=== PATIENT | female | born 1955 | race Caucasian/White ===

== ENCOUNTER → 2017-09-11 | Outpatient (CLI) | payer MEDICARE ==
--- NOTE | 2017-09-11 10:19 | CT ---
EXAMINATION TYPE: CT abdomen pelvis w con DATE OF EXAM: 09/11/2017 COMPARISON: 11/23/2012 HISTORY: rectal bleeding and diarrhea CT DLP: 1971.4 mGycm CONTRAST: CT scan of the abdomen and pelvis is performed with Oral Contrast and with IV Contrast, patient injec indio with 100 mL of Omnipaque 300. FINDINGS: LUNG BASES-: No visible nodule. No infiltrate. LIVER/GB: Hepatic steatosis. Cholecystectomy changes. Hepatic cyst left hepatic lobe lateral segment measuring 2.2 cm. No space occupying hepatic lesion. Biliary tree is of normal caliber. PANCREAS: No inflammation. No distinct mass. SPLEEN: No splenic enlargement. No lesion seen. ADRENALS: No nodule. No thickening. KIDNEYS/BLADDER: No hydronephrosis. 2 nonobstructing calculi left kidney. No distinct renal mass. U rinary bladder grossly unremarkable. BOWEL: Normal appendix. Normal bowel caliber. No inflammation. GENITAL ORGANS: No gross abnormality. LYMPH NODES: No greater than 1cm abdominal or pelvic lymph nodes are appreciated. AORTA: No significant abnormality. OSSEOUS STRUCTURES: No significant abnormality is seen. OTHER: No significant additional abnormality is seen. IMPRESSION: 1. Hepatic steatosis. 2. Nonobstructing calculi left kidney. 3. Hepatic cyst.
--- NOTE | 2017-09-11 11:11 | USB ---
Reason for exam: clinical finding. History: Family history of breast cancer in mother at age 58. Lumpectomy of the right breast, 1997. Chemotherapy, 1997. Radiation therapy, 1998. Excisional biopsy of the left breast. 2 excisional biopsies of the right breast. US Breast RT Right breast ultrasound includes all four quadrants, the retroareolar region and axilla. Finding demonstrates a 3.9 x 4.0 x 2.2cm irregular, solid, hypoechoic lesion at infraclavicular position, abnormal lymph node. These results were verbally communicated with the patient and result sheet given to the patient on 09/11/17. ASSESSMENT: Suspicious, BI-RAD 4 RECOMMENDATION: Ultrasound core biopsy of the right breast. Called with mammographic findings and has scheduled an appointment for the patient for 09/11/17 at 1:30 with EM Mena. PRELIMINARY REPORT CALLED AND FAXED TO EM MENA ON 09/11/17.
== END | disposition home or self-care (01) ==
LOC: RADUSMAIN 08:54
PROVIDERS: ATTEND Physician Assistant
DX: N20.0 Calculus of kidney (principal); K76.0 Fatty (change of) liver, not elsewhere classified; K76.89 Other specified diseases of liver; R22.2 Localized swelling, mass and lump, trunk; Z88.1 Allergy status to other antibiotic agents; Z88.2 Allergy status to sulfonamides
CPT/HCPCS: 76641; 74177; Q9967

== ENCOUNTER 2017-09-23 07:39 | Day surgery (SDC) | payer MEDICARE ==
[2017-09-23 09:31] VITALS: RESP 16; TEMP 97.6
[2017-09-23] MEDS ORDERED: ALPRAZolam 0.5 MG TAB PO STA (09:37)
--- NOTE | 2017-09-23 12:54 | US ---
ULTRASOUND GUIDED CORE BIOPSY CHEST WALL MASS: CLINICAL HISTORY: Right chest wall mass FINDINGS: The procedure was explained to the patient. The risks, complications, benefits and alternatives were discussed and any questions were answered. Informed consent was obtained. Patient was placed supin e on the ultrasound table and prepped and draped in the usual sterile fashion. Utilizing a 18-gauge core biopsy needle to passes were made into the questioned mass. Patient was stable throughout the procedure. Pathology is pending. All elements of maximal barrier technique were utilized. IMPRESSION: 1. Successful ultrasound guided core biopsy of a right chest wall mass.
[2017-09-23 14:41] VITALS: BP 128/83; PULSE 75
--- NOTE | 2017-09-25 09:55 | MM ---
Reason for exam: additional evaluation requested from prior study. Last mammogram was performed 1 year ago. History: Patient has history of breast cancer at age 43. Family history of breast cancer in mother at age 58. Lumpectomy of the right breast, 1997. Chemotherapy, 1997. Radiation therapy, 1997. Excisional biopsy of the left breast. 2 excisional biopsies of the right breast. 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 MG 3D Diag Mammo W/Cad SCOTTY Bilateral CC and MLO view(s) were taken. XCCL view(s) were taken of the left breast. Prior study comparison: September 11, 2017, right breast US breast RT. September 24, 2016, mammogram. There are scattered fibroglandular densities. Post surgical and post therapy change right breast. Asymmetric density at the lumpectomy site maybe new from 2017. Spot views recommended. ASSESSMENT: Incomplete: need additional imaging evaluation, BI-RAD 0 RECOMMENDATION: Special view mammogram of the right breast. (spot MLO, XCCL, try at lateral) If lesion persists on supplemental views, image directed ultrasound is recommended. [facility] will attempt to contact patient to return for supplemental views and ultrasound if indicated.
== END 2017-09-23 11:10 | disposition home or self-care (01) ==
LOC: RADPROMAIN 07:39 → WWCWWP 11:10
PROVIDERS: ATTEND Surgery
DX: C77.1 Secondary and unspecified malignant neoplasm of intrathoracic lymph nodes (principal); Z85.3 Personal history of malignant neoplasm of breast
CPT/HCPCS: 88305; 88342; 88341; 77066; 76942; 38505; G0279

== ENCOUNTER → 2017-10-04 | Outpatient (CLI) | payer MEDICARE ==
--- NOTE | 2017-10-06 15:19 | PE ---
Nuclear medicine PET/CT HISTORY: Breast carcinoma, subsequent Patient received 13.8 mCi F-18 FDG intravenously in delayed scanning was performed from the skull bas e to the mid thighs. Localization and attenuation correction CT scan was performed. Correlation to prior CT abdomen pelvis 09/11/2017 FINDINGS: Neck and chest: There is adenopathy present in the subpectoral region, supraclavicular location on th e right with associated hypermetabolic uptake 5-8. SUV is 11-17 in subpectoral region. Right axillary region also shows a focal area of uptake, SUV is 4.6. No evident lung mass. No mediastinal adenopath y. Postop changes are noted to the right chest. Abdomen pelvis: No evident liver mass are retroperitoneal adenopathy. Patient is post cholecystectomy . No suspicious hypermetabolic uptake. Osseous structures: No evident mass. Facet arthropathy noted at the lower lumbar spine, there are deg enerative disc changes. No suspicious hypermetabolic uptake. IMPRESSION: Extensive adenopathy over the right chest, supraclavicular region, and axilla as describe dStephy
== END | disposition home or self-care (01) ==
LOC: RADPETMAIN 09:55
PROVIDERS: ATTEND Internal Medicine Hematology & Oncology
DX: C50.919 Malignant neoplasm of unspecified site of unspecified female breast (principal); R59.0 Localized enlarged lymph nodes
CPT/HCPCS: 78815; A9552

== ENCOUNTER → 2017-12-18 | Outpatient (CLI) | payer MEDICARE ==
--- NOTE | 2017-12-18 15:52 | CT ---
EXAMINATION TYPE: CT chest w con DATE OF EXAM: 12/18/2017 COMPARISON: March 02, 1714 HISTORY: Follow up breast cancer CT DLP: 775.1 mGycm Automated exposure control for dose reduction was used. CONTRAST: CT scan of the chest is performed with IV Contrast, patient injected with 100 mL of Isovue 300. FINDINGS: LUNGS: The lungs are grossly clear, there is no concerning parenchymal mass or nodule identified. T here is no pleural effusion or pneumothorax seen. The tracheobronchial tree is patent. MEDIASTINUM: There are no greater than 1 cm hilar or mediastinal lymph nodes. No pericardial effusi on is seen. Thoracic aorta is of normal caliber. The heart is not enlarged. UPPER ABDOMEN: Cholecystectomy clips. Nonobstructing left renal calculus. OTHER: There is lobulated the retropectoral mass on the right measuring 3.1 x 3.2 cm as well as musa tional mass anterior chest wall involving the pectoralis major and minor musculature measuring 2.1 cm there is associated muscular edema. No additional soft tissue masses are identified within the field -of-view at this time. Right-sided lumpectomy changes evident. Right axillary clips noted. No evidenc e for axillary adenopathy. IMPRESSION: 1. Right-sided chest wall masses noted to involve the right-sided pectoralis musculature as noted. M etastatic disease or recurrent disease is not excluded.
== END | disposition home or self-care (01) ==
LOC: RADCTMAIN 14:09
PROVIDERS: ATTEND Internal Medicine Hematology & Oncology
DX: C50.111 Malignant neoplasm of central portion of right female breast (principal); R59.0 Localized enlarged lymph nodes; Z91.013 Allergy to seafood
CPT/HCPCS: 82565; 84520; 71260; 36415; Q9967

== ENCOUNTER → 2018-02-07 | Outpatient (CLI) | payer MEDICARE ==
--- NOTE | 2018-02-09 08:56 | PE ---
EXAMINATION TYPE: PET CT fusion skull to thigh DATE OF EXAM: 02/07/2018 COMPARISON: PET/CT dated 10/04/2017 HISTORY: Breast cancer. Follow-up exam. Surveillance. Subsequent treatment strategy/treatment monitor ing. Right breast cancer treated with radiation therapy in 2018. Patient describes last chemotherapy session in 1977. TECHNIQUE: Following the intravenous administration of 12.24 mCi of F-18 FDG, whole body images are performed from the skull base to the midthigh. Images are reviewed on the computer in the coronal, a xial, and sagittal planes. Reconstructed rotating images are created on independent workstation and reviewed on the computer. A localization and attenuation correction CT is performed in conjunction with the PET scan. SCAN: Second, subsequent treatment strategy FINDINGS: Mediastinal background: 2.88 Abdominal background: 4.23. SKULL BASE/NECK/CHEST WALL: There is redemonstration of right supraclavicular adenopathy with a maxi mum SUV of 2.49, hypermetabolic as compared to mediastinal background. The largest lymph node is seen in series 2 image 64 measuring 8 mm in short axis. However there is decrease in avidity with the kristen or hypermetabolic uptake ranging from 5-8 on the exam of 12/02/2017. Subpectoral upper metabolic uptake on the prior exam ranged from 11 through 17 and involvement of the chest wall now ranges from 3.6-4.66, also markedly decreased. There is asymmetric enlargement of the right chest wall musculature with more oval subpectoral mass, possibly adenopathy measuring approxim ately 1.9 cm in short axis on series 2 image 76. Metabolic uptake is seen medial to the right humerus with a maximum SUV of 4.43, possibly an addition al site of intramuscular involvement or more likely muscular usage during the examination. Additional ly there is focal uptake near the infraspinatus and posterior right lateral chest wall with a maximum SUV of 3.5 without discrete lesion. Within the resection site from the prior right breast cancer along the chest wall there is a maximum SUV of 2.34, below mediastinal background. New uptake is seen within the left supraspinatus and infraspinatus measuring up to 4.35. This could b e related to muscular strain/sprain or tear. No corresponding CT lesion is seen. Additionally bilater al pelvic muscular uptake measuring up to 4.76 likely relates to muscular usage during the examinatio n or strain rather than metastasis. LUNGS, MEDIASTINUM, AND HILAR REGION: There is a focal consolidation within the right upper lobe that has a maximum SUV of 2.63, similar to mediastinal background. This is new from the prior exam and ma y represent focal inflammatory or infectious etiology. Delayed radiation response is considered also possible. ABDOMEN AND PELVIS: No suspicious metabolic uptake OSSEOUS STRUCTURES: There is focal radiotracer uptake with a maximum SUV of 3.5 to at the superior en dplate of the T10 vertebral body without corresponding CT lesion and degenerative changes at this lev el. This could be degenerative in nature. This is below abdominal background. OTHER CT: Paranasal sinuses and mastoid air cells are well aerated. No new suspicious osseous lesion is seen. Multilevel moderate degenerative changes of the spine and mild degenerative changes of the s acroiliac joints and femoral acetabular joints are noted. As described above there is a focal consoli dation involving the right apex and upper lobe that elongates with air bronchograms extending towards the pleural surface and hilum. This could be infectious/inflammatory or due to postradiation change with neoplasm considered less likely. Other words there is multifocal subsegmental atelectasis within the lungs. No cardiac enlargement, pericardial effusion, or pleural effusion. The unenhanced intra-a bdominal organs are grossly unremarkable. Gallbladder is absent and there is a few nonobstructing lef t renal calculi measuring up to 6 mm. No dilated large or small bowel. No adenopathy within the abdom en or pelvis. There is ectasia of the left external iliac vein. This does not appear to be contiguous with a lymph node and has no hypermetabolic activity with a maximum SUV of 1.14. IMPRESSION: 1. Response to treatment. Although there is hypermetabolic activity that is redemonstrated multifocal ly within the right chest wall there is marked decrease in hypermetabolic activity of each site in co mparison to the prior 10/04/2017. There is also decrease in avidity of the right supraclavicular adeno montse. 2. New focal consolidation within the right upper lobe that may represent inflammatory/infectious monalisa ology or post radiation change with similar FDG avidity to mediastinal background. Short-term follow- up CT thorax is recommended in 3 months to ensure no interval growth. 3. New uptake within the left supraspinatus and infraspinatus likely relating to muscular injury rath er than contralateral intramuscular metastasis. 4. No infradiaphragmatic suspicious hypermetabolic activity to suggest metastatic disease.
== END | disposition home or self-care (01) ==
LOC: RADPETMAIN 08:25
PROVIDERS: ATTEND Internal Medicine Hematology & Oncology
DX: C50.911 Malignant neoplasm of unspecified site of right female breast (principal); R59.0 Localized enlarged lymph nodes; R94.8 Abnormal results of function studies of other organs and systems
CPT/HCPCS: 78815; A9552

== ENCOUNTER → 2018-03-02 | Outpatient (CLI) | payer MEDICARE ==
--- NOTE | 2018-03-02 16:02 | XR ---
EXAMINATION TYPE: XR chest 2V DATE OF EXAM: 03/02/2018 COMPARISON: CT chest December 18, 2017. PET CT February 07, 2018. HISTORY: COPD and breast cancer. TECHNIQUE: Frontal and lateral views of the chest are obtained. FINDINGS: There is persistent spiculated opacity right upper lung consistent with atelectasis and/or infiltrate when correlating with recent PET/CT. Left lung is clear. The cardiac silhouette size is s table and upper limits of normal. The osseous structures are intact. Surgical changes from lumpecto my right breast are identified extending into axilla. IMPRESSION: Persistent right upper lobe infiltrate and/or atelectasis.
== END | disposition home or self-care (01) ==
LOC: RADXRMAIN 15:32
PROVIDERS: ATTEND Nurse Practitioner Adult Health
DX: C50.111 Malignant neoplasm of central portion of right female breast (principal); I10 Essential (primary) hypertension; J44.9 Chronic obstructive pulmonary disease, unspecified
CPT/HCPCS: 71046

== ENCOUNTER 2018-03-03 15:06 | Inpatient (IN) | payer MEDICARE ==
[2018-03-03] MEDS ORDERED: DEXAMETHASONE SOD PHOSPHATE 10 MG/ML 1 ML VIAL IV STA (15:21)
[2018-03-03] MEDS ORDERED: ALBUTEROL NEBULIZED 2.5 MG/3 ML INHALATION STA (15:21)
[2018-03-03] MEDS ORDERED: IPRATROPIUM 0.5 MG/2.5 ML NEBU INHALATION STA (15:21)
--- NOTE | 2018-03-03 15:25 | ED ---
General Adult HPI - General Chief complaint: Shortness of Breath Stated complaint: SOB Time Seen by Provider: 03/03/18 15:13 Source: patient, RN notes reviewed, old records reviewed Mode of arrival: wheelchair Limitations: no limitations - History of Present Illness Initial comments: 63-year-old female presenting for cough and dyspnea. Patient has had worsening cough and difficulty breathing over the past 4 days. She was seen by her oncologist and prescribed steroids and Levaquin. She had a right upper lobe pneumonia on x-ray which she received as an outpatient. Symptoms have failed to improve despite prednisone and Levaquin. She denies fever but states she has had some chills. Cough is productive of a small amount of white sputum. She also has some chest pain associated with her cough. No central radiating chest pain. No abdominal pain. No nausea or vomiting. Patient has history of breast cancer currently on oral treatment. She does follow with pulmonology for asthma and COPD. She has remote history of tobacco use. - Related Data Home Medications Medication Instructions Recorded Confirmed Albuterol Sulfate [Ventolin HFA] 2 puff INHALATION RT-Q4H PRN 11/23/13 03/03/18 Aspirin 81 mg PO DAILY 11/23/13 03/03/18 Cetirizine HCl [Zyrtec] 10 mg PO DAILY 11/23/13 03/03/18 Budesonide-Formot 160-4.5 Mcg 2 puff INHALATION RT-BID 09/15/14 03/03/18 [Symbicort 160-4.5 Mcg Inhaler] Omeprazole [PriLOSEC] 20 mg PO AC-BRKFST 01/20/15 03/03/18 Triamterene-Hctz 37.5-25Mg 1 tab PO DAILY 01/20/15 03/03/18 [Dyazide 37.5-25 Capsule] Losartan Potassium 50 mg PO DAILY 01/22/15 03/03/18 Albuterol Nebulized [Ventolin 2.5 mg INHALATION RT-Q6H 05/16/16 03/03/18 Nebulized] Calcium Carbonate/Vitamin D3 1 tab PO DAILY 03/03/18 03/03/18 [Calcium 500-Vit D3 200 Tablet] Letrozole [Femara] 2.5 mg PO DAILY 03/03/18 03/03/18 Palbociclib [Ibrance] 125 mg PO DIRECTED 03/03/18 03/03/18 predniSONE 10 mg PO DAILY PRN 03/03/18 03/03/18 Allergies Allergy/AdvReac Type Severity Reaction Status Date / Time shellfish derived [Shrimp] Allergy Mild Unknown Verified 03/03/18 15:44 Sulfa (Sulfonamide Allergy Rash/Hives Verified 03/03/18 15:44 Antibiotics) clarithromycin [From Biaxin] AdvReac Unknown Verified 03/03/18 15:44 Review of Systems ROS Statement: Those systems with pertinent positive or pertinent negative responses have been documented in the HPI. ROS Other: All systems not noted in ROS Statement are negative. Past Medical History Past Medical History: Asthma, Cancer, COPD, Deep Vein Thrombosis (DVT), GERD/ Reflux, Hypertension, Myocardial Infarction ([place]) Additional Past Medical History / Comment(s): BREAST CANCER, PALPITAIONS, KIDNEY STONES, MIGRANES, SHINGLES 2O YEARS AGO, PVD, Last Myocardial Infarction Date:: 2008 History of Any Multi-Drug Resistant Organisms: None Reported Past Surgical History: Appendectomy, Section, Cholecystectomy, Hysterectomy Additional Past Surgical History / Comment(s): Laparoscopy, Lumpectomy with lymph node resection in 1997 ON RIGHT BREAST DID RADIATION AND CHEMO, STILL HAS METAL CLIPS IN SCOTTY BREASTS FROM WHEN THEY DID MAMORGAMS AND BIOPSIES. Past Anesthesia/Blood Transfusion Reactions: No Reported Reaction Additional Past Anesthesia/Blood Transfusion Reaction / Comment(s): CLAUSTRAPHOBIA Past Psychological History: No Psychological Hx Reported Smoking Status: Former smoker Past Alcohol Use History: Occasional Past Drug Use History: None Reported - Past Family History Father Family Medical History: Hypertension Additional Family Medical History / Comment(s): DIVERTICULITIS, IN HIS SLEEP AT AGE 81 Mother Family Medical History: Cancer, Hypertension Additional Family Medical History / Comment(s): BREAST CANCER General Exam Limitations: no limitations General appearance: alert, in no apparent distress Head exam: Present: atraumatic, normocephalic Eye exam: Present: normal appearance, PERRL, EOMI ENT exam: Present: normal exam Neck exam: Present: normal inspection. Absent: tenderness, meningismus Respiratory exam: Present: respiratory distress, wheezes, decreased breath sounds Cardiovascular Exam: Present: normal rhythm, tachycardia GI/Abdominal exam: Present: soft. Absent: distended, tenderness Extremities exam: Present: pedal edema (B/L) Back exam: Present: normal inspection Neurological exam: Present: alert, oriented X3, CN II-XII intact. Absent: motor sensory deficit Psychiatric exam: Present: normal affect, normal mood Skin exam: Present: warm, dry, intact. Absent: cyanosis, diaphoretic Course Vital Signs 03/03/18 03/03/18 03/03/18 15:09 15:34 15:35 Temperature 98.2 F Pulse Rate 106 H 86 Respiratory 24 24 18 Rate Blood Pressure 139/56 O2 Sat by Pulse 98 Oximetry 03/03/18 03/03/18 15:57 16:10 Temperature Pulse Rate 88 100 Respiratory 18 22 Rate Blood Pressure 111/58 O2 Sat by Pulse 96 Oximetry EKG Findings - EKG Comments: EKG Findings:: EKG: Normal sinus rhythm, rate of 93, MI interval 152, QRS duration 86, QTC 447, no ST segment elevation or depression. Medical Decision Making - Medical Decision Making 63-year-old female presenting with worsening cough and dyspnea. Patient has been on antibiotics as an outpatient. She's been on steroids with no improvement. Symptoms have been worsening. Repeat chest x-rays obtained, this does show a right upper lobe pneumonia and possible basilar pneumonia on the left. Patient is started on IV antibiotics and will be admitted for treatment of both COPD and pneumonia. Laboratory studies reveal normal white blood cell count, stable hemoglobin, lactic acid is mildly elevated at 2.4 which is treated with IV hydration. Troponin and BNP are negative. Case discussed with Dr. Youngblood who will accept admission. - Lab Data Result diagrams: 03/03/18 15:25 03/03/18 15:25 Lab Results 03/03/18 03/03/18 03/03/18 Range/Units 15:25 15:25 15:25 WBC 4.2 (3.8-10.6) k/uL RBC 3.97 (3.80-5.40) m/uL Hgb 13.1 (11.4-16.0) gm/dL Hct 38.4 (34.0-46.0) % MCV 96.8 (80.0-100.0) fL MCH 32.9 (25.0-35.0) pg MCHC 34.0 (31.0-37.0) g/dL RDW 16.7 H (11.5-15.5) % Plt Count 220 (150-450) k/uL Neutrophils % 77 % Lymphocytes % 16 % Monocytes % 5 % Eosinophils % 1 % Basophils % 0 % Neutrophils # 3.2 (1.3-7.7) k/uL Lymphocytes # 0.7 L (1.0-4.8) k/uL Monocytes # 0.2 (0-1.0) k/uL Eosinophils # 0.0 (0-0.7) k/uL Basophils # 0.0 (0-0.2) k/uL Anisocytosis Slight Macrocytosis Slight PT (9.0-12.0) sec INR (<1.2) APTT (22.0-30.0) sec Sodium 140 (137-145) mmol/L Potassium 4.2 (3.5-5.1) mmol/L Chloride 106 (98-107) mmol/L Carbon Dioxide 21 L (22-30) mmol/L Anion Gap 13 mmol/L BUN 23 H (7-17) mg/dL Creatinine 0.80 (0.52-1.04) mg/dL Est GFR (CKD-EPI)AfAm >90 (>60 ml/min/1.73 sqM) Est GFR (CKD-EPI)NonAf 80 (>60 ml/min/1.73 sqM) Glucose 76 (74-99) mg/dL Plasma Lactic Acid Brayan (0.7-2.0) mmol/L Calcium 9.7 (8.4-10.2) mg/dL Magnesium 1.9 (1.6-2.3) mg/dL Total Bilirubin 1.0 (0.2-1.3) mg/dL AST 22 (14-36) U/L ALT 25 (9-52) U/L Alkaline Phosphatase 73 (38-126) U/L Total Creatine Kinase 55 (30-135) U/L CK-MB (CK-2) 0.6 (0.0-2.4) ng/mL CK-MB (CK-2) Rel Index 1.1 Troponin I <0.012 (0.000-0.034) ng/mL NT-Pro-B Natriuret Pep pg/mL Total Protein 7.6 (6.3-8.2) g/dL Albumin 4.7 (3.5-5.0) g/dL 03/03/18 03/03/18 03/03/18 Range/Units 15:25 15:25 15:25 WBC (3.8-10.6) k/uL RBC (3.80-5.40) m/uL Hgb (11.4-16.0) gm/dL Hct (34.0-46.0) % MCV (80.0-100.0) fL MCH (25.0-35.0) pg MCHC (31.0-37.0) g/dL RDW (11.5-15.5) % Plt Count (150-450) k/uL Neutrophils % % Lymphocytes % % Monocytes % % Eosinophils % % Basophils % % Neutrophils # (1.3-7.7) k/uL Lymphocytes # (1.0-4.8) k/uL Monocytes # (0-1.0) k/uL Eosinophils # (0-0.7) k/uL Basophils # (0-0.2) k/uL Anisocytosis Macrocytosis PT 10.1 (9.0-12.0) sec INR 1.0 (<1.2) APTT 22.5 (22.0-30.0) sec Sodium (137-145) mmol/L Potassium (3.5-5.1) mmol/L Chloride (98-107) mmol/L Carbon Dioxide (22-30) mmol/L Anion Gap mmol/L BUN (7-17) mg/dL Creatinine (0.52-1.04) mg/dL Est GFR (CKD-EPI)AfAm (>60 ml/min/1.73 sqM) Est GFR (CKD-EPI)NonAf (>60 ml/min/1.73 sqM) Glucose (74-99) mg/dL Plasma Lactic Acid Brayan 2.4 H* (0.7-2.0) mmol/L Calcium (8.4-10.2) mg/dL Magnesium (1.6-2.3) mg/dL Total Bilirubin (0.2-1.3) mg/dL AST (14-36) U/L ALT (9-52) U/L Alkaline Phosphatase (38-126) U/L Total Creatine Kinase (30-135) U/L CK-MB (CK-2) (0.0-2.4) ng/mL CK-MB (CK-2) Rel Index Troponin I (0.000-0.034) ng/mL NT-Pro-B Natriuret Pep 212 pg/mL Total Protein (6.3-8.2) g/dL Albumin (3.5-5.0) g/dL Disposition Clinical Impression: Acute exacerbation of chronic obstructive airways disease, Community acquired pneumonia Disposition: ADMITTED IP TO THIS [facility] Condition: Stable Is patient prescribed a controlled substance at d/c from ED?: No Referrals: None,Stated [REFERRING] - 1-2 days Decision to Admit Reason: Admit from EC Decision Date: 03/03/18 Decision Time: 16:54
[2018-03-03 15:50] LABS: Partial Thromboplastin Time 22.5 sec (22.0-30.0); Prothrombin Time 10.1 sec (9.0-12.0)
[2018-03-03 15:53] LABS: Anisocytosis Slight; Basophils % (A) 0 %; Eosinophils % (A) 1 %; HCT 38.4 % (34.0-46.0); HGB 13.1 gm/dL (11.4-16.0); Lymphocytes # (A) 0.7 k/uL (1.0-4.8); Lymphocytes % (A) 16 %; MCH 32.9 pg (25.0-35.0); MCV 96.8 fL (80.0-100.0); Macrocytosis Slight; Mean Platelet Volume 7.1; Monocytes # (A) 0.2 k/uL (0-1.0); Monocytes % (A) 5 %; Neutrophils # (A) 3.2 k/uL (1.3-7.7); Neutrophils % (A) 77 %; Platelet Count 220 k/uL (150-450); RBC 3.97 m/uL (3.80-5.40); RDW 16.7 % (11.5-15.5); WBC 4.2 k/uL (3.8-10.6)
[2018-03-03 15:56] LABS: ALT 25 U/L (9-52); AST 22 U/L (14-36); Albumin 4.7 g/dL (3.5-5.0); Alkaline Phosphatase 73 U/L (38-126); Anion Gap 13 mmol/L; Blood Urea Nitrogen 23 mg/dL (7-17); Calcium 9.7 mg/dL (8.4-10.2); Carbon Dioxide 21 mmol/L (22-30); Chloride 106 mmol/L (98-107); Glucose 76 mg/dL (74-99); Magnesium 1.9 mg/dL (1.6-2.3); Potassium 4.2 mmol/L (3.5-5.1); Sodium 140 mmol/L (137-145); Total Protein 7.6 g/dL (6.3-8.2)
[2018-03-03 16:16] LABS: Creatine Kinase 55 U/L (30-135)
[2018-03-03] MEDS ORDERED: SODIUM CHLORIDE 0.9% 500 ML IV ONE (16:18)
[2018-03-03] MEDS ORDERED: LEVOFLOXACIN 500MG-D5W PMX 500 MG in DEXTROSE/WATER 1 100ML.BAG IVPB STA (16:19)
[2018-03-03] MEDS ORDERED: VANCOMYCIN IV PER PHARMACY 1 EACH MISC MISCELLANE PRN (16:19)
--- NOTE | 2018-03-03 16:24 | XR ---
EXAMINATION TYPE: XR chest 2V DATE OF EXAM: 03/03/2018 COMPARISON: Chest CT 08/20/2017. PET CT February 07, 2018. Two-view chest x-ray from yesterday. HISTORY: Recent diagnosis of pneumonia with shortness of breath for 4 days. TECHNIQUE: Frontal and lateral views of the chest are obtained. FINDINGS: There is persistent patchy right upper lobe opacity. There is developing left basilar opac ity. No pleural effusion or pneumothorax is seen bilaterally. The cardiac silhouette size is stable a nd within normal limits. Surgical clips right axillary region are seen. Cholecystectomy clips are no indio. The osseous structures are intact. IMPRESSION: Persistent suspicious right upper lobe infiltrate and/or atelectasis with developing patc hy left basilar atelectasis and/or infiltrate noted.
[2018-03-03 16:29] LABS: Creatine Kinase MB 0.6 ng/mL (0.0-2.4); Troponin I <0.012 ng/mL (0.000-0.034)
[2018-03-03] MEDS: SODIUM CHLORIDE 0.9% 1,000 ML IV SCH (16:31)
[2018-03-03] MEDS ORDERED: VANCOMYCIN 2,500 MG in SODIUM CHLORIDE 0.9% 500 ML IVPB ONE (16:45)
[2018-03-03] MEDS ORDERED: IPRATROPIUM-ALBUTEROL 3 ML NEB INHALATION PRN (16:54)
[2018-03-03] MEDS: IPRATROPIUM-ALBUTEROL 3 ML NEB INHALATION SCH (19:22)
[2018-03-03] MEDS: SYMBICORT 160-4.5 MCG INHALER INHALATION SCH (19:32)
[2018-03-03] MEDS: LETROZOLE 2.5 MG TAB PO SCH (19:39)
[2018-03-03] MEDS: methylPREDNISolone SOD SUCCI 125 MG/2 ML VIAL IV SCH (19:40)
[2018-03-03 21:43] LABS: Glucose,Whole Blood 163 mg/dL (75-99)
[2018-03-03] MEDS: INSULIN ASPART 100 UNIT/ML 1 ML 10 ML VIAL SQ SCH (22:38)
[2018-03-04] MEDS: methylPREDNISolone SOD SUCCI 125 MG/2 ML VIAL IV SCH ×5 (01:21→23:09)
[2018-03-04] MEDS: SODIUM CHLORIDE 0.9% 1,000 ML IV SCH ×2 (06:23→17:18)
[2018-03-04] MEDS: VANCOMYCIN 2,000 MG in SODIUM CHLORIDE 0.9% 500 ML IVPB SCH ×2 (06:26→17:15)
[2018-03-04 06:43] LABS: Glucose,Whole Blood 162 mg/dL (75-99)
[2018-03-04] MEDS: SYMBICORT 160-4.5 MCG INHALER INHALATION SCH ×2 (07:38→20:42)
[2018-03-04] MEDS: IPRATROPIUM-ALBUTEROL 3 ML NEB INHALATION SCH ×4 (07:38→20:42)
[2018-03-04] MEDS: CALCIUM CARB-VIT D 500MG-200UN 1 EACH TAB PO SCH (07:39)
[2018-03-04] MEDS: PANTOPRAZOLE 40 MG TABLET PO SCH (07:39)
[2018-03-04] MEDS: LOSARTAN 50 MG TAB PO SCH (07:40)
[2018-03-04] MEDS: LORATADINE 10 MG TAB PO SCH (07:40)
[2018-03-04] MEDS: ASPIRIN 81 MG PO SCH (07:40)
[2018-03-04] MEDS: TRIAMTERENE-HCTZ 37.5-25MG 1 EACH CAP PO SCH (07:40)
[2018-03-04] MEDS: LETROZOLE 2.5 MG TAB PO SCH (07:40)
[2018-03-04] MEDS: INSULIN ASPART 100 UNIT/ML 1 ML 10 ML VIAL SQ SCH ×4 (07:43→21:23)
--- NOTE | 2018-03-04 11:44 | P.HPIM ---
History of Present Illness 63-year-old female is being treated for breast cancer with metastatic cancer on chemotherapy. Patient developed community acquired pneumonia. Has history of COPD and asthma. Patient is failed outpatient treatment Review of Systems Constitutional: Reports fever Respiratory: Reports cough, Reports cough with sputum Past Medical History Past Medical History: Asthma, Cancer, COPD, Deep Vein Thrombosis (DVT), GERD/ Reflux, Hypertension, Myocardial Infarction (VT) Additional Past Medical History / Comment(s): RT BREAST CANCER 1997 HAD SX/CHEMO /RADIATION AND IN SEPTEMBER 2017 REOCCURANCE RT BREAST CANCER HAD 10 RADIATION TXS AND IS ON ORAL CHEMO(IBRANCE AND FEMARA), PALPITAIONS, KIDNEY STONES,UTI-ECOLI , MIGRANES, SHINGLES 2O YEARS AGO, PVD, Last Myocardial Infarction Date:: 2008 History of Any Multi-Drug Resistant Organisms: None Reported Past Surgical History: Appendectomy, Section, Cholecystectomy, Hysterectomy Additional Past Surgical History / Comment(s): Laparoscopy, 1997RT BREAST BX/ Lumpectomy with lymph node resection in 1997 ON RIGHT BREAST DID RADIATION AND CHEMO, STILL HAS METAL CLIPS IN SCOTTY BREASTS FROM WHEN THEY DID MAMORGAMS AND BIOPSIES. 09/2017 HAD "REOCCURANCE OF RT BREAST CANCER THEY REMOVED THE REMAINING LYMPH NODES RT AXILLA/ / NECK AND IS ON ORL CHEMO" . PT STATED "HAD PARTIAL HYSTERECTOMY STILL HAD 1 OVARY BUT THE CHEMO TX DESTROYED IT" Past Anesthesia/Blood Transfusion Reactions: No Reported Reaction Additional Past Anesthesia/Blood Transfusion Reaction / Comment(s): CLAUSTRAPHOBIA Smoking Status: Former smoker - Past Family History Father Family Medical History: Hypertension Additional Family Medical History / Comment(s): DIVERTICULITIS, IN HIS SLEEP AT AGE 81 Mother Family Medical History: Cancer, Hypertension Additional Family Medical History / Comment(s): BREAST CANCER Medications and Allergies Home Medications Medication Instructions Recorded Confirmed Type Albuterol Sulfate [Ventolin HFA] 2 puff INHALATION RT-Q4H PRN 11/23/13 03/03/18 History Aspirin 81 mg PO DAILY 11/23/13 03/03/18 History Cetirizine HCl [Zyrtec] 10 mg PO DAILY 11/23/13 03/03/18 History Budesonide-Formot 160-4.5 Mcg 2 puff INHALATION RT-BID 09/15/14 03/03/18 History [Symbicort 160-4.5 Mcg Inhaler] Omeprazole [PriLOSEC] 20 mg PO AC-BRKFST 01/20/15 03/03/18 History Triamterene-Hctz 37.5-25Mg 1 tab PO DAILY 01/20/15 03/03/18 History [Dyazide 37.5-25 Capsule] Losartan Potassium 50 mg PO DAILY 01/22/15 03/03/18 History Albuterol Nebulized [Ventolin 2.5 mg INHALATION RT-Q6H 05/16/16 03/03/18 History Nebulized] Calcium Carbonate/Vitamin D3 1 tab PO DAILY 03/03/18 03/03/18 History [Calcium 500-Vit D3 200 Tablet] Letrozole [Femara] 2.5 mg PO DAILY 03/03/18 03/03/18 History Palbociclib [Ibrance] 125 mg PO DIRECTED 03/03/18 03/03/18 History predniSONE 10 mg PO DAILY PRN 03/03/18 03/03/18 History Allergies Allergy/AdvReac Type Severity Reaction Status Date / Time shellfish derived [Shrimp] Allergy Mild Unknown Verified 03/03/18 15:44 Sulfa (Sulfonamide Allergy Rash/Hives Verified 03/03/18 15:44 Antibiotics) clarithromycin [From Biaxin] AdvReac Unknown Verified 03/03/18 15:44 Physical Exam Vitals: Vital Signs Temp Pulse Pulse Resp BP BP Pulse Ox 03/04/18 07:58 92 03/04/18 07:39 88 03/04/18 06:16 97.7 F 79 18 130/64 95 03/04/18 01:42 88 03/04/18 01:35 88 03/03/18 23:37 20 03/03/18 21:30 97.4 F L 86 18 121/65 99 03/03/18 19:40 20 03/03/18 19:35 90 03/03/18 19:23 86 18 03/03/18 17:56 99 F 91 20 144/87 98 03/03/18 17:43 96 28 H 144/87 98 03/03/18 16:10 100 22 111/58 96 03/03/18 15:57 88 18 03/03/18 15:35 86 18 03/03/18 15:34 24 03/03/18 15:09 98.2 F 106 H 24 139/56 98 Intake and Output 03/03/18 03/04/18 03/04/18 22:59 06:59 14:59 Intake Total 1100 600 Balance 1100 600 Intake: Intake, IV Titration 1100 600 Amount Sodium Chloride 0.9% 1, 600 600 000 ml @ 75 mls/hr IV . [id number] [facility] Rx#:[id number] Vancomycin 2,000 mg In 500 Sodium Chloride 0.9% 500 ml @ 167 mls/hr IVPB Q12H [facility] Rx#:[id number] Other: Voiding Method Toilet # Voids 2 2 Weight 114.305 kg - Constitutional General appearance: mild distress - EENT Eyes: PERRLA Ears: bilateral: normal - Neck Neck: normal ROM - Respiratory Respiratory: right: diminished, left: CTA - Cardiovascular Rhythm: regular - Gastrointestinal General gastrointestinal: soft - Integumentary Integumentary: flushed - Neurologic Neurologic: CNII-XII intact - Musculoskeletal Musculoskeletal: generalized weakness - Psychiatric Psychiatric: A&O x's 3, appropriate affect, intact judgment & insight Results CBC & Chem 7: 03/03/18 15:25 03/03/18 15:25 Labs: Abnormal Lab Results - Last 24 Hours (Table) 03/03/18 03/03/18 03/03/18 Range/Units 15:25 15:25 15:25 RDW 16.7 H (11.5-15.5) % Lymphocytes # 0.7 L (1.0-4.8) k/uL Carbon Dioxide 21 L (22-30) mmol/L BUN 23 H (7-17) mg/dL POC Glucose (mg/dL) (75-99) mg/dL Plasma Lactic Acid Brayan 2.4 H* (0.7-2.0) mmol/L 03/03/18 03/03/18 03/04/18 Range/Units 19:58 21:42 06:40 RDW (11.5-15.5) % Lymphocytes # (1.0-4.8) k/uL Carbon Dioxide (22-30) mmol/L BUN (7-17) mg/dL POC Glucose (mg/dL) 163 H 162 H (75-99) mg/dL Plasma Lactic Acid Brayan 2.9 H* (0.7-2.0) mmol/L Chest x-ray: report reviewed Thrombosis Risk Factor Assmnt - Choose All That Apply Any of the Below Risk Factors Present?: Yes Each Factor Represents 1 point: Abnormal pulmonary function (COPD), Obesity ( BMI >25) Other Risk Factors: Yes Each Risk Factor Represents 2 Points: Age 61-74 years Thrombosis Risk Factor Assessment Total Risk Factor Score: 4 Thrombosis Risk Factor Assessment Level: Moderate Risk Assessment and Plan Plan: Assessment 3 acquired pneumonia Breast cancer with metastatic disease on chemotherapy Exacerbation of COPD history of asthma History of DVT History of GERD History of hypertension Coronary disease with VT Plan Consultation with Dr. Suzie doherty and Dr. Woo Patient on Vanco Levaquin bronchodilators and steroids
--- NOTE | 2018-03-04 16:23 | P.CNPUL ---
History of Present Illness Consult date: 03/04/18 Reason for consult: dyspnea, pneumonia History of present illness: 61-year-old female patient was hospitalized for increased shortness of breath. We were involved in the case as the patient has history of chronic bronchial asthma and she has a new patch in the right upper lobe which is suggestive an underlying pneumonia. The patient was Hospital as for a diagnosis of a right upper lobe pneumonia and she was started on vancomycin and she was placed also on DuoNeb neb treatments around the clock and IV Solu Medrol and the pulmonary consultation was requested. This patient follows up in our office for mild intermittent bronchial asthma. She also has various other medical problems including metastatic breast cancer, obstructive sleep apnea, previous history of DVT, coronary artery disease, and hypertension. In terms of her breast cancer history, the patient was diagnosed having breast cancer back in 1997 and she underwent lumpectomy followed by lymph node dissection and radiation therapy. She did extremely well and she was in remission for almost 19 years. Her disease recurred recently as the patient was found to have a chest wall mass and further investigation shoulder recurrent breast cancer which is established metastatic at this stage. The patient was found to have an axillary lymph node and the right chest wall mass that was successfully biopsied by a core needle biopsy intervention radiology and the diagnosis was established to be an estrogen receptor positive and progesterone receptor negative breast adenocarcinoma. Based on all this, the patient followed up with oncology and she was started on some Femara and Ibrance and furthermore she was seen by radiation oncology and she was seen by Dr. Bruce Cat and the patient received localized radiation therapy to her chest wall for palliative reasons as a chest wall mass was causing pain and arm mobility difficulties. The radiation was completed in early December 2017. A subsequent CAT scan of the chest was done on 12/18/2017 showed no evidence of any pneumonias or pulmonary lesions. There was a lobulated lesion in the lateral pectoral muscle and this mass was measuring 3.1 x 3.2 cm in size in addition to a mass anterior chest wall measuring 2.1 cm in size as it with some muscular edema. There was signs of right lumpectomy from previous surgery. Right axillary clips are also noted. No evidence of any axillary lymphadenopathy. Subsequently him a the patient had a PET scan that was done on 02/08/2018 that showed response to treatment. The patient showed hypermetabolic activity within the right chest area that was markedly decreased in comparison to the previous PET scan that was done on 10/04/2017. There was a new focal consolidation within the right upper lobe with similar FDG activity to the mediastinal background. This was considered to be a pneumonia Specially the patient. No treatment was offered. Approximately 2 days ago the patient was getting more short of breath. No significant sputum production. No fever or chills. No pleurisy or hemoptysis. She was started on Levaquin outpatient basis by her physicians, however she end up in the hospital for the same problem of increased shortness of breath and she was given diagnosis of pneumonia. Her last antibiotic course was in December 2017 where the patient was given Levaquin and prednisone burst taper during a brief hospitalization at [facility]. Noted the patient currently has no fever. No leukocytosis. He did demonstrate a mild lactic acidosis with a lactic acid level of 2.4 and subsequent level was at 2.9. Review of Systems Constitutional: Denies weight loss, denies fatigue, no night sweats, no fever, no chills. Cardiovascular: Denies palpitations, denied chest pain or chest pressure, denies any edema. Pulmonary: Occasional cough and some increased wheezing and shortness of breath , no fever no chills no hemoptysis and no chest pain. GI: Denies nausea vomiting abdominal pain diarrhea or constipation. Genitourinary: Denies dysuria, frequency, or urgency. Neurologic: Denies weakness, confusion, dizziness, or numbness. Musculoskeletal: Denies weakness arthralgia or myalgia Skin: Denies any skin lesions or rashes. Endocrine: No polydipsia, no polyuria, no heat or cold sensitivity. Hematologic: Patient is following up with the oncologist regarding recurrent breast cancer, was initially diagnosed and treated over 20 years ago. Psychiatric: No symptoms of active depression. Past Medical History Past Medical History: Asthma, Cancer, COPD, Deep Vein Thrombosis (DVT), GERD/ Reflux, Hypertension, Myocardial Infarction ([place]) Additional Past Medical History / Comment(s): Metastatic breast cancer, details discussed above. Urgent diagnosis was 1997 treated by lumpectomy radiation therapy and chemotherapy and subsequent recurrence in September 2017 and the patient developed chest wall recurrence, supraclavicular lymph node involvement and axillary lymph node involvement. The patient is currently on Femara and Ibrance, bronchial asthma, obstructive sleep apnea, chronic ALLERGIC rhinitis, hypertension, coronary artery disease, acid reflux, previous history of DVT, history of nephrolithiasis, previous history of E. coli in January 2018, migraines , shingles more than 20 years ago, PVD Last Myocardial Infarction Date:: 2008 History of Any Multi-Drug Resistant Organisms: None Reported Past Surgical History: Appendectomy, Section, Cholecystectomy, Hysterectomy Additional Past Surgical History / Comment(s): Laparoscopy, 1997RT BREAST BX/ Lumpectomy with lymph node resection in 1997 ON RIGHT BREAST DID RADIATION AND CHEMO, STILL HAS METAL CLIPS IN SCOTTY BREASTS FROM WHEN THEY DID MAMORGAMS AND BIOPSIES. 09/2017 HAD "REOCCURANCE OF RT BREAST CANCER THEY REMOVED THE REMAINING LYMPH NODES RT AXILLA/ / NECK AND IS ON ORL CHEMO" . PT STATED "HAD PARTIAL HYSTERECTOMY STILL HAD 1 OVARY BUT THE CHEMO TX DESTROYED IT" Past Anesthesia/Blood Transfusion Reactions: No Reported Reaction Additional Past Anesthesia/Blood Transfusion Reaction / Comment(s): CLAUSTRAPHOBIA Smoking Status: Former smoker - Past Family History Father Family Medical History: Hypertension Additional Family Medical History / Comment(s): DIVERTICULITIS, IN HIS SLEEP AT AGE 81 Mother Family Medical History: Cancer, Hypertension Additional Family Medical History / Comment(s): BREAST CANCER Medications and Allergies Home Medications Medication Instructions Recorded Confirmed Type Albuterol Sulfate [Ventolin HFA] 2 puff INHALATION RT-Q4H PRN 11/23/13 03/03/18 History Aspirin 81 mg PO DAILY 11/23/13 03/03/18 History Cetirizine HCl [Zyrtec] 10 mg PO DAILY 11/23/13 03/03/18 History Budesonide-Formot 160-4.5 Mcg 2 puff INHALATION RT-BID 09/15/14 03/03/18 History [Symbicort 160-4.5 Mcg Inhaler] Omeprazole [PriLOSEC] 20 mg PO AC-BRKFST 01/20/15 03/03/18 History Triamterene-Hctz 37.5-25Mg 1 tab PO DAILY 01/20/15 03/03/18 History [Dyazide 37.5-25 Capsule] Losartan Potassium 50 mg PO DAILY 01/22/15 03/03/18 History Albuterol Nebulized [Ventolin 2.5 mg INHALATION RT-Q6H 05/16/16 03/03/18 History Nebulized] Calcium Carbonate/Vitamin D3 1 tab PO DAILY 03/03/18 03/03/18 History [Calcium 500-Vit D3 200 Tablet] Letrozole [Femara] 2.5 mg PO DAILY 03/03/18 03/03/18 History Palbociclib [Ibrance] 125 mg PO DIRECTED 03/03/18 03/03/18 History predniSONE 10 mg PO DAILY PRN 03/03/18 03/03/18 History Allergies Allergy/AdvReac Type Severity Reaction Status Date / Time shellfish derived [Shrimp] Allergy Mild Unknown Verified 03/03/18 15:44 Sulfa (Sulfonamide Allergy Rash/Hives Verified 03/03/18 15:44 Antibiotics) clarithromycin [From Biaxin] AdvReac Unknown Verified 03/03/18 15:44 Physical Exam Vitals: Vital Signs Temp Pulse Pulse Resp BP BP Pulse Ox 03/04/18 13:06 98 F 94 20 169/94 96 03/04/18 12:00 92 03/04/18 11:42 92 03/04/18 07:58 92 03/04/18 07:39 88 03/04/18 06:16 97.7 F 79 18 130/64 95 03/04/18 01:42 88 03/04/18 01:35 88 03/03/18 23:37 20 03/03/18 21:30 97.4 F L 86 18 121/65 99 03/03/18 19:40 20 03/03/18 19:35 90 03/03/18 19:23 86 18 03/03/18 17:56 99 F 91 20 144/87 98 03/03/18 17:43 96 28 H 144/87 98 Intake and Output 03/04/18 03/04/18 03/04/18 06:59 14:59 22:59 Intake Total 600 Balance 600 Intake: Intake, IV Titration 600 Amount Sodium Chloride 0.9% 1, 600 000 ml @ 75 mls/hr IV . [id number] [facility] Rx#:[id number] Other: # Voids 2 3 Physical exam revealed a 62-year-old female, very pleasant, in no distress. HEENT: Anicteric sclerae, pink and moist conjunctivae. Extraocular movements intact, pupils are reactive to light they are round and equal. External inspection of ears and nose showed normal mucosa. Oral mucosa, soft and hard palate tongue and posterior pharynx are intact. Neck: Supple no neck masses, no JVD, no thyroid enlargement, no adenopathy. Lungs: Symmetrical expansion, clear breath sounds bilaterally, no rhonchi and no wheezes. CVS: Regular rate and rhythm, normal S1 and S2, no gallops, no murmur, no rubs. Abdomen: Soft, nontender, no megaly, no rebound, no guarding, positive bowel sounds. Extremities: No clubbing, no edema, no cyanosis, 2+ pulses in upper and lower extremities. Musculoskeletal: Muscle strength and tone normal. Neurologic: Alert and oriented 3, normal affect, no focal neurologic deficits. Results - Laboratory Findings CBC and BMP: 03/03/18 15:25 03/03/18 15:25 PT/INR, D-dimer PT 10.1 sec (9.0-12.0) 03/03/18 15:25 INR 1.0 (<1.2) 03/03/18 15:25 Abnormal lab findings: Abnormal Labs 03/03/18 03/03/18 03/03/18 15:25 15:25 15:25 RDW 16.7 H Lymphocytes # 0.7 L Carbon Dioxide 21 L BUN 23 H POC Glucose (mg/dL) Plasma Lactic Acid Brayan 2.4 H* 03/03/18 03/03/18 03/04/18 19:58 21:42 06:40 RDW Lymphocytes # Carbon Dioxide BUN POC Glucose (mg/dL) 163 H 162 H Plasma Lactic Acid Brayan 2.9 H* - Diagnostic Findings Chest x-ray: image reviewed Assessment and Plan Plan: Assessment 1 right upper lobe infiltrate/consolidation. This abnormality was absent in December 2017 (a son a CAT scan of the chest) and subsequently it showed up on a PET scan that was obtained on 02/08/2018 and remains essentially unchanged and persistent on a subsequent follow-up chest x-ray from 03/02/2018 at 03/03/2018. This is most likely an area of radiation injury/pneumonia rather than infectious pneumonia. The area where the infiltrate is response to the radiation field that was given to radiate the anterior chest wall mass. Based on this, I was considered to be an acute radiation injury/subacute radiation injury rather than an acute infectious pneumonia. Malignancy is felt to be less likely due to the rapid evolution of this abnormality 2 shortness of breath and can't to above 3 chronic bronchial asthma 4 metastatic breast cancer currently on a combination of Femara and Ibrance. The patient has responded based on the most recent PET scan results 5 obesity 6 hypertension 7 obstructive sleep apnea 8 coronary artery disease 9 remote history of DVT 10 acid reflux 12 nephrolithiasis 13 migraines 14 remote history of shingles Plan We'll cover the patient with a combination of Levaquin and vancomycin. We'll check sputum Gram stain and culture. We'll check blood cultures. My primary suspicion is the radiation pneumonia and for that reason the patient will placed on IV Solu-Medrol. She will need a slow prednisone taper to be done outpatient basis once the patient's pulmonary status is more stable. Continue bronchodilators. Monitor chest x-ray findings. No need for bronchoscopy at this point. The findings were explained to the patient length. We'll continue to follow.
[2018-03-04 16:38] LABS: Glucose,Whole Blood 135 mg/dL (75-99)
[2018-03-04 16:39] LABS: Glucose,Whole Blood 170 mg/dL (75-99)
[2018-03-04] MEDS: ACETAMINOPHEN TAB 500 MG TAB PO PRN ×2 (17:26→22:30)
[2018-03-04] MEDS: LEVOFLOXACIN 750 MG TAB PO SCH (18:01)
[2018-03-04 20:17] LABS: Glucose,Whole Blood 125 mg/dL (75-99)
--- NOTE | 2018-03-04 22:41 | P.CONS ---
History of Present Illness - Reason for Consult Consult date: 03/04/18 treatment for breast cancer Requesting physician: Natan Crowe - Chief Complaint cough, CASANDRA - History of Present Illness Mrs. Zafar is a very pleasant female pt of Dr. Woo. Initial diagnosis was in 1997, treated with lumpectomy, lymph node dissection and radiation. Pt did well until November 2017. She whad progressive RUE pain and swelling with decreased ROM, work up was found to have recurrent breast cancer in the right axilla and chest wall, she received palliative radiation and is currently on treatment with Ibrance and femara-I believe cycle 2, she is on her week off of Ibrance. She was seen in the office earlier this week due to c/o progressive cough and SOB, she had a CXR that showed RUL infiltrate, she wanted to try outpatient treatment but, symptoms did not improve so she is admitted for RUL pneumonia/COPD exacerbation. Pt denied fever, chills, nausea, vomiting , hemoptysis, her cough was mostly non-productive, since admit she has been expectorating thick sputum, denies chest pain, palpitations, abd pain, appetite is good, no indigestion, heartburn, dysuria, hematuria, diarrhea or constipation , does have decreased ROS in the RUE from malignancy, it is sore in the axilla area as well. No swelling bleeding or other pain to report. Review of Systems 14 point ROS as stated in HPI Past Medical History Past Medical History: Asthma, Cancer, COPD, Deep Vein Thrombosis (DVT), GERD/ Reflux, Hypertension, Myocardial Infarction (PA) Additional Past Medical History / Comment(s): Metastatic breast cancer, details discussed above. Urgent diagnosis was 1997 treated by lumpectomy radiation therapy and chemotherapy and subsequent recurrence in September 2017 and the patient developed chest wall recurrence, supraclavicular lymph node involvement and axillary lymph node involvement. The patient is currently on Femara and Ibrance, bronchial asthma, obstructive sleep apnea, chronic ALLERGIC rhinitis, hypertension, coronary artery disease, acid reflux, previous history of DVT, history of nephrolithiasis, previous history of E. coli in January 2018, migraines , shingles more than 20 years ago, PVD Last Myocardial Infarction Date:: 2008 History of Any Multi-Drug Resistant Organisms: None Reported Past Surgical History: Appendectomy, Section, Cholecystectomy, Hysterectomy Additional Past Surgical History / Comment(s): Laparoscopy, 1997RT BREAST BX/ Lumpectomy with lymph node resection in 1997 ON RIGHT BREAST DID RADIATION AND CHEMO, STILL HAS METAL CLIPS IN SCOTTY BREASTS FROM WHEN THEY DID MAMORGAMS AND BIOPSIES. 09/2017 HAD "REOCCURANCE OF RT BREAST CANCER THEY REMOVED THE REMAINING LYMPH NODES RT AXILLA/ / NECK AND IS ON ORL CHEMO" . PT STATED "HAD PARTIAL HYSTERECTOMY STILL HAD 1 OVARY BUT THE CHEMO TX DESTROYED IT" Past Anesthesia/Blood Transfusion Reactions: No Reported Reaction Additional Past Anesthesia/Blood Transfusion Reaction / Comm: CLAUSTRAPHOBIA Smoking Status: Former smoker - Past Family History Father Family Medical History: Hypertension Additional Family Medical History / Comment(s): DIVERTICULITIS, IN HIS SLEEP AT AGE 81 Mother Family Medical History: Cancer, Hypertension Additional Family Medical History / Comment(s): BREAST CANCER Medications and Allergies Home Medications Medication Instructions Recorded Confirmed Type Albuterol Sulfate [Ventolin HFA] 2 puff INHALATION RT-Q4H PRN 11/23/13 03/03/18 History Aspirin 81 mg PO DAILY 11/23/13 03/03/18 History Cetirizine HCl [Zyrtec] 10 mg PO DAILY 11/23/13 03/03/18 History Budesonide-Formot 160-4.5 Mcg 2 puff INHALATION RT-BID 09/15/14 03/03/18 History [Symbicort 160-4.5 Mcg Inhaler] Omeprazole [PriLOSEC] 20 mg PO AC-BRKFST 01/20/15 03/03/18 History Triamterene-Hctz 37.5-25Mg 1 tab PO DAILY 01/20/15 03/03/18 History [Dyazide 37.5-25 Capsule] Losartan Potassium 50 mg PO DAILY 01/22/15 03/03/18 History Albuterol Nebulized [Ventolin 2.5 mg INHALATION RT-Q6H 05/16/16 03/03/18 History Nebulized] Calcium Carbonate/Vitamin D3 1 tab PO DAILY 03/03/18 03/03/18 History [Calcium 500-Vit D3 200 Tablet] Letrozole [Femara] 2.5 mg PO DAILY 03/03/18 03/03/18 History Palbociclib [Ibrance] 125 mg PO DIRECTED 03/03/18 03/03/18 History predniSONE 10 mg PO DAILY PRN 03/03/18 03/03/18 History Allergies Allergy/AdvReac Type Severity Reaction Status Date / Time shellfish derived [Shrimp] Allergy Mild Unknown Verified 03/03/18 15:44 Sulfa (Sulfonamide Allergy Rash/Hives Verified 03/03/18 15:44 Antibiotics) clarithromycin [From Biaxin] AdvReac Unknown Verified 03/03/18 15:44 Physical Exam Vitals: Vital Signs Temp Pulse Pulse Resp BP Pulse Ox 03/04/18 20:43 98 03/04/18 17:13 100 03/04/18 16:58 100 03/04/18 13:06 98 F 94 20 169/94 96 03/04/18 12:00 92 03/04/18 11:42 92 03/04/18 07:58 92 03/04/18 07:39 88 03/04/18 06:16 97.7 F 79 18 130/64 95 03/04/18 01:42 88 03/04/18 01:35 88 03/03/18 23:37 20 03/03/18 21:30 97.4 F L 86 18 121/65 99 Intake and Output 03/04/18 03/04/18 03/04/18 06:59 14:59 22:59 Intake Total 600 Balance 600 Intake: Intake, IV Titration 600 Amount Sodium Chloride 0.9% 1, 600 000 ml @ 75 mls/hr IV . [id number] [facility] Rx#:[id number] Other: # Voids 2 3 - Constitutional General appearance: cooperative, no acute distress, obese - EENT Eyes: anicteric sclerae ENT: normal oropharynx - Neck Neck: no lymphadenopathy - Respiratory Respiratory: bilateral: diminished, rales - Cardiovascular Rhythm: regular Heart sounds: normal: S1, S2 leg Peripheral Edema: bilateral: Trace - Gastrointestinal General gastrointestinal: no absent bowel sounds, no decreased bowel sounds, no distended, no hepatomegaly, no hyperactive bowel sounds, normal bowel sounds, no organomegaly, no rigid, no scaphoid, soft, no splenomegaly, no tenderness, no umbilical hernia, no ventral hernia - Integumentary Integumentary: flushed - Neurologic Neurologic: CNII-XII intact - Musculoskeletal Musculoskeletal: strength equal bilaterally - Psychiatric Psychiatric: A&O x's 3, appropriate affect, intact judgment & insight right axillary area is tender to touch, firmness palpated, in area of known malignancy Results CBC & Chem 7: 03/03/18 15:25 03/03/18 15:25 Labs: Abnormal Lab Results - Last 24 Hours (Table) 03/03/18 03/04/18 03/04/18 Range/Units 21:42 06:40 11:13 POC Glucose (mg/dL) 163 H 162 H 135 H (75-99) mg/dL 03/04/18 03/04/18 Range/Units 16:20 20:16 POC Glucose (mg/dL) 170 H 125 H (75-99) mg/dL Microbiology - Last 24 Hours (Table) 03/03/18 15:25 Blood Culture - Preliminary Blood No Growth after 24 hours Chest x-ray: report reviewed Assessment and Plan (1) Community acquired pneumonia Narrative/Plan: Pulmonary managing, pt is on abx and steroids with improvement in her presenting symptoms. Current Visit: Yes Status: Acute Priority: High Code(s): J18.9 - PNEUMONIA , UNSPECIFIED ORGANISM SNOMED Code(s): 219499624 (2) Metastatic breast cancer Narrative/Plan: Pt is on her week off of Ibrance, continue daily femara. She does not have any significant hematologic toxicities from treatment. She will continue treatment as scheduled as long as her pneumonia is cleared. Current Visit: Yes Status: Acute Priority: High Code(s): C50.919 - MALIGNANT NEOPLASM OF UNSP SITE OF UNSPECIFIED FEMALE BREAST SNOMED Code(s): 142442310
[2018-03-05] MEDS ORDERED: VANCOMYCIN TROUGH DUE 1 EACH MISC MISCELLANE ONE (05:00)
[2018-03-05] MEDS: ACETAMINOPHEN TAB 500 MG TAB PO PRN ×2 (05:17→22:37)
[2018-03-05] MEDS: methylPREDNISolone SOD SUCCI 125 MG/2 ML VIAL IV SCH ×4 (05:18→23:07)
[2018-03-05] MEDS: VANCOMYCIN 2,000 MG in SODIUM CHLORIDE 0.9% 500 ML IVPB SCH (06:01)
[2018-03-05 06:22] LABS: Anion Gap 9 mmol/L; Blood Urea Nitrogen 25 mg/dL (7-17); Calcium 8.8 mg/dL (8.4-10.2); Carbon Dioxide 21 mmol/L (22-30); Chloride 110 mmol/L (98-107); Glucose 118 mg/dL (74-99); Potassium 3.7 mmol/L (3.5-5.1); Sodium 140 mmol/L (137-145)
[2018-03-05 07:21] LABS: Glucose,Whole Blood 130 mg/dL (75-99)
[2018-03-05] MEDS: SYMBICORT 160-4.5 MCG INHALER INHALATION SCH ×2 (07:42→20:37)
[2018-03-05] MEDS: IPRATROPIUM-ALBUTEROL 3 ML NEB INHALATION SCH ×4 (07:42→20:36)
[2018-03-05] MEDS: INSULIN ASPART 100 UNIT/ML 1 ML 10 ML VIAL SQ SCH ×4 (07:51→22:36)
[2018-03-05] MEDS: LOSARTAN 50 MG TAB PO SCH (07:56)
[2018-03-05] MEDS: LORATADINE 10 MG TAB PO SCH (07:56)
[2018-03-05] MEDS: CALCIUM CARB-VIT D 500MG-200UN 1 EACH TAB PO SCH (07:56)
[2018-03-05] MEDS: ASPIRIN 81 MG PO SCH (07:56)
[2018-03-05] MEDS: PANTOPRAZOLE 40 MG TABLET PO SCH (07:56)
[2018-03-05] MEDS: TRIAMTERENE-HCTZ 37.5-25MG 1 EACH CAP PO SCH (09:57)
[2018-03-05] MEDS ORDERED: BENZOCAINE/MENTHOL LOZENG 1 EACH LOZENGE MUCOUS MEM PRN (10:52)
[2018-03-05 11:29] LABS: Glucose,Whole Blood 137 mg/dL (75-99)
--- NOTE | 2018-03-05 11:56 | P.PN ---
Subjective Patient resting in bed no swollen improvement and rest her status. Had consultation with pulmonology and oncology regarding a pneumonitis Objective - Vital Signs Vital signs: Vital Signs Temp 97.3 F L 03/05/18 05:00 Pulse 94 03/05/18 11:37 Resp 20 03/05/18 05:00 BP 183/97 03/05/18 05:00 Pulse Ox 96 03/05/18 05:00 Intake & Output 03/04/18 03/05/18 03/05/18 18:59 06:59 18:59 Intake Total 1590 480 Balance 1590 480 Intake: Intake, IV Titration 600 Amount Sodium Chloride 0.9% 1, 600 000 ml @ 75 mls/hr IV . [id number] [facility] Rx#:[id number] Oral 990 480 Other: Voiding Method Toilet # Voids 3 2 - Constitutional General appearance: Present: obese - EENT Eyes: Present: PERRLA Ears: bilateral: normal - Neck Neck: Present: normal ROM - Respiratory Respiratory: right: diminished - Cardiovascular Rhythm: regular - Gastrointestinal General gastrointestinal: Present: soft - Integumentary Integumentary: Present: normal - Neurologic Neurologic: Present: CNII-XII intact - Musculoskeletal Musculoskeletal: Present: generalized weakness - Psychiatric Psychiatric: Present: A&O x's 3, appropriate affect, intact judgment & insight - Labs CBC & Chem 7: 03/03/18 15:25 03/05/18 05:55 Labs: Abnormal Lab Results - Last 24 Hours (Table) 03/04/18 03/04/18 03/04/18 Range/Units 11:13 16:20 20:16 Chloride (98-107) mmol/L Carbon Dioxide (22-30) mmol/L BUN (7-17) mg/dL Glucose (74-99) mg/dL POC Glucose (mg/dL) 135 H 170 H 125 H (75-99) mg/dL 03/05/18 03/05/18 03/05/18 Range/Units 05:55 07:20 11:22 Chloride 110 H (98-107) mmol/L Carbon Dioxide 21 L (22-30) mmol/L BUN 25 H (7-17) mg/dL Glucose 118 H (74-99) mg/dL POC Glucose (mg/dL) 130 H 137 H (75-99) mg/dL Microbiology - Last 24 Hours (Table) 03/03/18 15:25 Blood Culture - Preliminary Blood No Growth after 24 hours - Imaging and Cardiology Chest x-ray: report reviewed Assessment and Plan Plan: Assessment Community-acquired pneumonia recent radiation therapy possible pneumonitis Acute exacerbation of COPD/asthma Breast cancer with metastatic disease on chemo History of DVT History of GERD History hypertension Coronary artery disease with DE Plan Continue consultation with pulmonology and oncology Continues on vancomycin and Levaquin bronchodilators and steroids
--- NOTE | 2018-03-05 14:28 | P.PN ---
Subjective Progress Note Date: 03/05/18 Principal diagnosis: CAP, on treatment for breast cancer Pt seen in f/u, she is feeling much better today, breathing is less labored, cough is persistent but not progressive, no hemoptysis, chest pains, fever, nausea or changes in bowel or bladder, she is ambulatory Objective - Vital Signs Vital signs: Vital Signs Temp 97.3 F L 03/05/18 05:00 Pulse 94 03/05/18 11:37 Resp 20 03/05/18 05:00 BP 183/97 03/05/18 05:00 Pulse Ox 96 03/05/18 05:00 Intake & Output 03/04/18 03/05/18 03/05/18 18:59 06:59 18:59 Intake Total 1590 480 Balance 1590 480 Intake: Intake, IV Titration 600 Amount Sodium Chloride 0.9% 1, 600 000 ml @ 75 mls/hr IV . [id number] [facility] Rx#:[id number] Oral 990 480 Other: Voiding Method Toilet # Voids 3 2 - Constitutional General appearance: Present: cooperative, no acute distress, obese - Respiratory Respiratory: bilateral: diminished, wheezing (LLL) - Cardiovascular Rhythm: regular Heart sounds: normal: S1, S2 - Gastrointestinal General gastrointestinal: Present: normal bowel sounds, soft - Integumentary Integumentary: Present: normal - Neurologic Neurologic: Present: CNII-XII intact - Musculoskeletal Musculoskeletal: Present: strength equal bilaterally - Psychiatric Psychiatric: Present: A&O x's 3, appropriate affect, intact judgment & insight - Labs CBC & Chem 7: 03/03/18 15:25 03/05/18 05:55 Labs: Abnormal Lab Results - Last 24 Hours (Table) 03/04/18 03/04/18 03/04/18 Range/Units 11:13 16:20 20:16 Chloride (98-107) mmol/L Carbon Dioxide (22-30) mmol/L BUN (7-17) mg/dL Glucose (74-99) mg/dL POC Glucose (mg/dL) 135 H 170 H 125 H (75-99) mg/dL 03/05/18 03/05/18 03/05/18 Range/Units 05:55 07:20 11:22 Chloride 110 H (98-107) mmol/L Carbon Dioxide 21 L (22-30) mmol/L BUN 25 H (7-17) mg/dL Glucose 118 H (74-99) mg/dL POC Glucose (mg/dL) 130 H 137 H (75-99) mg/dL Microbiology - Last 24 Hours (Table) 03/03/18 15:25 Blood Culture - Preliminary Blood No Growth after 24 hours Assessment and Plan (1) Community acquired pneumonia Narrative/Plan: Pulmonary managing, continued improvement in her presenting symptoms. Current Visit: Yes Status: Acute Priority: High Code(s): J18.9 - PNEUMONIA , UNSPECIFIED ORGANISM SNOMED Code(s): 808113428 (2) Metastatic breast cancer Narrative/Plan: Pt is on her week off of Ibrance, continue daily femara. She does not have any significant hematologic toxicities from treatment. She will continue treatment as scheduled next week as long as her pneumonia is cleared. F/U appt is in chart Current Visit: Yes Status: Acute Priority: High Code(s): C50.919 - MALIGNANT NEOPLASM OF UNSP SITE OF UNSPECIFIED FEMALE BREAST SNOMED Code(s): 144199760
[2018-03-05] MEDS: SODIUM CHLORIDE 0.9% 1,000 ML IV SCH (15:09)
--- NOTE | 2018-03-05 15:49 | P.PN ---
Subjective Progress Note Date: 03/05/18 Principal diagnosis: Acute hypoxic respiratory failure secondary to right upper lobe pneumonia. 61-year-old female patient was hospitalized for increased shortness of breath. We were involved in the case as the patient has history of chronic bronchial asthma and she has a new patch in the right upper lobe which is suggestive an underlying pneumonia. The patient was Hospital as for a diagnosis of a right upper lobe pneumonia and she was started on vancomycin and she was placed also on DuoNeb neb treatments around the clock and IV Solu Medrol and the pulmonary consultation was requested. This patient follows up in our office for mild intermittent bronchial asthma. She also has various other medical problems including metastatic breast cancer, obstructive sleep apnea, previous history of DVT, coronary artery disease, and hypertension. In terms of her breast cancer history, the patient was diagnosed having breast cancer back in 1997 and she underwent lumpectomy followed by lymph node dissection and radiation therapy. She did extremely well and she was in remission for almost 19 years. Her disease recurred recently as the patient was found to have a chest wall mass and further investigation shoulder recurrent breast cancer which is established metastatic at this stage. The patient was found to have an axillary lymph node and the right chest wall mass that was successfully biopsied by a core needle biopsy intervention radiology and the diagnosis was established to be an estrogen receptor positive and progesterone receptor negative breast adenocarcinoma. Based on all this, the patient followed up with oncology and she was started on some Femara and Ibrance and furthermore she was seen by radiation oncology and she was seen by Dr. Bruce Cat and the patient received localized radiation therapy to her chest wall for palliative reasons as a chest wall mass was causing pain and arm mobility difficulties. The radiation was completed in early December 2017. A subsequent CAT scan of the chest was done on 12/18/2017 showed no evidence of any pneumonias or pulmonary lesions. There was a lobulated lesion in the lateral pectoral muscle and this mass was measuring 3.1 x 3.2 cm in size in addition to a mass anterior chest wall measuring 2.1 cm in size as it with some muscular edema. There was signs of right lumpectomy from previous surgery. Right axillary clips are also noted. No evidence of any axillary lymphadenopathy. Subsequently him a the patient had a PET scan that was done on 02/08/2018 that showed response to treatment. The patient showed hypermetabolic activity within the right chest area that was markedly decreased in comparison to the previous PET scan that was done on 10/04/2017. There was a new focal consolidation within the right upper lobe with similar FDG activity to the mediastinal background. This was considered to be a pneumonia Specially the patient. No treatment was offered. Approximately 2 days ago the patient was getting more short of breath. No significant sputum production. No fever or chills. No pleurisy or hemoptysis. She was started on Levaquin outpatient basis by her physicians, however she end up in the hospital for the same problem of increased shortness of breath and she was given diagnosis of pneumonia. Her last antibiotic course was in December 2017 where the patient was given Levaquin and prednisone burst taper during a brief hospitalization at [facility]. Noted the patient currently has no fever. No leukocytosis. He did demonstrate a mild lactic acidosis with a lactic acid level of 2.4 and subsequent level was at 2.9. Patient is seen again today in 03/05/2018 in follow-up on the regular medical floor. She is currently awake and alert in no acute distress. She is breathing easier today as compared to yesterday. Still not quite back to her baseline. He is currently afebrile. Maintaining good O2 saturations in the mid 90s on room air. She's been hemodynamically stable. Blood cultures reveal no growth to date. She is continued on DuoNeb inhalations, Symbicort, IV Solu- Medrol, antibiotics in the form of vancomycin and Levaquin. Objective - Vital Signs Vital signs: Vital Signs Temp 97.7 F 03/05/18 14:41 Pulse 89 03/05/18 14:41 Resp 18 03/05/18 14:41 BP 170/84 03/05/18 14:41 Pulse Ox 96 03/05/18 14:41 Intake & Output 03/04/18 03/05/18 03/05/18 18:59 06:59 18:59 Intake Total 1590 480 Balance 1590 480 Intake: Intake, IV Titration 600 Amount Sodium Chloride 0.9% 1, 600 000 ml @ 75 mls/hr IV . [id number] [facility] Rx#:[id number] Oral 990 480 Other: Voiding Method Toilet # Voids 3 2 - Exam Physical exam revealed a 62-year-old female, very pleasant, in no distress. HEENT: Anicteric sclerae, pink and moist conjunctivae. Extraocular movements intact, pupils are reactive to light they are round and equal. External inspection of ears and nose showed normal mucosa. Oral mucosa, soft and hard palate tongue and posterior pharynx are intact. Neck: Supple no neck masses, no JVD, no thyroid enlargement, no adenopathy. Lungs: Symmetrical expansion, clear breath sounds bilaterally, no rhonchi and no wheezes. CVS: Regular rate and rhythm, normal S1 and S2, no gallops, no murmur, no rubs. Abdomen: Soft, nontender, no megaly, no rebound, no guarding, positive bowel sounds. Extremities: No clubbing, no edema, no cyanosis, 2+ pulses in upper and lower extremities. Musculoskeletal: Muscle strength and tone normal. Neurologic: Alert and oriented 3, normal affect, no focal neurologic deficits. - Labs CBC & Chem 7: 03/03/18 15:25 03/05/18 05:55 Labs: Abnormal Lab Results - Last 24 Hours (Table) 03/04/18 03/04/18 03/04/18 Range/Units 11:13 16:20 20:16 Chloride (98-107) mmol/L Carbon Dioxide (22-30) mmol/L BUN (7-17) mg/dL Glucose (74-99) mg/dL POC Glucose (mg/dL) 135 H 170 H 125 H (75-99) mg/dL 03/05/18 03/05/18 03/05/18 Range/Units 05:55 07:20 11:22 Chloride 110 H (98-107) mmol/L Carbon Dioxide 21 L (22-30) mmol/L BUN 25 H (7-17) mg/dL Glucose 118 H (74-99) mg/dL POC Glucose (mg/dL) 130 H 137 H (75-99) mg/dL Microbiology - Last 24 Hours (Table) 03/03/18 15:25 Blood Culture - Preliminary Blood No Growth after 24 hours Assessment and Plan Assessment: Assessment 1 right upper lobe infiltrate/consolidation. This abnormality was absent in December 2017 (a son a CAT scan of the chest) and subsequently it showed up on a PET scan that was obtained on 02/08/2018 and remains essentially unchanged and persistent on a subsequent follow-up chest x-ray from 03/02/2018 at 03/03/2018. This is most likely an area of radiation injury/pneumonia rather than infectious pneumonia. The area where the infiltrate is response to the radiation field that was given to radiate the anterior chest wall mass. Based on this, I was considered to be an acute radiation injury/subacute radiation injury rather than an acute infectious pneumonia. Malignancy is felt to be less likely due to the rapid evolution of this abnormality 2 shortness of breath and can't to above 3 chronic bronchial asthma 4 metastatic breast cancer currently on a combination of Femara and Ibrance. The patient has responded based on the most recent PET scan results 5 obesity 6 hypertension 7 obstructive sleep apnea 8 coronary artery disease 9 remote history of DVT 10 acid reflux 12 nephrolithiasis 13 migraines 14 remote history of shingles Plan The patient was seen and evaluated by Dr. Das. She is improved today as compared to yesterday. We'll continue with the current treatment plan. We will increase her activity as tolerated. Repeat a chest x-ray in the a.m. We' ll continue to follow. I, the cosigning physician, performed a history & physical examination of the patient. Lungs sounds with few scattered rhonchi, end expiratory wheeze Maintaining good O2 saturations in the 90s on room air. I discussed the assessment and plan of care with my nurse practitioner, Milly Norris. I attest to the above note as dictated by her.
[2018-03-05 17:28] LABS: Glucose,Whole Blood 133 mg/dL (75-99)
[2018-03-05] MEDS: LEVOFLOXACIN 750 MG TAB PO SCH (17:49)
[2018-03-05] MEDS: VANCOMYCIN 1,750 MG in SODIUM CHLORIDE 0.9% 500 ML IVPB SCH (17:52)
[2018-03-05] MEDS ORDERED: LETROZOLE 2.5 MG TAB PO SCH (18:00)
[2018-03-05 20:13] LABS: Glucose,Whole Blood 144 mg/dL (75-99)
[2018-03-05 22:17] VITALS: RESP 16
[2018-03-06] MEDS: VANCOMYCIN 1,750 MG in SODIUM CHLORIDE 0.9% 500 ML IVPB SCH (05:39)
[2018-03-06] MEDS: SODIUM CHLORIDE 0.9% 1,000 ML IV SCH ×2 (05:40→10:42)
[2018-03-06] MEDS: methylPREDNISolone SOD SUCCI 125 MG/2 ML VIAL IV SCH ×2 (05:40→12:43)
[2018-03-06 05:55] VITALS: BP 159/90; TEMP 98.2
[2018-03-06] MEDS: ACETAMINOPHEN TAB 500 MG TAB PO PRN (06:06)
[2018-03-06 07:02] LABS: Glucose,Whole Blood 143 mg/dL (75-99)
[2018-03-06] MEDS: TRIAMTERENE-HCTZ 37.5-25MG 1 EACH CAP PO SCH (08:02)
[2018-03-06] MEDS: LORATADINE 10 MG TAB PO SCH (08:02)
[2018-03-06] MEDS: LOSARTAN 50 MG TAB PO SCH (08:02)
[2018-03-06] MEDS: INSULIN ASPART 100 UNIT/ML 1 ML 10 ML VIAL SQ SCH ×2 (08:03→12:42)
[2018-03-06] MEDS: PANTOPRAZOLE 40 MG TABLET PO SCH (08:03)
[2018-03-06] MEDS: CALCIUM CARB-VIT D 500MG-200UN 1 EACH TAB PO SCH (08:03)
[2018-03-06] MEDS: ASPIRIN 81 MG PO SCH (08:03)
--- NOTE | 2018-03-06 08:16 | XR ---
EXAMINATION TYPE: XR chest 1V portable DATE OF EXAM: 03/06/2018 HISTORY: Shortness of breath. COMPARISON: March 03, 2018 TECHNIQUE: Single view of the chest is submitted. FINDINGS: Demonstrated are scattered senescent parenchymal change. Stable right upper lobe infiltrate. The heart is stable. Hilar and mediastinal structures are within normal limits. Degenerative changes are seen of the dorsal spine. IMPRESSION: 1. Stable right upper lobe infiltrate.
[2018-03-06] MEDS: IPRATROPIUM-ALBUTEROL 3 ML NEB INHALATION SCH ×3 (08:41→15:54)
[2018-03-06] MEDS: SYMBICORT 160-4.5 MCG INHALER INHALATION SCH (08:41)
[2018-03-06 08:55] LABS: Anion Gap 6 mmol/L; Blood Urea Nitrogen 21 mg/dL (7-17); Calcium 8.9 mg/dL (8.4-10.2); Carbon Dioxide 23 mmol/L (22-30); Chloride 110 mmol/L (98-107); Glucose 134 mg/dL (74-99); Potassium 3.6 mmol/L (3.5-5.1); Sodium 139 mmol/L (137-145)
[2018-03-06 11:35] LABS: Glucose,Whole Blood 130 mg/dL (75-99)
[2018-03-06 14:56] VITALS: PULSE 96
--- NOTE | 2018-03-06 14:59 | P.PN ---
Subjective Progress Note Date: 03/06/18 Principal diagnosis: Acute hypoxic respiratory failure secondary to right upper lobe pneumonia. 61-year-old female patient was hospitalized for increased shortness of breath. We were involved in the case as the patient has history of chronic bronchial asthma and she has a new patch in the right upper lobe which is suggestive an underlying pneumonia. The patient was Hospital as for a diagnosis of a right upper lobe pneumonia and she was started on vancomycin and she was placed also on DuoNeb neb treatments around the clock and IV Solu Medrol and the pulmonary consultation was requested. This patient follows up in our office for mild intermittent bronchial asthma. She also has various other medical problems including metastatic breast cancer, obstructive sleep apnea, previous history of DVT, coronary artery disease, and hypertension. In terms of her breast cancer history, the patient was diagnosed having breast cancer back in 1997 and she underwent lumpectomy followed by lymph node dissection and radiation therapy. She did extremely well and she was in remission for almost 19 years. Her disease recurred recently as the patient was found to have a chest wall mass and further investigation shoulder recurrent breast cancer which is established metastatic at this stage. The patient was found to have an axillary lymph node and the right chest wall mass that was successfully biopsied by a core needle biopsy intervention radiology and the diagnosis was established to be an estrogen receptor positive and progesterone receptor negative breast adenocarcinoma. Based on all this, the patient followed up with oncology and she was started on some Femara and Ibrance and furthermore she was seen by radiation oncology and she was seen by Dr. Bruce Cat and the patient received localized radiation therapy to her chest wall for palliative reasons as a chest wall mass was causing pain and arm mobility difficulties. The radiation was completed in early December 2017. A subsequent CAT scan of the chest was done on 12/18/2017 showed no evidence of any pneumonias or pulmonary lesions. There was a lobulated lesion in the lateral pectoral muscle and this mass was measuring 3.1 x 3.2 cm in size in addition to a mass anterior chest wall measuring 2.1 cm in size as it with some muscular edema. There was signs of right lumpectomy from previous surgery. Right axillary clips are also noted. No evidence of any axillary lymphadenopathy. Subsequently him a the patient had a PET scan that was done on 02/08/2018 that showed response to treatment. The patient showed hypermetabolic activity within the right chest area that was markedly decreased in comparison to the previous PET scan that was done on 10/04/2017. There was a new focal consolidation within the right upper lobe with similar FDG activity to the mediastinal background. This was considered to be a pneumonia Specially the patient. No treatment was offered. Approximately 2 days ago the patient was getting more short of breath. No significant sputum production. No fever or chills. No pleurisy or hemoptysis. She was started on Levaquin outpatient basis by her physicians, however she end up in the hospital for the same problem of increased shortness of breath and she was given diagnosis of pneumonia. Her last antibiotic course was in December 2017 where the patient was given Levaquin and prednisone burst taper during a brief hospitalization at [facility]. Noted the patient currently has no fever. No leukocytosis. He did demonstrate a mild lactic acidosis with a lactic acid level of 2.4 and subsequent level was at 2.9. Patient is seen again today in 03/05/2018 in follow-up on the regular medical floor. She is currently awake and alert in no acute distress. She is breathing easier today as compared to yesterday. Still not quite back to her baseline. He is currently afebrile. Maintaining good O2 saturations in the mid 90s on room air. She's been hemodynamically stable. Blood cultures reveal no growth to date. She is continued on DuoNeb inhalations, Symbicort, IV Solu- Medrol, antibiotics in the form of vancomycin and Levaquin. Patient is seen again today 03/06/2018 in follow-up on the regular medical floor. She is doing quite a bit better today as compared to yesterday. Nearly back to her baseline. No worsening shortness of breath, cough or congestion. Today's chest x-ray shows a stable right upper lobe infiltrate/scar. Objective - Vital Signs Vital signs: Vital Signs Temp 98.2 F 03/06/18 05:00 Pulse 92 03/06/18 11:58 Resp 16 03/06/18 05:00 BP 159/90 03/06/18 05:00 Pulse Ox 95 03/06/18 05:00 Intake & Output 03/05/18 03/06/18 03/06/18 18:59 06:59 18:59 Intake Total 1080 1590 Balance 1080 1590 Intake: Intake, IV Titration 600 600 Amount Sodium Chloride 0.9% 1, 600 600 000 ml @ 75 mls/hr IV . [id number] [facility] Rx#:[id number] Oral 480 990 Other: Voiding Method Toilet Toilet # Voids 3 1 - Exam Physical exam revealed a 62-year-old female, very pleasant, in no distress. HEENT: Anicteric sclerae, pink and moist conjunctivae. Extraocular movements intact, pupils are reactive to light they are round and equal. External inspection of ears and nose showed normal mucosa. Oral mucosa, soft and hard palate tongue and posterior pharynx are intact. Neck: Supple no neck masses, no JVD, no thyroid enlargement, no adenopathy. Lungs: Symmetrical expansion, clear breath sounds bilaterally, no rhonchi and no wheezes. CVS: Regular rate and rhythm, normal S1 and S2, no gallops, no murmur, no rubs. Abdomen: Soft, nontender, no megaly, no rebound, no guarding, positive bowel sounds. Extremities: No clubbing, no edema, no cyanosis, 2+ pulses in upper and lower extremities. Musculoskeletal: Muscle strength and tone normal. Neurologic: Alert and oriented 3, normal affect, no focal neurologic deficits. - Labs CBC & Chem 7: 03/03/18 15:25 03/06/18 07:41 Labs: Abnormal Lab Results - Last 24 Hours (Table) 03/05/18 03/05/18 03/06/18 Range/Units 17:27 20:12 07:00 Chloride (98-107) mmol/L BUN (7-17) mg/dL Glucose (74-99) mg/dL POC Glucose (mg/dL) 133 H 144 H 143 H (75-99) mg/dL 03/06/18 03/06/18 Range/Units 07:41 11:34 Chloride 110 H (98-107) mmol/L BUN 21 H (7-17) mg/dL Glucose 134 H (74-99) mg/dL POC Glucose (mg/dL) 130 H (75-99) mg/dL Microbiology - Last 24 Hours (Table) 03/03/18 15:25 Blood Culture - Preliminary Blood No Growth after 48 hours Assessment and Plan Assessment: Assessment 1 right upper lobe infiltrate/consolidation. This abnormality was absent in December 2017 (a son a CAT scan of the chest) and subsequently it showed up on a PET scan that was obtained on 02/08/2018 and remains essentially unchanged and persistent on a subsequent follow-up chest x-ray from 03/02/2018 at 03/03/2018. This is most likely an area of radiation injury/pneumonia rather than infectious pneumonia. The area where the infiltrate is response to the radiation field that was given to radiate the anterior chest wall mass. Based on this, I was considered to be an acute radiation injury/subacute radiation injury rather than an acute infectious pneumonia. Malignancy is felt to be less likely due to the rapid evolution of this abnormality 2 shortness of breath and can't to above 3 chronic bronchial asthma 4 metastatic breast cancer currently on a combination of Femara and Ibrance. The patient has responded based on the most recent PET scan results 5 obesity 6 hypertension 7 obstructive sleep apnea 8 coronary artery disease 9 remote history of DVT 10 acid reflux 12 nephrolithiasis 13 migraines 14 remote history of shingles Plan The patient was seen and evaluated by Dr. Das. She is cleared for discharge from the pulmonary standpoint. She should complete a course of Levaquin for 7 days. Complete a prednisone burst and taper starting at 40 mg daily for 4 days. Follow-up in our office in 1-2 weeks' time. She is however encouraged to call sooner with any recurrence of symptoms or other questions or concerns. I, the cosigning physician, performed a history & physical examination of the patient. Lungs sounds with few end expiratory wheeze Maintaining good O2 saturations in the 90s on room air. I discussed the assessment and plan of care with my nurse practitioner, Milly Norris. I attest to the above note as dictated by her.
--- NOTE | 2018-03-06 15:04 | P.PN ---
Subjective Progress Note Date: 03/06/18 Principal diagnosis: Acute on Chronic Respiratory Failure - Pneumonitis and COPD exacerbation Patient seen and examined in follow-up. She is overall feeling better, breathing better Objective - Vital Signs Vital signs: Vital Signs Temp 98.2 F 03/06/18 05:00 Pulse 96 03/06/18 14:55 Resp 16 03/06/18 05:00 BP 159/90 03/06/18 05:00 Pulse Ox 97 03/06/18 14:55 Intake & Output 03/05/18 03/06/18 03/06/18 18:59 06:59 18:59 Intake Total 1080 1590 Balance 1080 1590 Intake: Intake, IV Titration 600 600 Amount Sodium Chloride 0.9% 1, 600 600 000 ml @ 75 mls/hr IV . [id number] [facility] Rx#:[id number] Oral 480 990 Other: Voiding Method Toilet Toilet # Voids 3 1 - Constitutional General appearance: Present: cooperative, no acute distress - EENT Eyes: Present: EOMI, PERRLA, dentition normal ENT: Present: NA/AT, normal oropharynx - Neck Details: trachea midline, neck supple Neck: Present: normal ROM - Respiratory Respiratory: bilateral: diminished, wheezing (Expiratory) - Cardiovascular Rhythm: regular Heart sounds: normal: S1, S2 - Gastrointestinal General gastrointestinal: Present: normal bowel sounds, soft - Integumentary Integumentary: Present: normal - Neurologic Neurologic: Present: CNII-XII intact - Musculoskeletal Musculoskeletal: Present: gait normal, generalized weakness, strength equal bilaterally - Psychiatric Psychiatric: Present: A&O x's 3, appropriate affect, intact judgment & insight - Labs CBC & Chem 7: 03/03/18 15:25 03/06/18 07:41 Labs: Abnormal Lab Results - Last 24 Hours (Table) 03/05/18 03/05/18 03/06/18 Range/Units 17:27 20:12 07:00 Chloride (98-107) mmol/L BUN (7-17) mg/dL Glucose (74-99) mg/dL POC Glucose (mg/dL) 133 H 144 H 143 H (75-99) mg/dL 03/06/18 03/06/18 Range/Units 07:41 11:34 Chloride 110 H (98-107) mmol/L BUN 21 H (7-17) mg/dL Glucose 134 H (74-99) mg/dL POC Glucose (mg/dL) 130 H (75-99) mg/dL Microbiology - Last 24 Hours (Table) 03/03/18 15:25 Blood Culture - Preliminary Blood No Growth after 48 hours Assessment and Plan Plan: Assessment and Recs: 1. Breast Cancer - - Continue on Arimidex and Obrance as scheduled after discharge 2. Acute on Chronic Respiratory Failure - Radiation Pneumonitis - COmponent Pneumonia - COPD Exacerbation - Patient states understanding of compliance and importance of seeking medical attentipon with symptoms of respiratory difficulty, re-educated and re- inforced.
--- NOTE | 2018-03-06 18:38 | DS ---
DISCHARGE SUMMARY FINAL DIAGNOSES: 1. Community-acquired pneumonia with recent radiation therapy, possibly pneumonitis. 2. Chronic obstructive pulmonary disease, acute exacerbation, asthma exacerbation. 3. Breast cancer with metastatic lesion, on chemo. 4. History of deep venous thrombosis. 5. History of gastroesophageal reflux disease. 6. Hypertension. 7. History of coronary artery disease with history of myocardial infarction. DISCHARGE DISPOSITION: The patient will be discharged in stable condition with guarded prognosis. HISTORY OF PRESENT ILLNESS: This 63-year-old woman with a past medical history of multiple medical problems was admitted with history of pneumonia, treated with antibiotics and Dr. Das saw the patient. Patient improved significantly. Hematology/Oncology also saw the patient. The patient is being discharged in stable condition with guarded prognosis. On exam, vital signs are stable. CARDIOVASCULAR SYSTEM: S1, S2 muffled. RESPIRATORY: A few scattered rhonchi. ABDOMEN: Soft. NERVOUS SYSTEM: No focal deficit. DISCHARGE ADVICE AND MEDICATIONS: 1. Diet is cardiac. 2. Activity limited until followup. 3. Follow up with Dr. Hipolito Youngblood in 2-3 days. 4. Follow up with Dr. Larsen and Dr. Woo as recommended. 5. Ventolin 2.5 q.i.d. and p.r.n. 6. Aspirin 81 mg p.o. daily. 7. Symbicort 160/4.5 two puffs b.i.d. 8. Calcium carbonate 1 p.o. daily. 9. Zyrtec 10 mg p.o. daily. 10.Femara 2.5 mg p.o. daily. 11.Losartan 50 mg daily. 12.Prilosec 20 mg daily. 13.Ibrance 125 mg as before. 14.Dyazide 1 tablet p.o. daily. 15.Levaquin 750 p.o. daily for 5 days. 16.Prednisone taper: 40 mg daily for 3 days, 30 mg daily for 3 days, 20 mg daily for 3 days, 10 mg daily for 3 days, then discontinue. Once again, the patient will be discharged in stable condition with guarded prognosis. MMODL / IJN: [id number] /
== END 2018-03-06 16:30 | disposition home or self-care (01) | DRG 205 ==
LOC: EC 15:06 → 5MS5E 16:54
PROVIDERS: ADMIT Family Medicine; ATTEND Family Medicine
DX: J70.0 Acute pulmonary manifestations due to radiation (principal); J96.21 Acute and chronic respiratory failure with hypoxia; E87.2 Acidosis; J44.0 Chronic obstructive pulmonary disease with (acute) lower respiratory infection; J44.1 Chronic obstructive pulmonary disease with (acute) exacerbation; J45.901 Unspecified asthma with (acute) exacerbation; C79.9 Secondary malignant neoplasm of unspecified site; Y84.2 Radiological procedure and radiotherapy as the cause of abnormal reaction of the patient, or of later complication, without mention of misadventure at the time of the procedure; C50.919 Malignant neoplasm of unspecified site of unspecified female breast; E66.9 Obesity, unspecified; G43.909 Migraine, unspecified, not intractable, without status migrainosus; G47.33 Obstructive sleep apnea (adult) (pediatric); I10 Essential (primary) hypertension; I25.10 Atherosclerotic heart disease of native coronary artery without angina pectoris; I25.2 Old myocardial infarction; I73.9 Peripheral vascular disease, unspecified; K21.9 Gastro-esophageal reflux disease without esophagitis; N20.0 Calculus of kidney; Z79.51 Long term (current) use of inhaled steroids; Z79.82 Long term (current) use of aspirin; Z79.899 Other long term (current) drug therapy; Z80.3 Family history of malignant neoplasm of breast; Z82.49 Family history of ischemic heart disease and other diseases of the circulatory system; Z86.19 Personal history of other infectious and parasitic diseases; Z86.718 Personal history of other venous thrombosis and embolism; Z87.01 Personal history of pneumonia (recurrent); Z87.442 Personal history of urinary calculi; Z87.891 Personal history of nicotine dependence; Z90.710 Acquired absence of both cervix and uterus; Z90.49 Acquired absence of other specified parts of digestive tract; Z88.2 Allergy status to sulfonamides; Z88.1 Allergy status to other antibiotic agents; Z91.013 Allergy to seafood
CPT/HCPCS: 36415; 71045; 71046; 80048; 80053; 80202; 82550; 82553; 83036; 83605; 83735; 83880; 84484; 85025; 85610; 85730; 87040; 93005; 94640; 96365; 96367; 96375; 99285

== ENCOUNTER → 2018-03-20 | Outpatient (CLI) | payer MEDICARE ==
--- NOTE | 2018-03-20 11:26 | XR ---
EXAMINATION TYPE: XR chest 2V DATE OF EXAM: 03/20/2018 COMPARISON: Chest x-ray from March 06, [address] chest December 18, 2017. PET CT January HISTORY: Acute pulmonary manifestations due to radiation. TECHNIQUE: Frontal and lateral views of the chest are obtained. FINDINGS: There is persistent scarlike opacity right upper lung. Overlying surgical clips from right -sided breast surgery are redemonstrated. Left lung remains clear. The cardiac silhouette size remain s within normal limits. The osseous structures are intact. IMPRESSION: Stable right upper lung scarlike opacity with overlying surgical changes right breast.
== END | disposition home or self-care (01) ==
LOC: RADXRMAIN 10:20
PROVIDERS: ATTEND Internal Medicine
DX: R91.8 Other nonspecific abnormal finding of lung field (principal)
CPT/HCPCS: 71046

== ENCOUNTER → 2018-05-16 | Outpatient (CLI) | payer MEDICARE ==
--- NOTE | 2018-05-18 15:10 | PE ---
Nuclear medicine PET/CT HISTORY: Breast carcinoma, subsequent Patient received 12.1 mCi F-18 FDG intravenously in delayed scanning was performed from the skull bas e to the mid thighs. Localization and attenuation correction CT scan was performed. Correlation to prior nuclear medicine PET/CT 02/07/2018 Neck and chest: There is no evident adenopathy. No pleural or pericardial effusion. No evident lung mass. There is patchy density present in the right upper lobe, strand-like parenchymal bands are note d, findings less confluent than on prior. Supraclavicular nodes are not enlarged. Mild right-sided ch est wall uptake. Uptake present at the level of the infraspinatus muscle on the left. Uptake along th e right tongue may be due to pooling of saliva, correlate with direct visualization. Mild uptake note d over the anterior chest wall with and the musculature, SUV 3.9 may be due to posttreatment change. There is a similar focus seen on axial image 86 which is somewhat masslike in the subpectoral region on the right, SUV 3.7 which is decreased compared to prior when it measured SUV 4.7. Abdomen pelvis: No evident liver mass. Patient is post cholecystectomy. There is no retroperitoneal a denopathy or ascites. No suspicious hypermetabolic uptake. Some nonobstructive small calculi suspecte d within the left kidney. Osseous structures are unremarkable. Some nonspecific muscular uptake noted within the pelvis likely clinical significance. IMPRESSION: Chest wall uptake is described, decreased radio pharmaceutical uptake noted at the level of focal lesion as described on the right. Additional findings above.
== END ==
LOC: RADPETMAIN 08:38
PROVIDERS: ATTEND Internal Medicine Hematology & Oncology
DX: C50.111 Malignant neoplasm of central portion of right female breast (principal)
CPT/HCPCS: 78815; A9552

== ENCOUNTER → 2018-09-19 | Outpatient (CLI) | payer MEDICARE ==
--- NOTE | 2018-09-21 16:10 | PE ---
EXAMINATION TYPE: PET CT fusion skull to thigh DATE OF EXAM: 09/19/2018 COMPARISON: PET/CT dated 05/16/2018, 10/04/2017 and 02/07/2018 HISTORY: Breast cancer. Subsequent treatment strategy. Patient has been treated with radiation thera py last completed on 11/10/2017, chemotherapy, and lumpectomy. TECHNIQUE: Following the intravenous administration of 12.126 mCi of F-18 FDG, whole body images are performed from the skull base to the midthigh. Images are reviewed on the computer in the coronal, axial, and sagittal planes. Reconstructed rotating images are created on independent workstation and reviewed on the computer. A localization and attenuation correction CT is performed in conjunction with the PET scan. SCAN: Subsequent treatment strategy FINDINGS: Thoracic background: 2.16 Abdominal background: 3.14 SKULL BASE AND NECK: There is uptake along the right longus coli musculature (maximum SUV of 3.69) t hat may relate to muscular usage on the examination or myositis as this is an uncommon location for m etastasis. CHEST, MEDIASTINUM, AND HILAR REGION: Within the right pectoralis musculature on along the chest wall there is redemonstration of hypermetabolic uptake although markedly decreased from the prior. Curren t maximum SUV of 2.63. There is persistent hypermetabolic uptake within the left infraspinatus muscle which should be correlated with MRI as myositis is most common although given the persistent diffuse uptake metastasis is a less likely but possible consideration. This has a maximum SUV of 4.2. Right basilar pulmonary nodule measuring 1.6 cm demonstrates a maximum SUV of 2.17. Bandlike density along the right anterior lung apex is likely scarring related to radiation and has a maximum SUV of 1 .66. ABDOMEN AND PELVIS: No suspicious hypermetabolic uptake. OSSEOUS STRUCTURES: No suspicious hypermetabolic uptake. OTHER CT: There is a right basilar pulmonary nodule and 1.6 cm. Bandlike area of scarring likely rela [place] to post radiation fibrosis within the right upper lung is associated with volume loss. Scattered areas of atelectasis or subsegmental. No adenopathy is seen along the right longus coli musculature t hat demonstrates hypermetabolic uptake. Small hiatal hernia is present. The patient's arms partially obscure the upper abdomen. Cholecystectomy clips are noted. Nonobstructing 6 and 3 mm left renal calc arron are noted additionally. Small fat filled umbilical hernia is present. Urinary bladder is incomple tely distended resulting in urinary bladder wall thickening. Right axillary surgical clips are seen f rom prior lymph node dissection. Surgical clips are seen along the right from prior lumpectomy. Mild degenerative changes of the upper spine and moderate degenerative changes of the sacral spine are not ed. IMPRESSION: 1. Decreasing uptake within the right chest wall previously with a maximum SUV of 3.9 and currently w ith a maximum SUV of 2.6. 2. Hypometabolic 1.6 cm right basilar pulmonary nodule not seen on the exam of 02/07/18. Despite hypom etabolic nature close surveillance is recommended as this is new. 3. Again MRI left shoulder is recommended to evaluate for the persistent uptake within the infraspina tus muscle and may relate to muscular tear.
== END | disposition home or self-care (01) ==
LOC: RADPETMAIN 10:09
PROVIDERS: ATTEND Internal Medicine Hematology & Oncology
DX: C50.111 Malignant neoplasm of central portion of right female breast (principal); R91.1 Solitary pulmonary nodule; Z92.21 Personal history of antineoplastic chemotherapy; Z92.3 Personal history of irradiation
CPT/HCPCS: 78815; A9552

== ENCOUNTER 2018-11-12 15:13 | Inpatient (IN) | payer MEDICARE ==
[2018-11-12] MEDS ORDERED: MAGNESIUM SULFATE-D5W PMX 1 GM in DEXTROSE/WATER 1 100ML.BAG IVPB STA (15:31)
[2018-11-12] MEDS ORDERED: methylPREDNISolone SOD SUCCI 125 MG/2 ML VIAL IV STA (15:31)
[2018-11-12] MEDS ORDERED: ALBUTEROL NEBULIZED 2.5 MG/3 ML INHALATION STA (15:31)
[2018-11-12] MEDS ORDERED: SODIUM CHLORIDE 0.9% 500 ML 500 ML IV STA (15:31)
[2018-11-12] MEDS ORDERED: IPRATROPIUM 0.5 MG/2.5 ML NEBU INHALATION STA (15:31)
[2018-11-12 15:59] LABS: Anisocytosis Slight; Basophils % (A) 0 %; Eosinophils # (A) 0.1 k/uL (0-0.7); Eosinophils % (A) 2 %; HCT 38.7 % (34.0-46.0); Lymphocytes # (A) 0.9 k/uL (1.0-4.8); Lymphocytes % (A) 17 %; MCH 34.5 pg (25.0-35.0); MCHC 33.6 g/dL (31.0-37.0); MCV 102.6 fL (80.0-100.0); Macrocytosis Slight; Mean Platelet Volume 7.5; Monocytes # (A) 0.2 k/uL (0-1.0); Monocytes % (A) 4 %; Neutrophils # (A) 4.2 k/uL (1.3-7.7); Neutrophils % (A) 76 %; Platelet Count 266 k/uL (150-450); RBC 3.77 m/uL (3.80-5.40); RDW 16.3 % (11.5-15.5); WBC 5.6 k/uL (3.8-10.6)
[2018-11-12 16:09] LABS: Albumin 4.4 g/dL (3.5-5.0); Calcium 9.6 mg/dL (8.4-10.2); Potassium 5.2 mmol/L (3.5-5.1); Total Bilirubin 1.2 mg/dL (0.2-1.3); Total Protein 7.1 g/dL (6.3-8.2)
[2018-11-12 16:12] LABS: Partial Thromboplastin Time 22.6 sec (22.0-30.0); Prothrombin Time 10.6 sec (9.0-12.0)
--- NOTE | 2018-11-12 16:29 | XR ---
EXAMINATION TYPE: XR chest 1V portable DATE OF EXAM: 11/12/2018 COMPARISON: 03/20/2018 INDICATION: Difficulty breathing TECHNIQUE: Single frontal view of the chest is obtained. FINDINGS: The heart size is normal. The pulmonary vasculature is normal. There is an infiltrate in the right upper lobe. Correlate for pneumonia. This may be superimposed on prior scarring. Other etiologies including neoplasm are not excluded. This should be followed to [facility]. Consider atypical forms of pneumonia as well. IMPRESSION: 1. Irregular increased density within the right upper lobe. Differential could include pneumonia whic h would include atypical forms of pneumonia. Underlying mass is not excluded. This should be followed to baseline.
--- NOTE | 2018-11-12 16:37 | ED ---
General Adult HPI - General Chief complaint: Shortness of Breath Stated complaint: SOB Time Seen by Provider: 11/12/18 15:15 Source: patient, RN notes reviewed Mode of arrival: ambulatory Limitations: no limitations - History of Present Illness Initial comments: This is a 63-year-old female with past medical history significant for metastatic breast cancer which is now on the right upper chest wall. Patient states that she also has COPD. Patient states her difficulty breathing is increased over the last few days. Patient states she was at her primary medical care doctor's office and they sent her into the emergency department to be evaluated. Patient states she has been coughing but not coughing up any colored sputum. Patient denies any chest pain or palpitations. Patient denies any nausea vomiting diarrhea. Patient denies any abdominal pain. Patient denies any lightheadedness or dizziness. - Related Data Home Medications Medication Instructions Recorded Confirmed Albuterol Sulfate [Ventolin HFA] 2 puff INHALATION RT-Q4H PRN 11/23/13 11/12/18 Aspirin 81 mg PO DAILY 11/23/13 11/12/18 Budesonide-Formot 160-4.5 Mcg 2 puff INHALATION RT-BID 09/15/14 11/12/18 [Symbicort 160-4.5 Mcg Inhaler] Omeprazole [PriLOSEC] 20 mg PO AC-BRKFST 01/20/15 11/12/18 Triamterene-Hctz 37.5-25Mg 1 tab PO DAILY 01/20/15 11/12/18 [Dyazide 37.5-25 Capsule] Losartan Potassium 50 mg PO DAILY 01/22/15 11/12/18 Albuterol Nebulized [Ventolin 2.5 mg INHALATION RT-Q6H 05/16/16 11/12/18 Nebulized] Letrozole [Femara] 2.5 mg PO DAILY 03/03/18 11/12/18 Palbociclib [Ibrance] 125 mg PO DIRECTED 03/03/18 11/12/18 Levofloxacin [Levaquin] 500 mg PO DAILY 11/12/18 11/12/18 predniSONE See Taper PO DIRECTED 11/12/18 11/12/18 Allergies Allergy/AdvReac Type Severity Reaction Status Date / Time shellfish derived [Shrimp] Allergy Mild Unknown Verified 11/12/18 16:13 Sulfa (Sulfonamide Allergy Rash/Hives Verified 11/12/18 16:13 Antibiotics) clarithromycin [From Biaxin] AdvReac Unknown Verified 11/12/18 16:13 Review of Systems ROS Statement: Those systems with pertinent positive or pertinent negative responses have been documented in the HPI. ROS Other: All systems not noted in ROS Statement are negative. Past Medical History Past Medical History: Asthma, Cancer, COPD, Deep Vein Thrombosis (DVT), GERD/Reflux, Hypertension, Myocardial Infarction (AL) Additional Past Medical History / Comment(s): Metastatic breast cancer, details discussed above. Urgent diagnosis was 1997 treated by lumpectomy radiation therapy and chemotherapy and subsequent recurrence in September 2017 and the patient developed chest wall recurrence, supraclavicular lymph node involvement and axillary lymph node involvement. The patient is currently on Femara and Ibrance, bronchial asthma, obstructive sleep apnea, chronic ALLERGIC rhinitis, hypertension, coronary artery disease, acid reflux, previous history of DVT, history of nephrolithiasis, previous history of E. coli in January 2018, migraines, shingles more than 20 years ago, PVD Last Myocardial Infarction Date:: 2008 History of Any Multi-Drug Resistant Organisms: None Reported Past Surgical History: Appendectomy, Section, Cholecystectomy, Hysterectomy Additional Past Surgical History / Comment(s): Laparoscopy, 1997RT BREAST BX/ Lumpectomy with lymph node resection in 1997 ON RIGHT BREAST DID RADIATION AND CHEMO, STILL HAS METAL CLIPS IN SCOTTY BREASTS FROM WHEN THEY DID MAMORGAMS AND BIOPSIES. 09/2017 HAD "REOCCURANCE OF RT BREAST CANCER THEY REMOVED THE REMAINING LYMPH NODES RT AXILLA/ / NECK AND IS ON ORL CHEMO" . PT STATED "HAD PARTIAL HYSTERECTOMY STILL HAD 1 OVARY BUT THE CHEMO TX DESTROYED IT" Past Anesthesia/Blood Transfusion Reactions: No Reported Reaction Additional Past Anesthesia/Blood Transfusion Reaction / Comment(s): CLAUSTRAPHOBIA Past Psychological History: No Psychological Hx Reported Smoking Status: Former smoker Past Alcohol Use History: None Reported Past Drug Use History: None Reported - Past Family History Father Family Medical History: Hypertension Additional Family Medical History / Comment(s): DIVERTICULITIS, IN HIS SLEEP AT AGE 81 Mother Family Medical History: Cancer, Hypertension Additional Family Medical History / Comment(s): BREAST CANCER General Exam - General Exam Comments Initial Comments: GENERAL: Patient is well-developed and well-nourished. Patient is nontoxic and well- hydrated and is in moderate distress. ENT: Neck is soft and supple. No significant lymphadenopathy is noted. Oropharynx is clear. Moist mucous membranes. Neck has full range of motion without eliciting any pain. EYES: The sclera were anicteric and conjunctiva were pink and moist. Extraocular movements were intact and pupils were equal round and reactive to light. Eyelids were unremarkable. PULMONARY: Patient is wheezing diffusely and has poor air movement. CARDIOVASCULAR: There is a regular rate and rhythm without any murmurs gallops or rubs. ABDOMEN: Soft and nontender with normal bowel sounds. No palpable organomegaly was noted. There is no palpable pulsatile mass. SKIN: Skin is clear with no lesions or rashes and otherwise unremarkable. NEUROLOGIC: Patient is alert and oriented x3. Cranial nerves II through XII are grossly intact. Motor and sensory are also intact. Normal speech, volume and content. Symmetrical smile. MUSCULOSKELETAL: Normal extremities with adequate strength and full range of motion. No lower extremity swelling or edema. No calf tenderness. LYMPHATICS: No significant lymphadenopathy is noted PSYCHIATRIC: Normal psychiatric evaluation. Limitations: no limitations Course Vital Signs 11/12/18 11/12/18 11/12/18 15:16 15:59 16:31 Temperature 98.2 F Pulse Rate 99 97 92 Respiratory 24 Rate Blood Pressure 141/73 O2 Sat by Pulse 97 Oximetry Medical Decision Making - Medical Decision Making Chest x-ray shows right upper lobe mass which is consistent with previous x-ray. Patient received 3 breathing treatment emergency department and some IV steroids. I went back and reevaluated the patient and her breath sounds were improved and she was feeling somewhat better but she still was wheezing bilaterally. I spoke with Dr. Pires agreed to admit the patient admitted the patient for COPD exacerbation and continued breathing treatments and steroids on the floor. I consulted pulmonary. EKG shows a normal sinus rhythm at 92 bpm OH interval is on a 42 QRS is 80 QT interval 394 QTC is 487. Patient's EKG shows no ST segment elevation or depression - Lab Data Result diagrams: 11/12/18 15:45 11/12/18 15:45 Lab Results 11/12/18 11/12/18 11/12/18 Range/Units 15:45 15:45 15:45 WBC 5.6 (3.8-10.6) k/uL RBC 3.77 L (3.80-5.40) m/uL Hgb 13.0 (11.4-16.0) gm/dL Hct 38.7 (34.0-46.0) % MCV 102.6 H (80.0-100.0) fL MCH 34.5 (25.0-35.0) pg MCHC 33.6 (31.0-37.0) g/dL RDW 16.3 H (11.5-15.5) % Plt Count 266 (150-450) k/uL Neutrophils % 76 % Lymphocytes % 17 % Monocytes % 4 % Eosinophils % 2 % Basophils % 0 % Neutrophils # 4.2 (1.3-7.7) k/uL Lymphocytes # 0.9 L (1.0-4.8) k/uL Monocytes # 0.2 (0-1.0) k/uL Eosinophils # 0.1 (0-0.7) k/uL Basophils # 0.0 (0-0.2) k/uL Anisocytosis Slight Macrocytosis Slight PT (9.0-12.0) sec INR (<1.2) APTT (22.0-30.0) sec Sodium 140 (137-145) mmol/L Potassium 5.2 H (3.5-5.1) mmol/L Chloride 105 (98-107) mmol/L Carbon Dioxide 25 (22-30) mmol/L Anion Gap 10 mmol/L BUN 30 H (7-17) mg/dL Creatinine 0.99 (0.52-1.04) mg/dL Est GFR (CKD-EPI)AfAm 71 (>60 ml/min/1.73 sqM) Est GFR (CKD-EPI)NonAf 61 (>60 ml/min/1.73 sqM) Glucose 88 (74-99) mg/dL Plasma Lactic Acid Brayan 3.7 H* (0.7-2.0) mmol/L Calcium 9.6 (8.4-10.2) mg/dL Magnesium 2.0 (1.6-2.3) mg/dL Total Bilirubin 1.2 (0.2-1.3) mg/dL AST 29 (14-36) U/L ALT 28 (9-52) U/L Alkaline Phosphatase 64 (38-126) U/L Troponin I (0.000-0.034) ng/mL Total Protein 7.1 (6.3-8.2) g/dL Albumin 4.4 (3.5-5.0) g/dL 11/12/18 11/12/18 Range/Units 15:45 15:45 WBC (3.8-10.6) k/uL RBC (3.80-5.40) m/uL Hgb (11.4-16.0) gm/dL Hct (34.0-46.0) % MCV (80.0-100.0) fL MCH (25.0-35.0) pg MCHC (31.0-37.0) g/dL RDW (11.5-15.5) % Plt Count (150-450) k/uL Neutrophils % % Lymphocytes % % Monocytes % % Eosinophils % % Basophils % % Neutrophils # (1.3-7.7) k/uL Lymphocytes # (1.0-4.8) k/uL Monocytes # (0-1.0) k/uL Eosinophils # (0-0.7) k/uL Basophils # (0-0.2) k/uL Anisocytosis Macrocytosis PT 10.6 (9.0-12.0) sec INR 1.0 (<1.2) APTT 22.6 (22.0-30.0) sec Sodium (137-145) mmol/L Potassium (3.5-5.1) mmol/L Chloride (98-107) mmol/L Carbon Dioxide (22-30) mmol/L Anion Gap mmol/L BUN (7-17) mg/dL Creatinine (0.52-1.04) mg/dL Est GFR (CKD-EPI)AfAm (>60 ml/min/1.73 sqM) Est GFR (CKD-EPI)NonAf (>60 ml/min/1.73 sqM) Glucose (74-99) mg/dL Plasma Lactic Acid Brayan (0.7-2.0) mmol/L Calcium (8.4-10.2) mg/dL Magnesium (1.6-2.3) mg/dL Total Bilirubin (0.2-1.3) mg/dL AST (14-36) U/L ALT (9-52) U/L Alkaline Phosphatase (38-126) U/L Troponin I <0.012 (0.000-0.034) ng/mL Total Protein (6.3-8.2) g/dL Albumin (3.5-5.0) g/dL Critical Care Time Critical Care Time: Yes Total Critical Care Time: 35 Disposition Clinical Impression: Acute exacerbation of chronic obstructive airways disease Disposition: ADMITTED IP TO THIS HOSP Referrals: Hipolito Youngblood MD [Primary Care Provider] - 1-2 days Time of Disposition: 16:37
[2018-11-12] MEDS ORDERED: IPRATROPIUM-ALBUTEROL 3 ML NEB INHALATION PRN (16:38)
[2018-11-12] MEDS ORDERED: TEMAZEPAM 15 MG CAP PO PRN (17:58)
[2018-11-12] MEDS ORDERED: ALPRAZolam 0.25 MG TAB PO PRN (17:58)
[2018-11-12] MEDS ORDERED: HYDROcodone/APAP 5-325MG 1 EACH TAB PO PRN (17:58)
[2018-11-12] MEDS ORDERED: LEVOFLOXACIN 500MG-D5W PMX 500 MG in DEXTROSE/WATER 1 100ML.BAG IVPB SCH (18:00)
[2018-11-12] MEDS: methylPREDNISolone SOD SUCCI 125 MG/2 ML VIAL IV SCH (18:51)
[2018-11-12] MEDS: PIPERACILLIN-TAZOBACTAM 3.375 GM in SODIUM CHLORIDE 0.9% 100 ML IVPB SCH (18:52)
[2018-11-12 20:02] LABS: Glucose,Whole Blood 176 mg/dL (75-99)
[2018-11-12] MEDS: IPRATROPIUM-ALBUTEROL 3 ML NEB INHALATION SCH (20:31)
[2018-11-12] MEDS: FORMOTEROL FUMARATE 20 MCG/2 ML NEBU INHALATION SCH (20:32)
[2018-11-12] MEDS: BUDESONIDE 1 MG/2 ML NEBU INHALATION SCH (20:32)
[2018-11-12] MEDS ORDERED: LETROZOLE 2.5 MG TAB PO STA (21:07)
[2018-11-12] MEDS: HEPARIN SODIUM,PORCINE 5,000 UNIT/ML 1 ML VIAL SQ SCH (21:32)
--- NOTE | 2018-11-12 23:12 | HP ---
HISTORY AND PHYSICAL CHIEF COMPLAINT: Shortness of breath. I am covering for Dr. Youngblood. HISTORY OF PRESENT ILLNESS: This 63-year-old woman with past medical history of asthma, COPD, history of DVT, GERD, hypertension, history of myocardial infarction, history of metastatic breast cancer, being followed by Dr. Youngblood and Dr. Woo in the outpatient setting was previously admitted last year with history of pneumonia and COPD acute exacerbation. Currently the patient complained of shortness of breath and cough and sputum and the patient came to [facility] and was admitted for further evaluation and treatment. Right upper lobe pneumonia suspected. There is no history of fever, rigors or chills. No history of headache, loss of consciousness, seizures. PAST MEDICAL HISTORY: History of asthma, COPD, history of DVT, GERD, hypertension, history of myocardial infarction, history of breast cancer on chemo. MEDICATIONS: Home medications prior to admission are: 1. Prednisone taper. 2. Triamterene hydrochlorothiazide 1 tablet p.o. daily. 3. Ibrance 120 mg as before. 4. Prilosec 20 mg with breakfast. 5. Losartan 50 mg p.o. daily. 6. Levaquin 500 mg daily. 7. Femara 2.5 mg daily. 8. Symbicort 2 puffs b.i.d. 9. Aspirin 81 mg. 10.Ventolin HFA 2 puffs q.4 p.r.n. ALLERGIES: SHELLFISH, SULFA, FAMILY HISTORY: History of hypertension, diverticulosis. SOCIAL HISTORY: Previous history of smoking. No history of alcohol intake. REVIEW OF SYSTEMS: ENT: No diminished vision. No diminished hearing. CARDIOVASCULAR: As mentioned earlier. RESPIRATORY: As mentioned earlier. GI no nausea or vomiting. no hematuria. CENTRAL NERVOUS SYSTEM: No numbness or weakness. ALLERGY/IMMUNOLOGY: As mentioned earlier. HEMATOLOGY/ONCOLOGY: As mentioned earlier. ENDOCRINE: No history of diabetes or hypothyroidism. CONSTITUTIONAL: As mentioned earlier. Rheumatoid negative. Dermatology: Negative. Psychiatric: As mentioned earlier. PHYSICAL EXAM: GENERAL: Patient is alert, oriented x3. VITAL SIGNS: The pulse is 90, blood pressure 120/82, respiration 20; temp is normal. Pulse ox 100 percent on 2 L. HEENT is conjunctivae normal. Oral mucosa moist. NECK: No jugular venous distention. No carotid bruit. No lymph node enlargement. CARDIOVASCULAR: S1, S2 muffled. No murmur. No thrills. RESPIRATIONS: Breath sounds diminished in the bases. Bilateral scattered rhonchi and wheezing. chi and crackles. Expiratory wheezing also present. Breathing efforts are markedly increased. Minimal local swelling and tenderness in the right upper chest present. ABDOMEN: Soft, nontender. No mass palpable. LEGS: No edema. No swelling. NERVOUS SYSTEM: Higher functions as mentioned earlier. Moves all 4 limbs. No focal motor or sensory deficits. LYMPHATICS: No lymph nodes palpable in the neck, axillae or groin. SKIN: No ulcer, rash or bleeding. JOINTS: No active deforming arthropathy. LABS: WBC 5.2, hemoglobin 13, sodium 140, potassium 5.2, lactic acid 3.7. ASSESSMENT: 1. Chronic obstructive pulmonary disease, asthma acute exacerbation with acute right upper lobe pneumonia possibly community acquired with possible sepsis. 2. Elevated lactic acid 3.7. 3. History of breast cancer with metastases. 4. History of asthma/ chronic obstructive pulmonary disease. 5. History of deep vein thrombosis. 6. Gastroesophageal reflux disease. 7. Hypertension. 8. History of myocardial infarction. 9. History of chest wall recurrence. 10.History of deep vein thrombosis. 11.History of appendectomy. 12.History of section. 13.History of cholecystectomy. 14.History of claustrophobia. RECOMMENDATIONS AND DISCUSSION: This 63-year-old woman who presented with multiple complex medical issues, will monitor the patient closely, continue the current management and will optimize the bronchodilator treatment. Broad-spectrum IV antibiotics. IV steroids. Will obtain pulmonary and as well as Hematology/Oncology evaluation. Resume the home medications. Prognosis guarded because of multiple complex medical issues. MMODL / IJN: [id number] / [facility] HOSPITALLuanne
[2018-11-13] MEDS: methylPREDNISolone SOD SUCCI 125 MG/2 ML VIAL IV SCH ×5 (01:03→23:16)
[2018-11-13] MEDS: PIPERACILLIN-TAZOBACTAM 3.375 GM in SODIUM CHLORIDE 0.9% 100 ML IVPB SCH ×4 (01:04→23:18)
[2018-11-13] MEDS: ONDANSETRON 4 MG/2 ML VIAL IVP PRN ×2 (01:37→13:12)
[2018-11-13 07:03] LABS: Glucose,Whole Blood 150 mg/dL (75-99)
[2018-11-13 08:19] LABS: Basophils % (A) 0 %; Eosinophils % (A) 0 %; HCT 37.6 % (34.0-46.0); Lymphocytes # (A) 0.7 k/uL (1.0-4.8); Lymphocytes % (A) 16 %; MCH 34.1 pg (25.0-35.0); MCV 106.6 fL (80.0-100.0); Macrocytosis Moderate; Mean Platelet Volume 7.2; Monocytes # (A) 0.2 k/uL (0-1.0); Monocytes % (A) 4 %; Neutrophils # (A) 3.8 k/uL (1.3-7.7); Neutrophils % (A) 79 %; Platelet Count 284 k/uL (150-450); RBC 3.53 m/uL (3.80-5.40); RDW 15.4 % (11.5-15.5); WBC 4.8 k/uL (3.8-10.6)
[2018-11-13] MEDS: LOSARTAN 50 MG TAB PO SCH (08:23)
[2018-11-13] MEDS: HEPARIN SODIUM,PORCINE 5,000 UNIT/ML 1 ML VIAL SQ SCH ×3 (08:23→23:14)
[2018-11-13] MEDS: ASPIRIN 81 MG PO SCH (08:23)
[2018-11-13] MEDS: PANTOPRAZOLE 40 MG TABLET PO SCH (08:23)
[2018-11-13] MEDS: INSULIN ASPART (NovoLOG) 100 UNIT/ML VIAL SQ SCH ×4 (08:25→23:14)
[2018-11-13 08:32] LABS: Calcium 9.6 mg/dL (8.4-10.2); Potassium 4.9 mmol/L (3.5-5.1)
[2018-11-13] MEDS: ACETAMINOPHEN TAB 325 MG TAB PO PRN ×4 (08:33→23:15)
[2018-11-13] MEDS: TRIAMTERENE-HCTZ 37.5-25MG 1 EACH CAP PO SCH (08:33)
[2018-11-13] MEDS: BUDESONIDE 1 MG/2 ML NEBU INHALATION SCH ×2 (08:46→19:47)
[2018-11-13] MEDS: IPRATROPIUM-ALBUTEROL 3 ML NEB INHALATION SCH ×4 (08:46→19:47)
[2018-11-13] MEDS: FORMOTEROL FUMARATE 20 MCG/2 ML NEBU INHALATION SCH ×2 (08:46→19:47)
[2018-11-13 11:09] LABS: Glucose,Whole Blood 119 mg/dL (75-99)
[2018-11-13] MEDS: DOXYCYCLINE 100 MG CAP PO SCH ×2 (13:10→23:16)
--- NOTE | 2018-11-13 14:57 | CONS ---
CONSULTATION DATE OF SERVICE: 11/13/2018 REASON FOR CONSULTATION: Sepsis and antibiotic recommendation. HISTORY OF PRESENT ILLNESS: The patient is a 63-year-old female with past medical history significant for metastatic breast cancer for which the patient did have radiation treatment. Also have underlying asthma, COPD. The patient started having a problem with increasing shortness of breath, wheezing, though initially started with a URI symptoms, for which the patient was evaluated in outpatient setting by her primary care physician. The patient started on steroid pack, subsequently evaluated and did not have any improvement. Hence, Levaquin was added. However, the patient did have increasing shortness of breath. She did have a dry hacking cough, not bringing up any sputum. Denies having any nausea, no vomiting, no choking on food. No abdominal pain. No diarrhea. Denies any high-grade fever or chills. With these symptoms, the patient presented to the [facility] ER. The patient was evaluated by the ER physician. On arrival to the ER, the patient did not have any fever. Her white count was normal, lactic acid mild at 2.2. The patient did have a chest x-ray obtained which did show irregular increased density within the right upper lobe, the pressure could include pneumonia, which would include apical problems of pneumonia, underlying mass not excluded. The patient has been started on Zosyn and admitted to the hospital. Infectious Disease was consulted for further recommendation regarding antibiotic therapy. REVIEW OF SYSTEMS: Positive points have been mentioned in HPI. Rest of the systems are negative. PAST MEDICAL HISTORY: Significant for asthma/COPD, she did have history of DVT, cancer, reflux disease, hypertension, OH, metastatic breast cancer. PAST SURGICAL HISTORY: Appendectomy, , cholecystectomy, hysterectomy, right breast did have radiation and chemo. SOCIAL HISTORY: Remote history of smoking, no drinking or any drug use. FAMILY HISTORY: Father history of hypertension and diverticulitis. Mother history of breast cancer and hypertension. ALLERGIES: SULFA and CLARITHROMYCIN. MEDICATIONS: The patient is currently on Tylenol, [place], DuoNeb, Xanax, aspirin, Pulmicort, heparin, NovoLog, Femara, Cozaar, Solu-Medrol, Zofran, Protonix, Zosyn, Restoril, Dyazide. PHYSICAL EXAMINATION: Blood pressure is 130/64 with a pulse of 99, temperature 98, she is 94% on room air. General description is a middle-aged female, up in the bed in no distress. No tachypnea or accessory muscle for respiration use. HEENT: Examination shows no pallor or scleral icterus. Oral mucosa is dry. No pharyngeal erythema. NECK: Trachea central, no thyromegaly. LUNGS: Unlabored breathing with bilateral expiratory wheeze. HEART: S1, S2. Regular rate and rhythm. ABDOMEN: Soft, no tenderness. EXTREMITIES: No edema of the feet. SKIN: Examination with no rash or mass palpable. NEUROLOGICAL: Patient is awake, alert, oriented, mood and affect normal. LABS: Hemoglobin is 12, white count 4.8. BUN of 27, creatinine 1.0. Chest x-ray report as mentioned above. DIAGNOSTIC IMPRESSION AND PLAN: Patient admitted to the hospital with difficulty in breathing and wheezing. She did have a dry cough, more likely in her chronic obstructive pulmonary disease/asthma exacerbation and possible tracheobronchitis. Clinically doubt underlying pneumonia. This patient is currently not running any fever or did have elevated white count. PLAN: 1. Will try to obtain a sputum for Gram stain culture and treat. 2. Will add doxycycline 100 mg p.o. twice a day and Zosyn can be safely discontinued. 3. Will follow up on clinical condition and culture to further adjust medication if needed. Thank you for this consultation. Will follow this patient along with you. MMODL / IJN: [id number] /
--- NOTE | 2018-11-13 16:03 | P.CNPUL ---
History of Present Illness Consult date: 11/13/18 Requesting physician: Thai Colunga Reason for consult: dyspnea Chief complaint: Shortness of breath, cough, phlegm production History of present illness: This is 63-year-old white female patient with past medical history of COPD, hypertension, previous episode of myocardial infarction, metastatic breast cancer, with history of lumpectomy, chemo and radiation therapy, with the recent recurrence of breast cancer in September 2017, with recurrence in the chest wall, supraclavicular lymph node involvement and axillary lymph node involvement. She is on a combination of Femara and Ibrance. Other medical history includes chronic bronchial asthma, obstructive sleep apnea, chronic ALLERGIC rhinitis, coronary artery disease, GERD/reflux, previous history of DVT, history of nephrolithiasis, migraines, history of nicotine dependence,currently in remission. Patient came into the hospital on 11/12/2018 for evaluation of worsening shortness of breath, with a history of difficulty in breathing over the last few days. Patient states she's been coughing but not coughing up any phlegm. She denied any chest pain denies any nausea, vomiting or diarrhea, denies any abdominal pain no lightheadedness or dizziness. No palpitations. Chest x-ray was completed and showed irregular increased density within the right upper lobe, note that the patient had the changes in the right upper lobe present back in January 2018 was thought to be related to changes related to radiation treatment. Most recent PET scan from 09/19/2018 showed decreasing uptake within the right chest wall with SUV down to 2.6 from previous of 3.9. Showed hypermetabolic 1.6 cm right basilar pulmonary nodule that was new since 0 01/30/2018, and there was a persistent uptake within the infraspinatus muscle possibly related to muscular tear. Lab work was reviewed, and showed no evidence of leukocytosis, white blood cell count was 5.6, hemoglobin of 13, sodium of 140, potassium is 5.2, CO2 is 25, BUN of 30 creatinine 0.9, plasma lactic acid was 3.7, improved down to 2.2 with IV fluids, LFTs were within normal range, troponins were negative. Patient was afebrile. She was significantly wheezy and had poor air movement, she was started on empiric antibiotics, nebulized bronchodilators, breathing treatments and IV steroids and we're consulted for COPD exacerbation, with purulent tracheobronchitis, and the possibility of an upper lobe pneumonia Review of Systems All systems: negative Constitutional: Denies chills, Denies fever Eyes: denies blurred vision, denies pain Ears, nose, mouth and throat: Denies headache, Denies sore throat Cardiovascular: Denies chest pain, Denies shortness of breath Respiratory: Reports congestion, Reports dyspnea, Reports wheezing, Denies cough Gastrointestinal: Denies abdominal pain, Denies diarrhea, Denies nausea, Denies vomiting Genitourinary: Denies dysuria, Denies hematuria Musculoskeletal: Denies myalgias Integumentary: Denies pruritus, Denies rash Neurological: Denies numbness, Denies weakness Psychiatric: Denies anxiety, Denies depression Endocrine: Denies fatigue, Denies weight change Past Medical History Past Medical History: Asthma, Cancer, COPD, Deep Vein Thrombosis (DVT), GERD/Reflux, Hypertension, Myocardial Infarction ([place]) Additional Past Medical History / Comment(s): Metastatic breast cancer, diagnosis was 1997 treated by lumpectomy radiation therapy and chemotherapy and subsequent recurrence in September 2017 and the patient developed chest wall recurrence, supraclavicular lymph node involvement and axillary lymph node involvement. The patient is currently on Femara and Ibrance, bronchial asthma, obstructive sleep apnea, chronic ALLERGIC rhinitis, hypertension, coronary artery disease, acid reflux, previous history of DVT, history of nephrolithiasi s, previous history of E. coli in January 2018, migraines, shingles more than 20 years ago, PVD Last Myocardial Infarction Date:: 2008 History of Any Multi-Drug Resistant Organisms: None Reported Past Surgical History: Appendectomy, Section, Cholecystectomy, Hysterectomy Additional Past Surgical History / Comment(s): Laparoscopy, 1997RT BREAST BX/ Lumpectomy with lymph node resection in 1997 ON RIGHT BREAST DID RADIATION AND CHEMO, STILL HAS METAL CLIPS IN SCOTTY BREASTS FROM WHEN THEY DID MAMORGAMS AND BIOPSIES. 09/2017 HAD "REOCCURANCE OF RT BREAST CANCER THEY REMOVED THE REMAINING LYMPH NODES RT AXILLA/ / NECK AND IS ON ORL CHEMO" . PT STATED "HAD PARTIAL HYSTERECTOMY STILL HAD 1 OVARY BUT THE CHEMO TX DESTROYED IT" Past Anesthesia/Blood Transfusion Reactions: No Reported Reaction Additional Past Anesthesia/Blood Transfusion Reaction / Comment(s): CLAUSTERPHOBIA Past Psychological History: No Psychological Hx Reported Additional Psychological History / Comment(s): PT IS ON DISABILITY, LIVES WITH HER SPOUSE. NO HOME CARE SERVICES, NO MEDCIAL EQUIPMENT Smoking Status: Former smoker Past Alcohol Use History: None Reported Additional Past Alcohol Use History / Comment(s): STARTED SMOKNG AT AGE 18 QUIT AT AGE 23, SMOKED 1/2 PPD Past Drug Use History: None Reported - Past Family History Father Family Medical History: Hypertension Additional Family Medical History / Comment(s): DIVERTICULITIS, IN HIS SLEEP AT AGE 81 Mother Family Medical History: Cancer, Hypertension Additional Family Medical History / Comment(s): BREAST CANCER Medications and Allergies Home Medications Medication Instructions Recorded Confirmed Type Albuterol Sulfate [Ventolin HFA] 2 puff INHALATION RT-Q4H PRN 11/23/13 11/12/18 History Aspirin 81 mg PO DAILY 11/23/13 11/12/18 History Budesonide-Formot 160-4.5 Mcg 2 puff INHALATION RT-BID 09/15/14 11/12/18 History [Symbicort 160-4.5 Mcg Inhaler] Omeprazole [PriLOSEC] 20 mg PO AC-BRKFST 01/20/15 11/12/18 History Triamterene-Hctz 37.5-25Mg 1 tab PO DAILY 01/20/15 11/12/18 History [Dyazide 37.5-25 Capsule] Losartan Potassium 50 mg PO DAILY 01/22/15 11/12/18 History Albuterol Nebulized [Ventolin 2.5 mg INHALATION RT-Q6H 05/16/16 11/12/18 History Nebulized] Letrozole [Femara] 2.5 mg PO DAILY 03/03/18 11/12/18 History Palbociclib [Ibrance] 125 mg PO DIRECTED 03/03/18 11/12/18 History Levofloxacin [Levaquin] 500 mg PO DAILY 11/12/18 11/12/18 History predniSONE See Taper PO DIRECTED 11/12/18 11/12/18 History Allergies Allergy/AdvReac Type Severity Reaction Status Date / Time shellfish derived [Shrimp] Allergy Mild Unknown Verified 11/12/18 16:13 Sulfa (Sulfonamide Allergy Rash/Hives Verified 11/12/18 16:13 Antibiotics) clarithromycin [From Biaxin] AdvReac Unknown Verified 11/12/18 16:13 Physical Exam Vitals: Vital Signs Temp Pulse Pulse Resp BP BP Pulse Ox 11/13/18 12:10 91 11/13/18 11:53 89 11/13/18 11:24 98 F 99 22 130/64 94 L 11/13/18 09:13 92 11/13/18 09:04 90 11/13/18 09:03 90 11/13/18 08:46 89 98 11/13/18 08:00 20 11/13/18 04:56 97.8 F 82 20 146/82 95 11/13/18 00:00 20 11/12/18 23:54 99 11/12/18 23:41 92 11/12/18 20:47 88 11/12/18 20:00 98 F 98 20 138/83 97 11/12/18 18:30 81 131/82 98 11/12/18 18:00 86 127/65 97 11/12/18 17:00 140/65 11/12/18 16:31 92 11/12/18 16:30 90 20 122/80 100 11/12/18 16:00 81 22 126/81 100 11/12/18 15:59 97 11/12/18 15:30 96 24 139/80 99 Intake and Output 11/13/18 11/13/18 11/13/18 06:59 14:59 22:59 Intake Total 320 Output Total 5 Balance 315 Intake: Intake, IV Titration 200 Amount Levofloxacin 500Mg-D5w 100 Pmx 500 mg In Dextrose/ Water 1 100ml.bag @ 100 mls/hr IVPB Q24H [facility] Rx#: [id number] Piperacillin-Tazobactam 3 100 .375 gm In Sodium Chloride 0.9% 100 ml @ 25 mls/hr IVPB Q8HR [facility] Rx# :[id number] Oral 120 Output: Emesis 5 Other: Voiding Method Toilet Toilet # Voids 2 2 GENERAL EXAM: Alert, pleasant, 63-year-old white female, on room air, with a pulse ox of 94%, comfortable in no apparent distress. HEAD: Normocephalic/atraumatic. EYES: Normal reaction of pupils, equal size. Conjunctiva pink, sclera white. NOSE: Clear with pink turbinates. THROAT: No erythema or exudates. NECK: No masses, no JVD, no thyroid enlargement, no adenopathy. CHEST: No chest wall deformity. Symmetrical expansion. LUNGS: Equal air entry with diffuse wheezing CVS: Regular rate and rhythm, normal S1 and S2, no gallops, no murmurs, no rubs ABDOMEN: Soft, nontender. No hepatosplenomegaly, normal bowel sounds, no guarding or rigidity. EXTREMITIES: No clubbing, no edema, no cyanosis, 2+ pulses and upper and lower extremities. MUSCULOSKELETAL: Muscle strength and tone normal. SPINE: No scoliosis or deformity SKIN: No rashes CENTRAL NERVOUS SYSTEM: Alert and oriented -3. No focal deficits, tone is normal in all 4 extremities. PSYCHIATRIC: Alert and oriented -3. Appropriate affect. Intact judgment and insight. Results - Laboratory Findings CBC and BMP: 11/13/18 07:35 11/13/18 07:35 PT/INR, D-dimer PT 10.6 sec (9.0-12.0) 11/12/18 15:45 INR 1.0 (<1.2) 11/12/18 15:45 Abnormal lab findings: Abnormal Labs 11/12/18 11/12/18 11/12/18 15:45 15:45 15:45 RBC 3.77 L MCV 102.6 H RDW 16.3 H Lymphocytes # 0.9 L Potassium 5.2 H BUN 30 H Glucose POC Glucose (mg/dL) Plasma Lactic Acid Brayan 3.7 H* 11/12/18 11/12/18 11/13/18 19:25 20:01 07:01 RBC MCV RDW Lymphocytes # Potassium BUN Glucose POC Glucose (mg/dL) 176 H 150 H Plasma Lactic Acid Brayan 2.2 H* 11/13/18 11/13/18 11/13/18 07:35 07:35 11:08 RBC 3.53 L MCV 106.6 H RDW Lymphocytes # 0.7 L Potassium BUN 27 H Glucose 155 H POC Glucose (mg/dL) 119 H Plasma Lactic Acid Brayan - Diagnostic Findings Chest x-ray: report reviewed, image reviewed Assessment and Plan Plan: Assessment: #1. Acute exacerbation of chronic obstructive pulmonary disease and tracheobronchitis, chest x-ray shows chronic changes in the right upper lobe related to previous radiation for breast cancer. There was some increased density noted compared to previous chest x-ray, possibly related to pneumonia, although doubt pneumonia #2. Lactic acidemia improved with IV hydration, #3. History of breast cancer with lumpectomy and lymph node dissection, treated with chemo and radiation, currently on a combination of Femara and Ibrance. Patient had a recurrence of breast cancer in September 2017 with metastasis to the chest wall, supraclavicular lymph nodes and axillary lymph node involvement #4. History of COPD with previous history of smoking #5. 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 Chronic bronchial asthma #7. GERD/reflux #8. CAD, history of myocardial infarction #9. Obesity #10. Obstructive sleep apnea #11. DVT #12. Nephrolithiasis #13. Migraine Headaches Plan: Chest x-ray has been reviewed by Dr. Das, patient has chronic changes in the right upper lobe postradiation, there has been on some increased density in the appearance of the right upper lobe, however clinically patient is afebrile, cannot entirely rule out underlying pneumonia, although doubt the possibility of it. We'll continue with antibiotics per ID service recommendation, no fever or chills, says sputum for culture. Will treat the patient's COPD and tracheobronchitis, continue with IV steroids, nebulized bronchodilators. I performed a history & physical examination of the patient and discussed their management with my nurse practitioner, Lois Calixto. I reviewed the nurse practitioner's note and agree with the documented findings and plan of care. Lung sounds are positive for diffuse wheezes throughout the lung matthew. The findings and the impression was discussed with the patient. I attest to the documentation by the nurse practitioner. Time with Patient: Greater than 30
[2018-11-13] MEDS: LETROZOLE 2.5 MG TAB PO SCH (16:45)
--- NOTE | 2018-11-13 16:47 | P.CONS ---
History of Present Illness - Reason for Consult Consult date: 11/13/18 Metastatic breast cancer, on oral treatment Requesting physician: Thai Colunga - Chief Complaint Difficulty in breathing - History of Present Illness Mrs. Zafar is a very pleasant 63-year-old female patient of Dr. Woo who is currently admitted with severe COPD exacerbation. Patient states her symptoms started last , she initiated her standing prednisone prescription, her symptoms did not improve so she requested Levaquin, symptoms continued to progressively worsen, she was seen by PCP and sent directly to the hospital for evaluation. Chest x-ray showing a questionable right upper lobe pneumonia. When seen patient has a hoarse voice, she feels feverish but no documented fever, very congested sounding cough, thick sputum expectorated in sm all amounts, no hemoptysis, chest pain, palpitations, nausea, vomiting, abdominal pain, diarrhea, constipation, swelling in the legs, patient does have mild activity intolerance, she is short of breath with minimal activity. Malignancy history: Patient was diagnosed with right-sided breast cancer [facility] in 1997, treated with a right partial mastectomy, 8 cycles of CMF adjuvant chemotherapy, radiation to the right breast and AI attempted, but not tolerated. Patient did well until 2018. She developed right chest wall pain associated with a "lump", ultrasound of the chest wall showed a mass, ultrasound-guided biopsy showed a metastatic adenocarcinoma consistent with a breast primary. 09/2017 she had a staging PET scan showing disease in the right chest wall, right supraclavicular area, right axillary lymph nodes, no distant metastasis. She was started on oral Ibrance and Femara. She did have some palliative radiation to the right chest wall. She continues on Ibrance and Femara, PET scan in February 2018 showed improvement in all areas of disease. As noted to have some mild radiation pneumonitis in the right. Continues on treatment. She is currently on her week off of Ibrance Review of Systems 14 point review of systems is negative except as stated in HPI Past Medical History Past Medical History: Asthma, Cancer, COPD, Deep Vein Thrombosis (DVT), GERD/Reflux, Hypertension, Myocardial Infarction ([place]) Additional Past Medical History / Comment(s): Metastatic breast cancer, diagnosis was 1997 treated by lumpectomy radiation therapy and chemotherapy and subsequent recurrence in September 2017 and the patient developed chest wall recurrence, supraclavicular lymph node involvement and axillary lymph node involvement. The patient is currently on Femara and Ibrance, bronchial asthma, obstructive sleep apnea, chronic ALLERGIC rhinitis, hypertension, coronary artery disease, acid reflux, previous history of DVT, history of nephrolithiasis, previous history of E. coli in January 2018, migraines, shingles more than 20 years ago, PVD Last Myocardial Infarction Date:: 2008 History of Any Multi-Drug Resistant Organisms: None Reported Past Surgical History: Appendectomy, Section, Cholecystectomy, Hysterectomy Additional Past Surgical History / Comment(s): Laparoscopy, 1997RT BREAST BX/ Lumpectomy with lymph node resection in 1997 ON RIGHT BREAST DID RADIATION AND CHEMO, STILL HAS METAL CLIPS IN SCOTTY BREASTS FROM WHEN THEY DID MAMORGAMS AND BIOPSIES. 09/2017 HAD "REOCCURANCE OF RT BREAST CANCER THEY REMOVED THE REMAINING LYMPH NODES RT AXILLA/ / NECK AND IS ON ORL CHEMO" . PT STATED "HAD PARTIAL HYSTERECTOMY STILL HAD 1 OVARY BUT THE CHEMO TX DESTROYED IT" Past Anesthesia/Blood Transfusion Reactions: No Reported Reaction Additional Past Anesthesia/Blood Transfusion Reaction / Comm: CLAUSTERPHOBIA Past Psychological History: No Psychological Hx Reported Additional Psychological History / Comment(s): PT IS ON DISABILITY, LIVES WITH HER SPOUSE. NO HOME CARE SERVICES, NO MEDCIAL EQUIPMENT Smoking Status: Former smoker Past Alcohol Use History: None Reported Additional Past Alcohol Use History / Comment(s): STARTED SMOKNG AT AGE 18 QUIT AT AGE 23, SMOKED 1/2 PPD Past Drug Use History: None Reported - Past Family History Father Family Medical History: Hypertension Additional Family Medical History / Comment(s): DIVERTICULITIS, IN HIS SLEEP AT AGE 81 Mother Family Medical History: Cancer, Hypertension Additional Family Medical History / Comment(s): BREAST CANCER Medications and Allergies Home Medications Medication Instructions Recorded Confirmed Type Albuterol Sulfate [Ventolin HFA] 2 puff INHALATION RT-Q4H PRN 11/23/13 11/12/18 History Aspirin 81 mg PO DAILY 11/23/13 11/12/18 History Budesonide-Formot 160-4.5 Mcg 2 puff INHALATION RT-BID 09/15/14 11/12/18 History [Symbicort 160-4.5 Mcg Inhaler] Omeprazole [PriLOSEC] 20 mg PO AC-BRKFST 01/20/15 11/12/18 History Triamterene-Hctz 37.5-25Mg 1 tab PO DAILY 01/20/15 11/12/18 History [Dyazide 37.5-25 Capsule] Losartan Potassium 50 mg PO DAILY 01/22/15 11/12/18 History Albuterol Nebulized [Ventolin 2.5 mg INHALATION RT-Q6H 05/16/16 11/12/18 History Nebulized] Letrozole [Femara] 2.5 mg PO DAILY 03/03/18 11/12/18 History Palbociclib [Ibrance] 125 mg PO DIRECTED 03/03/18 11/12/18 History Levofloxacin [Levaquin] 500 mg PO DAILY 11/12/18 11/12/18 History predniSONE See Taper PO DIRECTED 11/12/18 11/12/18 History Allergies Allergy/AdvReac Type Severity Reaction Status Date / Time shellfish derived [Shrimp] Allergy Mild Unknown Verified 11/12/18 16:13 Sulfa (Sulfonamide Allergy Rash/Hives Verified 11/12/18 16:13 Antibiotics) clarithromycin [From Biaxin] AdvReac Unknown Verified 11/12/18 16:13 Physical Exam Vitals: Vital Signs Temp Pulse Pulse Resp BP BP Pulse Ox 11/13/18 16:27 88 11/13/18 16:17 86 11/13/18 12:10 91 11/13/18 11:53 89 11/13/18 11:24 98 F 99 22 130/64 94 L 11/13/18 09:13 92 11/13/18 09:04 90 11/13/18 09:03 90 11/13/18 08:46 89 98 11/13/18 08:00 20 11/13/18 04:56 97.8 F 82 20 146/82 95 11/13/18 00:00 20 11/12/18 23:54 99 11/12/18 23:41 92 11/12/18 20:47 88 11/12/18 20:00 98 F 98 20 138/83 97 11/12/18 18:30 81 131/82 98 11/12/18 18:00 86 127/65 97 11/12/18 17:00 140/65 Intake and Output 11/13/18 11/13/18 11/13/18 06:59 14:59 22:59 Intake Total 320 Output Total 5 Balance 315 Intake: Intake, IV Titration 200 Amount Levofloxacin 500Mg-D5w 100 Pmx 500 mg In Dextrose/ Water 1 100ml.bag @ 100 mls/hr IVPB Q24H [facility] Rx#: [id number] Piperacillin-Tazobactam 3 100 .375 gm In Sodium Chloride 0.9% 100 ml @ 25 mls/hr IVPB Q8HR [facility] Rx# :[id number] Oral 120 Output: Emesis 5 Other: Voiding Method Toilet Toilet # Voids 2 2 - Constitutional General appearance: cooperative, mild distress, morbidly obese - EENT Eyes: anicteric sclerae, EOMI ENT: hearing grossly normal, normal oropharynx - Neck Neck: no lymphadenopathy - Respiratory Respiratory: bilateral: dullness, rhonchi - Cardiovascular Rhythm: regular Heart sounds: normal: S1, S2 leg Peripheral Edema: bilateral: None - Gastrointestinal General gastrointestinal: no absent bowel sounds, no decreased bowel sounds, no distended, no hepatomegaly, no hyperactive bowel sounds, normal bowel sounds, no organomegaly, no rigid, no scaphoid, soft, no splenomegaly, no tenderness, no umbilical hernia, no ventral hernia - Integumentary Integumentary: normal - Neurologic Neurologic: CNII-XII intact - Musculoskeletal Musculoskeletal: strength equal bilaterally - Psychiatric Psychiatric: A&O x's 3, appropriate affect, intact judgment & insight Results CBC & Chem 7: 11/13/18 07:35 11/13/18 07:35 Labs: Abnormal Lab Results - Last 24 Hours (Table) 11/12/18 11/12/18 11/13/18 Range/Units 19:25 20:01 07:01 RBC (3.80-5.40) m/uL MCV (80.0-100.0) fL Lymphocytes # (1.0-4.8) k/uL BUN (7-17) mg/dL Glucose (74-99) mg/dL POC Glucose (mg/dL) 176 H 150 H (75-99) mg/dL Plasma Lactic Acid Brayan 2.2 H* (0.7-2.0) mmol/L 11/13/18 11/13/18 11/13/18 Range/Units 07:35 07:35 11:08 RBC 3.53 L (3.80-5.40) m/uL MCV 106.6 H (80.0-100.0) fL Lymphocytes # 0.7 L (1.0-4.8) k/uL BUN 27 H (7-17) mg/dL Glucose 155 H (74-99) mg/dL POC Glucose (mg/dL) 119 H (75-99) mg/dL Plasma Lactic Acid Brayan (0.7-2.0) mmol/L Microbiology - Last 24 Hours (Table) 11/13/18 00:26 Urine Culture - Preliminary Urine,Voided Chest x-ray: report reviewed Assessment and Plan (1) Metastatic breast cancer Narrative/Plan: Patient is on oral therapy, she has been since early 2018, good response and tolerance. Pt is on her week off of Ibrance, she will continue daily oral Femara. She will continue to hold off her next cycle of Ibrance until she has completed antibiotic therapy for her current COPD exacerbation. This was discussed with the patient. Current Visit: No Status: Chronic Priority: Medium Code(s): C50.919 - MALIGNANT NEOPLASM OF UNSP SITE OF UNSPECIFIED FEMALE BREAST SNOMED Code(s): 768809191 Plan: COPD exacerbation care directed by Pulmonary and Medical management Internal Medicine
[2018-11-13 16:48] LABS: Glucose,Whole Blood 130 mg/dL (75-99)
--- NOTE | 2018-11-13 17:20 | P.PN ---
Subjective Progress Note Date: 11/13/18 63-year-old white female patient with past medical history of COPD, hypertension, previous episode of myocardial infarction, metastatic breast cancer, with history of lumpectomy, chemo and radiation therapy, with the recent recurrence of breast cancer in September 2017, with recurrence in the chest wall, supraclavicular lymph node involvement and axillary lymph node involvement. She is on a combination of Femara and Ibrance. Other medical history includes chronic bronchial asthma, obstructive sleep apnea, chronic ALLERGIC rhinitis, coronary artery disease, GERD/reflux, previous history of DVT, history of nephrolithiasis, migraines, history of nicotine dependence,currently in remission. Patient came into the hospital on 11/12/2018 for evaluation of worsening shortness of breath, with a history of difficulty in breathing over the last few days. Objective - Vital Signs Vital signs: Vital Signs Temp 98 F 11/13/18 11:24 Pulse 89 11/13/18 11:53 Resp 22 11/13/18 11:24 BP 130/64 11/13/18 11:24 Pulse Ox 94 L 11/13/18 11:24 Intake & Output 11/12/18 11/13/18 11/13/18 18:59 06:59 18:59 Intake Total 800 Output Total 5 Balance 795 Weight 108.862 kg Intake: Intake, IV Titration 200 Amount Levofloxacin 500Mg-D5w 100 Pmx 500 mg In Dextrose/ Water 1 100ml.bag @ 100 mls/hr IVPB Q24H [facility] Rx#: [id number] Piperacillin-Tazobactam 3 100 .375 gm In Sodium Chloride 0.9% 100 ml @ 25 mls/hr IVPB Q8HR [facility] Rx# :[id number] Oral 600 Output: Emesis 5 Other: Voiding Method Toilet # Voids 2 - Exam GENERAL EXAM: Alert, pleasant, 63-year-old white female, on room air, with a pulse ox of 94%, comfortable in no apparent distress. HEAD: Normocephalic/atraumatic. EYES: Normal reaction of pupils, equal size. Conjunctiva pink, sclera white. NOSE: Clear with pink turbinates. THROAT: No erythema or exudates. NECK: No masses, no JVD, no thyroid enlargement, no adenopathy. CHEST: No chest wall deformity. Symmetrical expansion. LUNGS: Equal air entry with diffuse wheezing CVS: Regular rate and rhythm, normal S1 and S2, no gallops, no murmurs, no rubs ABDOMEN: Soft, nontender. No hepatosplenomegaly, normal bowel sounds, no guarding or rigidity. EXTREMITIES: No clubbing, no edema, no cyanosis, 2+ pulses and upper and lower extremities. MUSCULOSKELETAL: Muscle strength and tone normal. SPINE: No scoliosis or deformity SKIN: No rashes CENTRAL NERVOUS SYSTEM: Alert and oriented -3. No focal deficits, tone is normal in all 4 extremities. PSYCHIATRIC: Alert and oriented -3. Appropriate affect. Intact judgment and insight. - Labs CBC & Chem 7: 11/13/18 07:35 11/13/18 07:35 Labs: Abnormal Lab Results - Last 24 Hours (Table) 11/12/18 11/12/18 11/12/18 Range/Units 15:45 15:45 15:45 RBC 3.77 L (3.80-5.40) m/uL MCV 102.6 H (80.0-100.0) fL RDW 16.3 H (11.5-15.5) % Lymphocytes # 0.9 L (1.0-4.8) k/uL Potassium 5.2 H (3.5-5.1) mmol/L BUN 30 H (7-17) mg/dL Glucose (74-99) mg/dL POC Glucose (mg/dL) (75-99) mg/dL Plasma Lactic Acid Brayan 3.7 H* (0.7-2.0) mmol/L 11/12/18 11/12/18 11/13/18 Range/Units 19:25 20:01 07:01 RBC (3.80-5.40) m/uL MCV (80.0-100.0) fL RDW (11.5-15.5) % Lymphocytes # (1.0-4.8) k/uL Potassium (3.5-5.1) mmol/L BUN (7-17) mg/dL Glucose (74-99) mg/dL POC Glucose (mg/dL) 176 H 150 H (75-99) mg/dL Plasma Lactic Acid Brayan 2.2 H* (0.7-2.0) mmol/L 11/13/18 11/13/18 11/13/18 Range/Units 07:35 07:35 11:08 RBC 3.53 L (3.80-5.40) m/uL MCV 106.6 H (80.0-100.0) fL RDW (11.5-15.5) % Lymphocytes # 0.7 L (1.0-4.8) k/uL Potassium (3.5-5.1) mmol/L BUN 27 H (7-17) mg/dL Glucose 155 H (74-99) mg/dL POC Glucose (mg/dL) 119 H (75-99) mg/dL Plasma Lactic Acid Brayan (0.7-2.0) mmol/L Microbiology - Last 24 Hours (Table) 11/13/18 00:26 Urine Culture - Preliminary Urine,Voided Assessment and Plan Assessment: 1. Acute exacerbation of chronic obstructive pulmonary disease and tracheobronchitis, - chest x-ray shows chronic changes in the right upper lobe related to previous radiation for breast cancer. - There was some increased density noted compared to previous chest x-ray, possibly related to pneumonia; pulmonary service doubt pneumonia 2. Lactic acidosis; improved with IV hydration, 3. History of breast cancer with lumpectomy and lymph node dissection, - treated with chemo and radiation, currently on a combination of Femara and Ibrance. Patient had a recurrence of breast cancer in September 2017 with metastasis to the chest wall, supraclavicular lymph nodes and axillary lymph node involvement 4. COPD/ Chronic postradiation changes in the right upper lobe/ Chronic bronchial asthma; as above 5. GERD/reflux; controlled on Protonix 40 mg by mouth daily 6. Hypertension; continue with home dose of Cozaar 50 mg daily and Dyazide 3 7525 milligrams daily 7. Obesity; counseling done on risk of complications of obesity and need for weight reduction 8. Obstructive sleep apnea 9. DVT prophylaxis; subcu heparin CODE STATUS; full code Time with Patient: Greater than 30
[2018-11-13 21:14] LABS: Glucose,Whole Blood 160 mg/dL (75-99)
[2018-11-13] MEDS: BENZOCAINE/MENTHOL LOZENG 1 EACH LOZENGE MUCOUS MEM PRN (23:19)
[2018-11-14] MEDS: ACETAMINOPHEN TAB 325 MG TAB PO PRN ×2 (05:35→17:32)
[2018-11-14] MEDS: methylPREDNISolone SOD SUCCI 125 MG/2 ML VIAL IV SCH ×3 (05:36→17:29)
[2018-11-14 07:12] LABS: Glucose,Whole Blood 141 mg/dL (75-99)
[2018-11-14 07:30] LABS: Basophils % (A) 0 %; Eosinophils % (A) 0 %; HCT 38.2 % (34.0-46.0); HGB 12.3 gm/dL (11.4-16.0); Lymphocytes # (A) 0.7 k/uL (1.0-4.8); Lymphocytes % (A) 11 %; MCH 33.9 pg (25.0-35.0); MCHC 32.2 g/dL (31.0-37.0); Macrocytosis Moderate; Mean Platelet Volume 7.3; Monocytes # (A) 0.4 k/uL (0-1.0); Monocytes % (A) 6 %; Neutrophils # (A) 4.9 k/uL (1.3-7.7); Neutrophils % (A) 81 %; Platelet Count 256 k/uL (150-450); RBC 3.64 m/uL (3.80-5.40); RDW 15.1 % (11.5-15.5)
[2018-11-14 07:42] LABS: Anion Gap 10 mmol/L; Blood Urea Nitrogen 24 mg/dL (7-17); Calcium 9.4 mg/dL (8.4-10.2); Carbon Dioxide 25 mmol/L (22-30); Chloride 107 mmol/L (98-107); Glucose 138 mg/dL (74-99); Potassium 4.8 mmol/L (3.5-5.1); Sodium 142 mmol/L (137-145)
[2018-11-14] MEDS: LOSARTAN 50 MG TAB PO SCH (07:48)
[2018-11-14] MEDS: DOXYCYCLINE 100 MG CAP PO SCH ×2 (07:48→21:12)
[2018-11-14] MEDS: ASPIRIN 81 MG PO SCH (07:48)
[2018-11-14] MEDS: PIPERACILLIN-TAZOBACTAM 3.375 GM in SODIUM CHLORIDE 0.9% 100 ML IVPB SCH ×2 (07:48→16:18)
[2018-11-14] MEDS: PANTOPRAZOLE 40 MG TABLET PO SCH (07:48)
[2018-11-14] MEDS: TRIAMTERENE-HCTZ 37.5-25MG 1 EACH CAP PO SCH (07:48)
[2018-11-14] MEDS: INSULIN ASPART (NovoLOG) 100 UNIT/ML VIAL SQ SCH ×4 (07:49→21:12)
[2018-11-14] MEDS: HEPARIN SODIUM,PORCINE 5,000 UNIT/ML 1 ML VIAL SQ SCH ×2 (07:54→20:57)
[2018-11-14] MEDS: IPRATROPIUM-ALBUTEROL 3 ML NEB INHALATION SCH ×4 (08:26→20:05)
[2018-11-14] MEDS: FORMOTEROL FUMARATE 20 MCG/2 ML NEBU INHALATION SCH ×2 (08:26→20:14)
[2018-11-14] MEDS: BUDESONIDE 1 MG/2 ML NEBU INHALATION SCH ×2 (08:26→20:05)
[2018-11-14 11:17] LABS: Glucose,Whole Blood 128 mg/dL (75-99)
[2018-11-14 14:29] LABS: Hemoglobin A1C 5.4 % (4.0-6.0)
[2018-11-14] MEDS: BENZOCAINE/MENTHOL LOZENG 1 EACH LOZENGE MUCOUS MEM PRN ×2 (14:49→21:14)
--- NOTE | 2018-11-14 15:29 | P.PN ---
Subjective Progress Note Date: 11/14/18 This is 63-year-old white female patient with past medical history of COPD, hyp ertension, previous episode of myocardial infarction, metastatic breast cancer, with history of lumpectomy, chemo and radiation therapy, with the recent recurrence of breast cancer in September 2017, with recurrence in the chest wall, supraclavicular lymph node involvement and axillary lymph node involvement. She is on a combination of Femara and Ibrance. Other medical history includes chronic bronchial asthma, obstructive sleep apnea, chronic ALLERGIC rhinitis, coronary artery disease, GERD/reflux, previous history of DVT, history of nephrolithiasis, migraines, history of nicotine dependence,currently in remission. Patient came into the hospital on 11/12/2018 for evaluation of worsening shortness of breath, with a history of difficulty in breathing over the last few days. Patient states she's been coughing but not coughing up any phlegm. She denied any chest pain denies any nausea, vomiting or diarrhea, denies any abdominal pain no lightheadedness or dizziness. No palpitations. Chest x-ray was completed and showed irregular increased density within the right upper lobe, note that the patient had the changes in the right upper lobe present back in January 2018 was thought to be related to changes related to radiation treatment. Most recent PET scan from 09/19/2018 showed decreasing uptake within the right chest wall with SUV down to 2.6 from previous of 3.9. Showed hypermetabolic 1.6 cm right basilar pulmonary nodule that was new since 01/30/2018, and there was a persistent uptake within the infraspinatus muscle possibly related to muscular tear. Lab work was reviewed, and showed no evidence of leukocytosis, white blood cell count was 5.6, hemoglobin of 13, sodium of 140, potassium is 5.2, CO2 is 25, BUN of 30 creatinine 0.9, plasma lactic acid was 3.7, improved down to 2.2 with IV fluids, LFTs were within normal range, troponins were negative. Patient was afebrile. She was significantly wheezy and had poor air movement, she was started on empiric antibiotics, nebulized bronchodilators, breathing treatments and IV steroids and we're consulted for COPD exacerbation, with purulent tracheobronchitis, and the possibility of an upper lobe pneumonia On today's evaluation of 11/14/2018 I'm seeing this patient for a follow-up a clinically improving compared to yesterday less focused spastic and wheezy compared to yesterday. The right upper lobe pulmonary infiltrate is probably related to an old chronic radiation change and there is no clear evidence of a superimposed pneumonia. The patient remains on bronchodilators and steroid regimen. She still cough and although less congested and wheezy compared to yesterday. No other new complaints otherwise for now. He is tolerating treatment without any side effects pH is on a combination of Zosyn and doxyc ycline. Objective - Vital Signs Vital signs: Vital Signs Temp 98 F 11/14/18 12:07 Pulse 91 11/14/18 12:07 Resp 20 11/14/18 12:07 BP 146/84 11/14/18 12:07 Pulse Ox 96 11/14/18 12:07 Intake & Output 11/13/18 11/14/18 11/14/18 18:59 06:59 18:59 Intake Total 300 700 Balance 300 700 Intake: Intake, IV Titration 100 100 Amount Piperacillin-Tazobactam 3 100 100 .375 gm In Sodium Chloride 0.9% 100 ml @ 25 mls/hr IVPB Q8HR [facility] Rx# :[id number] Oral 200 600 Other: Voiding Method Toilet Toilet Toilet # Voids 2 2 2 - Exam GENERAL EXAM: Alert, pleasant, 63-year-old white female, on room air, with a pulse ox of 94%, comfortable in no apparent distress. HEAD: Normocephalic/atraumatic. EYES: Normal reaction of pupils, equal size. Conjunctiva pink, sclera white. NOSE: Clear with pink turbinates. THROAT: No erythema or exudates. NECK: No masses, no JVD, no thyroid enlargement, no adenopathy. CHEST: No chest wall deformity. Symmetrical expansion. LUNGS: Equal air entry with diffuse wheezing CVS: Regular rate and rhythm, normal S1 and S2, no gallops, no murmurs, no rubs ABDOMEN: Soft, nontender. No hepatosplenomegaly, normal bowel sounds, no guarding or rigidity. EXTREMITIES: No clubbing, no edema, no cyanosis, 2+ pulses and upper and lower extremities. MUSCULOSKELETAL: Muscle strength and tone normal. SPINE: No scoliosis or deformity SKIN: No rashes CENTRAL NERVOUS SYSTEM: Alert and oriented -3. No focal deficits, tone is normal in all 4 extremities. PSYCHIATRIC: Alert and oriented -3. Appropriate affect. Intact judgment and insight. - Labs CBC & Chem 7: 11/14/18 06:30 11/14/18 06:30 Labs: Abnormal Lab Results - Last 24 Hours (Table) 11/13/18 11/13/18 11/14/18 Range/Units 16:47 21:13 06:30 RBC 3.64 L (3.80-5.40) m/uL MCV 105.0 H (80.0-100.0) fL Lymphocytes # 0.7 L (1.0-4.8) k/uL BUN (7-17) mg/dL Glucose (74-99) mg/dL POC Glucose (mg/dL) 130 H 160 H (75-99) mg/dL 11/14/18 11/14/18 11/14/18 Range/Units 06:30 07:09 11:16 RBC (3.80-5.40) m/uL MCV (80.0-100.0) fL Lymphocytes # (1.0-4.8) k/uL BUN 24 H (7-17) mg/dL Glucose 138 H (74-99) mg/dL POC Glucose (mg/dL) 141 H 128 H (75-99) mg/dL Microbiology - Last 24 Hours (Table) 11/13/18 00:26 Urine Culture - Final Urine,Voided 11/12/18 18:15 Blood Culture - Preliminary Blood No Growth after 24 hours Assessment and Plan Plan: #1. Acute exacerbation of chronic obstructive pulmonary disease and tracheobronchitis, chest x-ray shows chronic changes in the right upper lobe related to previous radiation for breast cancer. There was some increased density noted compared to previous chest x-ray, possibly related to pneumonia, although doubt pneumonia #2. Lactic acidemia improved with IV hydration, #3. History of breast cancer with lumpectomy and lymph node dissection, treated with chemo and radiation, currently on a combination of Femara and Ibrance. Patient had a recurrence of breast cancer in September 2017 with metastasis to the chest wall, supraclavicular lymph nodes and axillary lymph node involvement #4. History of COPD with previous history of smoking #5. 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 Chronic bronchial asthma #7. GERD/reflux #8. CAD, history of myocardial infarction #9. Obesity #10. Obstructive sleep apnea #11. DVT #12. Nephrolithiasis #13. Migraine Headaches Plan Likely improving. Continue same treatment. Pneumonia is doubtful. The right upper lobe pulmonary infiltrate is probably chronic and old. Continue same antibiotic coverage. We'll stop the of tomorrow. We'll make further recommendations based on her progress.
--- NOTE | 2018-11-14 15:45 | P.PN ---
Subjective Progress Note Date: 11/14/18 Principal diagnosis: Acute exacerbation COPD/severe tracheobronchitis 63-year-old white female patient with past medical history of COPD, hypertension, previous episode of myocardial infarction, metastatic breast cancer, with history of lumpectomy, chemo and radiation therapy, with the recent recurrence of breast cancer in September 2017, with recurrence in the chest wall, supraclavicular lymph node involvement and axillary lymph node involvement. She is on a combination of Femara and Ibrance. Other medical history includes chronic bronchial asthma, obstructive sleep apnea, chronic ALLERGIC rhinitis, coronary artery disease, GERD/reflux, previous history of DVT, history of nephrolithiasis, migraines, history of nicotine dependence,currently in remission. Patient came into the hospital on 11/12/2018 for evaluation of worsening shortness of breath, with a history of difficulty in breathing over the last few days. Objective - Vital Signs Vital signs: Vital Signs Temp 97.6 F 11/14/18 05:00 Pulse 88 11/14/18 08:48 Resp 18 11/14/18 05:00 BP 140/76 11/14/18 05:00 Pulse Ox 98 11/14/18 05:00 Intake & Output 11/13/18 11/14/18 11/14/18 18:59 06:59 18:59 Intake Total 300 Balance 300 Intake: Intake, IV Titration 100 Amount Piperacillin-Tazobactam 3 100 .375 gm In Sodium Chloride 0.9% 100 ml @ 25 mls/hr IVPB Q8HR [facility] Rx# :[id number] Oral 200 Other: Voiding Method Toilet Toilet Toilet # Voids 2 2 - Exam GENERAL EXAM: Alert, pleasant, 63-year-old white female, on room air, with a pulse ox of 94%, comfortable in no apparent distress. HEAD: Normocephalic/atraumatic. EYES: Normal reaction of pupils, equal size. Conjunctiva pink, sclera white. NOSE: Clear with pink turbinates. THROAT: No erythema or exudates. NECK: No masses, no JVD, no thyroid enlargement, no adenopathy. CHEST: No chest wall deformity. Symmetrical expansion. LUNGS: Equal air entry with diffuse wheezing CVS: Regular rate and rhythm, normal S1 and S2, no gallops, no murmurs, no rubs ABDOMEN: Soft, nontender. No hepatosplenomegaly, normal bowel sounds, no guarding or rigidity. EXTREMITIES: No clubbing, no edema, no cyanosis, 2+ pulses and upper and lower extremities. MUSCULOSKELETAL: Muscle strength and tone normal. SPINE: No scoliosis or deformity SKIN: No rashes CENTRAL NERVOUS SYSTEM: Alert and oriented -3. No focal deficits, tone is normal in all 4 extremities. PSYCHIATRIC: Alert and oriented -3. Appropriate affect. Intact judgment and insight. - Labs CBC & Chem 7: 11/14/18 06:30 11/14/18 06:30 Labs: Abnormal Lab Results - Last 24 Hours (Table) 11/13/18 11/13/18 11/14/18 Range/Units 16:47 21:13 06:30 RBC 3.64 L (3.80-5.40) m/uL MCV 105.0 H (80.0-100.0) fL Lymphocytes # 0.7 L (1.0-4.8) k/uL BUN (7-17) mg/dL Glucose (74-99) mg/dL POC Glucose (mg/dL) 130 H 160 H (75-99) mg/dL 11/14/18 11/14/18 11/14/18 Range/Units 06:30 07:09 11:16 RBC (3.80-5.40) m/uL MCV (80.0-100.0) fL Lymphocytes # (1.0-4.8) k/uL BUN 24 H (7-17) mg/dL Glucose 138 H (74-99) mg/dL POC Glucose (mg/dL) 141 H 128 H (75-99) mg/dL Microbiology - Last 24 Hours (Table) 11/12/18 18:15 Blood Culture - Preliminary Blood No Growth after 24 hours 11/13/18 00:26 Urine Culture - Preliminary Urine,Voided Assessment and Plan Assessment: 1. Acute exacerbation of chronic obstructive pulmonary disease and tracheobronchitis, - chest x-ray shows chronic changes in the right upper lobe related to previous radiation for breast cancer. - There was some increased density noted compared to previous chest x-ray, possibly related to pneumonia; pulmonary service doubt pneumonia 2. Lactic acidosis; improved with IV hydration, 3. History of breast cancer with lumpectomy and lymph node dissection, - treated with chemo and radiation, currently on a combination of Femara and Ibrance. Patient had a recurrence of breast cancer in September 2017 with metastasis to the chest wall, supraclavicular lymph nodes and axillary lymph node involvement 4. COPD/ Chronic postradiation changes in the right upper lobe/ Chronic bronchial asthma; as above 5. GERD/reflux; controlled on Protonix 40 mg by mouth daily 6. Hypertension; continue with home dose of Cozaar 50 mg daily and Dyazide 3 7525 milligrams daily 7. Obesity; counseling done on risk of complications of obesity and need for weight reduction 8. Obstructive sleep apnea 9. DVT prophylaxis; subcu heparin CODE STATUS; full code Time with Patient: Greater than 30
[2018-11-14 17:06] LABS: Glucose,Whole Blood 132 mg/dL (75-99)
[2018-11-14] MEDS: LETROZOLE 2.5 MG TAB PO SCH (17:29)
[2018-11-14 20:24] LABS: Glucose,Whole Blood 177 mg/dL (75-99)
[2018-11-15] MEDS: methylPREDNISolone SOD SUCCI 125 MG/2 ML VIAL IV SCH ×2 (00:10→05:37)
[2018-11-15] MEDS: ACETAMINOPHEN TAB 325 MG TAB PO PRN ×2 (00:10→05:36)
[2018-11-15] MEDS: PIPERACILLIN-TAZOBACTAM 3.375 GM in SODIUM CHLORIDE 0.9% 100 ML IVPB SCH ×3 (00:12→16:47)
[2018-11-15 07:02] LABS: Glucose,Whole Blood 134 mg/dL (75-99)
[2018-11-15 07:47] LABS: Basophils % (A) 0 %; Eosinophils % (A) 0 %; HCT 39.1 % (34.0-46.0); HGB 12.8 gm/dL (11.4-16.0); Lymphocytes # (A) 0.7 k/uL (1.0-4.8); Lymphocytes % (A) 10 %; MCH 33.7 pg (25.0-35.0); MCHC 32.6 g/dL (31.0-37.0); MCV 103.3 fL (80.0-100.0); Macrocytosis Slight; Mean Platelet Volume 7.6; Monocytes # (A) 0.4 k/uL (0-1.0); Monocytes % (A) 7 %; Neutrophils # (A) 5.5 k/uL (1.3-7.7); Neutrophils % (A) 82 %; Platelet Count 291 k/uL (150-450); RBC 3.79 m/uL (3.80-5.40); RDW 15.9 % (11.5-15.5); WBC 6.7 k/uL (3.8-10.6)
[2018-11-15] MEDS: LOSARTAN 50 MG TAB PO SCH (07:58)
[2018-11-15] MEDS: ASPIRIN 81 MG PO SCH (07:58)
[2018-11-15] MEDS: PANTOPRAZOLE 40 MG TABLET PO SCH (07:58)
[2018-11-15] MEDS: TRIAMTERENE-HCTZ 37.5-25MG 1 EACH CAP PO SCH (07:59)
[2018-11-15] MEDS: INSULIN ASPART (NovoLOG) 100 UNIT/ML VIAL SQ SCH ×4 (07:59→20:45)
[2018-11-15] MEDS: HEPARIN SODIUM,PORCINE 5,000 UNIT/ML 1 ML VIAL SQ SCH ×3 (07:59→20:51)
[2018-11-15] MEDS: DOXYCYCLINE 100 MG CAP PO SCH ×2 (07:59→20:52)
[2018-11-15 08:07] LABS: Calcium 9.4 mg/dL (8.4-10.2); Potassium 4.1 mmol/L (3.5-5.1)
[2018-11-15] MEDS: IPRATROPIUM-ALBUTEROL 3 ML NEB INHALATION SCH ×4 (08:34→20:26)
[2018-11-15] MEDS: BUDESONIDE 1 MG/2 ML NEBU INHALATION SCH ×2 (08:34→20:27)
[2018-11-15] MEDS: FORMOTEROL FUMARATE 20 MCG/2 ML NEBU INHALATION SCH ×2 (08:34→20:26)
[2018-11-15] MEDS: BENZOCAINE/MENTHOL LOZENG 1 EACH LOZENGE MUCOUS MEM PRN (09:50)
[2018-11-15] MEDS: CLOTRIMAZOLE TROCHE 10 MG TROCHE MUCOUS MEM SCH ×4 (11:27→23:54)
[2018-11-15 11:30] LABS: Glucose,Whole Blood 132 mg/dL (75-99)
--- NOTE | 2018-11-15 13:53 | P.PN ---
Subjective Progress Note Date: 11/15/18 This is 63-year-old white female patient with past medical history of COPD, hyp ertension, previous episode of myocardial infarction, metastatic breast cancer, with history of lumpectomy, chemo and radiation therapy, with the recent recurrence of breast cancer in September 2017, with recurrence in the chest wall, supraclavicular lymph node involvement and axillary lymph node involvement. She is on a combination of Femara and Ibrance. Other medical history includes chronic bronchial asthma, obstructive sleep apnea, chronic ALLERGIC rhinitis, coronary artery disease, GERD/reflux, previous history of DVT, history of nephrolithiasis, migraines, history of nicotine dependence,currently in remission. Patient came into the hospital on 11/12/2018 for evaluation of worsening shortness of breath, with a history of difficulty in breathing over the last few days. Patient states she's been coughing but not coughing up any phlegm. She denied any chest pain denies any nausea, vomiting or diarrhea, denies any abdominal pain no lightheadedness or dizziness. No palpitations. Chest x-ray was completed and showed irregular increased density within the right upper lobe, note that the patient had the changes in the right upper lobe present back in January 2018 was thought to be related to changes related to radiation treatment. Most recent PET scan from 09/19/2018 showed decreasing uptake within the right chest wall with SUV down to 2.6 from previous of 3.9. Showed hypermetabolic 1.6 cm right basilar pulmonary nodule that was new since 01/30/2018, and there was a persistent uptake within the infraspinatus muscle possibly related to muscular tear. Lab work was reviewed, and showed no evidence of leukocytosis, white blood cell count was 5.6, hemoglobin of 13, sodium of 140, potassium is 5.2, CO2 is 25, BUN of 30 creatinine 0.9, plasma lactic acid was 3.7, improved down to 2.2 with IV fluids, LFTs were within normal range, troponins were negative. Patient was afebrile. She was significantly wheezy and had poor air movement, she was started on empiric antibiotics, nebulized bronchodilators, breathing treatments and IV steroids and we're consulted for COPD exacerbation, with purulent tracheobronchitis, and the possibility of an upper lobe pneumonia On today's evaluation of 11/14/2018 I'm seeing this patient for a follow-up a clinically improving compared to yesterday less focused spastic and wheezy compared to yesterday. The right upper lobe pulmonary infiltrate is probably related to an old chronic radiation change and there is no clear evidence of a superimposed pneumonia. The patient remains on bronchodilators and steroid regimen. She still cough and although less congested and wheezy compared to yesterday. No other new complaints otherwise for now. He is tolerating treatment without any side effects pH is on a combination of Zosyn and doxyc ycline. On 11/15/2018, the patient is more improved, ambulating, has no specific complaints. Marked improvement and no significant bronchospasm wheezing. The plan is to continue to treatment and discharge this patient home tomorrow. Meanwhile, the patient has developed some pharyngeal candidiasis and the patient was started on Mycelex. This ultimately will be also tapered off for now. No fever. No chills. No other new complaints she is ambulating. Objective - Vital Signs Vital signs: Vital Signs Temp 98 F 11/15/18 12:31 Pulse 88 11/15/18 12:31 Resp 22 11/15/18 12:31 BP 140/88 11/15/18 12:31 Pulse Ox 95 11/15/18 12:31 Intake & Output 11/14/18 11/15/18 11/15/18 18:59 06:59 18:59 Intake Total 700 695 Balance 700 695 Intake: Intake, IV Titration 100 200 Amount Piperacillin-Tazobactam 3 100 200 .375 gm In Sodium Chloride 0.9% 100 ml @ 25 mls/hr IVPB Q8HR [facility] Rx# :[id number] Oral 600 495 Other: Voiding Method Toilet Toilet Toilet # Voids 2 1 - Exam GENERAL EXAM: Alert, pleasant, 63-year-old white female, on room air, with a pulse ox of 94%, comfortable in no apparent distress. HEAD: Normocephalic/atraumatic. EYES: Normal reaction of pupils, equal size. Conjunctiva pink, sclera white. NOSE: Clear with pink turbinates. THROAT: No erythema or exudates. NECK: No masses, no JVD, no thyroid enlargement, no adenopathy. CHEST: No chest wall deformity. Symmetrical expansion. LUNGS: Equal air entry with diffuse wheezing CVS: Regular rate and rhythm, normal S1 and S2, no gallops, no murmurs, no rubs ABDOMEN: Soft, nontender. No hepatosplenomegaly, normal bowel sounds, no guarding or rigidity. EXTREMITIES: No clubbing, no edema, no cyanosis, 2+ pulses and upper and lower extremities. MUSCULOSKELETAL: Muscle strength and tone normal. SPINE: No scoliosis or deformity SKIN: No rashes CENTRAL NERVOUS SYSTEM: Alert and oriented -3. No focal deficits, tone is norm al in all 4 extremities. PSYCHIATRIC: Alert and oriented -3. Appropriate affect. Intact judgment and insight. - Labs CBC & Chem 7: 11/15/18 06:28 11/15/18 06:28 Labs: Abnormal Lab Results - Last 24 Hours (Table) 11/14/18 11/14/18 11/15/18 Range/Units 17:04 20:22 06:28 RBC 3.79 L (3.80-5.40) m/uL MCV 103.3 H (80.0-100.0) fL RDW 15.9 H (11.5-15.5) % Lymphocytes # 0.7 L (1.0-4.8) k/uL BUN (7-17) mg/dL Glucose (74-99) mg/dL POC Glucose (mg/dL) 132 H 177 H (75-99) mg/dL 11/15/18 11/15/18 11/15/18 Range/Units 06:28 06:59 11:28 RBC (3.80-5.40) m/uL MCV (80.0-100.0) fL RDW (11.5-15.5) % Lymphocytes # (1.0-4.8) k/uL BUN 27 H (7-17) mg/dL Glucose 129 H (74-99) mg/dL POC Glucose (mg/dL) 134 H 132 H (75-99) mg/dL Microbiology - Last 24 Hours (Table) 11/12/18 18:15 Blood Culture - Preliminary Blood No Growth after 48 hours 11/13/18 00:26 Urine Culture - Final Urine,Voided Assessment and Plan Plan: #1. Acute exacerbation of chronic obstructive pulmonary disease and tracheobronchitis, chest x-ray shows chronic changes in the right upper lobe related to previous radiation for breast cancer. There was some increased de nsity noted compared to previous chest x-ray, possibly related to pneumonia, although doubt pneumonia, clinically much improved over the past 48 hours and the patient is a specific complaints. She has developed some oropharyngeal candidiasis secondary to use of antibiotics and steroids. #2. Lactic acidemia improved with IV hydration, #3. History of breast cancer with lumpectomy and lymph node dissection, treated with chemo and radiation, currently on a combination of Femara and Ibrance. Markell mancini had a recurrence of breast cancer in September 2017 with metastasis to the chest wall, supraclavicular lymph nodes and axillary lymph node involvement #4. History of COPD with previous history of smoking #5. 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 Chronic bronchial asthma #7. GERD/reflux #8. CAD, history of myocardial infarction #9. Obesity #10. Obstructive sleep apnea #11. DVT #12. Nephrolithiasis #13. Migraine Headaches Plan The patient is improving. Start Mycelex regarding the oropharyngeal candidiasis. Taper disorder Medrol to 40 mg every 12 hours. Continue bronchodilators. Possible discharge in a.m.
--- NOTE | 2018-11-15 14:08 | P.PN ---
Subjective Progress Note Date: 11/15/18 Principal diagnosis: Acute exacerbation COPD/severe tracheobronchitis 63-year-old white female patient with past medical history of COPD, hypertension, previous episode of myocardial infarction, metastatic breast cancer, with history of lumpectomy, chemo and radiation therapy, with the recent recurrence of breast cancer in September 2017, with recurrence in the chest wall, supraclavicular lymph node involvement and axillary lymph node involvement. She is on a combination of Femara and Ibrance. Other medical history includes chronic bronchial asthma, obstructive sleep apnea, chronic ALLERGIC rhinitis, coronary artery disease, GERD/reflux, previous history of DVT, history of nephrolithiasis, migraines, history of nicotine dependence,currently in remission. Patient came into the hospital on 11/12/2018 for evaluation of worsening shortness of breath, with a history of difficulty in breathing over the last few days. 11/15/2018, the patient is more improved, ambulating, has no specific complaints. Marked improvement and no significant bronchospasm wheezing. Vital signs are stable with a temperature of 98, pulse 88, respiration 22 and blood pressure 140/88; SpO2 of 95% on room air The plan is to continue to treatment and discharge this patient home tomorrow. Meanwhile, the patient has developed some pharyngeal candidiasis and the patient was started on Mycelex. This ultimately will be also tapered off for now. No fever. No chills. No other new complaints she is ambulating. Objective - Vital Signs Vital signs: Vital Signs Temp 97.8 F 11/15/18 05:00 Pulse 100 11/15/18 08:57 Resp 18 11/15/18 05:00 BP 146/89 11/15/18 05:00 Pulse Ox 96 11/15/18 05:00 Intake & Output 11/14/18 11/15/18 11/15/18 18:59 06:59 18:59 Intake Total 700 695 Balance 700 695 Intake: Intake, IV Titration 100 200 Amount Piperacillin-Tazobactam 3 100 200 .375 gm In Sodium Chloride 0.9% 100 ml @ 25 mls/hr IVPB Q8HR [facility] Rx# :[id number] Oral 600 495 Other: Voiding Method Toilet Toilet Toilet # Voids 2 1 - Exam GENERAL EXAM: Alert, pleasant, 63-year-old white female, on room air, with a pulse ox of 94%, comfortable in no apparent distress. HEAD: Normocephalic/atraumatic. EYES: Normal reaction of pupils, equal size. Conjunctiva pink, sclera white. NOSE: Clear with pink turbinates. THROAT: No erythema or exudates. NECK: No masses, no JVD, no thyroid enlargement, no adenopathy. CHEST: No chest wall deformity. Symmetrical expansion. LUNGS: Equal air entry with diffuse wheezing CVS: Regular rate and rhythm, normal S1 and S2, no gallops, no murmurs, no rubs ABDOMEN: Soft, nontender. No hepatosplenomegaly, normal bowel sounds, no guardi ng or rigidity. EXTREMITIES: No clubbing, no edema, no cyanosis, 2+ pulses and upper and lower extremities. MUSCULOSKELETAL: Muscle strength and tone normal. SPINE: No scoliosis or deformity SKIN: No rashes CENTRAL NERVOUS SYSTEM: Alert and oriented -3. No focal deficits, tone is normal in all 4 extremities. PSYCHIATRIC: Alert and oriented -3. Appropriate affect. Intact judgment and insight. - Labs CBC & Chem 7: 11/15/18 06:28 11/15/18 06:28 Labs: Abnormal Lab Results - Last 24 Hours (Table) 11/14/18 11/14/18 11/14/18 Range/Units 11:16 17:04 20:22 RBC (3.80-5.40) m/uL MCV (80.0-100.0) fL RDW (11.5-15.5) % Lymphocytes # (1.0-4.8) k/uL BUN (7-17) mg/dL Glucose (74-99) mg/dL POC Glucose (mg/dL) 128 H 132 H 177 H (75-99) mg/dL 11/15/18 11/15/18 11/15/18 Range/Units 06:28 06:28 06:59 RBC 3.79 L (3.80-5.40) m/uL MCV 103.3 H (80.0-100.0) fL RDW 15.9 H (11.5-15.5) % Lymphocytes # 0.7 L (1.0-4.8) k/uL BUN 27 H (7-17) mg/dL Glucose 129 H (74-99) mg/dL POC Glucose (mg/dL) 134 H (75-99) mg/dL Microbiology - Last 24 Hours (Table) 11/12/18 18:15 Blood Culture - Preliminary Blood No Growth after 48 hours 11/13/18 00:26 Urine Culture - Final Urine,Voided Assessment and Plan Assessment: 1. Acute exacerbation of chronic obstructive pulmonary disease and tracheobronchitis, - chest x-ray shows chronic changes in the right upper lobe related to previous radiation for breast cancer. - There was some increased density noted compared to previous chest x-ray, possibly related to pneumonia; pulmonary service doubt pneumonia 2. Lactic acidosis; improved with IV hydration, 3. History of breast cancer with lumpectomy and lymph node dissection, - treated with chemo and radiation, currently on a combination of Femara and Ibrance. Patient had a recurrence of breast cancer in September 2017 with metastasis to the chest wall, supraclavicular lymph nodes and axillary lymph node involvement 4. COPD/ Chronic postradiation changes in the right upper lobe/ Chronic bronchial asthma; as above 5. GERD/reflux; controlled on Protonix 40 mg by mouth daily 6. Hypertension; continue with home dose of Cozaar 50 mg daily and Dyazide 3 7525 milligrams daily 7. Obesity; counseling done on risk of complications of obesity and need for weight reduction 8. Obstructive sleep apnea 9. DVT prophylaxis; subcu heparin CODE STATUS; full code Time with Patient: Greater than 30
[2018-11-15] MEDS: methylPREDNISolone SOD SUCCI 40 MG/ML 1 ML VIAL IV SCH (16:47)
[2018-11-15 17:16] LABS: Glucose,Whole Blood 102 mg/dL (75-99)
[2018-11-15] MEDS: LETROZOLE 2.5 MG TAB PO SCH (17:30)
[2018-11-15 20:28] LABS: Glucose,Whole Blood 117 mg/dL (75-99)
[2018-11-15] MEDS ORDERED: methylPREDNISolone SOD SUCCI 40 MG/ML 1 ML VIAL IV SCH (21:00)
[2018-11-15 21:27] VITALS: RESP 16
[2018-11-15] MEDS ORDERED: AMOXIC-POT CLAV 875-125MG 1 EACH TAB PO STA (23:04)
[2018-11-15] MEDS ORDERED: methylPREDNISolone SOD SUCCI 125 MG/2 ML VIAL IM ONE (23:30)
[2018-11-16] MEDS: methylPREDNISolone SOD SUCCI 40 MG/ML 1 ML VIAL IV SCH ×2 (00:27→09:11)
[2018-11-16 05:48] VITALS: BP 136/82; TEMP 97.2
[2018-11-16] MEDS: CLOTRIMAZOLE TROCHE 10 MG TROCHE MUCOUS MEM SCH ×2 (06:11→11:13)
[2018-11-16 07:04] LABS: Glucose,Whole Blood 135 mg/dL (75-99)
[2018-11-16] MEDS: BUDESONIDE 1 MG/2 ML NEBU INHALATION SCH (07:56)
[2018-11-16] MEDS: FORMOTEROL FUMARATE 20 MCG/2 ML NEBU INHALATION SCH (07:56)
[2018-11-16] MEDS: IPRATROPIUM-ALBUTEROL 3 ML NEB INHALATION SCH (07:56)
[2018-11-16 08:20] VITALS: PULSE 96
[2018-11-16] MEDS: INSULIN ASPART (NovoLOG) 100 UNIT/ML VIAL SQ SCH (09:10)
[2018-11-16] MEDS: ASPIRIN 81 MG PO SCH (09:11)
[2018-11-16] MEDS: HEPARIN SODIUM,PORCINE 5,000 UNIT/ML 1 ML VIAL SQ SCH (09:11)
[2018-11-16] MEDS: DOXYCYCLINE 100 MG CAP PO SCH (09:11)
[2018-11-16] MEDS: PANTOPRAZOLE 40 MG TABLET PO SCH (09:11)
[2018-11-16] MEDS: LOSARTAN 50 MG TAB PO SCH (09:12)
[2018-11-16] MEDS: TRIAMTERENE-HCTZ 37.5-25MG 1 EACH CAP PO SCH (09:12)
--- NOTE | 2018-11-16 10:41 | P.DS ---
Providers Date of admission: 11/14/18 15:21 Expected date of discharge: 11/16/18 Attending physician: Thai Colunga Consults: 11/12/18 16:37 Consult Physician Routine Consulting Provider: John Das Consult Reason/Comments: COPD Do you want consulting provider notified?: Yes 11/12/18 17:58 Consult Physician Routine Consulting Provider: Clarence Woo Consult Reason/Comments: breast ca Do you want consulting provider notified?: Yes 11/12/18 18:00 Consult Physician Routine Consulting Provider: Nathaniel Santana Consult Reason/Comments: sepsis Do you want consulting provider notified?: Yes Primary care physician: Hipolito Youngblood Hospital Course: 63-year-old female was added admitted through the emergency room for COPD exacerbation. Patient was evaluated in the physician's office and failed outpatient therapy of antibiotics Levaquin and steroids and bronchodilators. Patient was evaluated by infectious disease antibiotics were ordered evaluated by oncology and evaluated by pulmonology patient has been cleared for discharge per specialist Assessment Acute exacerbation of COPD and tracheobronchitis Oral Norma History of breast cancer with lumpectomy and lymph node dissection metastasis to chest wall History of COPD Chronic post radiation changes to left upper lobe Chronic bronchial asthma GERD Coronary artery disease with history of MA Obesity Sleep apnea history of DVT Plan Follow-up with oncology pulmonology and family physician Dr. Hipolito Youngblood Plan - Discharge Summary New Discharge Prescriptions: New Ipratropium-Albuterol Nebulize [Duoneb 0.5 mg-3 mg/3 ml Soln] 3 ml INHALATION RT-Q4H PRN #120 ampul.neb PRN Reason: Shortness Of Breath Or Wheezing Clotrimazole John [Mycelex John] 10 mg MUCOUS MEM 5XD #50 john Doxycycline [Vibramycin] 100 mg PO BID #20 cap Continue Aspirin 81 mg PO DAILY Albuterol Sulfate [Ventolin HFA] 2 puff INHALATION RT-Q4H PRN PRN Reason: Shortness Of Breath Budesonide-Formot 160-4.5 Mcg [Symbicort 160-4.5 Mcg Inhaler] 2 puff INHALATION RT-BID Omeprazole [PriLOSEC] 20 mg PO AC-BRKFST Triamterene-Hctz 37.5-25Mg [Dyazide 37.5-25 Capsule] 1 tab PO DAILY Losartan Potassium 50 mg PO DAILY Albuterol Nebulized [Ventolin Nebulized] 2.5 mg INHALATION RT-Q6H Letrozole [Femara] 2.5 mg PO DAILY predniSONE See Taper PO DIRECTED #50 tab Discontinued Palbociclib [Ibrance] 125 mg PO DIRECTED Levofloxacin [Levaquin] 500 mg PO DAILY Discharge Medication List Albuterol Sulfate [Ventolin HFA] 2 puff INHALATION RT-Q4H PRN 11/23/13 [History] Aspirin 81 mg PO DAILY 11/23/13 [History] Budesonide-Formot 160-4.5 Mcg [Symbicort 160-4.5 Mcg Inhaler] 2 puff INHALATION RT-BID 09/15/14 [History] Omeprazole [PriLOSEC] 20 mg PO AC-BRKFST 01/20/15 [History] Triamterene-Hctz 37.5-25Mg [Dyazide 37.5-25 Capsule] 1 tab PO DAILY 01/20/15 [History] Losartan Potassium 50 mg PO DAILY 01/22/15 [History] Albuterol Nebulized [Ventolin Nebulized] 2.5 mg INHALATION RT-Q6H 05/16/16 [History] Letrozole [Femara] 2.5 mg PO DAILY 03/03/18 [History] Clotrimazole John [Mycelex Jhon] 10 mg MUCOUS MEM 5XD #50 john 11/16/18 [Rx] Doxycycline [Vibramycin] 100 mg PO BID #20 cap 11/16/18 [Rx] Ipratropium-Albuterol Nebulize [Duoneb 0.5 mg-3 mg/3 ml Soln] 3 ml INHALATION RT-Q4H PRN #120 ampul.neb 11/16/18 [Rx] predniSONE See Taper PO DIRECTED #50 tab 11/16/18 [Rx] Follow up Appointment(s)/Referral(s): Hipolito Youngblood MD [Primary Care Provider] - 1-2 days Lashell Cary NPC [Nurse Practitioner] - 2 Weeks
--- NOTE | 2018-11-16 10:58 | P.PN ---
Subjective Progress Note Date: 11/16/18 Principal diagnosis: Metastatic Breast Cancer - COPD Exacerbation seen in follow-up today and overall feeling better, Moving air, remains afebrile. Objective - Vital Signs Vital signs: Vital Signs Temp 97.2 F L 11/16/18 05:00 Pulse 96 11/16/18 08:19 Resp 16 11/16/18 05:00 BP 136/82 11/16/18 05:00 Pulse Ox 95 11/16/18 07:55 Intake & Output 11/15/18 11/16/18 11/16/18 18:59 06:59 18:59 Intake Total 50 990 Balance 50 990 Intake: Intake, IV Titration 50 Amount Piperacillin-Tazobactam 3 50 .375 gm In Sodium Chloride 0.9% 100 ml @ 25 mls/hr IVPB Q8HR [facility] Rx# :[id number] Oral 990 Other: Voiding Method Toilet Toilet # Voids 2 - Exam Gen: alert and oriented, NAD Head: NC, NT Neck: Supple, no lymphadenopathy Oral Pharynx: thrush posterior pharynx and gumline Lungs: Mild Inccrease Effort: Dimnished, expiratory wheezing Heart: Tachy/Reg Abdomen: Obese, Soft - Labs CBC & Chem 7: 11/15/18 06:28 11/15/18 06:28 Labs: Abnormal Lab Results - Last 24 Hours (Table) 11/15/18 11/15/18 11/15/18 Range/Units 11:28 17:15 20:27 POC Glucose (mg/dL) 132 H 102 H 117 H (75-99) mg/dL 11/16/18 Range/Units 07:01 POC Glucose (mg/dL) 135 H (75-99) mg/dL Microbiology - Last 24 Hours (Table) 11/12/18 18:15 Blood Culture - Preliminary Blood No Growth after 72 hours Assessment and Plan Plan: Assessment and Recommendations: 1. Metastatic Breast Cancer: - Continue Femara - Ibrance to hold until 11/22/18 - Follow-up in office this week or next to re-evaluate 2. COPD Exacerbation with Tracheo Bronchitis: - Pulmonary Following - Antibiotics - Improved since admission Camille Jacobs AOKATHARINE
--- NOTE | 2018-11-16 11:25 | P.PN ---
Subjective Progress Note Date: 11/16/18 Principal diagnosis: Acute exacerbation of chronic obstructive pulmonary disease intake of bronchitis This is 63-year-old white female patient with past medical history of COPD, hypertension, previous episode of myocardial infarction, metastatic breast cancer, with history of lumpectomy, chemo and radiation therapy, with the recent recurrence of breast cancer in September 2017, with recurrence in the chest wall, supraclavicular lymph node involvement and axillary lymph node involvement. She is on a combination of Femara and Ibrance. Other medical history includes chronic bronchial asthma, obstructive sleep apnea, chronic ALLERGIC rhinitis, coronary artery disease, GERD/reflux, previous history of DVT, history of nephrolithiasis, migraines, history of nicotine dependence,currently in remission. Patient came into the hospital on 11/12/2018 for evaluation of worsening shortness of breath, with a history of difficulty in breathing over the last few days. Patient states she's been coughing but not coughing up any phlegm. She denied any chest pain denies any nausea, vomiting or diarrhea, denies any abdominal pain no lightheadedness or dizziness. No palpitations. Chest x-ray was completed and showed irregular increased density within the right upper lobe, note that the patient had the changes in the right upper lobe present back in January 2018 was thought to be related to changes related to radiation treatment. Most recent PET scan from 09/19/2018 showed decreasing uptake within the right chest wall with SUV down to 2.6 from previous of 3.9. Showed hypermetabolic 1.6 cm right basilar pulmonary nodule that was new since 01/30/2018, and there was a persistent uptake within the infraspinatus muscle possibly related to muscular tear. Lab work was reviewed, and showed no evidence of leukocytosis, white blood cell count was 5.6, hemoglobin of 13, sodium of 140, potassium is 5.2, CO2 is 25, BUN of 30 creatinine 0.9, plasma lactic acid was 3.7, improved down to 2.2 with IV fluids, LFTs were within normal range, troponins were negative. Patient was afebrile. She was significantly wheezy and had poor air movement, she was started on empiric antibiotics, nebulized bronchodilators, breathing treatments and IV steroids and we're consulted for COPD exacerbation, with purulent tracheobronchitis, and the possibility of an upper lobe pneumonia On today's evaluation of 11/14/2018 I'm seeing this patient for a follow-up a clinically improving compared to yesterday less focused spastic and wheezy compared to yesterday. The right upper lobe pulmonary infiltrate is probably related to an old chronic radiation change and there is no clear evidence of a superimposed pneumonia. The patient remains on bronchodilators and steroid regimen. She still cough and although less congested and wheezy compared to yesterday. No other new complaints otherwise for now. He is tolerating treatment without any side effects pH is on a combination of Zosyn and do xycycline. On 11/15/2018, the patient is more improved, ambulating, has no specific complaints. Marked improvement and no significant bronchospasm wheezing. The plan is to continue to treatment and discharge this patient home tomorrow. Meanwhile, the patient has developed some pharyngeal candidiasis and the patient was started on Mycelex. This ultimately will be also tapered off for now. No fever. No chills. No other new complaints she is ambulating. On 10/17/2018 patient seen in follow-up on medical surgical floor. Continues to improve, breathing much easier, no complaints of chest pain, lung sounds are essentially clear on today's exam, no new labs or chest x-rays. Vital signs have been stable. No cough or congestion, patient has been treated with nebulized bronchodilators, empiric antibiotics, and IV steroids, and she is improving, she is anticipated to be discharged home today. Objective - Vital Signs Vital signs: Vital Signs Temp 97.2 F L 11/16/18 05:00 Pulse 96 11/16/18 08:19 Resp 16 11/16/18 05:00 BP 136/82 11/16/18 05:00 Pulse Ox 95 11/16/18 07:55 Intake & Output 11/15/18 11/16/18 11/16/18 18:59 06:59 18:59 Intake Total 50 990 Balance 50 990 Intake: Intake, IV Titration 50 Amount Piperacillin-Tazobactam 3 50 .375 gm In Sodium Chloride 0.9% 100 ml @ 25 mls/hr IVPB Q8HR [facility] Rx# :[id number] Oral 990 Other: Voiding Method Toilet Toilet # Voids 2 - Exam GENERAL EXAM: Alert, pleasant, 63-year-old white female, on room air, with a pulse ox of 94%, comfortable in no apparent distress. HEAD: Normocephalic/atraumatic. EYES: Normal reaction of pupils, equal size. Conjunctiva pink, sclera white. NOSE: Clear with pink turbinates. THROAT: No erythema or exudates. NECK: No masses, no JVD, no thyroid enlargement, no adenopathy. CHEST: No chest wall deformity. Symmetrical expansion. LUNGS: Equal air entry with no wheezing, no rhonchi, no rales CVS: Regular rate and rhythm, normal S1 and S2, no gallops, no murmurs, no rubs ABDOMEN: Soft, nontender. No hepatosplenomegaly, normal bowel sounds, no guarding or rigidity. EXTREMITIES: No clubbing, no edema, no cyanosis, 2+ pulses and upper and lower extremities. MUSCULOSKELETAL: Muscle strength and tone normal. SPINE: No scoliosis or deformity SKIN: No rashes CENTRAL NERVOUS SYSTEM: Alert and oriented -3. No focal deficits, tone is normal in all 4 extremities. PSYCHIATRIC: Alert and oriented -3. Appropriate affect. Intact judgment and insight. - Labs CBC & Chem 7: 11/15/18 06:28 11/15/18 06:28 Labs: Abnormal Lab Results - Last 24 Hours (Table) 11/15/18 11/15/18 11/15/18 Range/Units 11:28 17:15 20:27 POC Glucose (mg/dL) 132 H 102 H 117 H (75-99) mg/dL 11/16/18 Range/Units 07:01 POC Glucose (mg/dL) 135 H (75-99) mg/dL Microbiology - Last 24 Hours (Table) 11/12/18 18:15 Blood Culture - Preliminary Blood No Growth after 72 hours Assessment and Plan Plan: Assessment: #1. Acute exacerbation of chronic obstructive pulmonary disease and tracheobronchitis, chest x-ray shows chronic changes in the right upper lobe related to previous radiation for breast cancer. There was some increased dens ity noted compared to previous chest x-ray, possibly related to pneumonia, although doubt pneumonia #2. Lactic acidemia improved with IV hydration, #3. History of breast cancer with lumpectomy and lymph node dissection, treated with chemo and radiation, currently on a combination of Femara and Ibrance. Patient had a recurrence of breast cancer in September 2017 with metastasis to the chest wall, supraclavicular lymph nodes and axillary lymph node involvement #4. History of COPD with previous history of smoking #5. 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 Chronic bronchial asthma #7. GERD/reflux #8. CAD, history of myocardial infarction #9. Obesity #10. Obstructive sleep apnea #11. DVT #12. Nephrolithiasis #13. Migraine Headaches Plan: Patient is stable for discharge from pulmonary perspective, she is stable, she continues to improve, vital signs are stable, no cough, congestion or wheezing. Tolerating ambulation, follow-up with Dr. Garcia in the office in 7-10 days I performed a history & physical examination of the patient and discussed their management with my nurse practitioner, Lois Calixto. I reviewed the nurse practitioner's note and agree with the documented findings and plan of care. Lung sounds are positive for diffuse wheezes throughout the lung matthew. The findings and the impression was discussed with the patient. I attest to the documentation by the nurse practitioner. Time with Patient: Less than 30
== END 2018-11-16 11:56 | disposition home or self-care (01) | DRG 191 ==
LOC: EC 15:13 → 3NMEDONC 16:37 → OBSVTOIN 11-14 15:21 → 2SICU 11-16 11:50 → 3NMEDONC 11-16 11:51
PROVIDERS: ADMIT Hospitalist; ATTEND Hospitalist
DX: J44.1 Chronic obstructive pulmonary disease with (acute) exacerbation (principal); J70.0 Acute pulmonary manifestations due to radiation; B37.0 Candidal stomatitis; B37.89 Other sites of candidiasis; C77.3 Secondary and unspecified malignant neoplasm of axilla and upper limb lymph nodes; C77.0 Secondary and unspecified malignant neoplasm of lymph nodes of head, face and neck; C79.89 Secondary malignant neoplasm of other specified sites; E87.2 Acidosis; J45.901 Unspecified asthma with (acute) exacerbation; Z87.891 Personal history of nicotine dependence; Z85.3 Personal history of malignant neoplasm of breast; E66.9 Obesity, unspecified; Z68.34 Body mass index [BMI] 34.0-34.9, adult; F40.240 Claustrophobia; G43.909 Migraine, unspecified, not intractable, without status migrainosus; G47.33 Obstructive sleep apnea (adult) (pediatric); I10 Essential (primary) hypertension; I25.10 Atherosclerotic heart disease of native coronary artery without angina pectoris; I25.2 Old myocardial infarction; I73.9 Peripheral vascular disease, unspecified; K21.9 Gastro-esophageal reflux disease without esophagitis; Z87.442 Personal history of urinary calculi; Y84.2 Radiological procedure and radiotherapy as the cause of abnormal reaction of the patient, or of later complication, without mention of misadventure at the time of the procedure; Z79.51 Long term (current) use of inhaled steroids; Z79.811 Long term (current) use of aromatase inhibitors; Z79.82 Long term (current) use of aspirin; Z79.899 Other long term (current) drug therapy; Z80.3 Family history of malignant neoplasm of breast; Z82.49 Family history of ischemic heart disease and other diseases of the circulatory system; Z86.718 Personal history of other venous thrombosis and embolism; Z87.01 Personal history of pneumonia (recurrent); Z90.49 Acquired absence of other specified parts of digestive tract; Z90.711 Acquired absence of uterus with remaining cervical stump; Z92.21 Personal history of antineoplastic chemotherapy; Z92.3 Personal history of irradiation; Z83.79 Family history of other diseases of the digestive system; Z88.2 Allergy status to sulfonamides; Z88.1 Allergy status to other antibiotic agents; Z91.013 Allergy to seafood; Z90.11 Acquired absence of right breast and nipple
CPT/HCPCS: 36415; 71045; 80048; 80053; 83036; 83605; 83735; 84484; 85025; 85610; 85730; 87040; 87086; 93005; 94640; 94760; 96365; 96367; 96375; 96376; 99291

== ENCOUNTER → 2018-12-28 | Outpatient (CLI) | payer MEDICARE ==
--- NOTE | 2018-12-28 12:35 | CT ---
EXAMINATION TYPE: CT brain neck chest w con DATE OF EXAM: 12/28/2018 COMPARISON: PET/CT September 19, 2018. HISTORY: Breast cancer (right) with lymph node involvement, oral chemo. New right-sided swelling. CT DLP: 2791.0 mGycm Automated exposure control for dose reduction was used. CONTRAST: Performed with IV Contrast, patient injected with 100 mL of Isovue 300. FINDINGS: Brain shows no suspicious enhancing intraparenchymal mass. There is diffuse ventricular and sulcal pr ominence. The calvarium is intact. Neck images show patency of the bilateral draining internal jugular veins. Parotid and submandibular glands are felt within normal limits. Airway is patent. No suspicious great er than 1 cm neck adenopathy is seen. Thyroid gland is unremarkable. There is tortuous course to the proximal left internal carotid artery posterior to the hypopharyngeal airway incidentally noted. Ther e is straightening of cervical spine with multilevel spondylolisthesis and moderate disc space narrow ing along with moderate spurring C5-C6 and C6-C7 levels. CT chest shows anterior right upper lung linear scarring with focal volume loss redemonstrated. No ne w nodules or masses. No pleural effusion or pneumothorax. No thoracic adenopathy. No cardiomegaly or pericardial effusion.. Slight S-shaped scoliosis is present. Cholecystectomy clips are noted. There i s simple appearing 2 cm cyst left hepatic lobe axial image 57. Surgical clips from right-sided breast surgery and axillary dissection are redemonstrated. There is p atency of the brachiocephalic vein bilaterally as well as SVC. The right subclavian and visualized po rtion of the axillary vein do not show extrinsic compression, they are suboptimally evaluated for naveed t due to timing of study. If there is further concern for venous clot right upper extremity further i nvestigation with venous ultrasound would be advised. IMPRESSION: No suspicious finding identified to account for patient's symptoms of right-sided neck an d axillary swelling. Surgical and posttreatment changes right breast and axillary region as well as u pper thorax redemonstrated. No venous thrombosis present right internal jugular or SVC or brachioceph alic veins.
== END | disposition home or self-care (01) ==
LOC: RADCTMAIN 10:51
PROVIDERS: ATTEND Internal Medicine Hematology & Oncology
DX: C50.111 Malignant neoplasm of central portion of right female breast (principal); R51 Headache; R68.89 Other general symptoms and signs; Z03.89 Encounter for observation for other suspected diseases and conditions ruled out
CPT/HCPCS: 82565; 84520; 70491; 70460; 71260; 36415; Q9967

== ENCOUNTER → 2018-12-31 | Outpatient (CLI) | payer MEDICARE ==
--- NOTE | 2018-12-31 14:23 | US ---
EXAMINATION TYPE: US venous doppler duplex UE RT DATE OF EXAM: 12/31/2018 COMPARISON: NONE CLINICAL HISTORY: M79.621 Pain in right upper arm, R22.31. Right shoulder and neck pain and swelling SIDE PERFORMED: Right There is normal flow, compressability and vascular waveforms. Right Arm: Appears negative for DVT Visualized portions of the right internal jugular vein, subclavian vein, axillary vein show color jacque w, no abnormal luminal echoes. Brachial veins show compressibility and normal color flow. Basilic vei n and cephalic vein are compressible and patent. Ulnar and radial veins are unremarkable. IMPRESSION: No evident deep venous thrombosis in the right upper extremity.
== END | disposition home or self-care (01) ==
LOC: RADUSWWP 13:09
PROVIDERS: ATTEND Internal Medicine Hematology & Oncology
DX: M79.621 Pain in right upper arm (principal); R22.31 Localized swelling, mass and lump, right upper limb; Z88.1 Allergy status to other antibiotic agents

== ENCOUNTER → 2019-04-17 | Outpatient (CLI) | payer MEDICARE ==
--- NOTE | 2019-04-19 07:29 | PE ---
EXAMINATION TYPE: PET CT fusion skull to thigh DATE OF EXAM: 04/17/2019 COMPARISON: CT neck and chest December 28, 2018. PET/CT September 19, 2018 and older studies HISTORY: Breast cancer progress study . Right-sided breast cancer diagnosed 1997 with recurrence 201 8 with radiation and chemotherapy TECHNIQUE: Following the intravenous administration of 12.23 mCi of F-18 FDG, whole body images are performed from the skull base to the midthigh. Images are reviewed on the computer in the coronal, a xial, and sagittal planes. Reconstructed rotating images are created on independent workstation and reviewed on the computer. A noncontrast CT is performed in conjunction with the PET scan. SCAN: Subsequent Scan FINDINGS: SKULL BASE AND NECK: No new areas of suspicious hypermetabolic uptake. CHEST, MEDIASTINUM, AND HILAR REGION: Persistent mild hypermetabolic uptake right pectoralis muscle n ear image 83, max SUV is 2.84. Persistent mild hypermetabolic uptake left infraspinatus axial image 7 5, max SUV is 2.77. No new areas of suspicious hypermetabolic uptake. Previously visualized right basilar nodule not jason rly seen on current study. ABDOMEN AND PELVIS: No new areas of suspicious hypermetabolic uptake. Normal excretion. OSSEOUS STRUCTURES: No new areas of suspicious hypermetabolic uptake. OTHER CT: There is 1.4 cm left thyroid nodule axial image 61. Right axillary surgical clips are redemonstrated. Right-sided anterior parenchymal/pleural scarring a gain seen with volume loss. Cholecystectomy clips. There are 6 and 4 mm left renal calculi redemonstrated. Stable small to moder ate-sized fat-containing umbilical hernia. Poorly distended bladder. Occasional pelvic phleboliths. U terus surgically absent. Multilevel facet arthropathy in the lower lumbar spine. IMPRESSION: Stable right upper chest wall mild hypermetabolic uptake. Stable left shoulder muscular u ptake. No new areas of abnormal hypermetabolic uptake.
== END ==
LOC: RADPETMAIN 09:37
PROVIDERS: ATTEND Internal Medicine Hematology & Oncology
DX: C50.111 Malignant neoplasm of central portion of right female breast (principal); R93.89 Abnormal findings on diagnostic imaging of other specified body structures
CPT/HCPCS: 78815; A9552

== ENCOUNTER → 2019-06-02 | Outpatient (CLI) | payer MEDICARE ==
--- NOTE | 2019-06-02 15:18 | XR ---
EXAMINATION TYPE: XR chest 2V DATE OF EXAM: 06/02/2019 COMPARISON: 11/12/2018 HISTORY: COPD with worsening shortness of breath for 2 days. History of right breast cancer TECHNIQUE: Frontal and lateral views of the chest are obtained. FINDINGS: Similar-appearing right upper lobe curvilinear density appears to relate to atelectasis an d possible post radiation change when correlated with CT of 04/17/2019. There is no new focal air spac e opacity, pleural effusion, or pneumothorax seen. The cardiac silhouette size is within normal limi ts. Pulmonary per inflation is seen with flattening of the diaphragms on the lateral view indicative of underlying COPD. Mild multilevel degenerative changes of the spine. Chronic interstitial prominenc e. The osseous structures are intact. Surgical clips are seen within the right axilla and right chest wall IMPRESSION: Chronic interstitial prominence and radiographic sequela of COPD. No acute cardiopulmona ry process.
== END | disposition home or self-care (01) ==
LOC: RADXRMAIN 14:29
PROVIDERS: ATTEND Family Medicine
DX: J44.9 Chronic obstructive pulmonary disease, unspecified (principal)
CPT/HCPCS: 71046

== ENCOUNTER 2019-07-20 15:00 | Inpatient (IN) | payer MEDICARE ==
--- NOTE | 2019-07-20 15:11 | ED ---
SOB HPI - General Source: patient, RN notes reviewed Mode of arrival: ambulatory Limitations: no limitations <Evelio Akins - Last Filed: 07/20/19 15:08> <Horace Zimmerman - Last Filed: 07/20/19 18:59> - General Stated Complaint: SOB, COPD, Asthma Time Seen by Provider: 07/20/19 15:08 - History of Present Illness Initial Comments: This a 64-year-old female presents emergency Department from Dr. Youngblood's office with chief complaint of dyspnea. Patient's been having worsening dyspnea over the last couple weeks. Patient has been treated several times on an outpatient basis with no improvement. Patient does have history of COPD, asthma and has metastatic breast cancer. Patient reports that fevers and chills she states her cough is slightly productive she's had intermittent chest pain. Denies any current nausea vomiting diarrhea constipation. Patient is currently on oral chemotherapy (Evelio Akins) This is a 64-year-old female with past medical history significant for a second bout of breast cancer with metastatic disease. Patient also has a history of DVTs and an MN. Patient also has a history of COPD and asthma. Patient comes in today because she's having difficulty breathing. Patient states this began just before [place] she's 31 seen her primary medical care doctor she was placed on breathing treatments steroids and antibiotics and she is not daughter antibiotics. Patient states she went into see the primary medical care doctor today and he sent her in because she was not getting any better. Patient still having difficulty breathing especially with exertion. Patient states the breathing treatments help but only for very short period of time. Patient denies any swelling to legs or calf tenderness. Patient denies any chest pain or palpitations. Patient denies any fever today but she thinks she had a fever over the weekend. (Horace Zimmerman) - Related Data Home Medications Medication Instructions Recorded Confirmed Albuterol Sulfate [Ventolin HFA] 2 puff INHALATION RT-Q4H PRN 11/23/13 11/12/18 Aspirin 81 mg PO DAILY 11/23/13 11/12/18 Budesonide-Formot 160-4.5 Mcg 2 puff INHALATION RT-BID 09/15/14 11/12/18 [Symbicort 160-4.5 Mcg Inhaler] Omeprazole [PriLOSEC] 20 mg PO AC-BRKFST 01/20/15 11/12/18 Triamterene-Hctz 37.5-25Mg 1 tab PO DAILY 01/20/15 11/12/18 [Dyazide 37.5-25 Capsule] Losartan Potassium 50 mg PO DAILY 01/22/15 11/12/18 Albuterol Nebulized [Ventolin 2.5 mg INHALATION RT-Q6H 05/16/16 11/12/18 Nebulized] Letrozole [Femara] 2.5 mg PO DAILY 03/03/18 11/12/18 Previous Rx's Medication Instructions Recorded Clotrimazole John [Mycelex 10 mg MUCOUS MEM 5XD #50 john 11/16/18 John] Doxycycline [Vibramycin] 100 mg PO BID #20 cap 11/16/18 Ipratropium-Albuterol Nebulize 3 ml INHALATION RT-Q4H PRN #120 11/16/18 [Duoneb 0.5 mg-3 mg/3 ml Soln] ampul.neb predniSONE See Taper PO DIRECTED #50 tab 11/16/18 Allergies Allergy/AdvReac Type Severity Reaction Status Date / Time shellfish derived [Shrimp] Allergy Mild Unknown Verified 07/20/19 15:10 Sulfa (Sulfonamide Allergy Rash/Hives Verified 07/20/19 15:10 Antibiotics) clarithromycin [From Biaxin] AdvReac Unknown Verified 07/20/19 15:10 Review of Systems ROS Other: All systems not noted in ROS Statement are negative. <Evelio Akins - Last Filed: 07/20/19 15:08> ROS Other: All systems not noted in ROS Statement are negative. <Horace Zimmerman - Last Filed: 07/20/19 18:59> ROS Statement: Those systems with pertinent positive or pertinent negative responses have been documented in the HPI. Past Medical History Past Medical History: Asthma, Cancer, COPD, Deep Vein Thrombosis (DVT), GERD/Reflux, Hypertension, Myocardial Infarction ([place]) Additional Past Medical History / Comment(s): Metastatic breast cancer, diagnosis was 1997 treated by lumpectomy radiation therapy and chemotherapy and subsequent recurrence in September 2017 and the patient developed chest wall recurrence, supraclavicular lymph node involvement and axillary lymph node involvement. The patient is currently on Femara and Ibrance, bronchial asthma, obstructive sleep apnea, chronic ALLERGIC rhinitis, hypertension, coronary artery disease, acid reflux, previous history of DVT, history of nephrolithiasis, previous history of E. coli in January 2018, migraines, shingles more than 20 years ago, PVD Last Myocardial Infarction Date:: 2008 History of Any Multi-Drug Resistant Organisms: None Reported Past Surgical History: Appendectomy, Section, Cholecystectomy, Hysterectomy Additional Past Surgical History / Comment(s): Laparoscopy, 1997RT BREAST BX/ Ladan mpectomy with lymph node resection in 1997 ON RIGHT BREAST DID RADIATION AND CHEMO, STILL HAS METAL CLIPS IN SCOTTY BREASTS FROM WHEN THEY DID MAMORGAMS AND BIOPSIES. 09/2017 HAD "REOCCURANCE OF RT BREAST CANCER THEY REMOVED THE REMAINING LYMPH NODES RT AXILLA/ / NECK AND IS ON ORL CHEMO" . PT STATED "HAD PARTIAL HYSTERECTOMY STILL HAD 1 OVARY BUT THE CHEMO TX DESTROYED IT" Past Anesthesia/Blood Transfusion Reactions: No Reported Reaction Additional Past Anesthesia/Blood Transfusion Reaction / Comment(s): CLAUSTERPHOBIA Past Psychological History: No Psychological Hx Reported Additional Psychological History / Comment(s): PT IS ON DISABILITY, LIVES WITH HER SPOUSE. NO HOME CARE SERVICES, NO MEDCIAL EQUIPMENT Smoking Status: Former smoker Past Alcohol Use History: None Reported Additional Past Alcohol Use History / Comment(s): STARTED SMOKNG AT AGE 18 QUIT AT AGE 23, SMOKED 1/2 PPD Past Drug Use History: None Reported - Past Family History Father Family Medical History: Hypertension Additional Family Medical History / Comment(s): DIVERTICULITIS, IN HIS SLEEP AT AGE 81 Mother Family Medical History: Cancer, Hypertension Additional Family Medical History / Comment(s): BREAST CANCER <Evelio Akins - Last Filed: 07/20/19 15:08> General Exam <Horace Zimmerman - Last Filed: 07/20/19 18:59> - General Exam Comments Initial Comments: GENERAL: Patient is well-developed and well-nourished. Patient is nontoxic and well- hydrated and is in mild distress. ENT: Neck is soft and supple. No significant lymphadenopathy is noted. Oropharynx is clear. Moist mucous membranes. Neck has full range of motion without eliciting any pain. EYES: The sclera were anicteric and conjunctiva were pink and moist. Extraocular movements were intact and pupils were equal round and reactive to light. Eyelids were unremarkable. PULMONARY: Patient has diminished breath sounds throughout CARDIOVASCULAR: There is a regular rate and rhythm without any murmurs gallops or rubs. ABDOMEN: Soft and nontender with normal bowel sounds. No palpable organomegaly was noted. There is no palpable pulsatile mass. SKIN: Skin is clear with no lesions or rashes and otherwise unremarkable. NEUROLOGIC: Patient is alert and oriented x3. Cranial nerves II through XII are grossly intact. Motor and sensory are also intact. Normal speech, volume and content. Symmetrical smile. MUSCULOSKELETAL: Normal extremities with adequate strength and full range of motion. LYMPHATICS: No significant lymphadenopathy is noted PSYCHIATRIC: Normal psychiatric evaluation. (Horace Zimmerman) Course Vital Signs 07/20/19 07/20/19 07/20/19 15:08 16:33 16:46 Temperature 97.7 F Pulse Rate 117 H 90 Respiratory 20 24 18 Rate Blood Pressure 134/84 161/92 O2 Sat by Pulse 97 98 Oximetry 07/20/19 07/20/19 17:01 17:27 Temperature Pulse Rate 92 90 Respiratory 18 18 Rate Blood Pressure O2 Sat by Pulse Oximetry Medical Decision Making - Lab Data Result diagrams: 07/20/19 16:21 07/20/19 16:21 <Horace Zimmerman - Last Filed: 07/20/19 18:59> - Medical Decision Making EKG shows normal sinus rhythm at 97 bpm TX interval 146 dresses 80 QT interval 326 QTC is 414. Patient's EKG shows no ST segment elevation or depression or T wave abnormalities are noted. Patient's d-dimer was elevated so I ordered a CT of the chest to rule out PE there was no PE noted. I spoke with Dr. Youngblood agreed to admit the patient admitted the patient I wrote admit orders I consulted Dr. Larsen (Horace Zimmerman) - Lab Data Lab Results 07/20/19 07/20/19 07/20/19 Range/Units 16:21 16:21 16:21 WBC 10.4 (3.8-10.6) k/uL RBC 4.13 (3.80-5.40) m/uL Hgb 14.0 (11.4-16.0) gm/dL Hct 42.2 (34.0-46.0) % MCV 102.0 H (80.0-100.0) fL MCH 33.8 (25.0-35.0) pg MCHC 33.1 (31.0-37.0) g/dL RDW 15.4 (11.5-15.5) % Plt Count 288 (150-450) k/uL Neutrophils % 76 % Lymphocytes % 17 % Monocytes % 4 % Eosinophils % 1 % Basophils % 2 % Neutrophils # 7.9 H (1.3-7.7) k/uL Lymphocytes # 1.7 (1.0-4.8) k/uL Monocytes # 0.4 (0-1.0) k/uL Eosinophils # 0.1 (0-0.7) k/uL Basophils # 0.2 (0-0.2) k/uL Macrocytosis Slight PT 9.9 (9.0-12.0) sec INR 0.9 (<1.2) APTT 22.0 (22.0-30.0) sec D-Dimer 1.08 H (<0.60) mg/L FEU Sodium 139 (137-145) mmol/L Potassium 3.7 (3.5-5.1) mmol/L Chloride 103 (98-107) mmol/L Carbon Dioxide 26 (22-30) mmol/L Anion Gap 10 mmol/L BUN 29 H (7-17) mg/dL Creatinine 0.87 (0.52-1.04) mg/dL Est GFR (CKD-EPI)AfAm 82 (>60 ml/min/1.73 sqM) Est GFR (CKD-EPI)NonAf 71 (>60 ml/min/1.73 sqM) Glucose 83 (74-99) mg/dL Plasma Lactic Acid Brayan (0.7-2.0) mmol/L Calcium 9.6 (8.4-10.2) mg/dL Magnesium 2.1 (1.6-2.3) mg/dL Total Bilirubin 1.0 (0.2-1.3) mg/dL AST 32 (14-36) U/L ALT 25 (4-34) U/L Alkaline Phosphatase 88 (38-126) U/L Troponin I (0.000-0.034) ng/mL Total Protein 7.1 (6.3-8.2) g/dL Albumin 4.3 (3.5-5.0) g/dL 01/07/20 01/07/20 Range/Units 16:21 16:21 WBC (3.8-10.6) k/uL RBC (3.80-5.40) m/uL Hgb (11.4-16.0) gm/dL Hct (34.0-46.0) % MCV (80.0-100.0) fL MCH (25.0-35.0) pg MCHC (31.0-37.0) g/dL RDW (11.5-15.5) % Plt Count (150-450) k/uL Neutrophils % % Lymphocytes % % Monocytes % % Eosinophils % % Basophils % % Neutrophils # (1.3-7.7) k/uL Lymphocytes # (1.0-4.8) k/uL Monocytes # (0-1.0) k/uL Eosinophils # (0-0.7) k/uL Basophils # (0-0.2) k/uL Macrocytosis PT (9.0-12.0) sec INR (<1.2) APTT (22.0-30.0) sec D-Dimer (<0.60) mg/L FEU Sodium (137-145) mmol/L Potassium (3.5-5.1) mmol/L Chloride (98-107) mmol/L Carbon Dioxide (22-30) mmol/L Anion Gap mmol/L BUN (7-17) mg/dL Creatinine (0.52-1.04) mg/dL Est GFR (CKD-EPI)AfAm (>60 ml/min/1.73 sqM) Est GFR (CKD-EPI)NonAf (>60 ml/min/1.73 sqM) Glucose (74-99) mg/dL Plasma Lactic Acid Brayan 2.9 H* (0.7-2.0) mmol/L Calcium (8.4-10.2) mg/dL Magnesium (1.6-2.3) mg/dL Total Bilirubin (0.2-1.3) mg/dL AST (14-36) U/L ALT (4-34) U/L Alkaline Phosphatase (38-126) U/L Troponin I <0.012 (0.000-0.034) ng/mL Total Protein (6.3-8.2) g/dL Albumin (3.5-5.0) g/dL Critical Care Time Critical Care Time: Yes Total Critical Care Time: 35 <Horace Zimmerman - Last Filed: 07/20/19 18:59> Disposition <Evelio Akins - Last Filed: 07/20/19 15:08> Time of Disposition: 18:59 <Horace Zimmerman - Last Filed: 07/20/19 18:59> Clinical Impression: Acute exacerbation of chronic obstructive pulmonary disease Disposition: ADMITTED IP TO THIS HOSP Referrals: Hipolito Youngblood MD [Primary Care Provider] - 1-2 days
[2019-07-20] MEDS ORDERED: ALBUTEROL NEBULIZED (CONC) 5 MG, SODIUM CHLORIDE 0.9% NEBULIZ 3 ML INHALATION STA ×2 (15:51)
[2019-07-20] MEDS ORDERED: IPRATROPIUM 0.5 MG/2.5 ML NEBU INHALATION STA (15:52)
[2019-07-20] MEDS ORDERED: methylPREDNISolone SOD SUCCI 125 MG/2 ML VIAL IV STA (15:52)
--- NOTE | 2019-07-20 16:25 | XR ---
EXAMINATION TYPE: XR chest 2V DATE OF EXAM: 07/20/2019 COMPARISON: 05/23/2019 INDICATION: Difficulty breathing TECHNIQUE: Frontal and lateral views of the chest are obtained. FINDINGS: The heart size is normal. The pulmonary vasculature is normal. Some scarring is likely at the right upper lobe. Surgical clips are within the right breast.. IMPRESSION: 1. No suspicious acute changes.
[2019-07-20 16:46] LABS: Basophils # (A) 0.2 k/uL (0-0.2); Basophils % (A) 2 %; Eosinophils # (A) 0.1 k/uL (0-0.7); Eosinophils % (A) 1 %; HCT 42.2 % (34.0-46.0); Lymphocytes # (A) 1.7 k/uL (1.0-4.8); Lymphocytes % (A) 17 %; MCH 33.8 pg (25.0-35.0); MCHC 33.1 g/dL (31.0-37.0); Macrocytosis Slight; Mean Platelet Volume 7.5; Monocytes # (A) 0.4 k/uL (0-1.0); Monocytes % (A) 4 %; Neutrophils # (A) 7.9 k/uL (1.3-7.7); Neutrophils % (A) 76 %; Platelet Count 288 k/uL (150-450); RBC 4.13 m/uL (3.80-5.40); RDW 15.4 % (11.5-15.5); WBC 10.4 k/uL (3.8-10.6)
[2019-07-20 16:55] LABS: Albumin 4.3 g/dL (3.5-5.0); Calcium 9.6 mg/dL (8.4-10.2); Magnesium 2.1 mg/dL (1.6-2.3); Potassium 3.7 mmol/L (3.5-5.1); Total Protein 7.1 g/dL (6.3-8.2)
[2019-07-20 17:05] LABS: INR 0.9 (<1.2); Prothrombin Time 9.9 sec (9.0-12.0)
[2019-07-20 17:17] LABS: D-Dimer 1.08 mg/L FEU (<0.60)
--- NOTE | 2019-07-20 18:52 | CT ---
EXAMINATION TYPE: CT chest angio for PE DATE OF EXAM: 07/20/2019 COMPARISON: 03/09/2014 HISTORY: Shortness of breath and elevated d-dimer. CT DLP: 816.7 mGycm Automated exposure control for dose reduction was used. CONTRAST: Performed with IV Contrast, patient injected with 85ml mL of Isovue 370. There are 3-D post processed images. There is some coarse linear density in the anterior right upper lobe. This is consistent with scarrin g and atelectasis. Lung bases are clear. There is no pleural effusion. There is no evidence of a pulm onary mass. Heart size is normal. There is no mediastinal adenopathy. Thoracic aorta shows no aneurys m or dissection. There is normal contrast opacification of the pulmonary arteries. There are no filli ng defects. There is some spurring in the thoracic spine. There is no compression fracture. Visualized upper abdo timoteo soft tissues are intact. IMPRESSION: There is some linear scarring and atelectasis in the right upper lobe that is a change compared to ol d exam. No evidence of pulmonary embolism.
[2019-07-20] MEDS ORDERED: IPRATROPIUM-ALBUTEROL 3 ML NEB INHALATION PRN (19:01)
[2019-07-20] MEDS ORDERED: ALBUTEROL NEBULIZED 2.5 MG/3 ML INHALATION PRN (22:31)
[2019-07-20] MEDS: SODIUM CHLORIDE 0.9% 1,000 ML IV SCH (22:54)
[2019-07-20] MEDS: SYMBICORT 160-4.5 MCG INHALER INHALATION SCH (23:12)
[2019-07-20] MEDS: methylPREDNISolone SOD SUCCI 125 MG/2 ML VIAL IV SCH (23:15)
[2019-07-20] MEDS: ACETAMINOPHEN TAB 325 MG TAB PO PRN (23:16)
[2019-07-21] MEDS ORDERED: ALBUTEROL NEBULIZED 2.5 MG/3 ML INHALATION PRN (02:59)
[2019-07-21] MEDS: methylPREDNISolone SOD SUCCI 125 MG/2 ML VIAL IV SCH ×4 (05:36→23:31)
[2019-07-21 05:50] LABS: Basophils % (A) 0 %; Eosinophils % (A) 0 %; HGB 12.3 gm/dL (11.4-16.0); Lymphocytes # (A) 0.6 k/uL (1.0-4.8); Lymphocytes % (A) 10 %; MCH 33.8 pg (25.0-35.0); MCHC 33.3 g/dL (31.0-37.0); MCV 101.4 fL (80.0-100.0); Macrocytosis Slight; Mean Platelet Volume 7.4; Monocytes # (A) 0.1 k/uL (0-1.0); Monocytes % (A) 2 %; Neutrophils # (A) 4.9 k/uL (1.3-7.7); Neutrophils % (A) 88 %; Platelet Count 232 k/uL (150-450); RBC 3.65 m/uL (3.80-5.40); RDW 15.6 % (11.5-15.5); WBC 5.6 k/uL (3.8-10.6)
[2019-07-21 06:21] LABS: AST 30 U/L (14-36); African American GFR (CKD) >90 (>60 ml/min/1.73 sqM); Albumin 3.5 g/dL (3.5-5.0); Alkaline Phosphatase 70 U/L (38-126); Anion Gap 10 mmol/L; Blood Urea Nitrogen 27 mg/dL (7-17); Calcium 8.7 mg/dL (8.4-10.2); Carbon Dioxide 23 mmol/L (22-30); Chloride 106 mmol/L (98-107); Glucose 158 mg/dL (74-99); Non-African American GFR(CKD) 84 (>60 ml/min/1.73 sqM); Sodium 139 mmol/L (137-145); Total Bilirubin 0.7 mg/dL (0.2-1.3)
[2019-07-21 06:31] LABS: ALT 30 U/L (4-34)
[2019-07-21 07:06] LABS: Glucose,Whole Blood 159 mg/dL (75-99)
[2019-07-21] MEDS: LOSARTAN 50 MG TAB PO SCH (07:41)
[2019-07-21] MEDS: LORATADINE 10 MG TAB PO SCH (07:41)
[2019-07-21] MEDS: LETROZOLE 2.5 MG TAB PO SCH (07:41)
[2019-07-21] MEDS: TRIAMTERENE-HCTZ 37.5-25MG 1 EACH TAB PO SCH (07:41)
[2019-07-21] MEDS: ASPIRIN 81 MG PO SCH (07:42)
[2019-07-21] MEDS: CHOLECALCIFEROL 1,000 UNIT TAB PO SCH (07:42)
[2019-07-21] MEDS: INSULIN ASPART (NovoLOG) 100 UNIT/ML VIAL SQ SCH ×4 (07:55→20:18)
[2019-07-21] MEDS: SODIUM CHLORIDE 0.9% 1,000 ML IV SCH ×3 (07:56→23:37)
[2019-07-21] MEDS: SYMBICORT 160-4.5 MCG INHALER INHALATION SCH ×2 (08:09→19:40)
[2019-07-21] MEDS: IPRATROPIUM-ALBUTEROL 3 ML NEB INHALATION SCH ×4 (08:09→19:40)
--- NOTE | 2019-07-21 08:37 | P.CONS ---
History of Present Illness - Reason for Consult Consult date: 07/21/19 - History of Present Illness Ms. Zafar is a 64-year-old white female, well known to our service. She is followed by Dr. Woo in the outpatient setting for metastatic breast cancer. She is currently on Ibrance and Femara. The patient has a known history of COPD with prior exacerbations, including admission in 11/29. She developed shortness of breath, with wheezing, and cough productive of whitish to yellowish exp ectoration around 07/07/19. She received steroids and antibiotic injections in the office and was also placed on outpatient steroid taper and oral antibiotics. However her symptoms persisted due to which she was sent in to the hospital and subsequently admitted. She has a prior history of DVT and PE, due to which a CTA was performed. This showed opacity in the right upper lobe, where the patient does have known radiation pneumonitis. No clots were seen. The patient has 4 more days of Ibrance left this cycle. Malignancy history: Patient was diagnosed with right-sided breast cancer [facility] in 1997, treated with a right partial mastectomy, 8 cycles of CMF adjuvant chemotherapy, radiation to the right breast and AI attempted, but not tolerated. Patient did well until 2018. She developed right chest wall pain associated with a "lump", ultrasound of the chest wall showed a mass, ultrasound-guided biopsy showed a metastatic adenocarcinoma consistent with a breast primary. 09/2017 she had a staging PET scan showing disease in the right chest wall, right supraclavicular area, right axillary lymph nodes, no distant metastasis. She was started on oral Ibrance and Femara. She did have some palliative radiation to the right chest wall. She continues on Ibrance and Fe brenda, PET scan in 05/01 showed stable, mild persistent uptake in the right chest wall. She does have some mild radiation pneumonitis in the RUL. Continues on treatment. Review of Systems Constitutional: Reports weakness Eyes: denies blurred vision, denies pain Ears: deny: decreased hearing, ear discharge, earache, tinnitus Ears, nose, mouth and throat: Denies headache, Denies sore throat Cardiovascular: Reports dyspnea on exertion Respiratory: Reports cough with sputum, Reports dyspnea, Reports wheezing Gastrointestinal: Reports diarrhea (Occasional) Genitourinary: Denies dysuria, Denies hematuria Menstruation: Reports postmenopausal Musculoskeletal: Reports muscle weakness Integumentary: Denies pruritus, Denies rash Neurological: Reports weakness Psychiatric: Denies anxiety, Denies depression Endocrine: Reports fatigue Hematologic/Lymphatic: Reports as per HPI Past Medical History Past Medical History: Asthma, Cancer, COPD, Deep Vein Thrombosis (DVT), GERD/Reflux, Hypertension, Myocardial Infarction ([place]) Additional Past Medical History / Comment(s): Metastatic breast cancer, diagnosis was 1997 treated by lumpectomy radiation therapy and chemotherapy and subsequent recurrence in September 2017 and the patient developed chest wall recurrence, supraclavicular lymph node involvement and axillary lymph node involvement. The patient is currently on Femara and Ibrance, bronchial asthma, obstructive sleep apnea, chronic ALLERGIC rhinitis, hypertension, coronary artery disease, acid reflux, previous history of DVT, history of nephrolithiasis, previous history of E. coli in January 2018, migraines, shingles more than 20 years ago, PVD Last Myocardial Infarction Date:: 2008 History of Any Multi-Drug Resistant Organisms: None Reported Past Surgical History: Appendectomy, Section, Cholecystectomy, Hysterectomy Additional Past Surgical History / Comment(s): Laparoscopy, 1997RT BREAST BX/ Lumpectomy with lymph node resection in 1997 ON RIGHT BREAST DID RADIATION AND CHEMO, STILL HAS METAL CLIPS IN SCOTTY BREASTS FROM WHEN THEY DID MAMORGAMS AND BIOPSIES. 09/2017 HAD "REOCCURANCE OF RT BREAST CANCER THEY REMOVED THE REMAINING LYMPH NODES RT AXILLA/ / NECK AND IS ON ORL CHEMO" . PT STATED "HAD PARTIAL HYSTERECTOMY STILL HAD 1 OVARY BUT THE CHEMO TX DESTROYED IT" Past Anesthesia/Blood Transfusion Reactions: No Reported Reaction Additional Past Anesthesia/Blood Transfusion Reaction / Comm: CLAUSTERPHOBIA Past Psychological History: No Psychological Hx Reported Additional Psychological History / Comment(s): PT IS ON DISABILITY, LIVES WITH HER SPOUSE. NO HOME CARE SERVICES, NO MEDCIAL EQUIPMENT Smoking Status: Former smoker Past Alcohol Use History: None Reported Additional Past Alcohol Use History / Comment(s): patient quit smoking at 25. smoked for 4 years, SMOKED 1/2 PPD Past Drug Use History: None Reported - Past Family History Father Family Medical History: Hypertension Additional Family Medical History / Comment(s): DIVERTICULITIS, IN HIS SLEEP AT AGE 81 Mother Family Medical History: Cancer, Hypertension Additional Family Medical History / Comment(s): BREAST CANCER Medications and Allergies Home Medications Medication Instructions Recorded Confirmed Type Albuterol Sulfate [Ventolin HFA] 2 puff INHALATION RT-Q4H PRN 11/23/13 07/20/19 History Budesonide-Formot 160-4.5 Mcg 2 puff INHALATION RT-BID 09/15/14 07/20/19 History [Symbicort 160-4.5 Mcg Inhaler] Omeprazole [PriLOSEC] 20 mg PO HS@1800 01/20/15 07/20/19 History Losartan Potassium 50 mg PO DAILY 01/22/15 07/20/19 History Albuterol Nebulized [Ventolin 2.5 mg INHALATION RT-QID PRN 05/16/16 07/20/19 History Nebulized] Letrozole [Femara] 2.5 mg PO DAILY 03/03/18 07/20/19 History Aspirin EC [Ecotrin Low Dose] 81 mg PO DAILY 07/20/19 07/20/19 History Calcium/Vit D3 1 tab PO DAILY 07/20/19 07/20/19 History Cetirizine HCl [Zyrtec] 10 mg PO DAILY 07/20/19 07/20/19 History Palbociclib [Ibrance] 125 mg PO DIRECTED 07/20/19 07/20/19 History Triamterene-Hctz 37.5-25Mg 1 tab PO DAILY 07/20/19 07/20/19 History [Maxzide 37.5-25] Allergies Allergy/AdvReac Type Severity Reaction Status Date / Time shellfish derived [Shrimp] Allergy Mild Unknown Verified 07/20/19 20:26 Sulfa (Sulfonamide Allergy Rash/Hives Verified 07/20/19 20:26 Antibiotics) clarithromycin [From Biaxin] AdvReac Unknown Verified 07/20/19 20:26 Physical Exam Vitals: Vital Signs Temp Pulse Pulse Resp BP BP Pulse Ox 07/21/19 08:24 95 07/21/19 08:10 90 95 07/21/19 05:49 97.7 F 85 20 154/89 95 07/21/19 03:05 104 H 07/21/19 02:58 100 07/20/19 22:31 98.2 F 105 H 20 144/88 94 L 07/20/19 20:00 97.8 F 72 18 131/80 97 07/20/19 18:58 88 181 H 134/90 98 07/20/19 17:27 90 18 07/20/19 17:01 92 18 07/20/19 16:46 90 18 161/92 98 07/20/19 16:33 24 07/20/19 15:08 97.7 F 117 H 20 134/84 97 Intake and Output 07/20/19 07/21/19 07/21/19 22:59 06:59 14:59 Intake Total 750 Balance 750 Intake: Intake, IV Titration 750 Amount Sodium Chloride 0.9% 1, 750 000 ml @ 125 mls/hr IV . Q8H [facility] Rx#:[id number] Other: Voiding Method Toilet # Voids 1 1 Weight 116.573 kg - Constitutional General appearance: no acute distress (Mildly short of breath at rest) - EENT Eyes: EOMI, PERRLA ENT: hearing grossly normal, normal oropharynx - Respiratory Respiratory: bilateral: diminished, wheezing, prolonged expiration - Cardiovascular Rhythm: regular Heart sounds: normal: S1, S2 - Gastrointestinal General gastrointestinal: normal bowel sounds, soft - Integumentary Integumentary: normal - Neurologic Neurologic: CNII-XII intact - Musculoskeletal Musculoskeletal: generalized weakness, strength equal bilaterally - Psychiatric Psychiatric: A&O x's 3, appropriate affect Results CBC & Chem 7: 07/21/19 05:18 07/21/19 05:18 Labs: Abnormal Lab Results - Last 24 Hours (Table) 07/20/19 07/20/19 07/20/19 Range/Units 16:21 16:21 16:21 RBC (3.80-5.40) m/uL MCV 102.0 H (80.0-100.0) fL RDW (11.5-15.5) % Neutrophils # 7.9 H (1.3-7.7) k/uL Lymphocytes # (1.0-4.8) k/uL D-Dimer 1.08 H (<0.60) mg/L FEU BUN 29 H (7-17) mg/dL Glucose (74-99) mg/dL POC Glucose (mg/dL) (75-99) mg/dL Plasma Lactic Acid Brayan (0.7-2.0) mmol/L Total Protein (6.3-8.2) g/dL 07/20/19 07/20/19 07/21/19 Range/Units 16:21 20:21 00:51 RBC (3.80-5.40) m/uL MCV (80.0-100.0) fL RDW (11.5-15.5) % Neutrophils # (1.3-7.7) k/uL Lymphocytes # (1.0-4.8) k/uL D-Dimer (<0.60) mg/L FEU BUN (7-17) mg/dL Glucose (74-99) mg/dL POC Glucose (mg/dL) (75-99) mg/dL Plasma Lactic Acid Brayan 2.9 H* 5.6 H* 4.1 H* (0.7-2.0) mmol/L Total Protein (6.3-8.2) g/dL 07/21/19 07/21/19 07/21/19 Range/Units 05:18 05:18 05:18 RBC 3.65 L (3.80-5.40) m/uL MCV 101.4 H (80.0-100.0) fL RDW 15.6 H (11.5-15.5) % Neutrophils # (1.3-7.7) k/uL Lymphocytes # 0.6 L (1.0-4.8) k/uL D-Dimer (<0.60) mg/L FEU BUN 27 H (7-17) mg/dL Glucose 158 H (74-99) mg/dL POC Glucose (mg/dL) (75-99) mg/dL Plasma Lactic Acid Brayan 4.0 H* (0.7-2.0) mmol/L Total Protein 6.0 L (6.3-8.2) g/dL 07/21/19 Range/Units 07:05 RBC (3.80-5.40) m/uL MCV (80.0-100.0) fL RDW (11.5-15.5) % Neutrophils # (1.3-7.7) k/uL Lymphocytes # (1.0-4.8) k/uL D-Dimer (<0.60) mg/L FEU BUN (7-17) mg/dL Glucose (74-99) mg/dL POC Glucose (mg/dL) 159 H (75-99) mg/dL Plasma Lactic Acid Brayan (0.7-2.0) mmol/L Total Protein (6.3-8.2) g/dL Chest x-ray: report reviewed CT scan - chest: report reviewed Assessment and Plan (1) Acute exacerbation of chronic obstructive pulmonary disease Narrative/Plan: The patient has a known history of COPD with prior exacerbations, including requirement for inpatient admission and 11/29. Current symptoms are quite typical for the same. She did not respond to outpatient therapy and has thus been admitted for further management. He does feel somewhat improved this morning. Defer to the admitting service will continue treatment. Current presentation is unrelated to her history of breast cancer. She does not have definite evidence of infection though right upper lobe opacity is mentioned on computed tomography scan. However the patient has known changes of radiation pneumonitis in that area. Current Visit: Yes Status: Acute Code(s): J44.1 - CHRONIC OBSTRUCTIVE PULMONARY DISEASE W (ACUTE) EXACERBATION SNOMED Code(s): 211707879 (2) Metastatic breast cancer Narrative/Plan: Diagnostic and supporting circumstances as described. Given acute illness with possible infection, we'll hold Ibrance for the rest of the cycle. She only had 4 days left anyway. Continue Femara. He'll start her new cycle on schedule assuming acute situation is sufficiently resolved Blood counts are currently normal. Watch for any cytopenias of developing in the setting of acute illness and treat as appropriate supportively. Current Visit: No Status: Chronic Priority: Medium Code(s): C50.919 - MALIGNANT NEOPLASM OF UNSP SITE OF UNSPECIFIED FEMALE BREAST SNOMED Code(s): 985196436 Plan: Defer to the admitting service and other consultants for management of her other medical problems
[2019-07-21] MEDS ORDERED: PALBOCICLIB 125 MG PO SCH (09:00)
[2019-07-21 11:31] LABS: Glucose,Whole Blood 101 mg/dL (75-99)
--- NOTE | 2019-07-21 13:37 | P.CNPUL ---
History of Present Illness Consult date: 07/21/19 Reason for consult: dyspnea, asthma History of present illness: This 64-year-old female patient, history of bronchial asthma characterized to be mild intermittent in nature, who is also being treated oncology regarding metastatic breast cancer. She is currently on a combination of Ibrance and Famera she has developed chest wall metastases. The patient is having increased dyspnea cough chest tightness and wheezing. She was admitted to the hospital. CAT scan of the chest was done that showed no acute abnormalities. There was evidence of any pulmonary embolism. No evidence of any pneumonias. The patient is currently on IV Solu-Medrol 60 mg every 6 hours in addition to DuoNeb nebulized treatments around the clock. She has completed the course of Levaquin outpatient basis that was given to her by her primary care physician. I'm a bit confused about her elevation of the lactic acid level. She came in with some mild hydronephrosis which was downtrending and earlier this morning the lactic acid level came back at 7.3. He is investigated. The patient has not looked to be septic at all. Clearly there is no other source for lactic acidosis. Considering the possibility of drug-induced lactic acid elevation. On her blood work, her serum bicarb is at 23. No other complaints otherwise for now. No fever. No chills. No leukocytosis. No other significant events otherwise for now. Review of Systems Constitutional: Reports weakness , weight gain secondary to long-term steroid use and she is developing also some cushingoid features Eyes: denies blurred vision, denies pain Ears: deny: decreased hearing, ear discharge, earache, tinnitus Ears, nose, mouth and throat: Denies headache, Denies sore throat Cardiovascular: Reports dyspnea on exertion along with cough and congestion Respiratory: Reports cough with sputum, Reports dyspnea, Reports wheezing Gastrointestinal: Reports diarrhea (Occasional) Genitourinary: Denies dysuria, Denies hematuria Menstruation: Reports postmenopausal Musculoskeletal: Reports muscle weakness Integumentary: Denies pruritus, Denies rash Neurological: Reports weakness Psychiatric: Denies anxiety, Denies depression Endocrine: Reports fatigue Past Medical History Past Medical History: Asthma, Cancer, COPD, Deep Vein Thrombosis (DVT), GERD/Reflux, Hypertension, Myocardial Infarction ([place]) Additional Past Medical History / Comment(s): Metastatic breast cancer, diagnosis was 1997 treated by lumpectomy radiation therapy and chemotherapy and subsequent recurrence in September 2017 and the patient developed chest wall recurrence, supraclavicular lymph node involvement and axillary lymph node involvement. The patient is currently on Femara and Ibrance, bronchial asthma, obstructive sleep apnea, chronic ALLERGIC rhinitis, hypertension, coronary artery disease, acid reflux, previous history of DVT, history of nephrolithiasis, previous history of E. coli in January 2018, migraines, shingles more than 20 years ago, PVD Last Myocardial Infarction Date:: 2008 History of Any Multi-Drug Resistant Organisms: None Reported Past Surgical History: Appendectomy, Section, Cholecystectomy, Hysterectomy Additional Past Surgical History / Comment(s): Laparoscopy, 1997RT BREAST BX/ Lumpectomy with lymph node resection in 1997 ON RIGHT BREAST DID RADIATION AND CHEMO, STILL HAS METAL CLIPS IN SCOTTY BREASTS FROM WHEN THEY DID MAMORGAMS AND BIOPSIES. 09/2017 HAD "REOCCURANCE OF RT BREAST CANCER THEY REMOVED THE REMAINING LYMPH NODES RT AXILLA/ / NECK AND IS ON ORL CHEMO" . PT STATED "HAD PARTIAL HYSTERECTOMY STILL HAD 1 OVARY BUT THE CHEMO TX DESTROYED IT" Past Anesthesia/Blood Transfusion Reactions: No Reported Reaction Additional Past Anesthesia/Blood Transfusion Reaction / Comment(s): CLAUSTERPHOBIA Past Psychological History: No Psychological Hx Reported Additional Psychological History / Comment(s): PT IS ON DISABILITY, LIVES WITH HER SPOUSE. NO HOME CARE SERVICES, NO MEDCIAL EQUIPMENT Smoking Status: Former smoker Past Alcohol Use History: None Reported Additional Past Alcohol Use History / Comment(s): patient quit smoking at 25. smoked for 4 years, SMOKED 1/2 PPD Past Drug Use History: None Reported - Past Family History Father Family Medical History: Hypertension Additional Family Medical History / Comment(s): DIVERTICULITIS, IN HIS SLEEP AT AGE 81 Mother Family Medical History: Cancer, Hypertension Additional Family Medical History / Comment(s): BREAST CANCER Medications and Allergies Home Medications Medication Instructions Recorded Confirmed Type Albuterol Sulfate [Ventolin HFA] 2 puff INHALATION RT-Q4H PRN 11/23/13 07/20/19 History Budesonide-Formot 160-4.5 Mcg 2 puff INHALATION RT-BID 09/15/14 07/20/19 History [Symbicort 160-4.5 Mcg Inhaler] Omeprazole [PriLOSEC] 20 mg PO HS@1800 01/20/15 07/20/19 History Losartan Potassium 50 mg PO DAILY 01/22/15 07/20/19 History Albuterol Nebulized [Ventolin 2.5 mg INHALATION RT-QID PRN 05/16/16 07/20/19 History Nebulized] Letrozole [Femara] 2.5 mg PO DAILY 03/03/18 07/20/19 History Aspirin EC [Ecotrin Low Dose] 81 mg PO DAILY 07/20/19 07/20/19 History Calcium/Vit D3 1 tab PO DAILY 07/20/19 07/20/19 History Cetirizine HCl [Zyrtec] 10 mg PO DAILY 07/20/19 07/20/19 History Palbociclib [Ibrance] 125 mg PO DIRECTED 07/20/19 07/20/19 History Triamterene-Hctz 37.5-25Mg 1 tab PO DAILY 07/20/19 07/20/19 History [Maxzide 37.5-25] Allergies Allergy/AdvReac Type Severity Reaction Status Date / Time shellfish derived [Shrimp] Allergy Mild Unknown Verified 07/20/19 20:26 Sulfa (Sulfonamide Allergy Rash/Hives Verified 07/20/19 20:26 Antibiotics) clarithromycin [From Biaxin] AdvReac Unknown Verified 07/20/19 20:26 Physical Exam Vitals: Vital Signs Temp Pulse Pulse Resp BP BP Pulse Ox 07/21/19 12:18 98.2 F 79 18 128/69 96 07/21/19 11:48 83 07/21/19 11:35 78 07/21/19 08:25 85 20 07/21/19 08:24 95 07/21/19 08:10 90 95 07/21/19 05:49 97.7 F 85 20 154/89 95 07/21/19 03:05 104 H 07/21/19 02:58 100 07/20/19 22:31 98.2 F 105 H 20 144/88 94 L 07/20/19 20:00 97.8 F 72 18 131/80 97 07/20/19 18:58 88 181 H 134/90 98 07/20/19 17:27 90 18 07/20/19 17:01 92 18 07/20/19 16:46 90 18 161/92 98 07/20/19 16:33 24 07/20/19 15:08 97.7 F 117 H 20 134/84 97 Intake and Output 07/20/19 07/21/19 07/21/19 22:59 06:59 14:59 Intake Total 750 Balance 750 Intake: Intake, IV Titration 750 Amount Sodium Chloride 0.9% 1, 750 000 ml @ 125 mls/hr IV . Q8H [facility] Rx#:[id number] Other: Voiding Method Toilet Toilet # Voids 1 1 Weight 116.573 kg - Constitutional General appearance: no acute distress (Mildly short of breath at rest), - EENT Eyes: EOMI, PERRLA ENT: hearing grossly normal, normal oropharynx, Head exam was generally normal. There was no scleral icterus or corneal arcus. Mucous membranes were moist. Neck was supple and without jugular venous distension, thyromegaly, or carotid bruits. Carotids were easily palpable bilaterally. There was no adenopathy. - Respiratory Respiratory: bilateral: diminished, wheezing, prolonged expiration - Cardiovascular Rhythm: regular Heart sounds: normal: S1, [id number] exam revealed the PMI to be normally situated and sized. The rhythm was regular and no extrasystoles were noted during several minutes of auscultation. The first and second heart sounds were normal and physiologic splitting of the second heart sound was noted. There were no murmurs, rubs, clicks, or gallops. - Gastrointestinal General gastrointestinal: normal bowel sounds, soft - Integumentary Integumentary: normal - Neurologic Neurologic: CNII-XII intact, no focal neurological deficits. - Musculoskeletal Musculoskeletal: generalized weakness, strength equal bilaterally - Psychiatric Psychiatric: A&O x's 3, appropriate affect Results - Laboratory Findings CBC and BMP: 07/21/19 05:18 07/21/19 05:18 PT/INR, D-dimer PT 9.9 sec (9.0-12.0) 07/20/19 16:21 INR 0.9 (<1.2) 07/20/19 16:21 D-Dimer 1.08 mg/L FEU (<0.60) H 07/20/19 16:21 Abnormal lab findings: Abnormal Labs 07/20/19 07/20/19 07/20/19 16:21 16:21 16:21 RBC MCV 102.0 H RDW Neutrophils # 7.9 H Lymphocytes # D-Dimer 1.08 H BUN 29 H Glucose POC Glucose (mg/dL) Plasma Lactic Acid Brayan Total Protein 07/20/19 07/20/19 07/21/19 16:21 20:21 00:51 RBC MCV RDW Neutrophils # Lymphocytes # D-Dimer BUN Glucose POC Glucose (mg/dL) Plasma Lactic Acid Brayan 2.9 H* 5.6 H* 4.1 H* Total Protein 07/21/19 07/21/19 07/21/19 05:18 05:18 05:18 RBC 3.65 L MCV 101.4 H RDW 15.6 H Neutrophils # Lymphocytes # 0.6 L D-Dimer BUN 27 H Glucose 158 H POC Glucose (mg/dL) Plasma Lactic Acid Brayan 4.0 H* Total Protein 6.0 L 07/21/19 07/21/19 07/21/19 07:05 09:44 11:30 RBC MCV RDW Neutrophils # Lymphocytes # D-Dimer BUN Glucose POC Glucose (mg/dL) 159 H 101 H Plasma Lactic Acid Brayan 7.3 H* Total Protein - Diagnostic Findings Chest x-ray: image reviewed CT scan - chest: image reviewed Assessment and Plan Plan: #1. Acute exacerbation of COPD/asthma and tracheobronchitis, with a CAT scan of the chest that was done at time of admission showed no acute abnormalities. #2. Acute lactic acidosis. The patient had a similar lactic acidemia during her previous admission that improved with hydration. We'll continue monitoring the levels. Doubt sepsis. #3. History of breast cancer with lumpectomy and lymph node dissection, treated with chemo and radiation, currently on a combination of Femara and Ibrance. Patient had a recurrence of breast cancer in September 2017 with metastasis to the chest wall, supraclavicular lymph nodes and axillary lymph node involvement #4. History of COPD with previous history of smoking #5. 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 Chronic bronchial asthma #7. GERD/reflux #8. CAD, history of myocardial infarction #9. Obesity #10. Obstructive sleep apnea #11. DVT #12. Nephrolithiasis #13. Migraine Headaches #14 obstructive sleep apnea maintained on CPAP therapy #15 cushingoid features secondary to steroid use Plan IV fluids Monitor lactic acid level and anticipated drop in the level similar to previous evaluations Continue bronchodilators Continue steroids She has completed a course of Levaquin and will going to back of antibiotic treatment for now Allow this patient to use her own CPAP machine from home. We'll continue to follow
--- NOTE | 2019-07-21 13:59 | P.HPIM ---
History of Present Illness Patient sent to the emergency room from [facility] for increasing shortness of breath. Patient was evaluated for shortness of breath positive d-dimer but negative CT for pulmonary embolism. Patient has chronic COPD history of metastatic breast cancer Review of Systems Constitutional: Reports fatigue Respiratory: Reports cough, Reports dyspnea Past Medical History Past Medical History: Asthma, Cancer, COPD, Deep Vein Thrombosis (DVT), GERD/Reflux, Hypertension, Myocardial Infarction ([place]) Additional Past Medical History / Comment(s): Metastatic breast cancer, diagnosis was 1997 treated by lumpectomy radiation therapy and chemotherapy and subsequent recurrence in September 2017 and the patient developed chest wall recurrence, supraclavicular lymph node involvement and axillary lymph node inv olvement. The patient is currently on Femara and Ibrance, bronchial asthma, obstructive sleep apnea, chronic ALLERGIC rhinitis, hypertension, coronary artery disease, acid reflux, previous history of DVT, history of nephrolithiasis, previous history of E. coli in January 2018, migraines, shingles more than 20 years ago, PVD Last Myocardial Infarction Date:: 2008 History of Any Multi-Drug Resistant Organisms: None Reported Past Surgical History: Appendectomy, Section, Cholecystectomy, Hysterectomy Additional Past Surgical History / Comment(s): Laparoscopy, 1997RT BREAST BX/ Lumpectomy with lymph node resection in 1997 ON RIGHT BREAST DID RADIATION AND CHEMO, STILL HAS METAL CLIPS IN SCOTTY BREASTS FROM WHEN THEY DID MAMORGAMS AND BIOPSIES. 09/2017 HAD "REOCCURANCE OF RT BREAST CANCER THEY REMOVED THE REMAINING LYMPH NODES RT AXILLA/ / NECK AND IS ON ORL CHEMO" . PT STATED "HAD PARTIAL HYSTERECTOMY STILL HAD 1 OVARY BUT THE CHEMO TX DESTROYED IT" Past Anesthesia/Blood Transfusion Reactions: No Reported Reaction Additional Past Anesthesia/Blood Transfusion Reaction / Comment(s): CLAUSTERPHOBIA Past Psychological History: No Psychological Hx Reported Additional Psychological History / Comment(s): PT IS ON DISABILITY, LIVES WITH HER SPOUSE. NO HOME CARE SERVICES, NO MEDCIAL EQUIPMENT Smoking Status: Former smoker Past Alcohol Use History: None Reported Additional Past Alcohol Use History / Comment(s): patient quit smoking at 25. smoked for 4 years, SMOKED 1/2 PPD Past Drug Use History: None Reported - Past Family History Father Family Medical History: Hypertension Additional Family Medical History / Comment(s): DIVERTICULITIS, IN HIS SLEEP AT AGE 81 Mother Family Medical History: Cancer, Hypertension Additional Family Medical History / Comment(s): BREAST CANCER Medications and Allergies Home Medications Medication Instructions Recorded Confirmed Type Albuterol Sulfate [Ventolin HFA] 2 puff INHALATION RT-Q4H PRN 11/23/13 07/20/19 History Budesonide-Formot 160-4.5 Mcg 2 puff INHALATION RT-BID 09/15/14 07/20/19 History [Symbicort 160-4.5 Mcg Inhaler] Omeprazole [PriLOSEC] 20 mg PO HS@1800 01/20/15 07/20/19 History Losartan Potassium 50 mg PO DAILY 01/22/15 07/20/19 History Albuterol Nebulized [Ventolin 2.5 mg INHALATION RT-QID PRN 05/16/16 07/20/19 History Nebulized] Letrozole [Femara] 2.5 mg PO DAILY 03/03/18 07/20/19 History Aspirin EC [Ecotrin Low Dose] 81 mg PO DAILY 07/20/19 07/20/19 History Calcium/Vit D3 1 tab PO DAILY 07/20/19 07/20/19 History Cetirizine HCl [Zyrtec] 10 mg PO DAILY 07/20/19 07/20/19 History Palbociclib [Ibrance] 125 mg PO DIRECTED 07/20/19 07/20/19 History Triamterene-Hctz 37.5-25Mg 1 tab PO DAILY 07/20/19 07/20/19 History [Maxzide 37.5-25] Allergies Allergy/AdvReac Type Severity Reaction Status Date / Time shellfish derived [Shrimp] Allergy Mild Unknown Verified 07/20/19 20:26 Sulfa (Sulfonamide Allergy Rash/Hives Verified 07/20/19 20:26 Antibiotics) clarithromycin [From Biaxin] AdvReac Unknown Verified 07/20/19 20:26 Physical Exam Vitals: Vital Signs Temp Pulse Pulse Resp BP BP Pulse Ox 07/21/19 12:18 98.2 F 79 18 128/69 96 07/21/19 11:48 83 07/21/19 11:35 78 07/21/19 08:25 85 20 07/21/19 08:24 95 07/21/19 08:10 90 95 07/21/19 05:49 97.7 F 85 20 154/89 95 07/21/19 03:05 104 H 07/21/19 02:58 100 07/20/19 22:31 98.2 F 105 H 20 144/88 94 L 07/20/19 20:00 97.8 F 72 18 131/80 97 07/20/19 18:58 88 181 H 134/90 98 07/20/19 17:27 90 18 07/20/19 17:01 92 18 07/20/19 16:46 90 18 161/92 98 07/20/19 16:33 24 07/20/19 15:08 97.7 F 117 H 20 134/84 97 Intake and Output 07/20/19 07/21/19 07/21/19 22:59 06:59 14:59 Intake Total 750 240 Balance 750 240 Intake: Intake, IV Titration 750 Amount Sodium Chloride 0.9% 1, 750 000 ml @ 125 mls/hr IV . Q8H [facility] Rx#:[id number] Oral 240 Other: Voiding Method Toilet Toilet # Voids 1 1 3 Weight 116.573 kg - Constitutional General appearance: mild distress - EENT Eyes: PERRLA Ears: bilateral: normal - Neck Neck: normal ROM - Respiratory Respiratory: bilateral: diminished, wheezing - Cardiovascular Rhythm: regular - Gastrointestinal General gastrointestinal: soft - Integumentary Integumentary: normal - Neurologic Neurologic: CNII-XII intact - Musculoskeletal Musculoskeletal: generalized weakness - Psychiatric Psychiatric: A&O x's 3, appropriate affect, intact judgment & insight Results CBC & Chem 7: 07/21/19 05:18 07/21/19 05:18 Labs: Abnormal Lab Results - Last 24 Hours (Table) 07/20/19 07/20/19 07/20/19 Range/Units 16:21 16:21 16:21 RBC (3.80-5.40) m/uL MCV 102.0 H (80.0-100.0) fL RDW (11.5-15.5) % Neutrophils # 7.9 H (1.3-7.7) k/uL Lymphocytes # (1.0-4.8) k/uL D-Dimer 1.08 H (<0.60) mg/L FEU BUN 29 H (7-17) mg/dL Glucose (74-99) mg/dL POC Glucose (mg/dL) (75-99) mg/dL Plasma Lactic Acid Brayan (0.7-2.0) mmol/L Total Protein (6.3-8.2) g/dL 07/20/19 07/20/19 07/21/19 Range/Units 16:21 20:21 00:51 RBC (3.80-5.40) m/uL MCV (80.0-100.0) fL RDW (11.5-15.5) % Neutrophils # (1.3-7.7) k/uL Lymphocytes # (1.0-4.8) k/uL D-Dimer (<0.60) mg/L FEU BUN (7-17) mg/dL Glucose (74-99) mg/dL POC Glucose (mg/dL) (75-99) mg/dL Plasma Lactic Acid Brayan 2.9 H* 5.6 H* 4.1 H* (0.7-2.0) mmol/L Total Protein (6.3-8.2) g/dL 07/21/19 07/21/19 07/21/19 Range/Units 05:18 05:18 05:18 RBC 3.65 L (3.80-5.40) m/uL MCV 101.4 H (80.0-100.0) fL RDW 15.6 H (11.5-15.5) % Neutrophils # (1.3-7.7) k/uL Lymphocytes # 0.6 L (1.0-4.8) k/uL D-Dimer (<0.60) mg/L FEU BUN 27 H (7-17) mg/dL Glucose 158 H (74-99) mg/dL POC Glucose (mg/dL) (75-99) mg/dL Plasma Lactic Acid Brayan 4.0 H* (0.7-2.0) mmol/L Total Protein 6.0 L (6.3-8.2) g/dL 07/21/19 07/21/19 07/21/19 Range/Units 07:05 09:44 11:30 RBC (3.80-5.40) m/uL MCV (80.0-100.0) fL RDW (11.5-15.5) % Neutrophils # (1.3-7.7) k/uL Lymphocytes # (1.0-4.8) k/uL D-Dimer (<0.60) mg/L FEU BUN (7-17) mg/dL Glucose (74-99) mg/dL POC Glucose (mg/dL) 159 H 101 H (75-99) mg/dL Plasma Lactic Acid Brayan 7.3 H* (0.7-2.0) mmol/L Total Protein (6.3-8.2) g/dL Chest x-ray: report reviewed CT scan - chest: report reviewed Thrombosis Risk Factor Assmnt - Choose All That Apply Any of the Below Risk Factors Present?: Yes Each Factor Represents 1 point: Abnormal pulmonary function (COPD), Obesity (BMI >25) Other Risk Factors: Yes Each Risk Factor Represents 2 Points: Age 61-74 years, Malignancy Other congenital or acquired thrombophilia - If yes, enter type in comment: No Thrombosis Risk Factor Assessment Total Risk Factor Score: 6 Thrombosis Risk Factor Assessment Level: High Risk Assessment and Plan Plan: Assessment acute exacerbation of COPD with tracheobronchitis History of hypertension Asthma Coronary disease with [place] COPD Metastatic breast cancer GERD Plan Continue consultation with oncology and pulmonology patient on Rocephin
[2019-07-21] MEDS: ACETAMINOPHEN TAB 325 MG TAB PO PRN ×2 (14:11→20:23)
[2019-07-21 16:59] LABS: Glucose,Whole Blood 186 mg/dL (75-99)
[2019-07-21] MEDS: PANTOPRAZOLE 40 MG TABLET PO SCH (17:36)
[2019-07-21 19:54] LABS: Glucose,Whole Blood 146 mg/dL (75-99)
[2019-07-21] MEDS: BENZOCAINE/MENTHOL LOZENG 1 EACH LOZENGE MUCOUS MEM PRN (21:46)
[2019-07-22] MEDS: ACETAMINOPHEN TAB 325 MG TAB PO PRN ×4 (05:58→23:42)
[2019-07-22] MEDS: methylPREDNISolone SOD SUCCI 125 MG/2 ML VIAL IV SCH ×4 (05:58→23:42)
[2019-07-22] MEDS: BENZOCAINE/MENTHOL LOZENG 1 EACH LOZENGE MUCOUS MEM PRN ×2 (06:05→16:27)
[2019-07-22 06:58] LABS: Glucose,Whole Blood 153 mg/dL (75-99)
[2019-07-22] MEDS: SYMBICORT 160-4.5 MCG INHALER INHALATION SCH ×2 (07:42→20:52)
[2019-07-22] MEDS: IPRATROPIUM-ALBUTEROL 3 ML NEB INHALATION SCH ×4 (07:42→20:52)
[2019-07-22] MEDS: INSULIN ASPART (NovoLOG) 100 UNIT/ML VIAL SQ SCH ×4 (07:57→20:32)
[2019-07-22] MEDS: CHOLECALCIFEROL 1,000 UNIT TAB PO SCH (07:57)
[2019-07-22] MEDS: LETROZOLE 2.5 MG TAB PO SCH (07:57)
[2019-07-22] MEDS: LOSARTAN 50 MG TAB PO SCH (07:57)
[2019-07-22] MEDS: ASPIRIN 81 MG PO SCH (07:58)
[2019-07-22] MEDS: TRIAMTERENE-HCTZ 37.5-25MG 1 EACH TAB PO SCH (07:58)
[2019-07-22] MEDS: LORATADINE 10 MG TAB PO SCH (07:58)
[2019-07-22] MEDS: SODIUM CHLORIDE 0.9% 1,000 ML IV SCH ×3 (08:06→23:48)
[2019-07-22 08:11] LABS: Basophils % (A) 0 %; Eosinophils % (A) 0 %; HCT 36.4 % (34.0-46.0); HGB 11.9 gm/dL (11.4-16.0); Lymphocytes # (A) 0.4 k/uL (1.0-4.8); Lymphocytes % (A) 6 %; MCH 34.1 pg (25.0-35.0); MCHC 32.8 g/dL (31.0-37.0); Macrocytosis Moderate; Mean Platelet Volume 7.4; Monocytes # (A) 0.2 k/uL (0-1.0); Monocytes % (A) 3 %; Neutrophils # (A) 7.2 k/uL (1.3-7.7); Neutrophils % (A) 91 %; Platelet Count 200 k/uL (150-450); RDW 15.8 % (11.5-15.5); WBC 7.9 k/uL (3.8-10.6)
[2019-07-22 11:50] LABS: Glucose,Whole Blood 120 mg/dL (75-99)
--- NOTE | 2019-07-22 12:17 | P.PN ---
Subjective Progress Note Date: 07/22/19 This 64-year-old female patient, history of bronchial asthma characterized to be mild intermittent in nature, who is also being treated oncology regarding metastatic breast cancer. She is currently on a combination of Ibrance and Famera she has developed chest wall metastases. The patient is having increased dyspnea cough chest tightness and wheezing. She was admitted to the hospital. CAT scan of the chest was done that showed no acute abnormalities. There was evidence of any pulmonary embolism. No evidence of any pneumonias. The patient is currently on IV Solu-Medrol 60 mg every 6 hours in addition to DuoNeb nebulized treatments around the clock. She has completed the course of Levaquin outpatient basis that was given to her by her primary care physician. I'm a bit confused about her elevation of the lactic acid level. She came in with some mild hydronephrosis which was downtrending and earlier this morning the lactic acid level came back at 7.3. He is investigated. The patient has not looked to be septic at all. Clearly there is no other source for lactic acidosis. Considering the possibility of drug-induced lactic acid elevation. On her blood work, her serum bicarb is at 23. No other complaints otherwise for now. No fever. No chills. No leukocytosis. No other significant events otherwise for now. On today's evaluation of 07/22/2019 still coughing still congested and wheezy also less compared to yesterday. She got was resuscitated IV fluids with normal saline at the rate of 1 25 mL an hour and her lactic acid level is down to 2.1. No new complaints. She is afebrile. No significant tachycardia. No significant chest pain. No diarrhea or nausea or vomiting or emesis. Her white cell count is at 7.9. Objective - Vital Signs Vital signs: Vital Signs Temp 98 F 07/22/19 12:05 Pulse 102 H 07/22/19 12:05 Resp 18 07/22/19 12:05 BP 166/96 07/22/19 12:05 Pulse Ox 97 07/22/19 12:05 Intake & Output 07/21/19 07/22/19 07/22/19 18:59 06:59 18:59 Intake Total 240 1425 Balance 240 1425 Intake: Intake, IV Titration 1425 Amount Sodium Chloride 0.9% 1, 1375 000 ml @ 125 mls/hr IV . Q8H [facility] Rx#:[id number] cefTRIAXone 1 gm In 50 Sodium Chloride 0.9% 50 ml @ 100 mls/hr IVPB Q24H [facility] Rx#:[id number] Oral 240 Other: Voiding Method Toilet Toilet # Voids 3 - Exam - Constitutional General appearance: no acute distress (Mildly short of breath at rest), - EENT Eyes: EOMI, PERRLA ENT: hearing grossly normal, normal oropharynx, Head exam was generally normal. There was no scleral icterus or corneal arcus. Mucous membranes were moist. Neck was supple and without jugular venous distension, thyromegaly, or carotid bruits. Carotids were easily palpable bilaterally. There was no adenopathy. - Respiratory Respiratory: bilateral: diminished, wheezing, prolonged expiration - Cardiovascular Rhythm: regular Heart sounds: normal: S1, [id number] exam revealed the PMI to be normally situated and sized. The rhythm was regular and no extrasystoles were noted during several minutes of auscultation. The first and second heart sounds were normal and physiologic splitting of the second heart sound was noted. There were no murmurs, rubs, clicks, or gallops. - Gastrointestinal General gastrointestinal: normal bowel sounds, soft - Integumentary Integumentary: normal - Neurologic Neurologic: CNII-XII intact, no focal neurological deficits. - Musculoskeletal Musculoskeletal: generalized weakness, strength equal bilaterally - Psychiatric Psychiatric: A&O x's 3, appropriate affect - Labs CBC & Chem 7: 07/22/19 07:41 07/21/19 05:18 Labs: Abnormal Lab Results - Last 24 Hours (Table) 07/21/19 07/21/19 07/21/19 Range/Units 14:50 16:58 18:34 RBC (3.80-5.40) m/uL MCV (80.0-100.0) fL RDW (11.5-15.5) % Lymphocytes # (1.0-4.8) k/uL POC Glucose (mg/dL) 186 H (75-99) mg/dL Plasma Lactic Acid Brayan 6.7 H* 6.1 H* (0.7-2.0) mmol/L 07/21/19 07/22/19 07/22/19 Range/Units 19:53 06:57 07:41 RBC 3.50 L (3.80-5.40) m/uL MCV 104.0 H (80.0-100.0) fL RDW 15.8 H (11.5-15.5) % Lymphocytes # 0.4 L (1.0-4.8) k/uL POC Glucose (mg/dL) 146 H 153 H (75-99) mg/dL Plasma Lactic Acid Brayan (0.7-2.0) mmol/L 07/22/19 07/22/19 Range/Units 07:41 11:49 RBC (3.80-5.40) m/uL MCV (80.0-100.0) fL RDW (11.5-15.5) % Lymphocytes # (1.0-4.8) k/uL POC Glucose (mg/dL) 120 H (75-99) mg/dL Plasma Lactic Acid Brayan 2.7 H* (0.7-2.0) mmol/L Microbiology - Last 24 Hours (Table) 07/20/19 16:21 Blood Culture - Preliminary Blood No Growth after 24 hours Assessment and Plan Plan: #1. Acute exacerbation of COPD/asthma and tracheobronchitis, with a CAT scan of the chest that was done at time of admission showed no acute abnormalities. #2. Acute lactic acidosis. The patient had a similar lactic acidemia during her previous admission that improved with hydration. We'll continue monitoring the levels. Doubt sepsis. The lactic acid level is improving and the patient got was resuscitated IV fluids. Lactic acid level is down to 2.1. #3. History of breast cancer with lumpectomy and lymph node dissection, treated with chemo and radiation, currently on a combination of Femara and Ibrance. Patient had a recurrence of breast cancer in September 2017 with metastasis to the chest wall, supraclavicular lymph nodes and axillary lymph node involvement #4. History of COPD with previous history of smoking #5. 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 Chronic bronchial asthma #7. GERD/reflux #8. CAD, history of myocardial infarction #9. Obesity #10. Obstructive sleep apnea #11. DVT #12. Nephrolithiasis #13. Migraine Headaches #14 obstructive sleep apnea maintained on CPAP therapy #15 cushingoid features secondary to steroid use Plan Clinically improving. Continue same treatment. Less bronchospastic and wheezy compared to yesterday. Continue IV Solu-Medrol. No need for further follow-up on the lactic acid level. We'll follow.
--- NOTE | 2019-07-22 12:30 | P.PN ---
Subjective Patient continues with cough. Has had evaluation by an pulmonology recommendations provided lactic acid down to 2 Objective - Vital Signs Vital signs: Vital Signs Temp 98 F 07/22/19 12:05 Pulse 102 H 07/22/19 12:05 Resp 18 07/22/19 12:05 BP 166/96 07/22/19 12:05 Pulse Ox 97 07/22/19 12:05 Intake & Output 07/21/19 07/22/19 07/22/19 18:59 06:59 18:59 Intake Total 240 1425 Balance 240 1425 Intake: Intake, IV Titration 1425 Amount Sodium Chloride 0.9% 1, 1375 000 ml @ 125 mls/hr IV . Q8H [facility] Rx#:[id number] cefTRIAXone 1 gm In 50 Sodium Chloride 0.9% 50 ml @ 100 mls/hr IVPB Q24H [facility] Rx#:[id number] Oral 240 Other: Voiding Method Toilet Toilet # Voids 3 - Constitutional General appearance: Present: mild distress - EENT Ears: bilateral: normal - Respiratory Respiratory: bilateral: diminished - Cardiovascular Rhythm: regular - Gastrointestinal General gastrointestinal: Present: soft - Integumentary Integumentary: Present: normal - Neurologic Neurologic: Present: CNII-XII intact - Musculoskeletal Musculoskeletal: Present: gait normal - Psychiatric Psychiatric: Present: A&O x's 3, appropriate affect, intact judgment & insight - Labs CBC & Chem 7: 07/22/19 07:41 07/21/19 05:18 Labs: Abnormal Lab Results - Last 24 Hours (Table) 07/21/19 07/21/19 07/21/19 Range/Units 14:50 16:58 18:34 RBC (3.80-5.40) m/uL MCV (80.0-100.0) fL RDW (11.5-15.5) % Lymphocytes # (1.0-4.8) k/uL POC Glucose (mg/dL) 186 H (75-99) mg/dL Plasma Lactic Acid Brayan 6.7 H* 6.1 H* (0.7-2.0) mmol/L 07/21/19 07/22/19 07/22/19 Range/Units 19:53 06:57 07:41 RBC 3.50 L (3.80-5.40) m/uL MCV 104.0 H (80.0-100.0) fL RDW 15.8 H (11.5-15.5) % Lymphocytes # 0.4 L (1.0-4.8) k/uL POC Glucose (mg/dL) 146 H 153 H (75-99) mg/dL Plasma Lactic Acid Brayan (0.7-2.0) mmol/L 07/22/19 07/22/19 Range/Units 07:41 11:49 RBC (3.80-5.40) m/uL MCV (80.0-100.0) fL RDW (11.5-15.5) % Lymphocytes # (1.0-4.8) k/uL POC Glucose (mg/dL) 120 H (75-99) mg/dL Plasma Lactic Acid Brayan 2.7 H* (0.7-2.0) mmol/L Microbiology - Last 24 Hours (Table) 07/20/19 16:21 Blood Culture - Preliminary Blood No Growth after 24 hours Assessment and Plan Plan: Assessment Acute exacerbation of COPD with tracheobronchitis History of hypertension Asthma COPD History of DVT GERD Coronary disease with NH History of metastatic breast cancer 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
[2019-07-22] MEDS: HYDROCORTISONE 2.5% RECTAL CREAM 30 GM TUBE RECTAL SCH ×2 (16:16→20:38)
[2019-07-22 17:11] LABS: Glucose,Whole Blood 146 mg/dL (75-99)
[2019-07-22] MEDS: PANTOPRAZOLE 40 MG TABLET PO SCH (17:37)
[2019-07-22 20:31] LABS: Glucose,Whole Blood 129 mg/dL (75-99)
[2019-07-23] MEDS: BENZOCAINE/MENTHOL LOZENG 1 EACH LOZENGE MUCOUS MEM PRN ×3 (00:05→21:42)
[2019-07-23] MEDS: methylPREDNISolone SOD SUCCI 125 MG/2 ML VIAL IV SCH ×4 (06:12→23:57)
[2019-07-23] MEDS: ACETAMINOPHEN TAB 325 MG TAB PO PRN ×3 (06:13→23:58)
[2019-07-23 07:07] LABS: Glucose,Whole Blood 135 mg/dL (75-99)
[2019-07-23] MEDS: IPRATROPIUM-ALBUTEROL 3 ML NEB INHALATION SCH ×4 (07:40→20:49)
[2019-07-23] MEDS: SYMBICORT 160-4.5 MCG INHALER INHALATION SCH ×2 (07:40→20:43)
[2019-07-23] MEDS: SODIUM CHLORIDE 0.9% 1,000 ML IV SCH ×3 (09:27→23:57)
[2019-07-23] MEDS: INSULIN ASPART (NovoLOG) 100 UNIT/ML VIAL SQ SCH ×4 (09:28→21:52)
[2019-07-23] MEDS: LOSARTAN 50 MG TAB PO SCH (09:29)
[2019-07-23] MEDS: ASPIRIN 81 MG PO SCH (09:29)
[2019-07-23] MEDS: LETROZOLE 2.5 MG TAB PO SCH (09:29)
[2019-07-23] MEDS: TRIAMTERENE-HCTZ 37.5-25MG 1 EACH TAB PO SCH (09:29)
[2019-07-23] MEDS: CHOLECALCIFEROL 1,000 UNIT TAB PO SCH (09:29)
[2019-07-23] MEDS: LORATADINE 10 MG TAB PO SCH (09:29)
[2019-07-23] MEDS: HYDROCORTISONE 2.5% RECTAL CREAM 30 GM TUBE RECTAL SCH ×2 (09:31→21:44)
[2019-07-23 11:38] LABS: Glucose,Whole Blood 124 mg/dL (75-99)
[2019-07-23 16:53] LABS: Glucose,Whole Blood 119 mg/dL (75-99)
[2019-07-23] MEDS: PANTOPRAZOLE 40 MG TABLET PO SCH (17:28)
[2019-07-23 21:43] LABS: Glucose,Whole Blood 150 mg/dL (75-99)
[2019-07-24] MEDS: BENZOCAINE/MENTHOL LOZENG 1 EACH LOZENGE MUCOUS MEM PRN ×2 (03:10→23:52)
[2019-07-24] MEDS: SODIUM CHLORIDE 0.9% 1,000 ML IV SCH ×3 (05:35→23:43)
[2019-07-24] MEDS: methylPREDNISolone SOD SUCCI 125 MG/2 ML VIAL IV SCH ×4 (05:43→23:43)
[2019-07-24 07:04] LABS: Glucose,Whole Blood 141 mg/dL (75-99)
[2019-07-24] MEDS: INSULIN ASPART (NovoLOG) 100 UNIT/ML VIAL SQ SCH ×4 (07:22→20:46)
[2019-07-24 07:24] LABS: Basophils % (A) 0 %; Eosinophils % (A) 1 %; HCT 33.2 % (34.0-46.0); HGB 11.1 gm/dL (11.4-16.0); Lymphocytes # (A) 0.4 k/uL (1.0-4.8); Lymphocytes % (A) 10 %; MCH 34.1 pg (25.0-35.0); MCHC 33.4 g/dL (31.0-37.0); MCV 102.1 fL (80.0-100.0); Macrocytosis Slight; Mean Platelet Volume 7.7; Monocytes # (A) 0.1 k/uL (0-1.0); Monocytes % (A) 3 %; Neutrophils # (A) 3.5 k/uL (1.3-7.7); Neutrophils % (A) 86 %; Platelet Count 142 k/uL (150-450); RBC 3.25 m/uL (3.80-5.40); RDW 15.8 % (11.5-15.5); WBC 4.1 k/uL (3.8-10.6)
[2019-07-24 07:36] LABS: African American GFR (CKD) >90 (>60 ml/min/1.73 sqM); Anion Gap 7 mmol/L; Blood Urea Nitrogen 24 mg/dL (7-17); Calcium 7.9 mg/dL (8.4-10.2); Carbon Dioxide 23 mmol/L (22-30); Chloride 110 mmol/L (98-107); Glucose 145 mg/dL (74-99); Non-African American GFR(CKD) >90 (>60 ml/min/1.73 sqM); Potassium 3.6 mmol/L (3.5-5.1); Sodium 140 mmol/L (137-145)
[2019-07-24] MEDS: TRIAMTERENE-HCTZ 37.5-25MG 1 EACH TAB PO SCH (07:36)
[2019-07-24] MEDS: LOSARTAN 50 MG TAB PO SCH (07:36)
[2019-07-24] MEDS: CHOLECALCIFEROL 1,000 UNIT TAB PO SCH (07:36)
[2019-07-24] MEDS: LETROZOLE 2.5 MG TAB PO SCH (07:36)
[2019-07-24] MEDS: ASPIRIN 81 MG PO SCH (07:36)
[2019-07-24] MEDS: HYDROCORTISONE 2.5% RECTAL CREAM 30 GM TUBE RECTAL SCH ×2 (07:37→20:41)
[2019-07-24] MEDS: LORATADINE 10 MG TAB PO SCH (07:37)
[2019-07-24] MEDS: SYMBICORT 160-4.5 MCG INHALER INHALATION SCH ×2 (09:00→21:18)
[2019-07-24] MEDS: IPRATROPIUM-ALBUTEROL 3 ML NEB INHALATION SCH ×4 (09:00→21:18)
[2019-07-24 11:13] LABS: Glucose,Whole Blood 133 mg/dL (75-99)
[2019-07-24] MEDS: ACETAMINOPHEN TAB 325 MG TAB PO PRN ×3 (11:35→23:53)
--- NOTE | 2019-07-24 11:43 | P.PN ---
Subjective Progress Note Date: 07/23/19 Principal diagnosis: Exacerbation of moderate persistent asthma This 64-year-old female patient, history of bronchial asthma characterized to be mild intermittent in nature, who is also being treated oncology regarding metastatic breast cancer. She is currently on a combination of Ibrance and Famera she has developed chest wall metastases. The patient is having increased dyspnea cough chest tightness and wheezing. She was admitted to the hospital. CAT scan of the chest was done that showed no acute abnormalities. There was evidence of any pulmonary embolism. No evidence of any pneumonias. The patient is currently on IV Solu-Medrol 60 mg every 6 hours in addition to DuoNeb nebulized treatments around the clock. She has completed the course of Levaquin outpatient basis that was given to her by her primary care physician. I'm a bit confused about her elevation of the lactic acid level. She came in with some mild hydronephrosis which was downtrending and earlier this morning the lactic acid level came back at 7.3. He is investigated. The patient has not looked to be septic at all. Clearly there is no other source for lactic acidosis. Considering the possibility of drug-induced lactic acid elevation. On her blood work, her serum bicarb is at 23. No other complaints otherwise for now. No fever. No chills. No leukocytosis. No other significant events otherwise for now. On today's evaluation of 07/22/2019 still coughing still congested and wheezy also less compared to yesterday. She got was resuscitated IV fluids with normal saline at the rate of 1 25 mL an hour and her lactic acid level is down to 2.1. No new complaints. She is afebrile. No significant tachycardia. No significant chest pain. No diarrhea or nausea or vomiting or emesis. Her white cell count is at 7.9. Patient seen today 07/23/2019 in follow-up on the regular medical floor. She is currently sitting up in bed. Awake alert no acute distress. Breathing a bit easier today compared to yesterday. Less bronchospastic and wheezy. She's been afebrile. Hemodynamically stable. Maintaining O2 saturations in the mid 90s on room air. Objective - Vital Signs Vital signs: Vital Signs Temp 97.5 F L 07/24/19 04:38 Pulse 70 07/24/19 09:13 Resp 18 07/24/19 08:00 BP 119/66 07/24/19 04:38 Pulse Ox 93 L 07/24/19 04:38 Intake & Output 07/23/19 07/24/19 07/24/19 18:59 06:59 18:59 Intake Total 1000 1860 Balance 1000 1860 Intake: Intake, IV Titration 1000 1200 Amount Sodium Chloride 0.9% 1, 1000 1100 000 ml @ 125 mls/hr IV . Q8H [facility] Rx#:[id number] cefTRIAXone 1 gm In 100 Sodium Chloride 0.9% 50 ml @ 100 mls/hr IVPB Q24H [facility] Rx#:[id number] Oral 660 Other: Voiding Method Toilet Toilet Toilet # Voids 2 1 - Exam - Exam - Constitutional General appearance: no acute distress (Mildly short of breath at rest), - EENT Eyes: EOMI, PERRLA ENT: hearing grossly normal, normal oropharynx, Head exam was generally normal. There was no scleral icterus or corneal arcus. Mucous membranes were moist. Neck was supple and without jugular venous distension, thyromegaly, or carotid bruits. Carotids were easily palpable bilaterally. There was no adenopathy. - Respiratory Respiratory: bilateral: diminished, wheezing, prolonged expiration - Cardiovascular Rhythm: regular Heart sounds: normal: S1, [id number] exam revealed the PMI to be normally situated and sized. The rhythm was regular and no extrasystoles were noted dur ing several minutes of auscultation. The first and second heart sounds were normal and physiologic splitting of the second heart sound was noted. There were no murmurs, rubs, clicks, or gallops. - Gastrointestinal General gastrointestinal: normal bowel sounds, soft - Integumentary Integumentary: normal - Neurologic Neurologic: CNII-XII intact, no focal neurological deficits. - Musculoskeletal Musculoskeletal: generalized weakness, strength equal bilaterally - Psychiatric Psychiatric: A&O x's 3, appropriate affect - Labs CBC & Chem 7: 07/24/19 06:56 07/24/19 06:56 Labs: Abnormal Lab Results - Last 24 Hours (Table) 07/23/19 07/23/19 07/24/19 Range/Units 16:51 21:42 06:56 RBC 3.25 L (3.80-5.40) m/uL Hgb 11.1 L (11.4-16.0) gm/dL Hct 33.2 L (34.0-46.0) % MCV 102.1 H (80.0-100.0) fL RDW 15.8 H (11.5-15.5) % Plt Count 142 L (150-450) k/uL Lymphocytes # 0.4 L (1.0-4.8) k/uL Chloride (98-107) mmol/L BUN (7-17) mg/dL Glucose (74-99) mg/dL POC Glucose (mg/dL) 119 H 150 H (75-99) mg/dL Calcium (8.4-10.2) mg/dL 07/24/19 07/24/19 07/24/19 Range/Units 06:56 07:00 11:10 RBC (3.80-5.40) m/uL Hgb (11.4-16.0) gm/dL Hct (34.0-46.0) % MCV (80.0-100.0) fL RDW (11.5-15.5) % Plt Count (150-450) k/uL Lymphocytes # (1.0-4.8) k/uL Chloride 110 H (98-107) mmol/L BUN 24 H (7-17) mg/dL Glucose 145 H (74-99) mg/dL POC Glucose (mg/dL) 141 H 133 H (75-99) mg/dL Calcium 7.9 L (8.4-10.2) mg/dL Microbiology - Last 24 Hours (Table) 07/20/19 16:21 Blood Culture - Preliminary Blood No Growth after 72 hours Assessment and Plan Assessment: #1. Acute exacerbation of COPD/asthma and tracheobronchitis, with a CAT scan of the chest that was done at time of admission showed no acute abnormalities. #2. Acute lactic acidosis. The patient had a similar lactic acidemia during her previous admission that improved with hydration. We'll continue monitoring the levels. Doubt sepsis. The lactic acid level is improving and the patient got was resuscitated IV fluids. Lactic acid level is down to 2.1. #3. History of breast cancer with lumpectomy and lymph node dissection, treated with chemo and radiation, currently on a combination of Femara and Ibrance. Patient had a recurrence of breast cancer in September 2017 with metastasis to the chest wall, supraclavicular lymph nodes and axillary lymph node involvement #4. History of COPD with previous history of smoking #5. 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 Chronic bronchial asthma #7. GERD/reflux #8. CAD, history of myocardial infarction #9. Obesity #10. Obstructive sleep apnea #11. DVT #12. Nephrolithiasis #13. 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 Das. She is improved but not quite back to her baseline. Continue the current treatment plan. Increase her activity as tolerated. I, the cosigning physician, performed a history & physical examination of the patient. Lungs sounds with bilateral end expiratory wheeze. Maintaining good O2 saturations in the 90s on room air. I discussed the assessment and plan of care with my nurse practitioner, Milly Norris. I attest to the above note as dictated by her.
--- NOTE | 2019-07-24 11:47 | P.PN ---
Subjective Progress Note Date: 07/24/19 Principal diagnosis: Exacerbation of moderate persistent asthma This 64-year-old female patient, history of bronchial asthma characterized to be mild intermittent in nature, who is also being treated oncology regarding metastatic breast cancer. She is currently on a combination of Ibrance and Famera she has developed chest wall metastases. The patient is having increased dyspnea cough chest tightness and wheezing. She was admitted to the hospital. CAT scan of the chest was done that showed no acute abnormalities. There was evidence of any pulmonary embolism. No evidence of any pneumonias. The patient is currently on IV Solu-Medrol 60 mg every 6 hours in addition to DuoNeb nebulized treatments around the clock. She has completed the course of Levaquin outpatient basis that was given to her by her primary care physician. I'm a bit confused about her elevation of the lactic acid level. She came in with some mild hydronephrosis which was downtrending and earlier this morning the lactic acid level came back at 7.3. He is investigated. The patient has not looked to be septic at all. Clearly there is no other source for lactic acidosis. Considering the possibility of drug-induced lactic acid elevation. On her blood work, her serum bicarb is at 23. No other complaints otherwise for now. No fever. No chills. No leukocytosis. No other significant events otherwise for now. On today's evaluation of 07/22/2019 still coughing still congested and wheezy also less compared to yesterday. She got was resuscitated IV fluids with normal saline at the rate of 1 25 mL an hour and her lactic acid level is down to 2.1. No new complaints. She is afebrile. No significant tachycardia. No significant chest pain. No diarrhea or nausea or vomiting or emesis. Her white cell count is at 7.9. Patient seen today 07/23/2019 in follow-up on the regular medical floor. She is currently sitting up in bed. Awake alert no acute distress. Breathing a bit easier today compared to yesterday. Less bronchospastic and wheezy. She's been afebrile. Hemodynamically stable. Maintaining O2 saturations in the mid 90s on room air. The patient is seen today 07/24/2019 in follow-up on the regular medical floor. She is awake and alert in no acute distress. Maintaining good O2 saturations in the 90s on room air. She is less bronchospastic and wheezy. Lungs clear today. White count 4.1. Hemoglobin 11.1. Creatinine 0.67. Objective - Vital Signs Vital signs: Vital Signs Temp 97.5 F L 07/24/19 04:38 Pulse 70 07/24/19 09:13 Resp 18 07/24/19 08:00 BP 119/66 07/24/19 04:38 Pulse Ox 93 L 07/24/19 04:38 Intake & Output 07/23/19 07/24/19 07/24/19 18:59 06:59 18:59 Intake Total 1000 1860 Balance 1000 1860 Intake: Intake, IV Titration 1000 1200 Amount Sodium Chloride 0.9% 1, 1000 1100 000 ml @ 125 mls/hr IV . Q8H [facility] Rx#:[id number] cefTRIAXone 1 gm In 100 Sodium Chloride 0.9% 50 ml @ 100 mls/hr IVPB Q24H [facility] Rx#:[id number] Oral 660 Other: Voiding Method Toilet Toilet Toilet # Voids 2 1 - Exam - Exam - Constitutional General appearance: no acute distress, on room air, pleasant 64-year-old female. - EENT Eyes: EOMI, PERRLA ENT: hearing grossly normal, normal oropharynx, Head exam was generally normal. There was no scleral icterus or corneal arcus. Mucous membranes were moist. Neck was supple and without jugular venous distension, thyromegaly, or carotid bruits. Carotids were easily palpable bilaterally. There was no adenopathy. - Respiratory Respiratory: bilateral: diminished, wheezing, prolonged expiration - Cardiovascular Rhythm: regular Heart sounds: normal: S1, [id number] exam revealed the PMI to be normally situated and sized. The rhythm was regular and no extrasystoles were noted during several minutes of auscultation. The first and second heart sounds were normal and physiologic splitting of the second heart sound was noted. There were no murmurs, rubs, clicks, or gallops. - Gastrointestinal General gastrointestinal: normal bowel sounds, soft - Integumentary Integumentary: normal - Neurologic Neurologic: CNII-XII intact, no focal neurological deficits. - Musculoskeletal Musculoskeletal: generalized weakness, strength equal bilaterally - Psychiatric Psychiatric: A&O x's 3, appropriate affect - Labs CBC & Chem 7: 07/24/19 06:56 07/24/19 06:56 Labs: Abnormal Lab Results - Last 24 Hours (Table) 07/23/19 07/23/19 07/24/19 Range/Units 16:51 21:42 06:56 RBC 3.25 L (3.80-5.40) m/uL Hgb 11.1 L (11.4-16.0) gm/dL Hct 33.2 L (34.0-46.0) % MCV 102.1 H (80.0-100.0) fL RDW 15.8 H (11.5-15.5) % Plt Count 142 L (150-450) k/uL Lymphocytes # 0.4 L (1.0-4.8) k/uL Chloride (98-107) mmol/L BUN (7-17) mg/dL Glucose (74-99) mg/dL POC Glucose (mg/dL) 119 H 150 H (75-99) mg/dL Calcium (8.4-10.2) mg/dL 07/24/19 07/24/19 07/24/19 Range/Units 06:56 07:00 11:10 RBC (3.80-5.40) m/uL Hgb (11.4-16.0) gm/dL Hct (34.0-46.0) % MCV (80.0-100.0) fL RDW (11.5-15.5) % Plt Count (150-450) k/uL Lymphocytes # (1.0-4.8) k/uL Chloride 110 H (98-107) mmol/L BUN 24 H (7-17) mg/dL Glucose 145 H (74-99) mg/dL POC Glucose (mg/dL) 141 H 133 H (75-99) mg/dL Calcium 7.9 L (8.4-10.2) mg/dL Microbiology - Last 24 Hours (Table) 07/20/19 16:21 Blood Culture - Preliminary Blood No Growth after 72 hours Assessment and Plan Assessment: #1. Acute exacerbation of COPD/asthma and tracheobronchitis, with a CAT scan of the chest that was done at time of admission showed no acute abnormalities. Recovered. On room air. #2. Acute lactic acidosis. The patient had a similar lactic acidemia during her previous admission that improved with hydration. We'll continue monitoring the levels. Doubt sepsis. The lactic acid level is improving and the patient got was resuscitated IV fluids. Lactic acid level is down to 2.1. #3. History of breast cancer with lumpectomy and lymph node dissection, treated with chemo and radiation, currently on a combination of Femara and Ibrance. Patient had a recurrence of breast cancer in September 2017 with metastasis to the chest wall, supraclavicular lymph nodes and axillary lymph node involvement #4. History of COPD with previous history of smoking #5. 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 Chronic bronchial asthma #7. GERD/reflux #8. CAD, history of myocardial infarction #9. Obesity #10. Obstructive sleep apnea #11. DVT #12. Nephrolithiasis #13. 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 Das. Continue the current treatment plan. Can be converted to oral prednisone. Continue her home pulmonary medications. Increase her activity as tolerated. She is cleared for discharge from the pulmonary standpoint. Follow-up in the office in 1-2 weeks' time. I, the cosigning physician, performed a history & physical examination of the patient. Lungs sounds clear. Maintaining good O2 saturations in the 90s on room air. I discussed the assessment and plan of care with my nurse practitioner, Milly Norris. I attest to the above note as dictated by her.
[2019-07-24 17:08] LABS: Glucose,Whole Blood 123 mg/dL (75-99)
--- NOTE | 2019-07-24 17:09 | P.PN ---
Subjective Progress Note Date: 07/23/19 Principal diagnosis: Acute exacerbation COPD/asthma Severe purulent tracheobronchitis Lactic acidosis 07/23/2019 Patient is seen and evaluated in follow-up on the regular medical floor. She is currently sitting up in bed. Awake alert no acute distress. Breathing a bit easier today compared to yesterday. Less bronchospastic and wheezy. She's been afebrile. Hemodynamically stable. Maintaining O2 saturations in the mid 90s on room air. Objective - Vital Signs Vital signs: Vital Signs Temp 97.8 F 07/23/19 05:00 Pulse 84 07/23/19 07:54 Resp 18 07/23/19 05:00 BP 156/69 07/23/19 05:00 Pulse Ox 94 L 07/23/19 05:00 Intake & Output 07/22/19 07/23/19 07/23/19 18:59 06:59 18:59 Intake Total 1000 500 Balance 1000 500 Intake: Intake, IV Titration 1000 500 Amount Sodium Chloride 0.9% 1, 1000 500 000 ml @ 125 mls/hr IV . Q8H [facility] Rx#:[id number] Other: Voiding Method Toilet Toilet # Voids 3 - Exam PHYSICAL EXAMINATION: GENERAL: The patient is alert and oriented x3, not in any acute distress. Well developed, well nourished. HEENT: Pupils are round and equally reacting to light. EOMI. No scleral icterus. No conjunctival pallor. Normocephalic, atraumatic. No pharyngeal erythema. No thyromegaly. CARDIOVASCULAR: S1 and S2 present. No murmurs, rubs, or gallops. PULMONARY: Chest is clear to auscultation, no wheezing or crackles. ABDOMEN: Soft, nontender, nondistended, normoactive bowel sounds. No palpable organomegaly. MUSCULOSKELETAL: No joint swelling or deformity. EXTREMITIES: No cyanosis, clubbing, or pedal edema. NEUROLOGICAL: Gross neurological examination did not reveal any focal deficits. SKIN: No rashes. - Labs CBC & Chem 7: 07/24/19 06:56 07/24/19 06:56 Labs: Abnormal Lab Results - Last 24 Hours (Table) 07/22/19 07/22/19 07/22/19 Range/Units 11:40 11:49 17:09 POC Glucose (mg/dL) 120 H 146 H (75-99) mg/dL Plasma Lactic Acid Brayan 5.3 H* (0.7-2.0) mmol/L 07/22/19 07/23/19 Range/Units 20:30 07:05 POC Glucose (mg/dL) 129 H 135 H (75-99) mg/dL Plasma Lactic Acid Brayan (0.7-2.0) mmol/L Microbiology - Last 24 Hours (Table) 07/20/19 16:21 Blood Culture - Preliminary Blood No Growth after 48 hours Assessment and Plan Assessment: #1. Acute exacerbation of COPD/asthma and tracheobronchitis, with a CAT scan of the chest that was done at time of admission showed no acute abnormalities. #2. Acute lactic acidosis. The patient had a similar lactic acidemia during her previous admission that improved with hydration. We'll continue monitoring the levels. Doubt sepsis. The lactic acid level is improving and the patient got was resuscitated IV fluids. Lactic acid level is down to 2.1. #3. History of breast cancer with lumpectomy and lymph node dissection, treated with chemo and radiation, currently on a combination of Femara and Ibrance. Patient had a recurrence of breast cancer in September 2017 with metastasis to the chest wall, supraclavicular lymph nodes and axillary lymph node involvement #4. History of COPD with previous history of smoking #5. 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 Chronic bronchial asthma #7. GERD/reflux #8. CAD, history of myocardial infarction #9. Obesity #10. Obstructive sleep apnea #11. DVT #12. Nephrolithiasis #13. Migraine Headaches #14 obstructive sleep apnea maintained on CPAP therapy
--- NOTE | 2019-07-24 17:11 | P.PN ---
Subjective Progress Note Date: 07/24/19 Principal diagnosis: Acute exacerbation COPD/asthma Severe purulent tracheobronchitis Lactic acidosis 07/23/2019 Patient is seen and evaluated in follow-up on the regular medical floor. She is currently sitting up in bed. Awake alert no acute distress. Breathing a bit easier today compared to yesterday. Less bronchospastic and wheezy. She's been afebrile. Hemodynamically stable. Maintaining O2 saturations in the mid 90s on room air. 07/24/2019 Patient is seen and evaluated in follow-up on the regular medical floor. She is awake and alert in no acute distress. Maintaining good O2 saturations in the 90s on room air. She is less bronchospastic and wheezy. Lungs clear today. White count 4.1. Hemoglobin 11.1. Creatinine 0.67. Pulmonary service has evaluated patient today and have switched patient to oral steroids; we'll continue to monitor closely and possible discharge in next 24 hours if patient remains stable Objective - Vital Signs Vital signs: Vital Signs Temp 98.2 F 07/24/19 11:35 Pulse 60 07/24/19 15:45 Resp 18 07/24/19 15:45 BP 146/74 07/24/19 11:35 Pulse Ox 94 L 07/24/19 11:35 Intake & Output 07/23/19 07/24/19 07/24/19 18:59 06:59 18:59 Intake Total 1000 1860 2680 Output Total 2 Balance 1000 1860 2678 Intake: Intake, IV Titration 1000 1200 1500 Amount Sodium Chloride 0.9% 1, 1000 1100 1500 000 ml @ 125 mls/hr IV . Q8H [facility] Rx#:[id number] cefTRIAXone 1 gm In 100 Sodium Chloride 0.9% 50 ml @ 100 mls/hr IVPB Q24H [facility] Rx#:[id number] Oral 660 1180 Output: Stool 2 Other: Voiding Method Toilet Toilet Toilet # Voids 2 2 - Exam PHYSICAL EXAMINATION: GENERAL: The patient is alert and oriented x3, not in any acute distress. Well developed, well nourished. HEENT: Pupils are round and equally reacting to light. EOMI. No scleral icterus. No conjunctival pallor. Normocephalic, atraumatic. No pharyngeal erythema. No thyromegaly. CARDIOVASCULAR: S1 and S2 present. No murmurs, rubs, or gallops. PULMONARY: Chest is clear to auscultation, no wheezing or crackles. ABDOMEN: Soft, nontender, nondistended, normoactive bowel sounds. No palpable organomegaly. MUSCULOSKELETAL: No joint swelling or deformity. EXTREMITIES: No cyanosis, clubbing, or pedal edema. NEUROLOGICAL: Gross neurological examination did not reveal any focal deficits. SKIN: No rashes. - Labs CBC & Chem 7: 07/24/19 06:56 07/24/19 06:56 Labs: Abnormal Lab Results - Last 24 Hours (Table) 07/23/19 07/24/19 07/24/19 Range/Units 21:42 06:56 06:56 RBC 3.25 L (3.80-5.40) m/uL Hgb 11.1 L (11.4-16.0) gm/dL Hct 33.2 L (34.0-46.0) % MCV 102.1 H (80.0-100.0) fL RDW 15.8 H (11.5-15.5) % Plt Count 142 L (150-450) k/uL Lymphocytes # 0.4 L (1.0-4.8) k/uL Chloride 110 H (98-107) mmol/L BUN 24 H (7-17) mg/dL Glucose 145 H (74-99) mg/dL POC Glucose (mg/dL) 150 H (75-99) mg/dL Calcium 7.9 L (8.4-10.2) mg/dL 07/24/19 07/24/19 07/24/19 Range/Units 07:00 11:10 17:04 RBC (3.80-5.40) m/uL Hgb (11.4-16.0) gm/dL Hct (34.0-46.0) % MCV (80.0-100.0) fL RDW (11.5-15.5) % Plt Count (150-450) k/uL Lymphocytes # (1.0-4.8) k/uL Chloride (98-107) mmol/L BUN (7-17) mg/dL Glucose (74-99) mg/dL POC Glucose (mg/dL) 141 H 133 H 123 H (75-99) mg/dL Calcium (8.4-10.2) mg/dL Microbiology - Last 24 Hours (Table) 07/20/19 16:21 Blood Culture - Preliminary Blood No Growth after 72 hours Assessment and Plan Assessment: #1. Acute exacerbation of COPD/asthma and tracheobronchitis, with a CAT scan of the chest that was done at time of admission showed no acute abnormalities. #2. Acute lactic acidosis. The patient had a similar lactic acidemia during her previous admission that improved with hydration. We'll continue monitoring the levels. Doubt sepsis. The lactic acid level is improving and the patient got was resuscitated IV fluids. Lactic acid level is down to 2.1. #3. History of breast cancer with lumpectomy and lymph node dissection, treated with chemo and radiation, currently on a combination of Femara and Ibrance. Patient had a recurrence of breast cancer in September 2017 with metastasis to the chest wall, supraclavicular lymph nodes and axillary lymph node involvement #4. History of COPD with previous history of smoking #5. 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 Chronic bronchial asthma #7. GERD/reflux #8. CAD, history of myocardial infarction #9. Obesity #10. Obstructive sleep apnea #11. DVT #12. Nephrolithiasis #13. Migraine Headaches #14 obstructive sleep apnea maintained on CPAP therapy
[2019-07-24] MEDS: PANTOPRAZOLE 40 MG TABLET PO SCH (17:41)
[2019-07-24 20:41] LABS: Glucose,Whole Blood 169 mg/dL (75-99)
[2019-07-25] MEDS: ACETAMINOPHEN TAB 325 MG TAB PO PRN (05:04)
[2019-07-25] MEDS: methylPREDNISolone SOD SUCCI 125 MG/2 ML VIAL IV SCH ×2 (05:04→12:24)
[2019-07-25] MEDS: SODIUM CHLORIDE 0.9% 1,000 ML IV SCH (07:00)
[2019-07-25] MEDS: LORATADINE 10 MG TAB PO SCH (07:12)
[2019-07-25] MEDS: LOSARTAN 50 MG TAB PO SCH (07:12)
[2019-07-25] MEDS: HYDROCORTISONE 2.5% RECTAL CREAM 30 GM TUBE RECTAL SCH (07:12)
[2019-07-25] MEDS: ASPIRIN 81 MG PO SCH (07:13)
[2019-07-25] MEDS: LETROZOLE 2.5 MG TAB PO SCH (07:13)
[2019-07-25] MEDS: CHOLECALCIFEROL 1,000 UNIT TAB PO SCH (07:13)
[2019-07-25] MEDS: TRIAMTERENE-HCTZ 37.5-25MG 1 EACH TAB PO SCH (07:13)
[2019-07-25 07:31] LABS: Glucose,Whole Blood 123 mg/dL (75-99)
[2019-07-25] MEDS: INSULIN ASPART (NovoLOG) 100 UNIT/ML VIAL SQ SCH ×2 (07:31→11:51)
[2019-07-25] MEDS: IPRATROPIUM-ALBUTEROL 3 ML NEB INHALATION SCH ×2 (08:27→12:17)
[2019-07-25] MEDS: SYMBICORT 160-4.5 MCG INHALER INHALATION SCH (08:27)
[2019-07-25 11:37] LABS: Glucose,Whole Blood 132 mg/dL (75-99)
[2019-07-25 12:07] VITALS: BP 151/82; RESP 18; TEMP 98
[2019-07-25 12:19] VITALS: PULSE 70
--- NOTE | 2019-08-06 13:03 | P.DS ---
Providers Date of admission: 07/20/19 19:01 Expected date of discharge: 07/25/19 Attending physician: Hipolito Youngblood Consults: 07/20/19 19:01 Consult Physician Routine Consulting Provider: Clarence Woo Consult Reason/Comments: Metastatic breast cancer Do you want consulting provider notified?: Yes Consult Physician Routine Consulting Provider: Rip Larsen Consult Reason/Comments: COPD Do you want consulting provider notified?: Yes Primary care physician: Hipolito Youngblood Hospital Course: This 64-year-old female patient, history of bronchial asthma characterized to be mild intermittent in nature, who is also being treated oncology regarding metastatic breast cancer. She is currently on a combination of Ibrance and Famera she has developed chest wall metastases. The patient is having increased dyspnea cough chest tightness and wheezing. She was admitted to the hospital. CAT scan of the chest was done that showed no acute abnormalities. There was evidence of any pulmonary embolism. No evidence of any pneumonias. The patient is currently on IV Solu-Medrol 60 mg every 6 hours in addition to DuoNeb nebulized treatments around the clock. She has completed the course of Levaquin outpatient basis that was given to her by her primary care physician. I'm a bit confused about her elevation of the lactic acid level. She came in with some mild hydronephrosis which was downtrending and earlier this morning the lactic acid level came back at 7.3. He is investigated. The patient has not looked to be septic at all. Clearly there is no other source for lactic acidosis. Considering the possibility of drug-induced lactic acid elevation. On her blood work, her serum bicarb is at 23. No other complaints otherwise for now. No fever. No chills. No leukocytosis. No other significant events otherwise for now. 07/23/2019 Patient is seen and evaluated in follow-up on the regular medical floor. She is currently sitting up in bed. Awake alert no acute distress. Breathing a bit easier today compared to yesterday. Less bronchospastic and wheezy. She's been afebrile. Hemodynamically stable. Maintaining O2 saturations in the mid 90s on room air. 07/24/2019 Patient is seen and evaluated in follow-up on the regular medical floor. She is awake and alert in no acute distress. Maintaining good O2 saturations in the 90s on room air. She is less bronchospastic and wheezy. Lungs clear today. White count 4.1. Hemoglobin 11.1. Creatinine 0.67. Pulmonary service has evaluated patient today and have switched patient to oral steroids; we'll continue to monitor closely and possible discharge in next 24 hours if patient remains stable 07/25/2019; patient remains clinically stable and continued to respond well to oral steroids; she is being discharged in a stable condition with outpatient follow-up Plan - Discharge Summary Discharge Rx Participant: No New Discharge Prescriptions: New predniSONE See Taper PO DIRECTED #21 tab Continue Albuterol Sulfate [Ventolin HFA] 2 puff INHALATION RT-Q4H PRN PRN Reason: Shortness Of Breath Budesonide-Formot 160-4.5 Mcg [Symbicort 160-4.5 Mcg Inhaler] 2 puff INHALATION RT-BID Omeprazole [PriLOSEC] 20 mg PO HS@1800 Losartan Potassium 50 mg PO DAILY Albuterol Nebulized [Ventolin Nebulized] 2.5 mg INHALATION RT-QID PRN PRN Reason: Shortness Of Breath Letrozole [Femara] 2.5 mg PO DAILY Triamterene-Hctz 37.5-25Mg [Maxzide 37.5-25] 1 tab PO DAILY Palbociclib [Ibrance] 125 mg PO DIRECTED Cetirizine HCl [Zyrtec] 10 mg PO DAILY Aspirin EC [Ecotrin Low Dose] 81 mg PO DAILY Calcium/Vit D3 1 tab PO DAILY Discharge Medication List Albuterol Sulfate [Ventolin HFA] 2 puff INHALATION RT-Q4H PRN 11/23/13 [History] Budesonide-Formot 160-4.5 Mcg [Symbicort 160-4.5 Mcg Inhaler] 2 puff INHALATION RT-BID 09/15/14 [History] Omeprazole [PriLOSEC] 20 mg PO HS@1800 01/20/15 [History] Losartan Potassium 50 mg PO DAILY 01/22/15 [History] Albuterol Nebulized [Ventolin Nebulized] 2.5 mg INHALATION RT-QID PRN 05/16/16 [History] Letrozole [Femara] 2.5 mg PO DAILY 03/03/18 [History] Aspirin EC [Ecotrin Low Dose] 81 mg PO DAILY 07/20/19 [History] Calcium/Vit D3 1 tab PO DAILY 07/20/19 [History] Cetirizine HCl [Zyrtec] 10 mg PO DAILY 07/20/19 [History] Palbociclib [Ibrance] 125 mg PO DIRECTED 07/20/19 [History] Triamterene-Hctz 37.5-25Mg [Maxzide 37.5-25] 1 tab PO DAILY 07/20/19 [History] predniSONE See Taper PO DIRECTED #21 tab 07/25/19 [Rx] Follow up Appointment(s)/Referral(s): Hipolito Youngblood MD [Primary Care Provider] - 1-2 days (Patient to call Dr. Youngblood's office Friday morning to schedule follow up appointment. The office is closed at time of discharge. ) Patient Instructions/Handouts: Prednisone (By mouth), COPD (Chronic Obstructive Pulmonary Disease) (DC), Moderate and Severe Persistent Asthma (DC), Hypertension (DC) Discharge Disposition: HOME SELF-CARE
== END 2019-07-25 13:30 | disposition home or self-care (01) | DRG 191 ==
LOC: EC 15:00 → 5NMEDONC 19:01
PROVIDERS: ADMIT Family Medicine; ATTEND Family Medicine
DX: J44.1 Chronic obstructive pulmonary disease with (acute) exacerbation (principal); J45.41 Moderate persistent asthma with (acute) exacerbation; J70.0 Acute pulmonary manifestations due to radiation; C77.3 Secondary and unspecified malignant neoplasm of axilla and upper limb lymph nodes; C77.0 Secondary and unspecified malignant neoplasm of lymph nodes of head, face and neck; E87.2 Acidosis; N13.2 Hydronephrosis with renal and ureteral calculous obstruction; E66.9 Obesity, unspecified; G43.909 Migraine, unspecified, not intractable, without status migrainosus; G47.33 Obstructive sleep apnea (adult) (pediatric); I10 Essential (primary) hypertension; I25.10 Atherosclerotic heart disease of native coronary artery without angina pectoris; I25.2 Old myocardial infarction; I73.9 Peripheral vascular disease, unspecified; K21.9 Gastro-esophageal reflux disease without esophagitis; T38.0X5A Adverse effect of glucocorticoids and synthetic analogues, initial encounter; J20.9 Acute bronchitis, unspecified; Z68.36 Body mass index [BMI] 36.0-36.9, adult; Z79.51 Long term (current) use of inhaled steroids; Z79.811 Long term (current) use of aromatase inhibitors; Z79.82 Long term (current) use of aspirin; Z79.899 Other long term (current) drug therapy; Z85.3 Personal history of malignant neoplasm of breast; Z86.711 Personal history of pulmonary embolism; Z86.718 Personal history of other venous thrombosis and embolism; Z87.891 Personal history of nicotine dependence; Z90.711 Acquired absence of uterus with remaining cervical stump; Z87.442 Personal history of urinary calculi; Z92.21 Personal history of antineoplastic chemotherapy; Z92.3 Personal history of irradiation; Z88.2 Allergy status to sulfonamides; Z91.013 Allergy to seafood; Z90.49 Acquired absence of other specified parts of digestive tract; Z80.3 Family history of malignant neoplasm of breast; Z82.49 Family history of ischemic heart disease and other diseases of the circulatory system; Y84.2 Radiological procedure and radiotherapy as the cause of abnormal reaction of the patient, or of later complication, without mention of misadventure at the time of the procedure
CPT/HCPCS: 36415; 71046; 71275; 80048; 80053; 83605; 83735; 84145; 84484; 85025; 85379; 85610; 85730; 87040; 87502; 93005; 94640; 94760; 96374; 99291

== ENCOUNTER → 2019-09-24 | Outpatient (CLI) | payer MEDICARE ==
--- NOTE | 2019-09-26 10:22 | PE ---
EXAMINATION TYPE: PET CT fusion skull to thigh DATE OF EXAM: 09/24/2019 COMPARISON: PET/CT dated 04/17/2019 HISTORY: Breast cancer, subsequent treatment strategy. Right-sided breast cancer diagnosed in 1997 wi th recurrence in 2018 and subsequent radiation and chemotherapy. TECHNIQUE: Following the intravenous administration of 11.08 mCi of F-18 FDG, whole body images are performed from the skull base to the midthigh. Images are reviewed on the computer in the coronal, a xial, and sagittal planes. Reconstructed rotating images are created on independent workstation and reviewed on the computer. A localization and attenuation correction CT is performed in conjunction with the PET scan. SCAN: Subsequent FINDINGS: Mediastinal background: 2.21 Abdominal background: 3.16 NECK, CHEST, MEDIASTINUM, AND HILAR REGION: Obtained is seen multifocally bilaterally along the anterior margins of the paraspinal musculature in the thoracic spine. Given this diffuse bilateral appearance this is favored to represent brown fat. Additionally no abnormal sclerosis is seen or lytic lesion in the thoracic pedicles. The previously seen uptake along the right pectoralis muscle on the prior of 04/17/2019 had a maximum SUV of 2.84 and has a current maximum SUV of 3.22. On the prior exam the infraspinatus had a maximum SUV 2.77, currently unchanged also a 2.77. Uptake is also seen in the right paraspinal musculature at the level of the thyroid cartilage, possibly due to muscular usage during the examination. More foca l uptake is seen along the posterior aspect of the pectoralis major with a maximum SUV also of 3.22. There is a corresponding abnormal lymph node measuring 9 mm in short axis on series 3 image 69. ABDOMEN AND PELVIS: No suspicious hypermetabolic uptake. OSSEOUS STRUCTURES: No new suspicious hypermetabolic uptake. Uptake near multiple posterior thoracic ribs at the costovertebral junction with the thoracic spine is favored to represent brown fat as abov e. OTHER CT: Groundglass opacity of the peripheral right upper lung likely fibrosis from posttreatment c hange. Scattered areas of atelectasis are seen at the lung bases. Small hiatal hernia seen. 1.4 cm le ft thyroid nodule is better appreciated on the prior exam and today's exam. Right axillary surgical c lips are again noted. There are cholecystectomy clips present. Nonobstructing bilateral renal calculi measure up to 6 mm on the left. No hydronephrosis. Urinary bladder is incompletely distended. Small fat filled umbilical h ernia. IMPRESSION: 1. New solitary abnormal lymph node situated posterior to the superior aspect of the pectoralis muscl e with hypermetabolic uptake concerning for lymphatic metastasis. 2. Persistent mild uptake of the right chest wall musculature that is mild and could relate to posttr eatment change. 3. Multifocal symmetric uptake near the paraspinal musculature of the thoracic spine and also near th e costovertebral junctions of the thoracic spine. Uptake is favored to represent multifocal brown fat rather than new multifocal symmetric osseous metastasis. No convincing sclerotic or lytic lesions on CT.
== END | disposition home or self-care (01) ==
LOC: RADPETMAIN 14:08
PROVIDERS: ATTEND Internal Medicine Hematology & Oncology
DX: C50.111 Malignant neoplasm of central portion of right female breast (principal); C79.81 Secondary malignant neoplasm of breast
CPT/HCPCS: 78815; A9552

== ENCOUNTER → 2020-03-17 | Outpatient (CLI) | payer MEDICARE ==
--- NOTE | 2020-03-22 13:36 | PE ---
EXAMINATION TYPE: PET CT fusion skull to thigh DATE OF EXAM: 03/17/2020 COMPARISON: 09/24/[address] Prior PET/CT: 09/24/2019 HISTORY: Breast cancer. Right-sided breast cancer diagnosed in 1998 with recurrence in 2018, subseque nt radiation and chemotherapy. TECHNIQUE: Following the intravenous administration of 11.75 mCi of F-18 FDG, whole body images are performed from the skull base to the midthigh. Images are reviewed on the computer in the coronal, a xial, and sagittal planes. Reconstructed rotating images are created on independent workstation and reviewed on the computer. A localization and attenuation correction CT is performed in conjunction with the PET scan. SCAN: Subsequent Scan Blood glucose: 84 mg/dL Average Mediastinum SUV: 1.65 Average Liver SUV: 2.21 FINDINGS: NECK: No suspicious hypermetabolic activity. THORAX: There is increased activity of a lymph node posterior to the right mid clavicle max SUV 3.18 (PET CT image 68) which is increased in metabolic activity however does not appear significantly heath ged in size versus 09/24/2019, and is somewhat limited in visualization on CT due to beam hardening ar tifact from the shoulders. There is increased hypermetabolic activity along the right pectoralis musc le superiorly vs in the immediately adjacent lymph node with max SUV 4.56 (PET CT image 74), previous ly max SUV 3.04. The previously described adjacent enlarged lymph node on 09/24/2019 comparison is obs cured on the CT portion due to beam hardening and cannot be reliably measured. There is also increase d hypermetabolic activity of the right pectoralis muscle inferiorly max SUV 3.9 (PET CT image 85), pr eviously max SUV 2.98. There is increased activity greater than blood pool seen at the inferolateral aspect of the surgical resection bed of the right anterolateral chest max SUV 2.14 (PET CT image 109) , not previously significantly metabolic. Activity of the left infraspinatus muscle is again focally increased max SUV 3.52 (PET/CT image 73). ABDOMEN/PELVIS: No suspicious hypermetabolic intra-abdominal or intrapelvic activity. OSSEOUS STRUCTURES: No suspicious hypermetabolic activity. Activity of the bilateral gluteus medius m uscles, right greater than left (max SUV 3.24). There is asymmetric activity of the right pectineus m uscles/abductors (max SUV 4.79). LOCALIZATION CT: Significant beam hardening artifact of the chest and abdomen. Right axillary surgica l clips. The visualized right axillary lymph nodes are not significantly changed in size versus 2019 comparison. There is groundglass and linear opacities of the right upper lobe redemonstrated, li warner post radiation change. No pulmonary mass. Mild calcified coronary artery disease. Small hiatal h ernia. Cholecystectomy clips. Nonobstructing renal calculi measuring up to 6 mm on the left. No hydro nephrosis. Degenerative changes of the spine. IMPRESSION: 1. Multifocal hypermetabolic activity of the right chest wall musculature/adjacent lymph node increas ed versus 09/24/[address], suspicious for metastatic disease. There is mild activity less than liver of the lateral aspect of the right breast surgical bed which is new. 2. New hypermetabolic activity of a right lymph node posterior to the mid clavicle suspicious for met astatic disease. 3. Multifocal metabolic activity of the left infraspinatus muscle and pelvic musculature is nonspecif ic. No aggressive osseous destructive lesions. 4. No metastatic disease of the neck, abdomen or pelvis.
== END | disposition home or self-care (01) ==
LOC: RADPETMAIN 10:21
PROVIDERS: ATTEND Internal Medicine Hematology & Oncology
DX: C50.111 Malignant neoplasm of central portion of right female breast (principal)
CPT/HCPCS: 78815; A9552

== ENCOUNTER → 2020-09-22 | Outpatient (CLI) | payer MEDICARE ==
--- NOTE | 2020-09-22 14:40 | PE ---
Nuclear medicine PET/CT HISTORY: Breast carcinoma, subsequent, C 50.111, right Patient received 9.6 mCi F-18 FDG intravenously in delayed scanning was performed from skull base to the mid thighs. Localization and attenuation correction CT scan was performed. Correlation to prior nuclear medicine PET/CT 03/17/2020 Chest and neck: There is no evident lung mass, no pleural or pericardial effusion. Some right upper l obe scarring is again noted. There is retrocaval pretracheal node which is not enlarged, there is mil d uptake, SUV 2.4. In the medial aspect of the right pectoralis musculature there is uptake similar t o prior exam, SUV 2.8. Supraclavicular node shows increased uptake, SUV 3.9. ABDOMEN: There is no retroperitoneal adenopathy. No ascites. Patient is post cholecystectomy. No susp icious uptake. Osseous structures show no uptake. There is muscular uptake noted which may be physiologic. IMPRESSION: Persistent supraclavicular and right pectoral uptake. Uptake in the superior mediastinum noted which is not identified on prior exam.
== END | disposition home or self-care (01) ==
LOC: RADPETMAIN 08:00
PROVIDERS: ATTEND Internal Medicine Hematology & Oncology
DX: C50.111 Malignant neoplasm of central portion of right female breast (principal); R93.7 Abnormal findings on diagnostic imaging of other parts of musculoskeletal system; Z92.21 Personal history of antineoplastic chemotherapy
CPT/HCPCS: 78815; A9552

== ENCOUNTER → 2021-03-02 | Outpatient (CLI) | payer MEDICARE ==
--- NOTE | 2021-03-02 17:05 | MR ---
EXAMINATION TYPE: MR brain wo/w con DATE OF EXAM: 03/02/2021 COMPARISON: None HISTORY: Headaches, hx breast cancer. CONTRAST: Standard multiplanar, multisequence MRI departmental protocol utilizing 10 mL intravenous Gadavist ga dolinium contrast. There is some cerebral cortical atrophy. There is no mass effect nor midline shift. There is no sign of intracranial hemorrhage. There is no evidence of orbital mass. Corpus callosum is intact. Brainste m is intact. Sella turcica appears normal. Basurto-white matter structures have fairly normal signal pat tern. There is no evidence of cerebral edema. Contrast images show no pathologic enhancement. There is normal enhancement of the venous sinuses. Pi tuitary stalk is in the midline. Optic chiasm appears normal. IMPRESSION: There is mild atrophy appropriate for age. Otherwise negative MR scan of the brain. No evidence of me tastatic disease.
== END | disposition home or self-care (01) ==
LOC: RADMRIMAIN 15:30
PROVIDERS: ATTEND Internal Medicine Hematology & Oncology
DX: G31.9 Degenerative disease of nervous system, unspecified (principal); Z85.3 Personal history of malignant neoplasm of breast
CPT/HCPCS: 70553; A9585

== ENCOUNTER → 2021-03-16 | Outpatient (CLI) | payer MEDICARE ==
--- NOTE | 2021-03-20 07:28 | PE ---
EXAMINATION TYPE: PET CT fusion skull to thigh DATE OF EXAM: 03/16/2021 COMPARISON: Most recent PET CT September 22, 2020 and older studies. HISTORY: Right-sided breast cancer diagnosed 1997 with recurrence 2018 TECHNIQUE: Following the intravenous administration of 12.56 mCi of F-18 FDG, whole body images are performed from the skull base to the midthigh. Images are reviewed on the computer in the coronal, a xial, and sagittal planes. Reconstructed rotating images are created on independent workstation and reviewed on the computer. A localization and attenuation correction CT is performed in conjunction with the PET scan. Blood glucose level equals 91 SCAN: Subsequent Scan FINDINGS: SKULL BASE AND NECK: No new areas of suspicious hypermetabolic uptake. CHEST, MEDIASTINUM, AND HILAR REGION: Worsening hypermetabolic uptake right pectoralis muscle medial aspect near image 82, max SUV is 5.14 versus 2.8 on prior. New hypermetabolic uptake superior lateral aspect axial image 72, max SUV is 4.53 on current study. Slightly more prominent right supraclavicul ar lymph node measuring 1.6 x 1.4 cm max SUV is however 3.21 versus 3.9 on prior report. No additional new areas of suspicious hypermetabolic uptake. ABDOMEN AND PELVIS: No new areas of suspicious hypermetabolic uptake. Normal excretion. OSSEOUS STRUCTURES: No new areas of suspicious hypermetabolic uptake. OTHER CT: Right axillary surgical clips are redemonstrated. Additional surgical clips deep white pectoralis lev el inferiorly redemonstrated. Right-sided anterior parenchymal/pleural scarring again seen with volum e loss. Cholecystectomy clips redemonstrated. There is 6 mm left renal calculus redemonstrated axial image 13 9. Stable small to moderate-sized fat-containing umbilical hernia. Focus of nondependent air within b ladder. Correlate for recent catheterization otherwise other etiologies need to be considered Occasio nal scattered pelvic phleboliths redemonstrated. Uterus surgically absent. Multilevel facet arthropathy in the lower lumbar spine. IMPRESSION: Local neoplastic progression right anterior chest wall is thought present as detailed abo ve. No new distal metastatic disease noted.
== END | disposition home or self-care (01) ==
LOC: RADPETMAIN 14:16
PROVIDERS: ATTEND Internal Medicine Hematology & Oncology
DX: C50.911 Malignant neoplasm of unspecified site of right female breast (principal)
CPT/HCPCS: 78815; A9552

== ENCOUNTER → 2021-03-20 | Outpatient (CLI) | payer MEDICARE ==
[2021-03-20 16:11] LABS: Albumin 4.2 g/dL (3.5-5.0); C Reactive Protein 0.9 mg/dL (<1.0); Calcium 9.3 mg/dL (8.4-10.2); Potassium 4.2 mmol/L (3.5-5.1); Total Bilirubin 0.5 mg/dL (0.2-1.3)
[2021-03-20 16:22] LABS: Anisocytosis Slight; Basophils % (A) 0 %; Eosinophils % (A) 0 %; HCT 36.5 % (34.0-46.0); HGB 12.3 gm/dL (11.4-16.0); Lymphocytes # (A) 0.8 k/uL (1.0-4.8); Lymphocytes % (A) 11 %; MCH 34.2 pg (25.0-35.0); MCHC 33.6 g/dL (31.0-37.0); MCV 101.9 fL (80.0-100.0); Macrocytosis Moderate; Mean Platelet Volume 7.3; Monocytes # (A) 0.7 k/uL (0-1.0); Monocytes % (A) 9 %; Neutrophils # (A) 5.7 k/uL (1.3-7.7); Neutrophils % (A) 76 %; Platelet Count 452 k/uL (150-450); RBC 3.59 m/uL (3.80-5.40); RDW 17.2 % (11.5-15.5); WBC 7.5 k/uL (3.8-10.6)
--- NOTE | 2021-03-20 17:02 | CT ---
EXAMINATION TYPE: CT angio chest DATE OF EXAM: 03/20/2021 4:43 PM COMPARISON: CT 07/20/2019. PET CT 03/16/2021. HISTORY: Dyspnea, cough. CT DLP: 685 mGycm Automated exposure control for dose reduction was used. CONTRAST: CTA scan of the thorax is performed with IV Contrast, patient injected with 100 mL of Isovue 370, pul monary embolism protocol. MIP images are created and reviewed. FINDINGS: LUNGS: There is redemonstration of mild to moderate right upper lobe scarring. No significant patchy airspace opacity, consolidation. There is a 1.2 cm left lower lobe nodule. There is no pleural effu suyapa or pneumothorax seen. The tracheobronchial tree is patent. MEDIASTINUM: There is satisfactory enhancement of the pulmonary artery and its branches, there is no CT evidence for pulmonary embolism. There are multiple mildly enlarged mediastinal lymph nodes. No pericardial effusion is seen. OTHER: Nodular thickening of the right pectoralis muscle. IMPRESSION: NO ACUTE PE. 12 MM LEFT LOWER LOBE NODULE. REDEMONSTRATED RIGHT UPPER LOBE SCARRING AND MILD MEDIASTINAL LYMPHADENOPATHY. NODULAR THICKENING OF THE RIGHT PECTORALIS MUSCLE, BETTER DEPICTED ON PRIOR PET CT.
[2021-03-20 17:16] LABS: Erythrocyte Sedimentation Rate 39 mm/hr (0-20)
== END | disposition home or self-care (01) ==
LOC: RADCTMAIN 14:55
PROVIDERS: ATTEND Nurse Practitioner
DX: R91.1 Solitary pulmonary nodule (principal); J98.4 Other disorders of lung; R59.0 Localized enlarged lymph nodes
CPT/HCPCS: 80053; 85652; 83615; 85025; 86140; 87502; 84145; 71275; U0003; C9803; Q9967

== ENCOUNTER → 2021-04-05 | Outpatient (CLI) | payer MEDICARE ==
--- NOTE | 2021-04-05 15:17 | XR ---
EXAMINATION TYPE: XR chest 2V DATE OF EXAM: 04/05/2021 COMPARISON: Chest x-ray dated 07/20/2019 HISTORY: Breast CA, C 50.111 TECHNIQUE: Frontal and lateral views of the chest are obtained. FINDINGS: Apical scarring is again noted on the right, there is postop change, multiple surgical cli ps present over the right hemithorax. There is no evident pneumothorax or pleural effusion. Cardiac m ediastinal silhouette is stable. Aorta is dense. There is a slight spinal curvature. Surgical clips a re present in the upper abdomen. IMPRESSION: No acute cardiopulmonary process.
== END | disposition home or self-care (01) ==
LOC: RADXRMAIN 14:25
PROVIDERS: ATTEND Internal Medicine Hematology & Oncology
DX: C50.111 Malignant neoplasm of central portion of right female breast (principal)
CPT/HCPCS: 71046

== ENCOUNTER → 2021-09-14 | Outpatient (CLI) | payer MEDICARE ==
--- NOTE | 2021-09-18 11:24 | PE ---
Nuclear medicine PET/CT HISTORY: Right breast carcinoma, subsequent Patient received 10.6 mCi F-18 FDG intravenously and delayed scanning was performed from the skull ba se to the mid thighs. A localization and attenuation correction CT scan was performed. Correlation to prior nuclear medicine PET/CT 03/16/2021 Average mediastinal uptake SUV 1.8, average liver uptake SUV is 2.4 Chest and neck: Neck activity is felt likely to be physiologic. There is a supraclavicular node on th e left which shows associated uptake of SUV only 2.1. Uptake is noted along the pectoral region on th e right SUV 3.5-4.6, there are postop changes to the chest wall and in the right axilla. Retrocaval a nd pretracheal nodes show activity, SUV is 4.4, 4.0. Areas of uptake are noted within the fat thought likely to be physiologic including the neck and supraclavicular regions, chest wall. ABDOMEN: Some heterogeneity present within the liver. There is no ascites. No retroperitoneal adenopa thy. Patient is post cholecystectomy. No evident adrenal mass. There is no ascites. Diverticular heath ges associated with the colon. Uterus and adnexal structures are not present. There is no pelvic shira opathy or free fluid. Osseous structures: No suspicious uptake. Muscular activity is noted in the gluteal region on the rig ht greater than left and also within the abductor musculature, which is felt likely to be physiologic . Along the left upper extremity there is uptake seen on the three-dimensional reconstruction images Included on the fused images, possibly blood. Extensive muscular uptake is present. IMPRESSION: Chest wall activity and mediastinal uptake is again noted as described and shows a simila r distribution. There are additional areas of uptake which are thought likely to be physiologic as de scribed.
== END | disposition home or self-care (01) ==
LOC: RADPETMAIN 10:48
PROVIDERS: ATTEND Internal Medicine Hematology & Oncology
DX: C50.111 Malignant neoplasm of central portion of right female breast (principal)
CPT/HCPCS: 78815; A9552

== ENCOUNTER → 2022-03-29 | Outpatient (CLI) | payer MEDICARE ==
--- NOTE | 2022-04-01 23:01 | PE ---
EXAMINATION TYPE: PET CT fusion skull to thigh DATE OF EXAM: 03/29/2022 CLINICAL INDICATION:Female, 67 years old with history of [id number]; TECHNIQUE: Following the intravenous administration of 12.04 mCi of F-18 FDG, whole body images are performed from the skull base to the midthigh. Images are reviewed on the computer in the coronal, axial, and sagittal planes. Reconstructed rotating images are created on independent workstation and reviewed on the computer. A non-contrast CT is performed in conjunction with the PET scan. Glucose level 80 mg/dL COMPARISON: CT None 03/20/2021, PET/CT 09/14/2021, FINDINGS: Mediastinal SUV mean is 1.6. Hepatic parenchyma SUV mean is 2.7. SKULL BASE AND NECK: Persistent FDG activity seen within the supraclavicular lymph nodes bilaterally especially on the left 3.3 and the right 3.9, previously 2.1 and 2.0. CHEST, MEDIASTINUM, AND HILAR REGION: * Right high paratracheal lymph node max SUV 4.4, previously 4.4 measuring similarly at 1.1 cm in sh ort axis. * Right low paratracheal lymph node max SUV 3.8, previously 4.0 measuring similarly at 1.4 cm in rupinder rt axis. * Right pectoralis major focus of FDG activity remains present accessing the 5.3, previously 2.9 lat erally and pectoralis major/minor medially max SUV 4.2 previously 3.8. ABDOMEN AND PELVIS: No suspicious FDG activity. OSSEOUS STRUCTURES: No suspicious FDG activity. OTHER CT: Atherosclerosis of the arterial vasculature including the coronary arteries. Nonobstructing left renal calculus suggested. Streak artifact from patient's arm limits evaluation. The gallbladder is surgically absent. Fat-containing umbilical hernia. Few scattered clonic activity are present. St reaky atelectasis in the lobe. IMPRESSION: Findings suggesting progressive disease with increased FDG activity within supraclavicular lymph node s, and right pectoralis major/minor FDG activity. There is stable FDG activity within the mediastinal lymph nodes which may be reactive.
== END | disposition home or self-care (01) ==
LOC: RADPETMAIN 09:41
PROVIDERS: ATTEND Internal Medicine Hematology & Oncology
DX: C50.111 Malignant neoplasm of central portion of right female breast (principal)
CPT/HCPCS: 78815; A9552

== ENCOUNTER → 2022-04-26 | Outpatient (CLI) | payer MEDICARE ==
--- NOTE | 2022-04-26 16:13 | BD ---
EXAMINATION TYPE: Axial Bone Density DATE OF EXAM: 04/26/2022 COMPARISON: NEW TO [facility]....BASELINE CLINICAL HISTORY: 67 years year old Female. ICD-10 CODE: Z78.0 POST MENOPAUSAL Height: 66.1 Weight: 231 FRAX RISK QUESTIONS: Glucocorticoids (More than 3mos): YES (Ex: prednisone, prednisolone, methylprednisolone, dexamethasone, and hydrocortisone). Secondary Osteoporosis: YES 3. Menopause before 45: YES 5. Chronic liver disease: FATTY RISK FACTORS HISTORY OF: Diet low in dairy products/other sources of calcium: YES Postmenopausal woman: UNSURE, HYST AT 29 YRS OLD Take estrogen and/or progesterone medications: ONLY ON FOR A YEAR Poor Health: RECURRENT BREAST CANCER, WITH METASTATIC, RESULTS Hyperparathyroidism: NO Adrenal Insufficiency: NO MEDICATIONS: Prednisone or other steroids: YES, INHALER DAILY, ASTHMA Thyroid Medications: YES, FOR ABOUT 4 YRS, SYNTHROID Additional Medications: METASTATIC BR CA...RT SIDE, CHEMO, RADIATION BP MEDS, PAIN MEDS, REFLUX MEDS , VIT D AND CALCIUM,, Additional History: METASTATIC BR CA RT BREAST, HYPERTENSION,CHRONIC PAIN, REFLUX, EXAM MEASUREMENTS: Bone mineral densitometry was performed using the [employer] System. Bone mineral density as measured about the Lumbar spine is: ----- L1-L4(G/cm2): 1.203 T Score Values are as follows: ----- L1: -0.5 ----- L2: -0.9 ----- L3: 1.1 ----- L4: 0.6 ----- L1-L4: 0.2 Bone mineral density BASELINE Bone mineral density about the R hip (g/cm2): 0.847 Bone mineral density about the L hip (g/cm2): 0.908 T Score values are as follows: -----R Neck: -1.6 -----L Neck: -0.1 -----R Total: -1.3 -----L Total: -0.8 Bone mineral density BASELINE FRAX%s: The graph provided illustrates a 13.9% chance for a major osteoporotic fx and a 1.9% chance f or the hips probability for fx in 10 years time. IMPRESSION: Osteopenia (T Score between -2.5 and -1). There is slightly increased risk of fracture and the patient may be considered for treatment. Re-Screen 2-5 years. NOTE: T-SCORE=SD OF THE YOUNG ADULT MEAN.
== END | disposition home or self-care (01) ==
LOC: RADBDWWP 12:39
PROVIDERS: ATTEND Family Medicine
DX: M85.89 Other specified disorders of bone density and structure, multiple sites (principal); Z78.0 Asymptomatic menopausal state
CPT/HCPCS: 77080

== ENCOUNTER 2022-05-24 05:43 | Day surgery (SDC) | payer MEDICARE ==
--- NOTE | 2022-05-24 05:14 | P.GSHP ---
History of Present Illness H&P Date: 05/24/22 CHIEF COMPLAINT: Breast cancer HISTORY OF PRESENT ILLNESS: The patient is a 67-year-old female diagnosed with recurrent right breast cancer. She needs a Mediport placement for chemotherapy. PAST MEDICAL HISTORY: See list and reviewed PAST SURGICAL HISTORY: See list and reviewed CURRENT MEDICATIONS: See list and reviewed ALLERGIES: See list and reviewed SOCIAL HISTORY: See list and reviewed FAMILY HISTORY: See list and reviewed REVIEW OF ORGAN SYSTEMS: CONSTITUTIONAL: No fevers or chills RESPIRATORY: No pneumonia. No dyspnea on exertion. CARDIOVASCULAR: No recent chest pain. No history of blood clots. Had prior ALND and port placement left neck. PHYSICAL EXAMINATION: Vital signs: Stable GENERAL: Well developed and in no acute distress. Pleasant. HEENT: No sclera icterus. Extraocular movements grossly intact. Moist buccal mucosa. Head is atraumatic, normocephalic. Hears conversational speech. No nasal drainage. NECK: Supple without lymphadenopathy. No JV distention. CHEST: Non-labored respirations and equal bilateral excursions. CARDIOVASCULAR: Regular rate and rhythm. Palpable 2+ radial pulses. ABDOMEN: Nontender. MUSCULOSKELETAL: No clubbing, cyanosis or edema. NEUROLOGIC: No focal or lateralizing signs. PSYCH: Appropriate affect. Alert and oriented to person, place and time. ASSESSMENT: 1. Breast cancer, recurrent, right 2. Need for chemotherapeutic access. PLAN: 1. Port-A-Cath placement for chemotherapy access Past Medical History Past Medical History: Asthma, Cancer, COPD, Deep Vein Thrombosis (DVT), GERD/Reflux, Hypertension, Myocardial Infarction (PR), Sleep Apnea/CPAP/BIPAP, Thyroid Disorder Additional Past Medical History / Comment(s): Metastatic breast cancer, diagnosis was 1997 treated by lumpectomy radiation therapy and chemotherapy and subsequent recurrence in September 2017 and the patient developed chest wall recurrence, supraclavicular lymph node involvement and axillary lymph node involvement. The patient is currently on Femara and Ibrance, bronchial asthma, obstructive sleep apnea uses cpap, chronic ALLERGIC rhinitis, hypertension, coronary artery disease, acid reflux, previous history of DVT, history of nephrolithiasis, previous history of E. coli in January 2018, migraines, shingles more than 20 years ago, PVD. mild arthritis Last Myocardial Infarction Date:: 2008 History of Any Multi-Drug Resistant Organisms: None Reported Past Surgical History: Appendectomy, Section, Cholecystectomy, Hysterectomy Additional Past Surgical History / Comment(s): Laparoscopy, 1997RT BREAST BX/ Lumpectomy with lymph node resection in 1997 ON RIGHT BREAST DID RADIATION AND CHEMO, STILL HAS METAL CLIPS IN SCOTTY BREASTS FROM WHEN THEY DID MAMORGAMS AND BIOPSIES. 09/2017 HAD "REOCCURANCE OF RT BREAST CANCER THEY REMOVED THE REMAINING LYMPH NODES RT AXILLA/ / NECK AND IS ON ORL CHEMO" . PT STATED "HAD PARTIAL HYSTERECTOMY STILL HAD 1 OVARY BUT THE CHEMO TX DESTROYED IT" Past Anesthesia/Blood Transfusion Reactions: No Reported Reaction Additional Past Anesthesia/Blood Transfusion Reaction / Comment(s): CLAUSTERPHOBIA. Brother almost coded x2 . Smoking Status: Former smoker - Past Family History Father Family Medical History: Hypertension Additional Family Medical History / Comment(s): DIVERTICULITIS, IN HIS SLEEP AT AGE 81 Mother Family Medical History: Cancer, Hypertension Additional Family Medical History / Comment(s): BREAST CANCER Medications and Allergies Home Medications Medication Instructions Recorded Confirmed Type Albuterol Sulfate [Ventolin HFA] 2 puff INHALATION RT-Q4H PRN 11/23/13 05/22/22 History Budesonide-Formot 160-4.5 Mcg 2 puff INHALATION RT-BID 09/15/14 05/22/22 History [Symbicort 160-4.5 Mcg Inhaler] Omeprazole [PriLOSEC] 20 mg PO HS@1800 01/20/15 05/22/22 History Losartan Potassium 50 mg PO DAILY 01/22/15 05/22/22 History Albuterol Nebulized [Ventolin 2.5 mg INHALATION RT-QID PRN 05/16/16 05/22/22 History Nebulized] Letrozole [Femara] 2.5 mg PO DAILY 03/03/18 05/22/22 History Aspirin EC [Ecotrin Low Dose] 81 mg PO DAILY 07/20/19 05/22/22 History Calcium/Vit D3 1 tab PO DAILY 07/20/19 05/22/22 History Cetirizine HCl [Zyrtec] 10 mg PO DAILY 07/20/19 05/22/22 History Palbociclib [Ibrance] 125 mg PO DIRECTED 07/20/19 05/22/22 History Triamterene-Hctz 37.5-25Mg 1 tab PO DAILY 07/20/19 05/22/22 History [Maxzide 37.5-25] Levothyroxine Sodium [Synthroid] 100 mcg PO DAILY 05/22/22 05/22/22 History Allergies Allergy/AdvReac Type Severity Reaction Status Date / Time shellfish derived [Shrimp] Allergy Mild Unknown Verified 05/22/22 09:31 Sulfa (Sulfonamide Allergy Rash/Hives Verified 05/22/22 09:31 Antibiotics) clarithromycin [From Biaxin] AdvReac Rash/Hives Verified 05/22/22 09:31
[~2022-05-24 05:43] MED LIST: ACETAMINOPHEN TAB 500 MG TAB PO PRN; HEPARIN SODIUM,PORCINE/PF 5,000 UNIT/0.5 ML SYRINGE SQ PRN; MELOXICAM 7.5 MG TAB PO PRN; Pre Op ABX Message 1 EACH MISC MISCELLANE ONE
[2022-05-24] MEDS ORDERED: LACTATED RINGERS 1,000 ML IV SCH (05:54)
[2022-05-24] MEDS ORDERED: DEXAMETHASONE SOD PHOSPHATE 4 MG/ML 1 ML VIAL IV ONE (05:54)
[2022-05-24] MEDS ORDERED: MIDAZOLAM 2 MG/2 ML VIAL IV PRN (05:54)
[2022-05-24] MEDS ORDERED: ONDANSETRON 4 MG/2 ML VIAL IVP ONE (05:54)
[2022-05-24] MEDS ORDERED: LIDOCAINE 1% (10MG/ML) FOR IV START INTRADERMA ONE (06:20)
[2022-05-24] MEDS ORDERED: LIDOCAINE 4% LTA KIT (4 ML) TOPICAL ONE (06:59)
[2022-05-24] MEDS ORDERED: PROPOFOL 10 MG/ML 20 ML VIAL IV ONE (06:59)
[2022-05-24] MEDS ORDERED: MIDAZOLAM 2 MG/2 ML VIAL ONE (06:59)
[2022-05-24] MEDS ORDERED: SUCCINYLCHOLINE CHLORIDE 200 MG/10 ML VIAL IV ONE (06:59)
[2022-05-24] MEDS ORDERED: fentaNYL (PF) 50 MCG/ML 2 ML AMP ONE (06:59)
[2022-05-24] MEDS ORDERED: LIDOCAINE 2% INJ 20 MG/ML (2 ML VIAL) ONE (06:59)
[2022-05-24] MEDS ORDERED: HYDROmorphone 0.5 MG/0.5 ML SYRINGE IVP PRN (07:00)
[2022-05-24 07:10] VITALS: TEMP 97.5
[2022-05-24 07:13] LABS: Anisocytosis Slight; HCT 34.2 % (34.0-46.0); HGB 12.4 gm/dL (11.4-16.0); MCHC 36.2 g/dL (31.0-37.0); MCV 102.2 fL (80.0-100.0); Macrocytosis Moderate; Mean Platelet Volume 8.2; Platelet Count 402 k/uL (150-450); Poikilocytosis Slight; RBC 3.35 m/uL (3.80-5.40); RDW 16.9 % (11.5-15.5); WBC 4.7 k/uL (3.8-10.6)
[2022-05-24] MEDS ORDERED: HEPARIN SODIUM,PORCINE 100 UNIT/ML 5 ML VIAL IV ONE ×2 (07:22→07:33)
[2022-05-24] MEDS ORDERED: LIDOCAINE 1%-EPI 1:100,000 20 ML VIAL SQ ONE ×2 (07:22→07:48)
[2022-05-24 07:24] LABS: Partial Thromboplastin Time 24.5 sec (22.0-30.0); Prothrombin Time 10.6 sec (9.0-12.0)
[2022-05-24] MEDS ORDERED: SODIUM CHLORIDE 0.9% 500 ML 500 ML with HEPARIN SODIUM,PORCINE 5,000 UNIT IV ONE ×2 (07:30)
[2022-05-24] MEDS ORDERED: LACTATED RINGERS 1,000 ML IV ONE (07:46)
[2022-05-24 08:14] LABS: Basophils # (M) 0.05 k/uL (0-0.2); Eosinophils # (M) 0.09 k/uL (0-0.7); Lymphocytes # (M) 1.69 k/uL (1.0-4.8); Monocytes # (M) 0.52 k/uL (0-1.0); Neutrophils # (M) 2.35 k/uL (1.3-7.7); Neutrophils % (M) 50 %; Nucleated Red Blood Cells 0 /100 WBC (0-0); Total Cells Counted 100
--- NOTE | 2022-05-24 08:18 | FL ---
Fluoroscopy History: PORT PLACEMENT central line placement, fluoro time 3seconds
[2022-05-24 08:35] VITALS: RESP 17
--- NOTE | 2022-05-24 09:03 | XR ---
EXAMINATION TYPE: XR chest 1V portable DATE OF EXAM: 05/24/2022 8:52 AM COMPARISON: Chest radiographs from 04/05/2021 TECHNIQUE: XR chest 1V portable Frontal view of the chest. CLINICAL INDICATION:Female, 67 years old with history of medi port insertion; FINDINGS: Lungs/Pleura: There is no evidence of pleural effusion, focal consolidation, or pneumothorax. Pulmonary vascularity: Unremarkable. Heart/mediastinum: Cardiomediastinal silhouette is unremarkable. Musculoskeletal: No acute osseous pathology. Other findings: Postsurgical clips over the right thorax and right axilla. Lines/Tubes: Auadff-u-Sdvo projecting over the right hemithorax with distal tip at the cavoatrial junction. IMPRESSION: Right chest wall [id number] with distal tip in appropriate position. No evidence of pneumothorax.
[2022-05-24 09:11] VITALS: BP 149/84; PULSE 84
--- NOTE | 2022-05-24 09:12 | P.OP ---
Date of Procedure: 05/24/22 Description of Procedure: SURGEON: ALVA PRINGLE MD CARGO VESSEL STEWARDESS: None. PREOPERATIVE DIAGNOSES: 1. Recurrent breast cancer 2. Need for chemotherapeutic access. 3. Hypertensive heart disease 4. Hypothyroidism 5. Gastroesophageal reflux disease 6. History of right breast lumpectomy with axillary lymph node dissection 7. Chronic obstructive pulmonary disease 8. History of deep venous thrombosis 9. Obstructive sleep apnea 10. History of metastatic breast cancer 11. History of myocardial infarction 12. Obesity due to excess calories, BMI 33.0 POSTOPERATIVE DIAGNOSES: 1. Recurrent breast cancer 2. Need for chemotherapeutic access. 3. Hypertensive heart disease 4. Hypothyroidism 5. Gastroesophageal reflux disease 6. History of right breast lumpectomy with axillary lymph node dissection 7. Chronic obstructive pulmonary disease 8. History of deep venous thrombosis 9. Obstructive sleep apnea 10. History of metastatic breast cancer 11. History of myocardial infarction 12. Obesity due to excess calories, BMI 33.0 PROCEDURES PERFORMED: 1. Ultrasound guided central venous access of the left internal jugular venous vein. 2. Fluoroscopic guidance for central venous access left internal jugular vein 3. Ultrasound guided central venous access of the right internal jugular venous vein. 4. Fluoroscopic guidance for central venous access right internal jugular vein, total 3 seconds 5. Placement of right internal jugular power port 6 Mosotho by DNage, Xcela Plus Port ANESTHESIA: General with local. ESTIMATED BLOOD LOSS: 5 mL. SPECIMENS REMOVED: None. COMPLICATIONS: None. FINDINGS: 1. No thrombus encountered along the left carotid artery or internal jugular vein. 2. Access of the left internal jugular vein under ultrasound guidance, single stick 3. History of prior left subclavian venous port with stenosis prohibiting advancement of guidewire, 5 attempts 4. No thrombus encountered along the right carotid artery or internal jugular vein. 5. Access of the right internal jugular vein under ultrasound guidance, single stick 6. Fluoroscopy of less than 3 seconds, total INDICATIONS: The patient is a 67-year-old female recently diagnosed with recurrent right breast cancer after axillary lymph node dissection. She presents with metastatic disease. She had prior left subclavian port placement over 20+ years ago. Per patient request, she requested left venous access. She presents for chemotherapeutic access. Benefits and risks of surgical intervention were described including bleeding, infection, mechanical problems with his port. Informed consent was obtained. DESCRIPTION OR PROCEDURE: Patient was brought into the operating room, laid in supine position. After adequate general anesthetic, the chest and bilateral neck were prepped and draped in a standard sterile fashion including the shoulder with ChloraPrep. Timeout protocol was confirmed with the surgical team regarding the patient's name, procedure to be performed including preoperative medications for which she received IV antibiotics. Bilateral SCDs were placed. An ultrasound was used to capture views of the left internal jugular vein including left carotid artery, which was patent and without thrombus along its course. The left IJ was then localized using anesthetic for the skin. A 16 Mosotho needle was used to access the IJ. A guidewire was advanced into the IJ with dark nonpulsatile venous blood. The guidewire was carefully navigated however despite five attempts, the guidewire could not cannulate successfully beyond left subclavian vein into the IVC under fluoroscopy. The left neck was aborted and incision closed with 4-0 Monocryl after applying 3 minutes of pressure. An ultrasound was used to capture views of the right internal jugular vein including right carotid artery, which was patent and without thrombus along its course. The right IJ was then localized using anesthetic for the skin. A 16 Mosotho needle was used to access the IJ. A guidewire was advanced into the IJ with dark nonpulsatile venous blood. Two fingerbreadths distal to the internal notch, a transverse 1.5 to 2 cm incision was deepened into the skin after localizing the skin. Dense invasion of tumor was identified along the right upper neck with careful port placement performed. A pocket was created for the port. The port on the back table was flushed with heparinized saline and then attached to the catheter tubing. An adapter was fastened to the actual port site over the tubing. The port easily had fit snug into the pocket. A subcutaneous tunneler was placed along the open end of the tubing and brought out through the separate stab incision. Fluoroscopic guidance confirmed no kinking along the tubing and the port site. Next, the J-wire was exchanged for a catheter sheath for which the tubing was cut to 27 cm and then advanced through the catheter sheath. The Peel-away sheath was then removed and the tubing was secured at the junction of the superior vena cava as well as the right atrium. The tubing was found to be crossed however functional. Total fluoroscopic guidance 3 seconds. Easy pullback as well as return and aspiration was obtained of the port site. The skin incision was closed using layers using 3-0 Vicryl for the subcu followed by 4-0 Monocryl in a running subcuticular fashion. At the stick site this was also reapproximated using 4-0 Monocryl. The incisions were covered with Optifoam, The skin was cleansed and Exofin liquid glue was applied. Optifoam dressing was placed over the port site. A total of 30 mL of local anesthetic was placed. At the end of the procedure, needle, sponge, and instrument count was verified correct by instructor adjunct surgical technician. Heparin lock of 5 mL was placed. The patient was awoken and pain free and taken to the second stage postanesthesia care unit. The patient tolerated the procedure well. Plan - Discharge Summary Discharge Rx Participant: No New Discharge Prescriptions: New Acetaminophen Tab [Tylenol Tab] 1,000 mg PO Q6HR PRN #30 tablet PRN Reason: Pain Continue Albuterol Sulfate [Ventolin HFA] 2 puff INHALATION RT-Q4H PRN PRN Reason: Shortness Of Breath Budesonide-Formot 160-4.5 Mcg [Symbicort 160-4.5 Mcg Inhaler] 2 puff INHALATION RT-BID Omeprazole [PriLOSEC] 20 mg PO HS@1800 Losartan Potassium 50 mg PO DAILY Albuterol Nebulized [Ventolin Nebulized] 2.5 mg INHALATION RT-QID PRN PRN Reason: Shortness Of Breath Letrozole [Femara] 2.5 mg PO DAILY Triamterene-Hctz 37.5-25Mg [Maxzide 37.5-25] 1 tab PO DAILY Palbociclib [Ibrance] 125 mg PO DIRECTED Cetirizine HCl [Zyrtec] 10 mg PO DAILY Aspirin EC [Ecotrin Low Dose] 81 mg PO DAILY Calcium/Vit D3 1 tab PO DAILY Levothyroxine Sodium [Synthroid] 100 mcg PO DAILY Discharge Medication List Albuterol Sulfate [Ventolin HFA] 2 puff INHALATION RT-Q4H PRN 11/23/13 [History] Budesonide-Formot 160-4.5 Mcg [Symbicort 160-4.5 Mcg Inhaler] 2 puff INHALATION RT-BID 09/15/14 [History] Omeprazole [PriLOSEC] 20 mg PO HS@1800 01/20/15 [History] Losartan Potassium 50 mg PO DAILY 01/22/15 [History] Albuterol Nebulized [Ventolin Nebulized] 2.5 mg INHALATION RT-QID PRN 05/16/16 [History] Letrozole [Femara] 2.5 mg PO DAILY 03/03/18 [History] Aspirin EC [Ecotrin Low Dose] 81 mg PO DAILY 07/20/19 [History] Calcium/Vit D3 1 tab PO DAILY 07/20/19 [History] Cetirizine HCl [Zyrtec] 10 mg PO DAILY 07/20/19 [History] Palbociclib [Ibrance] 125 mg PO DIRECTED 07/20/19 [History] Triamterene-Hctz 37.5-25Mg [Maxzide 37.5-25] 1 tab PO DAILY 07/20/19 [History] Levothyroxine Sodium [Synthroid] 100 mcg PO DAILY 05/22/22 [History] Acetaminophen Tab [Tylenol Tab] 1,000 mg PO Q6HR PRN #30 tablet 05/24/22 [Rx] Follow up Appointment(s)/Referral(s): Alva Pringle MD [STAFF PHYSICIAN] - As Needed Patient Instructions/Handouts: *Surgery [facility] - (Anesthesia) Discharge Instructions Outpatient Surgery, Implanted Venous Access Port (DC), How to Care for Your Implanted Venous Access Port (DC) Activity/Diet/Wound Care/Special Instructions: May shower. No bathtub soaks for 2 weeks until Jun 07. Remove dressing FridayMay 27. Sleep on elevated pillows at least 3 for 3 days. Bruising is normal and subsides in 2 weeks. Take Tylenol or Motrin regularly for 24 hrs for pain, if needed. Use ice along incision to decrease swelling. Discharge Disposition: HOME SELF-CARE
== END 2022-05-24 09:37 | disposition home or self-care (01) ==
LOC: OR 05:43
PROVIDERS: ATTEND Surgery Plastic and Reconstructive Surgery
DX: C50.911 Malignant neoplasm of unspecified site of right female breast (principal); Z51.11 Encounter for antineoplastic chemotherapy; Z92.3 Personal history of irradiation; J44.9 Chronic obstructive pulmonary disease, unspecified; Z87.891 Personal history of nicotine dependence; I25.2 Old myocardial infarction; I11.9 Hypertensive heart disease without heart failure; I25.10 Atherosclerotic heart disease of native coronary artery without angina pectoris; G47.33 Obstructive sleep apnea (adult) (pediatric); Z99.89 Dependence on other enabling machines and devices; G43.909 Migraine, unspecified, not intractable, without status migrainosus; K21.9 Gastro-esophageal reflux disease without esophagitis; M19.90 Unspecified osteoarthritis, unspecified site; E66.9 Obesity, unspecified; Z68.33 Body mass index [BMI] 33.0-33.9, adult; E03.9 Hypothyroidism, unspecified; Z79.890 Hormone replacement therapy; Z91.013 Allergy to seafood; Z88.8 Allergy status to other drugs, medicaments and biological substances; Z88.2 Allergy status to sulfonamides; Z86.718 Personal history of other venous thrombosis and embolism; Z87.442 Personal history of urinary calculi; Z98.890 Other specified postprocedural states; Z83.79 Family history of other diseases of the digestive system; Z79.82 Long term (current) use of aspirin; Z79.899 Other long term (current) drug therapy
CPT/HCPCS: 36561; 76937; 85025; 85610; 85730; 77001; 71045; C1788; J2250; J0330; J1644; J1642; J1100; J0690; J2405; J3010; J2704; J2001

== ENCOUNTER → 2022-08-02 | Outpatient (CLI) | payer MEDICARE ==
--- NOTE | 2022-08-02 15:41 | MR ---
EXAMINATION TYPE: MR brain wo/w con DATE OF EXAM: 08/02/2022 COMPARISON: MRI brain 03/02/2021 HISTORY: Breast cancer TECHNIQUE: Multiplanar, multisequence images of the brain and brainstem is performed without and with IV contras t, utilizing 9.5 mL intravenous Gadavist . FINDINGS: Diffusion weighted images demonstrate no evidence of a recent infarct or other diffusion ab normality. There is no extra-axial fluid collection or significant white matter signal abnormality. The ventricular system and cisternal spaces are normal in size and appearance. The brain volume is age appropriate. Midline structures demonstrate normal morphology. Minimal cerebellar ectopia demonstrated measuring u p to 4 mm. Post contrast images demonstrate no abnormal enhancement. The dural venous sinuses appear patent. The visualized sinuses are clear and the globes are intact. IMPRESSION: No evidence for metastatic disease or acute/subacute ischemia.
== END | disposition home or self-care (01) ==
LOC: RADMRIMAIN 13:59
PROVIDERS: ATTEND Internal Medicine Hematology & Oncology
DX: C50.111 Malignant neoplasm of central portion of right female breast (principal)
CPT/HCPCS: 70553; A9585

== ENCOUNTER → 2022-10-11 | Outpatient (CLI) | payer MEDICARE ==
--- NOTE | 2022-10-11 12:14 | PE ---
EXAMINATION TYPE: PET CT fusion skull to thigh DATE OF EXAM: 10/11/2022 COMPARISON: Most recent PET/CT March 29, 2022 and older studies HISTORY: Right-sided breast cancer diagnosed 1997 with recurrence 2018. Currently undergoing chemothe rapy. TECHNIQUE: Following the intravenous administration of 10.44 mCi of F-18 FDG, whole body images are performed from the skull base to the midthigh. Images are reviewed on the computer in the coronal, a xial, and sagittal planes. Reconstructed rotating images are created on independent workstation and reviewed on the computer. A localization and attenuation correction CT is performed in conjunction with the PET scan. Blood glucose level was 131 SCAN: Subsequent Scan FINDINGS: Exam slightly suboptimal due to more prominent background muscular uptake on this exam. SKULL BASE AND NECK: Resolved mild hypermetabolic uptake in the bilateral prominent supraclavicular lymph nodes. CHEST, MEDIASTINUM, AND HILAR REGION: * Resolved high riding and low right paratracheal hypermetabolic lymph nodes. * Right pectoralis major focus of FDG activity improved max SUV 2.61 current versus 5.3 prior and pe ctoralis major/minor medially max SUV 4.2 previously 3.8. * Mild hypermetabolic uptake posterior to the right clavicle 2.57 and axial image 61 improved from p rior. * There is however new 4.5 x 3.7 cm posterior left basilar mass or masslike consolidation with abnor mal hypermetabolic uptake, max SUV is 6.28 on axial image 94 ABDOMEN AND PELVIS: No new areas of abnormal hypermetabolic uptake. OSSEOUS STRUCTURES: No new areas of abnormal hypermetabolic uptake. OTHER CT: There is new right internal jugular Mediport catheter terminating in right atrium. Liver is diffusely low-density consistent with fatty infiltration. Cholecystectomy clips are seen. Th ere is cortical thinning and small nonobstructing bilateral renal calculi are redemonstrated. There i s umbilical hernia again seen. Uterus is surgically absent. Tiny amount of free fluid in the pelvis i s seen. Scattered tiny pelvic phleboliths are present. IMPRESSION: Overall mixed response. Significant positive treatment response to the lower neck and tho racic adenopathy as detailed above. There is however new suspicious hypermetabolic posterior left low er lobe mass or masslike consolidation in which neoplasm cannot be excluded. Further workup and foll ow-up advised.
== END | disposition home or self-care (01) ==
LOC: RADPETMAIN 10:18
PROVIDERS: ATTEND Internal Medicine Hematology & Oncology
DX: C50.111 Malignant neoplasm of central portion of right female breast (principal)
CPT/HCPCS: 78815; A9552

== ENCOUNTER → 2022-10-31 | Outpatient (CLI) | payer MEDICARE ==
[2022-10-31 14:53] LABS: African American GFR (CKD) >90 (>60 ml/min/1.73 sqM); Blood Urea Nitrogen 11 mg/dL (7-17); Non-African American GFR(CKD) 86 (>60 ml/min/1.73 sqM)
--- NOTE | 2022-10-31 15:41 | CT ---
EXAMINATION TYPE: CT chest w con CT DLP: 632 mGycm, Automated exposure control for dose reduction was used. DATE OF EXAM: 10/31/2022 3:28 PM COMPARISON: PET CT 10/11/2022, CTA chest 03/20/2021. CLINICAL INDICATION:Female, 67 years old with history of J98.4 pulmonary nodule; PHH, F/U LUNG NODULE . HX OF RT BREAST AND CLAVICLE CA. TECHNIQUE: Multiple axial images were obtained through the chest following the administration of 100 cc of Isovue 300. FINDINGS: LUNGS/ PLEURA: No pleural effusion or pneumothorax. Stable right upper lobe scarring. Stable to amanda nal decrease in size of masslike consolidation within the medial posterior aspect of the left lower l obe measuring 5.3 x 3.4 cm (series 4, image 43). This was FDG avid on prior PET/CT. Mild CBD changes . AIRWAY: Patent and unremarkable.. HEART: Size within normal limits. . MEDIASTINUM: No mediastinal or hilar lymph nodes greater than 1 cm short axis. VASCULATURE: No aortic aneurysm. Right chest wall Mediport catheter with distal tip terminating at t he superior cavoatrial junction. MUSCULOSKELETAL: No acute osseous abnormalities. No aggressive osseous lesion. Grade 1 anterolisthesi s of T2 on T3. Multilevel Schmorl's nodes. There is again thickening of the right pectoralis major an d minor muscles with heterogenous enhancement which demonstrated improving FDG activity on prior PET/ CT. SOFT TISSUES/LYMPH NODES: Unremarkable. LOWER NECK: No significant findings. UPPER ABDOMEN: Post cholecystectomy. Liver is diffusely hypoattenuating with heterogenous appearance. Small perihepatic ascites. Small hilar hernia. Nonobstructive 5 mm left renal calculus. IMPRESSION: 1. Stable to marginally decrease in size of left lower lobe masslike consolidation which was previous ly FDG avid PET/CT. This is again concerning for neoplasm. 2. Abnormal right pectoralis major minor thickening with heterogenous enhancement corresponding to kn own metastasis. Improving FDG avidity and prior PET/CT. 3. Heterogenous liver with diffuse fatty infiltration and small volume perihepatic ascites. 4. Nonobstructive left renal calculus.
== END | disposition home or self-care (01) ==
LOC: RADCTMAIN 13:54
PROVIDERS: ATTEND Internal Medicine Hematology & Oncology
DX: C50.111 Malignant neoplasm of central portion of right female breast (principal); J98.4 Other disorders of lung; K76.0 Fatty (change of) liver, not elsewhere classified; R18.8 Other ascites; N20.0 Calculus of kidney
CPT/HCPCS: 82565; 84520; 71260; 36415; Q9967

== ENCOUNTER → 2022-12-16 | Outpatient (CLI) | payer MEDICARE ==
[2022-12-16 12:50] LABS: African American GFR (CKD) >90 (>60 ml/min/1.73 sqM); Blood Urea Nitrogen 14 mg/dL (7-17); Non-African American GFR(CKD) >90 (>60 ml/min/1.73 sqM)
--- NOTE | 2022-12-16 13:36 | CT ---
EXAMINATION TYPE: CT chest w con DATE OF EXAM: 12/16/2022 COMPARISON: Chest CT October 31, 2022 and older studies HISTORY: h/o right-sided breast CA and left lung nodule CT DLP: 464.5 mGycm. Automated Exposure Control for Dose Reduction was Utilized. TECHNIQUE: CT scan of the thorax is performed following with IV Contrast, patient injected with 100 mL of Isovue 300. FINDINGS: LUNGS: Focal mild to moderate parenchymal scarring anterior right upper to midlung is redemonstrated. New mild linear scarring or atelectasis anterior left upper lung on current study. 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 No pleural effusion or pneumothorax is seen bilaterally. The tracheobronchial tree is patent. MEDIASTINUM: There are no new greater than 1 cm hilar or mediastinal lymph nodes. No cardiomegaly o r pericardial effusion is seen. Calcification at the level of the mitral valve is redemonstrated. OTHER: Cholecystectomy clips are redemonstrated. Visualized liver remains diffusely low dense. Stable right internal jugular Mediport catheter. Surgical clips deep in the right breast axial image 34 are redemonstrated. IMPRESSION: Diminished size to the posterior left basilar mass consistent with partial positive treat ment response. No new mass or adenopathy is noted.
== END | disposition home or self-care (01) ==
LOC: RADCTMAIN 12:09
PROVIDERS: ATTEND Internal Medicine Hematology & Oncology
DX: Z03.89 Encounter for observation for other suspected diseases and conditions ruled out (principal); C50.111 Malignant neoplasm of central portion of right female breast; J98.4 Other disorders of lung
CPT/HCPCS: 82565; 84520; 71260; 36415; Q9967

== ENCOUNTER 2023-04-14 12:00 | Day surgery (SDC) | payer MEDICARE ==
[~2023-04-14 12:00] MED LIST changes: +DEXAMETHASONE SOD PHOSPHATE 4 MG/ML 1 ML VIAL IV ONE; +HYDROmorphone 0.5 MG/0.5 ML SYRINGE IVP PRN; +LACTATED RINGERS 1,000 ML IV SCH; -MELOXICAM 7.5 MG TAB PO PRN; +MIDAZOLAM 2 MG/2 ML VIAL IV PRN; +ONDANSETRON 4 MG/2 ML VIAL IVP ONE; -Pre Op ABX Message 1 EACH MISC MISCELLANE ONE
[2023-04-14] MEDS ORDERED: MIDAZOLAM 2 MG/2 ML VIAL ONE (14:26)
[2023-04-14] MEDS ORDERED: fentaNYL (PF) 50 MCG/ML 2 ML AMP ONE (14:26)
[2023-04-14] MEDS ORDERED: LIDOCAINE 2% INJ 20 MG/ML (2 ML VIAL) ONE (14:26)
[2023-04-14] MEDS ORDERED: PHENYLEPHRINE-0.9% NACL SYG 1,000 MCG/10 ML SYRINGE ONE (14:26)
[2023-04-14] MEDS ORDERED: PROPOFOL 10 MG/ML 20 ML VIAL IV ONE (14:26)
[2023-04-14] MEDS ORDERED: BUPIVACAINE (PF) 0.25% 30 ML VIAL SQ ONE ×3 (14:27→14:51)
[2023-04-14] MEDS ORDERED: BACITRACIN ZINC 500 UNIT/GM OINT 28.4 GM TUBE TOPICAL ONE (15:03)
[2023-04-14] MEDS ORDERED: LACTATED RINGERS 1,000 ML IV ONE (15:09)
[2023-04-14] MEDS ORDERED: ACETAMINOPHEN TAB 325 MG TAB PO PRN (15:10)
[2023-04-14] MEDS ORDERED: HYDROcodone/APAP 5-325MG 1 EACH TAB PO PRN (15:10)
[2023-04-14] MEDS ORDERED: NALOXONE 0.4 MG/ML 1 ML VIAL IV PRN (15:10)
--- NOTE | 2023-04-14 15:13 | P.OP ---
Date of Procedure: 04/14/23 Procedure(s) Performed: PREOPERATIVE DIAGNOSIS: Right chest wall mass POSTOPERATIVE DIAGNOSIS: Same PROCEDURE: Excision right chest wall mass with intermediate closure SURGEON: Tom EBL: Chest wall mass ANESTHESIA: General COMPLICATIONS: None OPERATIVE PROCEDURE: Patient placed on the operating table in the supine position. The patient was placed under general anesthesia. The right upper chest was prepped and draped sterilely. The patient had 2 separate masses in the infraclavicular location right chest wall. Larger mass measured about 2 x 3 cm. Smaller mass about one by one some ear. These were adjacent to one another. These were removed together using elliptical incision. Incision was made using scalpel. Subcutaneous tissues were divided using electrocautery. Specimen was passed off. Specimen measured 8 x 3.5 cm. Intermediate closure then took place. Length 8 cm. Subcutaneous tissues closed using 3-0 Vicryl sutures. Skin closed using a running 4-0 nylon suture. Sterile dressings applied. DISPOSITION: Stable to recovery room
[2023-04-14 15:25] VITALS: TEMP 96.9
[2023-04-14 16:08] VITALS: PULSE 81; RESP 20
[2023-04-14 16:49] VITALS: BP 116/72
== END 2023-04-14 16:59 | disposition home or self-care (01) ==
LOC: OR 12:00
PROVIDERS: ATTEND Surgery
DX: C50.911 Malignant neoplasm of unspecified site of right female breast (principal); I25.2 Old myocardial infarction; I25.10 Atherosclerotic heart disease of native coronary artery without angina pectoris; I10 Essential (primary) hypertension; G47.33 Obstructive sleep apnea (adult) (pediatric); J44.9 Chronic obstructive pulmonary disease, unspecified; E07.9 Disorder of thyroid, unspecified; K21.9 Gastro-esophageal reflux disease without esophagitis; Z87.891 Personal history of nicotine dependence; Z79.51 Long term (current) use of inhaled steroids; Z79.890 Hormone replacement therapy; Z79.899 Other long term (current) drug therapy; Z91.013 Allergy to seafood; Z88.2 Allergy status to sulfonamides; Z88.8 Allergy status to other drugs, medicaments and biological substances
CPT/HCPCS: 21552; 88305; 88342; 88341; J2250; J1100; J0690; J2405; J3010; J2704; J1644; J2001; J2371; J0665

== ENCOUNTER → 2023-09-18 | Outpatient (CLI) | payer MEDICARE ==
--- NOTE | 2023-09-22 15:13 | PE ---
EXAMINATION TYPE: PET CT fusion skull to thigh DATE OF EXAM: 09/18/2023 COMPARISON: Most recent prior PET/CT April 25, 2023 and older studies HISTORY: Right-sided breast cancer progress study. TECHNIQUE: Following the intravenous administration of 11.8 mCi of F-18 FDG, whole body images are p erformed from the skull base to the midthigh. Images are reviewed on the computer in the coronal, ax ial, and sagittal planes. Reconstructed rotating images are created on independent workstation and r eviewed on the computer. A localization and attenuation correction CT is performed in conjunction w ith the PET scan. Blood glucose level equals 109. SCAN: Subsequent Scan FINDINGS: SKULL BASE AND NECK: Supraclavicular adenopathy with abnormal uptake is present bilaterally. On the left this measures 9.72 versus 6.92 most recent prior. On the right there are increasing hypermetabol ic lymph nodes, more medial focus has max SUV of 10.79 and 70 and more lateral focus has max SUV of 17.57 on axial image 65 increased from 10.97. CHEST, MEDIASTINUM, AND HILAR REGION: There is uptake within the region of the pectoralis muscle on t he right redemonstrated, max SUV is 10.05 increased from 4.65. Multiple additional small hypermetabol ic areas along the pectoralis muscle redemonstrated. Superior mediastinal lymphadenopathy is present, axial image 77, max SUV is 10.93 versus [address] recent prior. New smaller hypermetabolic mediastinal lymph nodes are also noted. Contamination overlying the right breast is noted on current study. ABDOMEN AND PELVIS: No new areas of abnormal hypermetabolic uptake. OSSEOUS STRUCTURES: No new areas of abnormal hypermetabolic uptake. OTHER CT: Multiple cholecystectomy clips are redemonstrated. Stable right internal jugular Mediport c atheter. Coronary artery calcifications are again seen. IMPRESSION: Interval neoplastic progression is seen as detailed above.
== END | disposition home or self-care (01) ==
LOC: RADPETMAIN 09:52
PROVIDERS: ATTEND Internal Medicine Hematology & Oncology
DX: C50.111 Malignant neoplasm of central portion of right female breast (principal)
CPT/HCPCS: 78815; A9552

== ENCOUNTER 2023-11-06 11:05 | Inpatient (IN) | payer MEDICARE ==
[2023-11-06] MEDS: SODIUM CHLORIDE 0.9% 2,000 ML IV STA (11:52)
[2023-11-06] MEDS: ONDANSETRON 4 MG/2 ML VIAL IVP STA (11:55)
[2023-11-06] MEDS: SODIUM CHLORIDE 0.9% 1,000 ML IV STA ×2 (11:56→16:31)
--- NOTE | 2023-11-06 11:56 | ED ---
Nausea/Vomiting/Diarrhea HPI - General Chief complaint: Fever Stated complaint: Fever Time Seen by Provider: 11/06/23 11:17 Source: patient, family, RN notes reviewed Mode of arrival: wheelchair Limitations: no limitations - History of Present Illness Initial comments: This is a 68-year-old female who presents to the emergency department for nausea, vomiting, and diarrhea. Symptoms started 4 days ago. She is currently undergoing treatment for breast cancer. She is on oral chemotherapy and radiation. Last received radiation 1 week ago. She had a fever of 100.8 F 2 days ago. She last threw up this morning. The diarrhea was described as watery , however she has not had any episodes today. She had an appointment with her oncologist today, and was told that her blood pressure was very low, and she was advised to come to the emergency department for evaluation. She is taking Zofran and another medication for her diarrhea, which is somewhat effective. MD complaint: nausea, vomiting, diarrhea - Related Data Home Medications Medication Instructions Recorded Confirmed Albuterol Sulfate [Ventolin HFA] 2 puff INHALATION RT-Q4H PRN 11/23/13 11/06/23 Budesonide-Formot 160-4.5 Mcg 2 puff INHALATION RT-BID 09/15/14 11/06/23 [Symbicort 160-4.5 Mcg Inhaler] Omeprazole [PriLOSEC] 20 mg PO DAILY 01/20/15 11/06/23 Albuterol Nebulized [Ventolin 2.5 mg INHALATION RT-QID PRN 05/16/16 11/06/23 Nebulized] Aspirin EC [Ecotrin Low Dose] 81 mg PO DAILY 07/20/19 11/06/23 Cetirizine HCl [Zyrtec] 10 mg PO DAILY 07/20/19 11/06/23 Levothyroxine Sodium [Synthroid] 100 mcg PO DAILY 05/22/22 11/06/23 traMADol HCL 50 mg PO Q4H PRN 04/11/23 11/06/23 Calcium Carbonate/Vitamin D3 2 tab PO DAILY 11/06/23 11/06/23 [Calcium 600 mg-D3 20 mcg (800 unit)] HYDROcodone/APAP 10-325MG [[place] 1 tab PO Q6HR PRN 11/06/23 11/06/23 10-325] Mupirocin 2% Oint [Bactroban 2% 1 applic TOPICAL DIRECTED 11/06/23 11/06/23 Oint] Nystatin 100,000 Unit/ml Susp 5 ml PO QID PRN 11/06/23 11/06/23 [Mycostatin Oral Susp] Olaparib [Lynparza] 300 mg PO BID 11/06/23 11/06/23 Triamterene/Hydrochlorothiazid 1 tab PO DAILY 11/06/23 11/06/23 [Triamterene-Hctz 37.5-25 mg Tb] Vaseline 1 applic TOPICAL DIRECTED 11/06/23 11/06/23 metroNIDAZOLE 0.75% CREAM 1 applic TOPICAL DIRECTED 11/06/23 11/06/23 [Metrocream 0.75%] Previous Rx's Medication Instructions Recorded Acetaminophen Tab [Tylenol Tab] 1,000 mg PO Q6HR PRN #30 tablet 05/24/22 Allergies Allergy/AdvReac Type Severity Reaction Status Date / Time shellfish derived [Shrimp] Allergy Mild Unknown Verified 11/06/23 13:19 Sulfa (Sulfonamide Allergy rash & Verified 11/06/23 13:19 Antibiotics) severe headache sulfamethoxazole Allergy rash & Verified 11/06/23 13:19 [From Bactrim] severe headache trimethoprim [From Bactrim] Allergy rash & Verified 11/06/23 13:19 severe headache clarithromycin [From Biaxin] AdvReac rash & Verified 11/06/23 13:19 severe headache Review of Systems ROS Statement: Those systems with pertinent positive or pertinent negative responses have been documented in the HPI. ROS Other: All systems not noted in ROS Statement are negative. Past Medical History Past Medical History: Asthma, Cancer, COPD, Deep Vein Thrombosis (DVT), GE RD/Reflux, Hypertension, Myocardial Infarction ([place]), Sleep Apnea/CPAP/BIPAP, Thyroid Disorder Additional Past Medical History / Comment(s): Metastatic breast cancer, diagnosis was 1997 treated by lumpectomy radiation therapy and chemotherapy and subsequent recurrence in September 2017 and the patient developed chest wall recurrence, supraclavicular lymph node involvement and axillary lymph node involvement. The patient is currently on Femara and Ibrance, bronchial asthma, obstructive sleep apnea uses cpap, chronic ALLERGIC rhinitis, hypertension, coronary artery disease, acid reflux, previous history of DVT, history of nephrolithiasis, previous history of E. coli in January 2018, migraines, shingles more than 20 years ago, PVD. mild arthritis Last Myocardial Infarction Date:: 2008 History of Any Multi-Drug Resistant Organisms: None Reported Past Surgical History: Appendectomy, Section, Cholecystectomy, Hysterectomy Additional Past Surgical History / Comment(s): Laparoscopy, 1997RT BREAST BX/ Lumpectomy with lymph node resection in 1997 ON RIGHT BREAST DID RADIATION AND CHEMO, STILL HAS METAL CLIPS IN SCOTTY BREASTS FROM WHEN THEY DID MAMORGAMS AND BIOPSIES. 09/2017 HAD "REOCCURANCE OF RT BREAST CANCER THEY REMOVED THE REMAINING LYMPH NODES RT AXILLA/ / NECK AND IS ON ORL CHEMO" . PT STATED "HAD PARTIAL HYSTERECTOMY STILL HAD 1 OVARY BUT THE CHEMO TX DESTROYED IT" Past Anesthesia/Blood Transfusion Reactions: No Reported Reaction Additional Past Anesthesia/Blood Transfusion Reaction / Comment(s): MARGOT STERPHOBIA. Brother almost coded x2 . Past Psychological History: No Psychological Hx Reported Smoking Status: Former smoker Past Alcohol Use History: None Reported Past Drug Use History: None Reported - Past Family History Father Family Medical History: Hypertension Additional Family Medical History / Comment(s): DIVERTICULITIS, IN HIS SLEEP AT AGE 81 Mother Family Medical History: Cancer, Hypertension Additional Family Medical History / Comment(s): BREAST CANCER General Exam Limitations: no limitations General appearance: alert, in no apparent distress Head exam: Present: atraumatic, normocephalic, normal inspection Respiratory exam: Present: normal lung sounds bilaterally. Absent: respiratory distress, wheezes, rales, rhonchi, stridor Cardiovascular Exam: Present: regular rate, normal rhythm, normal heart sounds. Absent: systolic murmur, diastolic murmur, rubs, gallop, clicks GI/Abdominal exam: Present: soft, normal bowel sounds. Absent: distended, tenderness, guarding, rebound, rigid Neurological exam: Present: alert, oriented X3, CN II-XII intact Psychiatric exam: Present: normal affect, normal mood Skin exam: Present: warm, dry, intact, normal color. Absent: rash Course Vital Signs 11/06/23 11/06/23 11:08 12:34 Temperature 97.7 F Pulse Rate 100 92 Respiratory 18 14 Rate Blood Pressure 87/54 96/61 O2 Sat by Pulse 99 100 Oximetry Medical Decision Making - Medical Decision Making This is a 68 year old female who presents to the emergency department for nausea, vomiting, and diarrhea. Was pt. sent in by a medical professional or institution? @ -Dr. Woo Did you speak to anyone other than the patient for history? @ -No Did you review nursing and triage notes? @ -Yes, and I agree, it is accurate with regards to the patient's symptoms. Were old charts reviewed? @ -No Differential Diagnosis? @ -Differential Nausea and Vomiting: Gastroenteritis, cholecystitis, appendicitis, pancreatitis, migraine, benign positional vertigo, food borne illness, pyelonephritis, irritable bowel syndrome, influenza, Covid, GERD, incarcerated hernia, intestinal obstruction, this is not meant to be an all-inclusive list. EKG interpreted by me (3pts min.)? @ -EKG interpreted by me demonstrating the following: Sinus rhythm. Ventricular rate 86 bpm, PA interval 149 ms, QRS duration 121 ms, QTc 435 ms. X-rays interpreted by me (1pt min.)? @ -Chest x-ray obtained, my interpretation identifies no localized consolidations or infiltrates. CT interpreted by me (1pt min.)? @ -CT scan of the abdomen and pelvis obtained. My interpretation identifies no dilation of the large or small bowel loops. U/S interpreted by me (1pt. min.)? @ -Not obtained What testing was considered but not performed? (CT, X-rays, U/S, labs)? Why? @ -None What meds were considered but not given? Why? @ -None Did you discuss the management of the patient with other professionals? @ -Yes, Dr. Johnson, who accepts the patient for admission. Did you reconcile home meds? @ -Yes Was smoking cessation discussed for >3mins.? @ -No Was critical care preformed (if so, how long)? @ -No Were there social determinants of health that impacted care today? How? (Homelessness, low income, unemployed, alcoholism, drug addiction, transportation, low edu. Level, literacy, decrease access to med. care, alf, rehab)? @ -No Was there de-escalation of care discussed even if they declined? (Discuss DNR or withdrawal of care, Hospice)? @ -No What co-morbidities impacted this encounter? (DM, HTN, Smoking, COPD, CAD, Cancer, CVA, Hep., AIDS, mental health diagnosis, sleep apnea, morbid obesity)? @ -Asthma, COPD, Breast cancer, GERD, HTN Was patient admitted / discharged? @ -Admitted. Lab work demonstrates leukopenia with a white blood cell count of 1.8. She also has signs of dehydration and hyponatremia with a sodium of 129. Urinalysis negative for signs of infection. COVID, influenza, and RSV testing were negative. Chest x-ray reveals no acute process. CT scan of the abdomen and pelvis identifies a 2.5 cm solid pulmonary nodule paravertebral pleural- based lesion left lower lobe. There is also a question of a soft tissue mass to the anterior abdomen to the right of midline. Possible enteritis is also present. Aside from the enteritis, no other acute process was identified. Patient was fairly hypotensive on arrival with a blood pressure of 87/54. After a liter bolus of IV fluids BP improved to 96/61. She was given an additional liter of IV fluids. Blood cultures were obtained, however given that the patient is afebrile and we have no identified source of infection, antibiotics were not started and will be left at the discretion of the admitting team. Patient admitted to medicine for the gastroenteritis, dehydration, and hypotension. Maintenance fluids initiated. Consult placed for hem/onc. Undiagnosed new problem with uncertain prognosis? @ -None Drug Therapy requiring intensive monitoring for toxicity (Heparin, Nitro, Insulin, Cardizem)? @ -None Were any procedures done? @ -None Diagnosis/symptom? @ -Hypotension, dehydration, gastroenteritis Acute, or Chronic, or Acute on Chronic? @ -Acute Uncomplicated (without systemic symptoms) or Complicated (systemic symptoms)? @ -Complicated Side effects of treatment? @ -None Exacerbation, Progression, or Severe Exacerbation] @ -Not applicable Poses a threat to life or bodily function? @ -Yes This case was discussed in detail with the attending ED physician, Dr. Aguiar. Presentation, findings, and treatment plan discussed in detail as well. - Lab Data Result diagrams: 11/06/23 11:40 11/06/23 11:40 Lab Results 11/06/23 11/06/23 11/06/23 Range/Units 11:40 11:40 11:40 WBC 1.8 L (3.8-10.6) k/uL RBC 2.45 L (3.80-5.40) m/uL Hgb 7.8 L (11.4-16.0) gm/dL Hct 21.9 L (34.0-46.0) % MCV 89.6 (80.0-100.0) fL MCH 31.7 (25.0-35.0) pg MCHC 35.3 (31.0-37.0) g/dL RDW 23.6 H (11.5-15.5) % Plt Count 75 L (150-450) k/uL MPV 9.6 Neutrophils % 83 % Lymphocytes % 10 % Monocytes % 4 % Eosinophils % 1 % Basophils % 0 % Neutrophils # 1.5 (1.3-7.7) k/uL Lymphocytes # 0.2 L (1.0-4.8) k/uL Monocytes # 0.1 (0-1.0) k/uL Eosinophils # 0.0 (0-0.7) k/uL Basophils # 0.0 (0-0.2) k/uL Manual Slide Review Performed Anisocytosis Moderate Macrocytosis Slight Sodium 129 L (137-145) mmol/L Potassium 3.8 (3.5-5.1) mmol/L Chloride 100 (98-107) mmol/L Carbon Dioxide 23 (22-30) mmol/L Anion Gap 6 mmol/L BUN 25 H (7-17) mg/dL Creatinine 0.79 (0.52-1.04) mg/dL Est GFR (CKD-EPI)AfAm >90 (>60 ml/min/1.73 sqM) Est GFR (CKD-EPI)NonAf 78 (>60 ml/min/1.73 sqM) Glucose 103 H (74-99) mg/dL Plasma Lactic Acid Brayan (0.7-2.0) mmol/L Calcium 8.0 L (8.4-10.2) mg/dL Phosphorus 2.6 (2.5-4.5) mg/dL Magnesium 1.8 (1.6-2.3) mg/dL Total Bilirubin 1.6 H (0.2-1.3) mg/dL AST 26 (14-36) U/L ALT 17 (4-34) U/L Alkaline Phosphatase 160 H (38-126) U/L Total Protein 5.3 L (6.3-8.2) g/dL Albumin 2.8 L (3.5-5.0) g/dL Amylase 40 (30-110) U/L Lipase <10 L (23-300) U/L Urine Color Yellow Urine Appearance Clear (Clear) Urine pH 6.0 (5.0-8.0) Ur Specific [place] 1.044 H (1.001-1.035) Urine Protein Trace H (Negative) Urine Glucose (UA) Negative (Negative) Urine Ketones Trace H (Negative) Urine Blood Negative (Negative) Urine Nitrite Negative (Negative) Urine Bilirubin Negative (Negative) Urine Urobilinogen <2.0 (<2.0) mg/dL Ur Leukocyte Esterase Negative (Negative) Influenza Type A (PCR) (Not Detectd) Influenza Type B (PCR) (Not Detectd) RSV (PCR) (Not Detectd) SARS-CoV-2 (PCR) (Not Detectd) 11/06/23 11/06/23 Range/Units 11:40 11:40 WBC (3.8-10.6) k/uL RBC (3.80-5.40) m/uL Hgb (11.4-16.0) gm/dL Hct (34.0-46.0) % MCV (80.0-100.0) fL MCH (25.0-35.0) pg MCHC (31.0-37.0) g/dL RDW (11.5-15.5) % Plt Count (150-450) k/uL MPV Neutrophils % % Lymphocytes % % Monocytes % % Eosinophils % % Basophils % % Neutrophils # (1.3-7.7) k/uL Lymphocytes # (1.0-4.8) k/uL Monocytes # (0-1.0) k/uL Eosinophils # (0-0.7) k/uL Basophils # (0-0.2) k/uL Manual Slide Review Anisocytosis Macrocytosis Sodium (137-145) mmol/L Potassium (3.5-5.1) mmol/L Chloride (98-107) mmol/L Carbon Dioxide (22-30) mmol/L Anion Gap mmol/L BUN (7-17) mg/dL Creatinine (0.52-1.04) mg/dL Est GFR (CKD-EPI)AfAm (>60 ml/min/1.73 sqM) Est GFR (CKD-EPI)NonAf (>60 ml/min/1.73 sqM) Glucose (74-99) mg/dL Plasma Lactic Acid Brayan 1.3 (0.7-2.0) mmol/L Calcium (8.4-10.2) mg/dL Phosphorus (2.5-4.5) mg/dL Magnesium (1.6-2.3) mg/dL Total Bilirubin (0.2-1.3) mg/dL AST (14-36) U/L ALT (4-34) U/L Alkaline Phosphatase (38-126) U/L Total Protein (6.3-8.2) g/dL Albumin (3.5-5.0) g/dL Amylase (30-110) U/L Lipase (23-300) U/L Urine Color Urine Appearance (Clear) Urine pH (5.0-8.0) Ur Specific [place] (1.001-1.035) Urine Protein (Negative) Urine Glucose (UA) (Negative) Urine Ketones (Negative) Urine Blood (Negative) Urine Nitrite (Negative) Urine Bilirubin (Negative) Urine Urobilinogen (<2.0) mg/dL Ur Leukocyte Esterase (Negative) Influenza Type A (PCR) Not Detected (Not Detectd) Influenza Type B (PCR) Not Detected (Not Detectd) RSV (PCR) Not Detected (Not Detectd) SARS-CoV-2 (PCR) Not Detected (Not Detectd) - Radiology Data Radiology results: report reviewed, image reviewed Disposition Clinical Impression: Gastroenteritis, Dehydration, Hypotension Disposition: ADMITTED IP TO THIS [facility] Time of Disposition: 14:41
[2023-11-06 12:12] LABS: Anisocytosis Moderate; Basophils % (A) 0 %; Eosinophils % (A) 1 %; HCT 21.9 % (34.0-46.0); HGB 7.8 gm/dL (11.4-16.0); Lymphocytes # (A) 0.2 k/uL (1.0-4.8); Lymphocytes % (A) 10 %; MCH 31.7 pg (25.0-35.0); MCHC 35.3 g/dL (31.0-37.0); MCV 89.6 fL (80.0-100.0); Macrocytosis Slight; Mean Platelet Volume 9.6; Monocytes # (A) 0.1 k/uL (0-1.0); Monocytes % (A) 4 %; Neutrophils # (A) 1.5 k/uL (1.3-7.7); Neutrophils % (A) 83 %; RBC 2.45 m/uL (3.80-5.40); RDW 23.6 % (11.5-15.5); WBC 1.8 k/uL (3.8-10.6)
[2023-11-06 12:23] LABS: ALT 17 U/L (4-34); AST 26 U/L (14-36); African American GFR (CKD) >90 (>60 ml/min/1.73 sqM); Albumin 2.8 g/dL (3.5-5.0); Alkaline Phosphatase 160 U/L (38-126); Amylase 40 U/L (30-110); Anion Gap 6 mmol/L; Blood Urea Nitrogen 25 mg/dL (7-17); Carbon Dioxide 23 mmol/L (22-30); Chloride 100 mmol/L (98-107); Glucose 103 mg/dL (74-99); Lipase <10 U/L (23-300); Magnesium 1.8 mg/dL (1.6-2.3); Non-African American GFR(CKD) 78 (>60 ml/min/1.73 sqM); Phosphorus 2.6 mg/dL (2.5-4.5); Potassium 3.8 mmol/L (3.5-5.1); Sodium 129 mmol/L (137-145); Total Bilirubin 1.6 mg/dL (0.2-1.3); Total Protein 5.3 g/dL (6.3-8.2)
--- NOTE | 2023-11-06 12:28 | XR ---
EXAMINATION TYPE: XR chest 2V DATE OF EXAM: 11/06/2023 COMPARISON: 05/24/2022 HISTORY: Shortness of breath TECHNIQUE: Frontal and lateral views of the chest are obtained. FINDINGS: Scattered senescent parenchymal changes noted. Hyperinflation compatible with COPD. Elevation right h emidiaphragm. Surgical clips overlie the region of the right breast and right axilla. MediPort cathet er is noted. No evidence for infiltrate. No evidence for atelectasis. Heart size is stable. Mediastinal structures are stable and grossly unremarkable. No evidence for hilar prominence. Degenerative changes dorsal spine. IMPRESSION: 1. No evidence for acute pulmonary disease.
[2023-11-06 12:40] LABS: Platelet Count 75 k/uL (150-450)
[2023-11-06 14:02] LABS: Appearance,Urine Clear (Clear); Bilirubin,Urine Negative (Negative); Blood,Urine Negative (Negative); Color,Urine Yellow; Glucose,Urine (UA) Negative (Negative); Ketones,Urine Trace (Negative); Leukocyte Esterase,Urine Negative (Negative); Nitrite,Urine Negative (Negative); Protein,Urine Trace (Negative); Specific Gravity,Urine 1.044 (1.001-1.035); Urobilinogen,Urine <2.0 mg/dL (<2.0)
--- NOTE | 2023-11-06 14:30 | CT ---
EXAMINATION TYPE: CT abdomen pelvis w con CT DLP: 1051 mGycm, Automated exposure control for dose reduction was used. DATE OF EXAM: 11/06/2023 1:31 PM COMPARISON: PET CT 04/25/2023 CLINICAL INDICATION:Female, 68 years old with history of abdominal pain with nausea, vomiting and floyd rrhea.; Nausea, vomiting and diarrhea with abdominal pain since Friday. TECHNIQUE: Axial CT abdomen pelvis w con;Sagittal and coronal reformats were created on a separate w orkstation. Contrast used:100 ml mL of Isovue 300 with IV Contrast, (none if empty) Oral contrast used: without Oral Contrast (none if empty) FINDINGS: LOWER CHEST: 2.4 cm pulmonary nodule appears to have a talus/pleura and is located in the left lower lobe paraspinal location ABDOMEN LIVER: Unremarkable GALLBLADDER AND BILE DUCTS: Cholecystectomy clips present in the gallbladder fossa. PANCREAS: Unremarkable. SPLEEN: Unremarkable. ADRENAL GLANDS: Unremarkable. KIDNEYS AND URETERS: No evidence of hydronephrosis or renal calculus. The ureters are unremarkable. PELVIS BLADDER: Unremarkable REPRODUCTIVE: Unremarkable. ABDOMEN & PELVIS STOMACH AND BOWEL: Stomach and duodenum are unremarkable. Small bowel loops are normal caliber. Certa inly loops contain liquid contents. No evidence of bowel obstruction. PERITONEUM/RETROPERITONEUM: No evidence of pneumoperitoneum or free fluid. VASCULATURE: No evidence of aortic aneurysm. MUSCULOSKELETAL: No acute osseous abnormalities LYMPH NODES: No gross evidence for lymphadenopathy. SOFT TISSUE/ABDOMINAL WALL: Question of a soft tissue mass anterior abdomen to the right of midline. IMPRESSION: 1. 2.5 cm solid pulmonary nodule paravertebral pleural-based lesion left lower lobe. 2. Question of a soft tissue mass anterior abdomen to the right of midline. 3. Possible enteritis. 4. Diverticulosis without evidence of diverticulitis , located primarily the sigmoid colon 5. Cholecystectomy clips.
[2023-11-06] MEDS ORDERED: HYDROcodone/APAP 5-325MG 1 EACH TAB PO PRN (14:41)
[2023-11-06] MEDS ORDERED: MORPHINE SULFATE 4 MG/ML SYRINGE IV PRN (14:41)
[2023-11-06] MEDS ORDERED: ACETAMINOPHEN TAB 325 MG TAB PO PRN (14:41)
[2023-11-06] MEDS ORDERED: NALOXONE 0.4 MG/ML 1 ML VIAL IV PRN (14:41)
[2023-11-06] MEDS ORDERED: traMADol 50 MG TAB PO PRN (14:42)
[2023-11-06] MEDS ORDERED: ACETAMINOPHEN TAB 500 MG TAB PO PRN (14:42)
[2023-11-06] MEDS ORDERED: ALBUTEROL NEBULIZED 2.5 MG/3 ML INHALATION PRN ×2 (14:42)
[2023-11-06] MEDS ORDERED: NYSTATIN 100,000 UNIT/ML SUSP 500,000 UNIT/5 ML CUP PO PRN (14:42)
[2023-11-06] MEDS ORDERED: PETROLATUM, WHITE 49 GM JELLY TOPICAL PRN (14:45)
[2023-11-06] MEDS ORDERED: MUPIROCIN 2% OINT 22 GM TUBE TOPICAL PRN (14:45)
[2023-11-06] MEDS: HYDROcodone/APAP 10-325MG 1 EACH TAB PO PRN (16:50)
[2023-11-06] MEDS: AMPICILLIN-SULBACTAM 3 GM in SODIUM CHLORIDE 0.9% 100 ML IVPB SCH (18:07)
[2023-11-06] MEDS: SYMBICORT 160-4.5 MCG INHALER INHALATION SCH (21:21)
--- NOTE | 2023-11-06 21:49 | P.HPIM ---
History of Present Illness H&P Date: 11/06/23 Chief Complaint: Low blood pressure sent from office Patient is a 68-year-old female with a past medical history of metastatic breast cancer with mets to the lung and status post radiation about a week ago, COPD/asthma hypertension, hypothyroidism, obstructive sleep apnea ne phrolithiasis and prior history of smoking was sent from Dr. Woo's office. Patient initially presented to the clinic with complaints of nausea vomiting and diarrhea and subjective fevers and chills. Patient had radiation therapy last week and she has not been feeling well since this Friday/ days. Patient is also on oral chemotherapy. Diarrhea is mainly watery. Denies any blood in the stool. Patient was found to be hypotensive when she was seen at her oncologist office this morning. She was sent to ER for evaluation and possible antibiotics. Denies any cough or sputum production. No chest pain. Patient did have shortness of breath. Denies dysuria or hematuria. Chest x-ray showed no evidence for acute pulmonary process. CT of the abdomen pelvis showed 2.5 cm solid pulmonary nodule paravertebral pleural-based lesion left lower lobe. Question of soft tissue mass anterior abdominal to the right of midline. Possible enteritis, diverticulosis without evidence for diverticulitis, located primarily the sigmoid colon. Cholecystectomy clips. EKG showed sinus rhythm. Patient has been afebrile on admission. Blood pressure was 87/54 Laboratory data showed WBC 1.8 hemoglobin 7.8 and platelets 75 Sodium 129 potassium 3.8 chloride 100 bicarb is 23 BUN 25 and creatinine 0.79 and blood sugar 103 Magnesium 1.8 total bili 1.6 AST ALT within normal limits and alk phos 160 lipase less than 10 Urinalysis is negative for infection [place] RSV and COVID-19 PCR not detected. Review of Systems Constitutional: Patient was complaining of subjective fever and chills. Generalized weakness and fatigue and loss of appetite. Abdomen: Patient complains of nausea vomiting and diarrhea. Denies any abdominal pain. No constipation. Cardiovascular: Patient denies any chest pain. Positive for short of breath no palpitations. No leg swelling Respiratory: patient denied any cough is from production. Positive for mild shortness of breath Neurologic: Patient denied any numbness or tingling headache. Musculoskeletal: Patient denies any complaints of joint swelling or deformity. Skin: Negative Psychiatric: Negative Endocrine: No heat or cold intolerance. No recent weight gain. Genitourinary: No dysuria or hematuria. All other 14 point ROS negative except the above Past Medical History Past Medical History: Asthma, Cancer, COPD, Deep Vein Thrombosis (DVT), GERD/Reflux, Hypertension, Myocardial Infarction ([place]), Sleep Apnea/CPAP/BIPAP, Thyroid Disorder Additional Past Medical History / Comment(s): Metastatic breast cancer, diagnosis was 1997 treated by lumpectomy radiation therapy and chemotherapy and subsequent recurrence in September 2017 and the patient developed chest wall recurrence, supraclavicular lymph node involvement and axillary lymph node involvement. The patient is currently on Femara and Ibrance, bronchial asthma, obstructive sleep apnea uses cpap, chronic ALLERGIC rhinitis, hypertension, coronary artery disease, acid reflux, previous history of DVT, history of neph rolithiasis, previous history of E. coli in January 2018, migraines, shingles more than 20 years ago, PVD. mild arthritis Last Myocardial Infarction Date:: 2008 History of Any Multi-Drug Resistant Organisms: None Reported Past Surgical History: Appendectomy, Section, Cholecystectomy, Hysterectomy Additional Past Surgical History / Comment(s): Laparoscopy, 1997RT BREAST BX/ Lumpectomy with lymph node resection in 1997 ON RIGHT BREAST DID RADIATION AND CHEMO, STILL HAS METAL CLIPS IN SCOTTY BREASTS FROM WHEN THEY DID MAMORGAMS AND BIOPSIES. 09/2017 HAD "REOCCURANCE OF RT BREAST CANCER THEY REMOVED THE REMAINING LYMPH NODES RT AXILLA/ / NECK AND IS ON ORL CHEMO" . PT STATED "HAD PARTIAL HYS TERECTOMY STILL HAD 1 OVARY BUT THE CHEMO TX DESTROYED IT" Past Anesthesia/Blood Transfusion Reactions: No Reported Reaction Additional Past Anesthesia/Blood Transfusion Reaction / Comment(s): CLAUSTERPHOBIA. Brother almost coded x2 . Past Psychological History: No Psychological Hx Reported Smoking Status: Former smoker Past Alcohol Use History: None Reported Past Drug Use History: None Reported - Past Family History Father Family Medical History: Hypertension Additional Family Medical History / Comment(s): DIVERTICULITIS, IN HIS SLEEP AT AGE 81 Mother Family Medical History: Cancer, Hypertension Additional Family Medical History / Comment(s): BREAST CANCER Medications and Allergies Home Medications Medication Instructions Recorded Confirmed Type Albuterol Sulfate [Ventolin HFA] 2 puff INHALATION RT-Q4H PRN 11/23/13 11/06/23 History Budesonide-Formot 160-4.5 Mcg 2 puff INHALATION RT-BID 09/15/14 11/06/23 History [Symbicort 160-4.5 Mcg Inhaler] Omeprazole [PriLOSEC] 20 mg PO DAILY 01/20/15 11/06/23 History Albuterol Nebulized [Ventolin 2.5 mg INHALATION RT-QID PRN 05/16/16 11/06/23 History Nebulized] Aspirin EC [Ecotrin Low Dose] 81 mg PO DAILY 07/20/19 11/06/23 History Cetirizine HCl [Zyrtec] 10 mg PO DAILY 07/20/19 11/06/23 History Levothyroxine Sodium [Synthroid] 100 mcg PO DAILY 05/22/22 11/06/23 History Acetaminophen Tab [Tylenol Tab] 1,000 mg PO Q6HR PRN #30 tablet 05/24/22 11/06/23 Rx traMADol HCL 50 mg PO Q4H PRN 04/11/23 11/06/23 History Calcium Carbonate/Vitamin D3 2 tab PO DAILY 11/06/23 11/06/23 History [Calcium 600 mg-D3 20 mcg (800 unit)] HYDROcodone/APAP 10-325MG [[place] 1 tab PO Q6HR PRN 11/06/23 11/06/23 History 10-325] Mupirocin 2% Oint [Bactroban 2% 1 applic TOPICAL DIRECTED 11/06/23 11/06/23 History Oint] Nystatin 100,000 Unit/ml Susp 5 ml PO QID PRN 11/06/23 11/06/23 History [Mycostatin Oral Susp] Olaparib [Lynparza] 300 mg PO BID 11/06/23 11/06/23 History Triamterene/Hydrochlorothiazid 1 tab PO DAILY 11/06/23 11/06/23 History [Triamterene-Hctz 37.5-25 mg Tb] Vaseline 1 applic TOPICAL DIRECTED 11/06/23 11/06/23 History metroNIDAZOLE 0.75% CREAM 1 applic TOPICAL DIRECTED 11/06/23 11/06/23 History [Metrocream 0.75%] Allergies Allergy/AdvReac Type Severity Reaction Status Date / Time shellfish derived [Shrimp] Allergy Mild Unknown Verified 11/06/23 13:19 Sulfa (Sulfonamide Allergy rash & Verified 11/06/23 13:19 Antibiotics) severe headache sulfamethoxazole Allergy rash & Verified 11/06/23 13:19 [From Bactrim] severe headache trimethoprim [From Bactrim] Allergy rash & Verified 11/06/23 13:19 severe headache clarithromycin [From Biaxin] AdvReac rash & Verified 11/06/23 13:19 severe headache Physical Exam Vitals: Vital Signs Temp Pulse Resp BP Pulse Ox 11/06/23 18:09 88 16 101/59 100 11/06/23 16:23 89 16 95/55 98 11/06/23 12:34 92 14 96/61 100 11/06/23 11:08 97.7 F 100 18 87/54 99 Intake and Output 11/06/23 11/06/23 11/06/23 06:59 14:59 22:59 Other: Weight 72.575 kg PHYSICAL EXAMINATION: Patient is lying in the bed,, no acute distress, awake alert and oriented. Lethargic and weak.. HEENT: Normocephalic. Neck is supple. Pupils reactive. Nostrils clear. Oral cavity is moist. Neck reveals no JVD, carotid bruits, or thyromegaly. CHEST EXAMINATION: Trachea is central. Symmetrical expansion. Lung matthew clear to auscultation and percussion. CARDIAC: Normal S1, S2 with no gallops. No murmurs ABDOMEN: Soft. Bowel sounds normal. No organomegaly. No abdominal bruits. Extremities: reveal no edema. No clubbing or cyanosis Neurologically awake, alert, oriented x3 with well-coordinated movements. No gross focal deficits noted Skin: No rash or skin lesions. Psychiatric: Coperative. Nonsuicidal Musculoskeletal: No joint swelling or deformity. Normal range of motion. Results CBC & Chem 7: 11/06/23 11:40 11/06/23 11:40 Labs: Abnormal Lab Results - Last 24 Hours (Table) 11/06/23 11/06/23 11/06/23 Range/Units 11:40 11:40 11:40 WBC 1.8 L (3.8-10.6) k/uL RBC 2.45 L (3.80-5.40) m/uL Hgb 7.8 L (11.4-16.0) gm/dL Hct 21.9 L (34.0-46.0) % RDW 23.6 H (11.5-15.5) % Plt Count 75 L (150-450) k/uL Lymphocytes # 0.2 L (1.0-4.8) k/uL Sodium 129 L (137-145) mmol/L BUN 25 H (7-17) mg/dL Glucose 103 H (74-99) mg/dL Calcium 8.0 L (8.4-10.2) mg/dL Total Bilirubin 1.6 H (0.2-1.3) mg/dL Alkaline Phosphatase 160 H (38-126) U/L Total Protein 5.3 L (6.3-8.2) g/dL Albumin 2.8 L (3.5-5.0) g/dL Lipase <10 L (23-300) U/L Ur Specific [place] 1.044 H (1.001-1.035) Urine Protein Trace H (Negative) Urine Ketones Trace H (Negative) Thrombosis Risk Factor Assmnt - DVT/VTE Prophylaxis DVT/VTE Prophylaxis: Pharmacologic Prophylaxis ordered Assessment and Plan Assessment: Nausea vomiting and diarrhea along with subjective fever and chills. Possible enteritis. Infectious versus chemo related. Hypotension due to above Hypovolemic hyponatremia Pancytopenia secondary to chemotherapy Hypothyroidism COPD/asthma not in exacerbation Prior history of radiation pneumonitis Obstructive sleep apnea Prior history of DVT GERD Hypertension Prior history of smoking DVT prophylaxis with Lovenox subcu and GI prophylaxis with PPI Plan: Patient will be continued on IV hydration with normal saline 100 cc/h. Blood cultures were sent from the ER. Rule out C. difficile infection. Symptomatic management for nausea and vomiting. Replace electrolytes. Continue with empiric antibiotics due to enteritis. Started on Unasyn 3 g every 6 hourly. Chronic pain management and home medications. Oncology was consulted for evaluation. Follow-up CBC and BMP. Continue to follow closely and prognosis is guarded. Time with Patient: Greater than 30
[2023-11-06] MEDS: OLAPARIB 150 MG PO SCH (22:53)
[2023-11-07] MEDS: ONDANSETRON 4 MG/2 ML VIAL IVP PRN (03:35)
[2023-11-07] MEDS: LEVOTHYROXINE 100 MCG TAB PO SCH (06:24)
[2023-11-07] MEDS: PANTOPRAZOLE 40 MG/10 ML VIAL IV SCH (08:44)
[2023-11-07] MEDS: CALCIUM CARB-VIT D 500 MG-5 MCG TAB PO SCH (08:50)
[2023-11-07] MEDS: LORATADINE 10 MG TAB PO SCH (08:51)
[2023-11-07] MEDS: ASPIRIN 81 MG PO SCH (08:51)
[2023-11-07] MEDS: TRIAMTERENE-HCTZ 37.5-25MG 1 EACH CAP PO SCH (08:52)
[2023-11-07] MEDS: ENOXAPARIN 30 MG/0.3 ML SYRINGE SQ SCH (08:52)
[2023-11-07] MEDS ORDERED: NON FORMULARY DRUG (Omeprazole [Prilosec] 20 MG Capsule.Dr) PO SCH (09:00)
[2023-11-07 10:53] LABS: BUN/Creat Ratio 21.71 Ratio (12.00-20.00); Blood Urea Nitrogen 15.2 mg/dL (9.0-27.0); Calcium 7.8 mg/dL (8.7-10.3); Carbon Dioxide 21.5 mmol/L (21.6-31.8); Chloride 104 mmol/L (96-109); Glucose 93 mg/dL (70-110); Potassium 3.5 mmol/L (3.5-5.5); Sodium 136 mmol/L (135-145)
[2023-11-07 11:21] LABS: Basophils # (A) 0 X 10*3/uL (0.00-0.10); Basophils % (A) 0 %; Eosinophils # (A) 0.07 X 10*3/uL (0.04-0.35); Eosinophils % (A) 4.3 %; Immature Platelet Fraction 9.8 % (1.1-6.1); Lymphocytes # (A) 0.34 X 10*3/uL (0.90-5.00); Lymphocytes % (A) 20.7 %; MCH 30.5 pg (27.0-32.0); MCHC 32.4 g/dL (32.0-37.0); MCV 94.2 FL (80.0-97.0); Mean Platelet Volume 11.5 FL (9.5-12.2); Monocytes # (A) 0.18 X 10*3/uL (0.20-1.00); NRBC Per 100 WBC 0 X 10*3/uL (0.00-0.01); Neutrophils # (A) 1.04 X 10*3/uL (1.80-7.70); Neutrophils % (A) 63.4 %; Platelet Count 69 X 10*3/uL (140-440); RBC 1.54 X 10*6/uL (4.10-5.20); RBC Morphology Normal (Normal); RDW 22.5 % (11.5-14.5); WBC 1.64 X 10*3/uL (4.50-10.00)
[2023-11-07 11:31] LABS: HGB 4.7 g/dL (12.0-15.0)
[2023-11-07 11:32] LABS: HCT 14.5 % (37.2-46.3)
[2023-11-07 12:37] LABS: Anisocytosis Moderate; Hypochromasia Slight; MCH 29.7 pg (25.0-35.0); MCHC 31.8 g/dL (31.0-37.0); MCV 93.4 fL (80.0-100.0); Macrocytosis Slight; Mean Platelet Volume 9.3; RBC 1.73 m/uL (3.80-5.40); RDW 23.4 % (11.5-15.5)
[2023-11-07 12:38] LABS: Platelet Count 79 k/uL (150-450)
[2023-11-07 12:41] LABS: WBC 1.4 k/uL (3.8-10.6)
[2023-11-07 12:42] LABS: HCT 16.2 % (34.0-46.0); HGB 5.1 gm/dL (11.4-16.0)
[2023-11-07] MEDS: SODIUM CHLORIDE 0.9% 1,000 ML IV SCH (14:42)
--- NOTE | 2023-11-07 15:04 | P.CONS ---
History of Present Illness - Reason for Consult Consult date: 11/07/23 Metastatic breast cancer - Chief Complaint Weakness - History of Present Illness Ms. Zafar is a pleasant 68-year-old woman with a past medical history significant for metastatic breast cancer status post multiple lines of treatment including Ibrance/aromatase inhibitor, and Enhertu, and Trodelvy currently on olaparib who presented with increased weakness with diarrhea. This started acutely approximately 5 days ago with profuse watery diarrhea and nausea without melena, hematochezia, or bright red blood per rectum. As the diarrhea persisted, she noted having increased weakness. She denied having this type of diarrhea from olaparib. There were no known sick contacts and no one with eulogio lar symptoms. She had a routine clinic visit on 11/06/2023 and was recommended to present to the ED for further evaluation. On presentation, blood pressure was 87/54 with other vital signs being stable. Labs revealed WBC 1.8 (ANC 1.5), hemoglobin 7.8, platelets 75. Sodium was 129 with creatinine 0.79. Total bilirubin was 1.6 with alkaline phosphatase 160. Amylase/lipase, urinalysis, and viral PCR were all negative. Chest x-ray revealed no acute cardiopulmonary process. CT abdomen/pelvis revealed possible enteritis with no other acute findings. She was given Zofran 4 mg IV x 1 along with a total of 3 L normal saline and admitted to internal medicine for additional management. Since admission, she notes feeling improved with no nausea or diarrhea. Review of Systems 14 point review of systems was conducted with pertinent positives and negatives as noted per HPI Past Medical History Past Medical History: Asthma, Cancer, COPD, Deep Vein Thrombosis (DVT), GERD/Reflux, Hypertension, Myocardial Infarction ([place]), Sleep Apnea/CPAP/BIPAP, Thyroid Disorder Additional Past Medical History / Comment(s): Metastatic breast cancer, diagnosis was 1997 treated by lumpectomy radiation therapy and chemotherapy and subsequent recurrence in September 2017 and the patient developed chest wall recurrence, supraclavicular lymph node involvement and axillary lymph node involvement. The patient is currently on Femara and Ibrance, bronchial asthma, obstructive sleep apnea uses cpap, chronic ALLERGIC rhinitis, hypertension, coronary artery disease, acid reflux, previous history of DVT, history of nephrolithiasis, previous history of E. coli in January 2018, migraines, shingles more than 20 years ago, PVD. mild arthritis Last Myocardial Infarction Date:: 2008 History of Any Multi-Drug Resistant Organisms: None Reported Past Surgical History: Appendectomy, Section, Cholecystectomy, Hysterectomy Additional Past Surgical History / Comment(s): Laparoscopy, 1997RT BREAST BX/ Lumpectomy with lymph node resection in 1997 ON RIGHT BREAST DID RADIATION AND CHEMO, STILL HAS METAL CLIPS IN SCOTTY BREASTS FROM WHEN THEY DID MAMORGAMS AND BIOPSIES. 09/2017 HAD "REOCCURANCE OF RT BREAST CANCER THEY REMOVED THE REMAINING LYMPH NODES RT AXILLA/ / NECK AND IS ON ORL CHEMO" . PT STATED "HAD PARTIAL HYSTERECTOMY STILL HAD 1 OVARY BUT THE CHEMO TX DESTROYED IT" Past Anesthesia/Blood Transfusion Reactions: No Reported Reaction Additional Past Anesthesia/Blood Transfusion Reaction / Comm: CLAUSTERPHOBIA. Brother almost coded x2 . Past Psychological History: No Psychological Hx Reported Smoking Status: Former smoker Past Alcohol Use History: None Reported Past Drug Use History: None Reported - Past Family History Father Family Medical History: Hypertension Additional Family Medical History / Comment(s): DIVERTICULITIS, IN HIS SLEEP AT AGE 81 Mother Family Medical History: Cancer, Hypertension Additional Family Medical History / Comment(s): BREAST CANCER Medications and Allergies Home Medications Medication Instructions Recorded Confirmed Type Albuterol Sulfate [Ventolin HFA] 2 puff INHALATION RT-Q4H PRN 11/23/13 11/06/23 History Budesonide-Formot 160-4.5 Mcg 2 puff INHALATION RT-BID 09/15/14 11/06/23 History [Symbicort 160-4.5 Mcg Inhaler] Omeprazole [PriLOSEC] 20 mg PO DAILY 01/20/15 11/06/23 History Albuterol Nebulized [Ventolin 2.5 mg INHALATION RT-QID PRN 05/16/16 11/06/23 History Nebulized] Aspirin EC [Ecotrin Low Dose] 81 mg PO DAILY 07/20/19 11/06/23 History Cetirizine HCl [Zyrtec] 10 mg PO DAILY 07/20/19 11/06/23 History Levothyroxine Sodium [Synthroid] 100 mcg PO DAILY 05/22/22 11/06/23 History Acetaminophen Tab [Tylenol Tab] 1,000 mg PO Q6HR PRN #30 tablet 05/24/22 11/06/23 Rx traMADol HCL 50 mg PO Q4H PRN 04/11/23 11/06/23 History Calcium Carbonate/Vitamin D3 2 tab PO DAILY 11/06/23 11/06/23 History [Calcium 600 mg-D3 20 mcg (800 unit)] HYDROcodone/APAP 10-325MG [[place] 1 tab PO Q6HR PRN 11/06/23 11/06/23 History 10-325] Mupirocin 2% Oint [Bactroban 2% 1 applic TOPICAL DIRECTED 11/06/23 11/06/23 History Oint] Nystatin 100,000 Unit/ml Susp 5 ml PO QID PRN 11/06/23 11/06/23 History [Mycostatin Oral Susp] Olaparib [Lynparza] 300 mg PO BID 11/06/23 11/06/23 History Triamterene/Hydrochlorothiazid 1 tab PO DAILY 11/06/23 11/06/23 History [Triamterene-Hctz 37.5-25 mg Tb] Vaseline 1 applic TOPICAL DIRECTED 11/06/23 11/06/23 History metroNIDAZOLE 0.75% CREAM 1 applic TOPICAL DIRECTED 11/06/23 11/06/23 History [Metrocream 0.75%] Allergies Allergy/AdvReac Type Severity Reaction Status Date / Time shellfish derived [Shrimp] Allergy Mild Unknown Verified 11/06/23 13:19 Sulfa (Sulfonamide Allergy rash & Verified 11/06/23 13:19 Antibiotics) severe headache sulfamethoxazole Allergy rash & Verified 11/06/23 13:19 [From Bactrim] severe headache trimethoprim [From Bactrim] Allergy rash & Verified 11/06/23 13:19 severe headache clarithromycin [From Biaxin] AdvReac rash & Verified 11/06/23 13:19 severe headache Physical Exam Vitals: Vital Signs Temp Pulse Resp BP Pulse Ox 11/07/23 11:39 98.3 F 90 17 96/59 95 11/07/23 07:59 96 11/07/23 06:59 98.8 F 92 16 91/53 94 L 11/07/23 03:00 84 18 93/59 97 11/07/23 00:00 89 18 103/59 98 11/06/23 21:00 78 16 94/56 97 11/06/23 19:35 98.0 F 84 16 91/56 94 L 11/06/23 18:09 88 16 101/59 100 11/06/23 16:23 89 16 95/55 98 - Constitutional Fatigued appearing General appearance: cooperative, no acute distress - EENT Eyes: EOMI - Respiratory Respiratory: bilateral: CTA - Cardiovascular Rhythm: regular - Gastrointestinal General gastrointestinal: no distended, hyperactive bowel sounds, soft, no tenderness - Integumentary Integumentary: pale - Neurologic Neurologic: focal deficits - Musculoskeletal Ulcerated right chest wall lesion - Psychiatric Psychiatric: A&O x's 3, appropriate affect Results CBC & Chem 7: 11/07/23 11:46 11/07/23 07:43 Labs: Abnormal Lab Results - Last 24 Hours (Table) 11/07/23 11/07/23 11/07/23 Range/Units 07:43 07:43 11:46 WBC 1.64 L 1.4 L* (4.50-10.00) X 10*3/uL RBC 1.54 L 1.73 L (4.10-5.20) X 10*6/uL Hgb 4.7 A* 5.1 L* D (12.0-15.0) g/dL Hct 14.5 A* 16.2 L* (37.2-46.3) % RDW 22.5 H 23.4 H (11.5-14.5) % Plt Count 69 L 79 L (140-440) X 10*3/uL Neutrophils # 1.04 L (1.80-7.70) X 10*3/uL Lymphocytes # 0.34 L (0.90-5.00) X 10*3/uL Monocytes # 0.18 L (0.20-1.00) X 10*3/uL Immature Plt Fraction 9.8 H (1.1-6.1) % Carbon Dioxide 21.5 L (21.6-31.8) mmol/L BUN/Creatinine Ratio 21.71 H (12.00-20.00) Ratio Calcium 7.8 L (8.7-10.3) mg/dL Assessment and Plan (1) Gastroenteritis Current Visit: Yes Status: Acute Priority: High Code(s): K52.9 - NONINFECTIVE GASTROENTERITIS AND COLITIS, UNSPECIFIED SNOMED Code(s): 81852359 (2) Metastatic breast cancer Current Visit: No Status: Chronic Priority: Medium Code(s): C50.919 - MALIGNANT NEOPLASM OF UNSP SITE OF UNSPECIFIED FEMALE BREAST SNOMED Code(s): 502090163 (3) Pancytopenia due to chemotherapy Current Visit: Yes Status: Acute Code(s): D61.810 - ANTINEOPLASTIC CHEMOTHERAPY INDUCED PANCYTOPENIA SNOMED Code(s): 9994096 Plan: #Gastroenteritis -Presented with acute abdominal pain, nausea, and watery diarrhea over the past 4 to 5 days -CT abdomen/pelvis revealing enteritis with no acute findings -Nausea and diarrhea have improved since admission with no episodes of diarrhea currently -This is likely viral/bacterial gastroenteritis, which is slowly improving -Start normal saline 125 cc/h in addition to aggressive oral hydration -Hold Lynparza as this can increase the risk of infection #Pancytopenia -Secondary to acute gastroenteritis superimposed on myelosuppression from Lynparza -Hemoglobin is stable compared to recent office measurements with decreasing WBC and platelets -Iron studies, vitamin B12/methylmalonic acid, and folic acid ordered to assess alternative etiologies #Metastatic breast cancer -Currently on Lynparza -Hold Lynparza at this time as above Elvira Woo MD
--- NOTE | 2023-11-07 17:27 | P.PN ---
Subjective Progress Note Date: 11/07/23 Patient is a 68-year-old female with a past medical history of metastatic breast cancer with mets to the lung and status post radiation about a week ago, COPD/asthma hypertension, hypothyroidism, obstructive sleep apnea nephrolithiasis and prior history of smoking was sent from Dr. Woo's office. Patient initially presented to the clinic with complaints of nausea vomiting and diarrhea and subjective fevers and chills. Patient had radiation therapy last week and she has not been feeling well since this Friday/ days. Patient is also on oral chemotherapy. Diarrhea is mainly watery. Denies any blood in the stool. Patient was found to be hypotensive when she was seen at her oncologist office this morning. She was sent to ER for evaluation and possible antibiotics. Denies any cough or sputum production. No chest pain. Patient did have shortness of breath. Denies dysuria or hematuria. Chest x-ray showed no evidence for acute pulmonary process. CT of the abdomen pelvis showed 2.5 cm solid pulmonary nodule paravertebral pleural-based lesion left lower lobe. Question of soft tissue mass anterior abdominal to the right of midline. Possible enteritis, diverticulosis without evidence for diverticulitis, located primarily the sigmoid colon. Cholecystectomy clips. EKG showed sinus rhythm. Patient has been afebrile on admission. Blood pressure was 87/54 Laboratory data showed WBC 1.8 hemoglobin 7.8 and platelets 75 Sodium 129 potassium 3.8 chloride 100 bicarb is 23 BUN 25 and creatinine 0.79 and blood sugar 103 Magnesium 1.8 total bili 1.6 AST ALT within normal limits and alk phos 160 lipase less than 10 Urinalysis is negative for infection [place] AB RSV and COVID-19 PCR not detected. Objective - Vital Signs Vital signs: Vital Signs Temp 98.3 F 11/07/23 11:39 Pulse 90 11/07/23 11:39 Resp 17 11/07/23 11:39 BP 96/59 11/07/23 11:39 Pulse Ox 95 11/07/23 11:39 FiO2 Intake & Output 11/06/23 11/07/23 11/07/23 18:59 06:59 18:59 Weight 72.575 kg - Exam Patient is lying in the bed,, no acute distress, awake alert and oriented. Lethargic and weak.. HEENT: Normocephalic. Neck is supple. Pupils reactive. Nostrils clear. Oral cavity is moist. Neck reveals no JVD, carotid bruits, or thyromegaly. CHEST EXAMINATION: Trachea is central. Symmetrical expansion. Lung matthew clear to auscultation and percussion. CARDIAC: Normal S1, S2 with no gallops. No murmurs ABDOMEN: Soft. Bowel sounds normal. No organomegaly. No abdominal bruits. Extremities: reveal no edema. No clubbing or cyanosis Neurologically awake, alert, oriented x3 with well-coordinated movements. No gross focal deficits noted Skin: No rash or skin lesions. Psychiatric: Coperative. Nonsuicidal Musculoskeletal: No joint swelling or deformity. Normal range of motion. - Labs CBC & Chem 7: 11/07/23 11:46 11/07/23 07:43 Labs: Abnormal Lab Results - Last 24 Hours (Table) 11/06/23 11/06/23 11/07/23 Range/Units 11:40 11:40 07:43 WBC 1.64 L (4.50-10.00) X 10*3/uL RBC 1.54 L (4.10-5.20) X 10*6/uL Hgb 4.7 A* (12.0-15.0) g/dL Hct 14.5 A* (37.2-46.3) % RDW 22.5 H (11.5-14.5) % Plt Count 75 L 69 L (150-450) k/uL Neutrophils # 1.04 L (1.80-7.70) X 10*3/uL Lymphocytes # 0.2 L 0.34 L (1.0-4.8) k/uL Monocytes # 0.18 L (0.20-1.00) X 10*3/uL Immature Plt Fraction 9.8 H (1.1-6.1) % Carbon Dioxide (21.6-31.8) mmol/L BUN/Creatinine Ratio (12.00-20.00) Ratio Calcium (8.7-10.3) mg/dL Ur Specific [place] 1.044 H (1.001-1.035) Urine Protein Trace H (Negative) Urine Ketones Trace H (Negative) 11/07/23 Range/Units 07:43 WBC (4.50-10.00) X 10*3/uL RBC (4.10-5.20) X 10*6/uL Hgb (12.0-15.0) g/dL Hct (37.2-46.3) % RDW (11.5-14.5) % Plt Count (150-450) k/uL Neutrophils # (1.80-7.70) X 10*3/uL Lymphocytes # (1.0-4.8) k/uL Monocytes # (0.20-1.00) X 10*3/uL Immature Plt Fraction (1.1-6.1) % Carbon Dioxide 21.5 L (21.6-31.8) mmol/L BUN/Creatinine Ratio 21.71 H (12.00-20.00) Ratio Calcium 7.8 L (8.7-10.3) mg/dL Ur Specific [place] (1.001-1.035) Urine Protein (Negative) Urine Ketones (Negative) Assessment and Plan Assessment: Nausea vomiting and diarrhea along with subjective fever and chills. Possible enteritis. Infectious versus chemo related. Hypotension due to above Hypovolemic hyponatremia Pancytopenia secondary to chemotherapy Hypothyroidism COPD/asthma not in exacerbation Prior history of radiation pneumonitis Obstructive sleep apnea Prior history of DVT GERD Hypertension Prior history of smoking DVT prophylaxis with Lovenox subcu and GI prophylaxis with PPI Plan: Patient will be continued on IV hydration with normal saline 100 cc/h. Blood cultures were sent from the ER. Rule out C. difficile infection. Symptomatic management for nausea and vomiting. Replace electrolytes. Continue with empiric antibiotics due to enteritis. Started on Unasyn 3 g every 6 hourly. Chronic pain management and home medications. Oncology was consulted for evaluation. Follow-up CBC and BMP. Continue to follow closely and prognosis is guarded.
[2023-11-07 22:51] LABS: % Iron Saturation 83.01 (12.00-45.00)
[2023-11-08 01:21] LABS: Anisocytosis Moderate; Hypochromasia Slight; MCH 30.4 pg (25.0-35.0); MCHC 32.6 g/dL (31.0-37.0); MCV 93.2 fL (80.0-100.0); Macrocytosis Slight; Mean Platelet Volume 9.4; RBC 1.95 m/uL (3.80-5.40); RDW 21.2 % (11.5-15.5)
[2023-11-08 01:22] LABS: WBC 1.3 k/uL (3.8-10.6)
[2023-11-08 01:25] LABS: HCT 18.2 % (34.0-46.0); HGB 5.9 gm/dL (11.4-16.0); Platelet Count 76 k/uL (150-450)
--- NOTE | 2023-11-08 08:01 | US ---
EXAMINATION TYPE: US venous doppler duplex UE RT DATE OF EXAM: 11/07/2023 COMPARISON: None CLINICAL INDICATION: Female, 68 years old with history of swelling; Right arm swelling. No redness. Chemotherapy. Hx breast cancer and skin cancer. Per patient, enlarged lymph nodes and mass at righ t clavicle. Patient has a large bandage in right upper chest with skin lesions leaking. SIDE PERFORMED: Right Grayscale, color doppler, spectral doppler imaging performed of the deep veins of the upper extremiti es. There is normal flow, compressibility and vascular waveforms. FINDINGS AND IMPRESSION: Didactic Instructor notes: Right Arm: Negative for DVT right upper extremity as visualized. Limited right [place] bclavian vein due to lesion and bandage.
[2023-11-08] MEDS: ENOXAPARIN 40 MG/0.4 ML SYRINGE SQ SCH (08:52)
[2023-11-08 09:19] LABS: HCT 21.3 % (37.2-46.3); HGB 6.9 g/dL (12.0-15.0); Immature Platelet Fraction 7.6 % (1.1-6.1); MCH 30.4 pg (27.0-32.0); MCHC 32.4 g/dL (32.0-37.0); MCV 93.8 FL (80.0-97.0); Mean Platelet Volume 12.5 FL (9.5-12.2); NRBC Per 100 WBC 0 X 10*3/uL (0.00-0.01); Platelet Count 72 X 10*3/uL (140-440); RBC 2.27 X 10*6/uL (4.10-5.20); RDW 18.2 % (11.5-14.5); WBC 1.31 X 10*3/uL (4.50-10.00)
[2023-11-08 09:53] LABS: Basophils # (A) 0.01 X 10*3/uL (0.00-0.10); Basophils % (A) 0.8 %; Eosinophils # (A) 0.08 X 10*3/uL (0.04-0.35); Eosinophils % (A) 6.1 %; Lymphocytes # (A) 0.34 X 10*3/uL (0.90-5.00); Monocytes # (A) 0.14 X 10*3/uL (0.20-1.00); Monocytes % (A) 10.7 %; Neutrophils # (A) 0.73 X 10*3/uL (1.80-7.70); Neutrophils % (A) 55.6 %; RBC Morphology Normal (Normal)
[2023-11-08 13:36] LABS: Blood Urea Nitrogen 9.9 mg/dL (9.0-27.0); Calcium 7.9 mg/dL (8.7-10.3); Chloride 108 mmol/L (96-109); Glucose 86 mg/dL (70-110); Potassium 3.8 mmol/L (3.5-5.5); Sodium 136 mmol/L (135-145)
--- NOTE | 2023-11-08 15:22 | P.PN ---
Subjective Progress Note Date: 11/08/23 Principal diagnosis: Metastatic breast cancer -Received 2 units of packed red blood cells for hemoglobin of 4.7 -Afebrile, no acute events overnight -Feels significantly improved today with decreased dizziness/lightheadedness and improved energy -She continues to have no diarrhea Objective - Vital Signs Vital signs: Vital Signs Temp 98.6 F 11/08/23 14:00 Pulse 104 H 11/08/23 14:00 Resp 18 11/08/23 14:00 BP 102/65 11/08/23 14:00 Pulse Ox 98 11/08/23 14:00 FiO2 Intake & Output 11/07/23 11/08/23 11/08/23 18:59 06:59 18:59 Intake Total 597 Balance 597 Weight 72.575 kg Intake: Blood Product 597 Rc As-1 Unit 310 [id number] Rc Pheresis 2 As3 Unit 287 [id number] Other: Voiding Method Toilet Toilet # Voids 2 - Constitutional General appearance: Present: cooperative, no acute distress - EENT Eyes: Present: EOMI - Respiratory Details: Warm and well-perfused - Cardiovascular Details: Nonlabored breathing - Gastrointestinal General gastrointestinal: Present: soft. Absent: distended - Integumentary Integumentary Comment(s): Appears less pale - Neurologic Neurologic: Present: CNII-XII intact. Absent: focal deficits - Musculoskeletal Musculoskeletal Comment(s): Ulcerated lesion in the right chest wall is unchanged with no bleeding or discharge - Labs CBC & Chem 7: 11/08/23 06:01 11/08/23 06:01 Labs: Abnormal Lab Results - Last 24 Hours (Table) 11/07/23 11/07/23 11/08/23 Range/Units 07:43 11:53 00:55 WBC 1.3 L* (3.8-10.6) k/uL RBC 1.95 L (3.80-5.40) m/uL Hgb 5.9 L* (11.4-16.0) gm/dL Hct 18.2 L* (34.0-46.0) % RDW 21.2 H (11.5-15.5) % Plt Count 76 L (150-450) k/uL MPV (9.5-12.2) FL Neutrophils # (1.80-7.70) X 10*3/uL Lymphocytes # (0.90-5.00) X 10*3/uL Monocytes # (0.20-1.00) X 10*3/uL Immature Plt Fraction (1.1-6.1) % Carbon Dioxide (21.6-31.8) mmol/L Calcium (8.7-10.3) mg/dL Iron 171 H (50-170) UG/DL TIBC 206 L (228-460) UG/DL % Saturation 83.01 H (12.00-45.00) Transferrin 147.0 L (204.0-354.0) mg/dL Ferritin 585.0 H (10.0-291.0) ng/mL Vitamin B12 1670.0 H (200.0-944.0) pg/mL Crossmatch See Detail 11/08/23 11/08/23 Range/Units 06:01 06:01 WBC 1.31 A* (3.8-10.6) k/uL RBC 2.27 L (3.80-5.40) m/uL Hgb 6.9 A* (11.4-16.0) gm/dL Hct 21.3 L (34.0-46.0) % RDW 18.2 H (11.5-15.5) % Plt Count 72 L (150-450) k/uL MPV 12.5 H (9.5-12.2) FL Neutrophils # 0.73 L (1.80-7.70) X 10*3/uL Lymphocytes # 0.34 L (0.90-5.00) X 10*3/uL Monocytes # 0.14 L (0.20-1.00) X 10*3/uL Immature Plt Fraction 7.6 H (1.1-6.1) % Carbon Dioxide 21.0 L (21.6-31.8) mmol/L Calcium 7.9 L (8.7-10.3) mg/dL Iron (50-170) UG/DL TIBC (228-460) UG/DL % Saturation (12.00-45.00) Transferrin (204.0-354.0) mg/dL Ferritin (10.0-291.0) ng/mL Vitamin B12 (200.0-944.0) pg/mL Crossmatch Microbiology - Last 24 Hours (Table) 11/06/23 13:40 Blood Culture - Preliminary Blood 11/06/23 13:15 Blood Culture - Preliminary Blood Assessment and Plan (1) Gastroenteritis Current Visit: Yes Status: Acute Priority: High Code(s): K52.9 - NONINFECTIVE GASTROENTERITIS AND COLITIS, UNSPECIFIED SNOMED Code(s): 73484355 (2) Metastatic breast cancer Current Visit: No Status: Chronic Priority: Medium Code(s): C50.919 - MALIGNANT NEOPLASM OF UNSP SITE OF UNSPECIFIED FEMALE BREAST SNOMED Code(s): 327214784 (3) Pancytopenia due to chemotherapy Current Visit: Yes Status: Acute Code(s): D61.810 - ANTINEOPLASTIC CHEMOTHERAPY INDUCED PANCYTOPENIA SNOMED Code(s): 2229946 Plan: #Gastroenteritis -Presented with acute abdominal pain, nausea, and watery diarrhea over the past 4 to 5 days -CT abdomen/pelvis revealing enteritis with no acute findings -Nausea and diarrhea have continued to improved since admission with no episodes of diarrhea currently -This is likely viral/bacterial gastroenteritis, which is improving -Continue normal saline 125 cc/h in addition to aggressive oral hydration -Hold Lynparza as this can increase the risk of infection #Pancytopenia -Secondary to acute gastroenteritis superimposed on myelosuppression from Lynparza -Received 2 units of packed red blood cells for hemoglobin of 4.7 on admission -Repeat hemoglobin today is 6.9 with significant clinical improvement. She continues to have stable neutropenia and thrombocytopenia -Nutritional workup performed on admission revealed no evidence of nutritional deficiencies -Given her medical improvement, we will hold on transfusion of packed red blood cells today and reassess her hemoglobin tomorrow -Transfuse platelets for platelet count less than or equal to 10 or bleeding #Metastatic breast cancer -Currently on Lynparza -Hold Lynparza at this time as above Elvira Woo MD
--- NOTE | 2023-11-08 15:45 | P.PN ---
Subjective Progress Note Date: 11/08/23 Patient is a 68-year-old female with a past medical history of metastatic breast cancer with mets to the lung and status post radiation about a week ago, COPD/asthma hypertension, hypothyroidism, obstructive sleep apnea nephrolithiasis and prior history of smoking was sent from Dr. Woo's office. Patient initially presented to the clinic with complaints of nausea vomiting and diarrhea and subjective fevers and chills. Patient had radiation therapy last week and she has not been feeling well since this Friday/ days. Patient is also on oral chemotherapy. Diarrhea is mainly watery. Denies any blood in the stool. Patient was found to be hypotensive when she was seen at her oncologist office this morning. She was sent to ER for evaluation and possible antibiotics. Denies any cough or sputum production. No chest pain. Patient did have shortness of breath. Denies dysuria or hematuria. Chest x-ray showed no evidence for acute pulmonary process. CT of the abdomen pelvis showed 2.5 cm solid pulmonary nodule paravertebral pleural-based lesion left lower lobe. Question of soft tissue mass anterior abdominal to the right of midline. Possible enteritis, diverticulosis without evidence for diverticulitis, located primarily the sigmoid colon. Cholecystectomy clips. EKG showed sinus rhythm. Patient has been afebrile on admission. Blood pressure was 87/54 Laboratory data showed WBC 1.8 hemoglobin 7.8 and platelets 75 Sodium 129 potassium 3.8 chloride 100 bicarb is 23 BUN 25 and creatinine 0.79 and blood sugar 103 Magnesium 1.8 total bili 1.6 AST ALT within normal limits and alk phos 160 lipase less than 10 Urinalysis is negative for infection [place] AB RSV and COVID-19 PCR not detected. --Patient is status posttransfusion with 2 units packed RBCs; denies any further dizziness or lightheadedness -- Reports improvement in diarrhea and vomiting; oncology on board and agreeable to blood transfusion and recommending to repeat CBC tomorrow; patient to receive platelet transfusion if platelet count is less than 10 Objective - Vital Signs Vital signs: Vital Signs Temp 97.9 F 11/08/23 07:39 Pulse 78 11/08/23 07:39 Resp 15 11/08/23 07:39 BP 118/74 11/08/23 07:39 Pulse Ox 97 11/08/23 07:39 FiO2 Intake & Output 0411/08/23 11/08/23 18:59 06:59 18:59 Intake Total 597 Balance 597 Weight 72.575 kg Intake: Blood Product 597 Rc As-1 Unit 310 [id number] Rc Pheresis 2 As3 Unit 287 [id number] Other: Voiding Method Toilet # Voids 2 - Exam Patient is lying in the bed,, no acute distress, awake alert and oriented. Lethargic and weak.. HEENT: Normocephalic. Neck is supple. Pupils reactive. Nostrils clear. Oral cavity is moist. Neck reveals no JVD, carotid bruits, or thyromegaly. CHEST EXAMINATION: Trachea is central. Symmetrical expansion. Lung matthew clear to auscultation and percussion. CARDIAC: Normal S1, S2 with no gallops. No murmurs ABDOMEN: Soft. Bowel sounds normal. No organomegaly. No abdominal bruits. Extremities: reveal no edema. No clubbing or cyanosis Neurologically awake, alert, oriented x3 with well-coordinated movements. No gross focal deficits noted Skin: No rash or skin lesions. Psychiatric: Coperative. Nonsuicidal Musculoskeletal: No joint swelling or deformity. Normal range of motion. - Labs CBC & Chem 7: 11/08/23 06:01 11/08/23 06:01 Labs: Abnormal Lab Results - Last 24 Hours (Table) 11/07/23 11/07/23 11/07/23 Range/Units 07:43 07:43 07:43 WBC 1.64 L (4.50-10.00) X 10*3/uL RBC 1.54 L (4.10-5.20) X 10*6/uL Hgb 4.7 A* (12.0-15.0) g/dL Hct 14.5 A* (37.2-46.3) % RDW 22.5 H (11.5-14.5) % Plt Count 69 L (140-440) X 10*3/uL MPV (9.5-12.2) FL Neutrophils # 1.04 L (1.80-7.70) X 10*3/uL Lymphocytes # 0.34 L (0.90-5.00) X 10*3/uL Monocytes # 0.18 L (0.20-1.00) X 10*3/uL Immature Plt Fraction 9.8 H (1.1-6.1) % Carbon Dioxide 21.5 L (21.6-31.8) mmol/L BUN/Creatinine Ratio 21.71 H (12.00-20.00) Ratio Calcium 7.8 L (8.7-10.3) mg/dL Iron 171 H (50-170) UG/DL TIBC 206 L (228-460) UG/DL % Saturation 83.01 H (12.00-45.00) Transferrin 147.0 L (204.0-354.0) mg/dL Ferritin 585.0 H (10.0-291.0) ng/mL Vitamin B12 1670.0 H (200.0-944.0) pg/mL Crossmatch 11/07/23 11/07/23 11/08/23 Range/Units 11:46 11:53 00:55 WBC 1.4 L* 1.3 L* (4.50-10.00) X 10*3/uL RBC 1.73 L 1.95 L (4.10-5.20) X 10*6/uL Hgb 5.1 L* D 5.9 L* (12.0-15.0) g/dL Hct 16.2 L* 18.2 L* (37.2-46.3) % RDW 23.4 H 21.2 H (11.5-14.5) % Plt Count 79 L 76 L (140-440) X 10*3/uL MPV (9.5-12.2) FL Neutrophils # (1.80-7.70) X 10*3/uL Lymphocytes # (0.90-5.00) X 10*3/uL Monocytes # (0.20-1.00) X 10*3/uL Immature Plt Fraction (1.1-6.1) % Carbon Dioxide (21.6-31.8) mmol/L BUN/Creatinine Ratio (12.00-20.00) Ratio Calcium (8.7-10.3) mg/dL Iron (50-170) UG/DL TIBC (228-460) UG/DL % Saturation (12.00-45.00) Transferrin (204.0-354.0) mg/dL Ferritin (10.0-291.0) ng/mL Vitamin B12 (200.0-944.0) pg/mL Crossmatch See Detail 11/08/23 Range/Units 06:01 WBC 1.31 A* (4.50-10.00) X 10*3/uL RBC 2.27 L (4.10-5.20) X 10*6/uL Hgb 6.9 A* (12.0-15.0) g/dL Hct 21.3 L (37.2-46.3) % RDW 18.2 H (11.5-14.5) % Plt Count 72 L (140-440) X 10*3/uL MPV 12.5 H (9.5-12.2) FL Neutrophils # 0.73 L (1.80-7.70) X 10*3/uL Lymphocytes # 0.34 L (0.90-5.00) X 10*3/uL Monocytes # 0.14 L (0.20-1.00) X 10*3/uL Immature Plt Fraction 7.6 H (1.1-6.1) % Carbon Dioxide (21.6-31.8) mmol/L BUN/Creatinine Ratio (12.00-20.00) Ratio Calcium (8.7-10.3) mg/dL Iron (50-170) UG/DL TIBC (228-460) UG/DL % Saturation (12.00-45.00) Transferrin (204.0-354.0) mg/dL Ferritin (10.0-291.0) ng/mL Vitamin B12 (200.0-944.0) pg/mL Crossmatch Microbiology - Last 24 Hours (Table) 11/06/23 13:40 Blood Culture - Preliminary Blood 11/06/23 13:15 Blood Culture - Preliminary Blood Assessment and Plan Assessment: Nausea vomiting and diarrhea along with subjective fever and chills. Possible enteritis. Infectious versus chemo related. Hypotension due to above Hypovolemic hyponatremia Pancytopenia secondary to chemotherapy Hypothyroidism COPD/asthma not in exacerbation Prior history of radiation pneumonitis Obstructive sleep apnea Prior history of DVT GERD Hypertension Prior history of smoking DVT prophylaxis with Lovenox subcu and GI prophylaxis with PPI Plan: Patient will be continued on IV hydration with normal saline 100 cc/h. Blood cultures were sent from the ER. Rule out C. difficile infection. Symptomatic management for nausea and vomiting. Replace electrolytes. Continue with empiric antibiotics due to enteritis. Started on Unasyn 3 g every 6 hourly. Chronic pain management and home medications. Oncology was consulted for evaluation. Follow-up CBC and BMP. Continue to follow closely and prognosis is guarded.
[2023-11-09 05:24] LABS: African American GFR (CKD) >90 (>60 ml/min/1.73 sqM); Anion Gap 6 mmol/L; Blood Urea Nitrogen 9 mg/dL (7-17); Calcium 7.8 mg/dL (8.4-10.2); Carbon Dioxide 18 mmol/L (22-30); Chloride 113 mmol/L (98-107); Glucose 86 mg/dL (74-99); Non-African American GFR(CKD) >90 (>60 ml/min/1.73 sqM); Potassium 4.4 mmol/L (3.5-5.1); Sodium 137 mmol/L (137-145)
--- NOTE | 2023-11-09 14:32 | P.PN ---
Subjective Progress Note Date: 11/09/23 Patient is a 68-year-old female with a past medical history of metastatic breast cancer with mets to the lung and status post radiation about a week ago, COPD/asthma hypertension, hypothyroidism, obstructive sleep apnea nephrolithiasis and prior history of smoking was sent from Dr. Woo's office. Patient initially presented to the clinic with complaints of nausea vomiting and diarrhea and subjective fevers and chills. Patient had radiation therapy last week and she has not been feeling well since this Friday/. Patient is also on oral chemotherapy. Diarrhea is mainly watery. Denies any blood in the stool. Patient was found to be hypotensive when she was seen at her oncologist office this morning. She was sent to ER for evaluation and possible antibiotics. Denies any cough or sputum production. No chest pain. Patient did have shortness of breath. Denies dysuria or hematuria. Chest x-ray showed no evidence for acute pulmonary process. CT of the abdomen pelvis showed 2.5 cm solid pulmonary nodule paravertebral pleural-based lesion left lower lobe. Question of soft tissue mass anterior abdominal to the right of midline. Possible enteritis, diverticulosis without evidence for diverticulitis, located primarily the sigmoid colon. Cholecystectomy clips. EKG showed sinus rhythm. Patient has been afebrile on admission. Blood pressure was 87/54 Laboratory data showed WBC 1.8 hemoglobin 7.8 and platelets 75 Sodium 129 potassium 3.8 chloride 100 bicarb is 23 BUN 25 and creatinine 0.79 and blood sugar 103 Magnesium 1.8 total bili 1.6 AST ALT within normal limits and alk phos 160 lipase less than 10 Urinalysis is negative for infection [place] AB RSV and COVID-19 PCR not detected. --Patient is status posttransfusion with 2 units packed RBCs; denies any further dizziness or lightheadedness -- Reports improvement in diarrhea and vomiting; oncology on board and agreeable to blood transfusion and recommending to repeat CBC tomorrow; patient to receive platelet transfusion if platelet count is less than 10 24-hour interval change 11/09/2023 Patient is seen and evaluated with family numbers at bedside; reports marked improvement in weakness and dizziness Vital signs are reviewed with temperature 98, pulse 104, respirations 17 and blood pressure 104/60, O2 saturation 97% on room air Lab review shows sodium 137, potassium 4.4, BUNs/creatinine of 9/0.56, CBC is pending We will plan to continue with current management; plan to transfuse if he moglobin is less than 7.0 or platelet count is less than 10,000 --Patient's dizziness and lightheadedness has resolved -- Possible discharge in next 24 hours if remains stable Objective - Vital Signs Vital signs: Vital Signs Temp 98.5 F 11/09/23 07:50 Pulse 94 11/09/23 07:50 Resp 17 11/09/23 07:50 BP 110/67 11/09/23 07:50 Pulse Ox 95 11/09/23 07:50 FiO2 Intake & Output 11/08/23 11/09/23 11/09/23 18:59 06:59 18:59 Intake Total 1080 590 Balance 1080 590 Intake: Oral 1080 590 Other: Voiding Method Toilet Toilet # Voids 2 2 - Exam Patient is lying in the bed,, no acute distress, awake alert and oriented. Lethargic and weak.. HEENT: Normocephalic. Neck is supple. Pupils reactive. Nostrils clear. Oral cavity is moist. Neck reveals no JVD, carotid bruits, or thyromegaly. CHEST EXAMINATION: Trachea is central. Symmetrical expansion. Lung matthew clear to auscultation and percussion. CARDIAC: Normal S1, S2 with no gallops. No murmurs ABDOMEN: Soft. Bowel sounds normal. No organomegaly. No abdominal bruits. Extremities: reveal no edema. No clubbing or cyanosis Neurologically awake, alert, oriented x3 with well-coordinated movements. No gross focal deficits noted Skin: No rash or skin lesions. Psychiatric: Coperative. Nonsuicidal Musculoskeletal: No joint swelling or deformity. Normal range of motion. - Labs CBC & Chem 7: 11/08/23 06:01 11/09/23 04:12 Labs: Abnormal Lab Results - Last 24 Hours (Table) 11/08/23 11/09/23 Range/Units 06:01 04:12 Chloride 113 H (98-107) mmol/L Carbon Dioxide 21.0 L 18 L (21.6-31.8) mmol/L Calcium 7.9 L 7.8 L (8.7-10.3) mg/dL Microbiology - Last 24 Hours (Table) 11/06/23 13:40 Blood Culture - Preliminary Blood 11/06/23 13:15 Blood Culture - Preliminary Blood Assessment and Plan Assessment: Nausea vomiting and diarrhea along with subjective fever and chills. Possible enteritis. Infectious versus chemo related. Hypotension due to above Hypovolemic hyponatremia Pancytopenia secondary to chemotherapy Hypothyroidism COPD/asthma not in exacerbation Prior history of radiation pneumonitis Obstructive sleep apnea Prior history of DVT GERD Hypertension Prior history of smoking DVT prophylaxis with Lovenox subcu and GI prophylaxis with PPI Plan: Patient will be continued on IV hydration with normal saline 100 cc/h. Blood cultures were sent from the ER. Rule out C. difficile infection. Symptomatic management for nausea and vomiting. Replace electrolytes. Continue with empiric antibiotics due to enteritis. Started on Unasyn 3 g every 6 hourly. Chronic pain management and home medications. Oncology was consulted for evaluation. Follow-up CBC and BMP. Continue to follow closely and prognosis is guarded.
--- NOTE | 2023-11-09 14:45 | P.PN ---
Subjective Progress Note Date: 11/09/23 Principal diagnosis: Metastatic breast cancer -Afebrile, no acute events overnight -She had regular diet for dinner yesterday, which caused nausea without vomiting -She did have clear liquid diet for breakfast, and tolerated this without any complications -Overall, she is feeling improved and denies any new signs or symptoms Objective - Vital Signs Vital signs: Vital Signs Temp 98 F 11/09/23 12:38 Pulse 104 H 11/09/23 12:38 Resp 17 11/09/23 12:38 BP 104/60 11/09/23 12:38 Pulse Ox 97 11/09/23 12:38 FiO2 Intake & Output 11/08/23 11/09/23 11/09/23 18:59 06:59 18:59 Intake Total 1080 590 Balance 1080 590 Intake: Oral 1080 590 Other: Voiding Method Toilet Toilet Toilet # Voids 2 2 4 - Constitutional General appearance: Present: cooperative, no acute distress - EENT Eyes: Present: EOMI ENT: Present: NA/AT - Respiratory Respiratory: bilateral: CTA - Cardiovascular Rhythm: regular - Gastrointestinal General gastrointestinal: Present: hyperactive bowel sounds (Improved from admission), soft. Absent: distended, tenderness - Integumentary Integumentary: Present: pale - Neurologic Neurologic: Present: CNII-XII intact. Absent: focal deficits - Psychiatric Psychiatric: Present: A&O x's 3, appropriate affect - Labs CBC & Chem 7: 11/08/23 06:01 11/09/23 04:12 Labs: Abnormal Lab Results - Last 24 Hours (Table) 11/09/23 Range/Units 04:12 Chloride 113 H (98-107) mmol/L Carbon Dioxide 18 L (22-30) mmol/L Calcium 7.8 L (8.4-10.2) mg/dL Microbiology - Last 24 Hours (Table) 11/06/23 13:40 Blood Culture - Preliminary Blood 11/06/23 13:15 Blood Culture - Preliminary Blood Assessment and Plan (1) Gastroenteritis Current Visit: Yes Status: Acute Priority: High Code(s): K52.9 - NONINFECTIVE GASTROENTERITIS AND COLITIS, UNSPECIFIED SNOMED Code(s): 15617969 (2) Metastatic breast cancer Current Visit: No Status: Chronic Priority: Medium Code(s): C50.919 - MALIGNANT NEOPLASM OF UNSP SITE OF UNSPECIFIED FEMALE BREAST SNOMED Code(s): 220930774 (3) Pancytopenia due to chemotherapy Current Visit: Yes Status: Acute Code(s): D61.810 - ANTINEOPLASTIC CH EMOTHERAPY INDUCED PANCYTOPENIA SNOMED Code(s): 1601024 Plan: #Gastroenteritis -Presented with acute abdominal pain, nausea, and watery diarrhea over the past 4 to 5 days -CT abdomen/pelvis revealing enteritis with no acute findings -Nausea and diarrhea have continued to improved since admission with no episodes of diarrhea currently -This is likely viral/bacterial gastroenteritis, which is improving -Diet can be advanced from clear liquid to full liquid diet today -If she is tolerating oral liquids, IV fluid rate can be decreased to 75 or 50 cc/h -Hold Lynparza as this can increase the risk of infection #Pancytopenia -Secondary to acute gastroenteritis superimposed on myelosuppression from Lynparza -Received 2 units of packed red blood cells for hemoglobin of 4.7 on admission -Repeat hemoglobin 11/08/2023 was 6.9 with significant clinical improvement. She continues to have stable neutropenia and thrombocytopenia -Nutritional workup performed on admission revealed no evidence of nutritional deficiencies -Repeat CBC from today is currently pending -Transfuse platelets for platelet count less than or equal to 10 or bleeding -Transfuse packed red blood cells for hemoglobin less than 7 #Metastatic breast cancer -Currently on Lynparza -Hold Lynparza at this time as above Elvira Woo MD
[2023-11-09 15:44] LABS: Anisocytosis Slight; Basophils % (A) 0 %; Eosinophils % (A) 3 %; HGB 7.2 gm/dL (11.4-16.0); Lymphocytes # (A) 0.3 k/uL (1.0-4.8); Lymphocytes % (A) 21 %; MCH 30.5 pg (25.0-35.0); MCHC 34.1 g/dL (31.0-37.0); MCV 89.5 fL (80.0-100.0); Mean Platelet Volume 9.7; Monocytes # (A) 0.1 k/uL (0-1.0); Monocytes % (A) 8 %; Neutrophils # (A) 0.9 k/uL (1.3-7.7); Neutrophils % (A) 65 %; RBC 2.35 m/uL (3.80-5.40); RDW 19.9 % (11.5-15.5)
[2023-11-09 15:45] LABS: WBC 1.4 k/uL (3.8-10.6)
[2023-11-09 15:46] LABS: Platelet Count 92 k/uL (150-450)
[2023-11-10 10:39] LABS: Blood Urea Nitrogen 4.8 mg/dL (9.0-27.0); Calcium 7.7 mg/dL (8.7-10.3); Carbon Dioxide 23.2 mmol/L (21.6-31.8); Chloride 101 mmol/L (96-109); Glucose 86 mg/dL (70-110); Potassium 2.9 mmol/L (3.5-5.5); Sodium 140 mmol/L (135-145)
[2023-11-10 11:15] LABS: Basophils # (A) 0 X 10*3/uL (0.00-0.10); Basophils % (A) 0 %; Eosinophils # (A) 0.06 X 10*3/uL (0.04-0.35); Eosinophils % (A) 4.2 %; HCT 19.8 % (37.2-46.3); HGB 6.5 g/dL (12.0-15.0); Immature Platelet Fraction 8.2 % (1.1-6.1); Lymphocytes # (A) 0.52 X 10*3/uL (0.90-5.00); Lymphocytes % (A) 36.4 %; MCH 29.8 pg (27.0-32.0); MCHC 32.8 g/dL (32.0-37.0); MCV 90.8 FL (80.0-97.0); Mean Platelet Volume 12.4 FL (9.5-12.2); Monocytes # (A) 0.23 X 10*3/uL (0.20-1.00); Monocytes % (A) 16.1 %; NRBC Per 100 WBC 0 X 10*3/uL (0.00-0.01); Neutrophils # (A) 0.58 X 10*3/uL (1.80-7.70); Neutrophils % (A) 40.5 %; Platelet Count 81 X 10*3/uL (140-440); RBC 2.18 X 10*6/uL (4.10-5.20); RBC Morphology Normal (Normal); RDW 19.2 % (11.5-14.5); WBC 1.43 X 10*3/uL (4.50-10.00)
[2023-11-10] MEDS ORDERED: Potassium Replacement Protocol 1 EACH MISC MISCELLANE PRN (12:03)
[2023-11-10] MEDS: POTASSIUM CHLORIDE ER 20 MEQ TAB.ER PO SCH (12:54)
[2023-11-10] MEDS: ZINC OXIDE PASTE (Z-GUARD) 1 APPLIC TOPICAL PRN (15:00)
--- NOTE | 2023-11-10 15:43 | P.PN ---
Subjective Progress Note Date: 11/10/23 No acute events. Patient is reporting persisting but improved lower abdominal discomfort/cramping. Nausea vomiting and diarrhea have subsided, tolerating full liquid diet. Pancytopenia persisting, WBC 1.43, platelets 81,000. Hemoglobin 6.5 today, 1 unit of PRBCs ordered. Objective - Vital Signs Vital signs: Vital Signs Temp 98.0 F 11/10/23 11:50 Pulse 86 11/10/23 11:50 Resp 16 11/10/23 11:50 BP 112/66 11/10/23 11:50 Pulse Ox 94 L 11/10/23 11:50 FiO2 Intake & Output 11/09/23 11/10/23 11/10/23 18:59 06:59 18:59 Other: Voiding Method Toilet Toilet # Voids 4 3 - Constitutional General appearance: Present: no acute distress - EENT Eyes: Present: anicteric sclerae, EOMI ENT: Present: hearing grossly normal - Respiratory Details: breathing is even and unlabored - Cardiovascular Details: skin warm and dry - Gastrointestinal General gastrointestinal: Present: soft, tenderness Localized gastrointestinal: tender: RLQ, LLQ, guarding: RLQ, LLQ - Integumentary Integumentary: Absent: cyanotic, jaundiced - Neurologic Neurologic: Present: CNII-XII intact - Musculoskeletal Musculoskeletal: Present: strength equal bilaterally - Psychiatric Psychiatric: Present: A&O x's 3 - Labs CBC & Chem 7: 11/10/23 05:52 11/10/23 05:52 Labs: Abnormal Lab Results - Last 24 Hours (Table) 11/09/23 11/10/23 11/10/23 Range/Units 14:33 05:52 05:52 WBC 1.4 L* 1.43 A* (3.8-10.6) k/uL RBC 2.35 L 2.18 L (3.80-5.40) m/uL Hgb 7.2 L 6.5 A* (11.4-16.0) gm/dL Hct 21.0 L 19.8 A* (34.0-46.0) % RDW 19.9 H 19.2 H (11.5-15.5) % Plt Count 92 L 81 L (150-450) k/uL MPV 12.4 H (9.5-12.2) FL Neutrophils # 0.9 L 0.58 L (1.3-7.7) k/uL Lymphocytes # 0.3 L 0.52 L (1.0-4.8) k/uL Immature Plt Fraction 8.2 H (1.1-6.1) % Potassium 2.9 L (3.5-5.5) mmol/L Anion Gap 15.80 H (4.00-12.00) mmol/L BUN 4.8 L (9.0-27.0) mg/dL BUN/Creatinine Ratio 8.00 L (12.00-20.00) Ratio Calcium 7.7 L (8.7-10.3) mg/dL Microbiology - Last 24 Hours (Table) 11/06/23 13:40 Blood Culture - Preliminary Blood 11/06/23 13:15 Blood Culture - Preliminary Blood Assessment and Plan (1) Gastroenteritis Current Visit: Yes Status: Acute Priority: High Code(s): K52.9 - NON INFECTIVE GASTROENTERITIS AND COLITIS, UNSPECIFIED SNOMED Code(s): 21183031 (2) Pancytopenia due to chemotherapy Current Visit: Yes Status: Acute Priority: High Code(s): D61.810 - ANTINEOPLASTIC CHEMOTHERAPY INDUCED PANCYTOPENIA SNOMED Code(s): 7616898 (3) Metastatic breast cancer Current Visit: Yes Status: Chronic Priority: Medium Code(s): C50.919 - MALIGNANT NEOPLASM OF UNSP SITE OF UNSPECIFIED FEMALE BREAST SNOMED Code(s): 689121830 Plan: #Gastroenteritis -Presented with acute abdominal pain, nausea, and watery diarrhea over the past 4 to 5 days -CT abdomen/pelvis revealing enteritis with no acute findings -Nausea, vomiting and diarrhea have resolved -This is likely viral/bacterial gastroenteritis, which is improving -Tolerating full liquid diet. If still doing well, will advance diet further in the morning -If she is tolerating oral liquids, IV fluid rate can be decreased to 75 or 50 cc/h -Hold Lynparza as this can increase the risk of infection #Pancytopenia -Secondary to acute gastroenteritis superimposed on myelosuppression from Lynparza -Received 2 units of packed red blood cells for hemoglobin of 4.7 on admission. Additional unit PRBCs ordered today for hgb 6.5 -She continues to have stable neutropenia and thrombocytopenia -Nutritional workup performed on admission revealed no evidence of nutritional deficiencies -Continue to closely monitor CBC -Transfuse platelets for platelet count less than or equal to 10 or bleeding -Transfuse packed red blood cells for hemoglobin less than 7 #Metastatic breast cancer -Currently on Lynparza -Hold Lynparza at this time as above
[2023-11-11 02:22] VITALS: RESP 16
--- NOTE | 2023-11-11 03:02 | P.PN ---
Subjective Progress Note Date: 11/10/23 Patient is a 68-year-old female with a past medical history of metastatic breast cancer with mets to the lung and status post radiation about a week ago, COPD/asthma hypertension, hypothyroidism, obstructive sleep apnea nephrolithiasis and prior history of smoking was sent from Dr. Woo's office. Patient initially presented to the clinic with complaints of nausea vomiting and diarrhea and subjective fevers and chills. Patient had radiation therapy last week and she has not been feeling well since this Friday/. Patient is also on oral chemotherapy. Diarrhea is mainly watery. Denies any blood in the stool. Patient was found to be hypotensive when she was seen at her oncologist office this morning. She was sent to ER for evaluation and possible antibiotics. Denies any cough or sputum production. No chest pain. Patient did have shortness of breath. Denies dysuria or hematuria. Chest x-ray showed no evidence for acute pulmonary process. CT of the abdomen pelvis showed 2.5 cm solid pulmonary nodule paravertebral pleural-based lesion left lower lobe. Question of soft tissue mass anterior abdominal to the right of midline. Possible enteritis, diverticulosis without evidence for diverticulitis, located primarily the sigmoid colon. Cholecystectomy clips. EKG showed sinus rhythm. Patient has been afebrile on admission. Blood pressure was 87/54 Laboratory data showed WBC 1.8 hemoglobin 7.8 and platelets 75 Sodium 129 potassium 3.8 chloride 100 bicarb is 23 BUN 25 and creatinine 0.79 and blood sugar 103 Magnesium 1.8 total bili 1.6 AST ALT within normal limits and alk phos 160 lipase less than 10 Urinalysis is negative for infection [place] RSV and COVID-19 PCR not detected. --Patient is status posttransfusion with 2 units packed RBCs; denies any further dizziness or lightheadedness -- Reports improvement in diarrhea and vomiting; oncology on board and agreeable to blood transfusion and recommending to repeat CBC tomorrow; patient to receive platelet transfusion if platelet count is less than 10 24-hour interval change 11/09/2023 Patient is seen and evaluated with family numbers at bedside; reports marked improvement in weakness and dizziness Vital signs are reviewed with temperature 98, pulse 104, respirations 17 and blood pressure 104/60, O2 saturation 97% on room air Lab review shows sodium 137, potassium 4.4, BUNs/creatinine of 9/0.56, CBC is pending We will plan to continue with current management; plan to transfuse if hemoglobin is less than 7.0 or platelet count is less than 10,000 --Patient's dizziness and lightheadedness has resolved -- Possible discharge in next 24 hours if remains stable 11/10/2023 Patient is seen and evaluated in follow-up today maintained on empiric antibiotics with oncology following. Patient reports to feeling improved and no further nausea or vomiting noted. Potassium at 2.9 today and hemoglobin was found to be less than 7 awaiting to receive 1 unit of PRBC per oncology. Will replace electrolytes and follow-up with repeat labs. Encouraged oral intake with small frequent meals. Encouraged to increase activity as tolerated. Patient reports has been up and to the bathroom and doing well. Review of systems: Constitutional: No reports of fatigue, fever, or chills Cardiovascular: No reports of chest pain or palpitations Respiratory: No reports of shortness of breath or cough GI: No reports of nausea, vomiting, or diarrhea : No reports of dysuria or retention Neurovascular: reports of generalized weakness All medications have been reviewed Physical exam: Patient is sitting up in the bed,, no acute distress, awake alert and oriented. Well-developed, elderly appearing HEENT: Normocephalic. Neck is supple. Pupils reactive. Nostrils clear. Oral cavity is moist. Neck reveals no JVD, carotid bruits, or thyromegaly. CHEST EXAMINATION: Trachea is central. Symmetrical expansion. Lung matthew clear to auscultation and percussion. CARDIAC: Normal S1, S2 with no gallops. No murmurs ABDOMEN: Soft. Bowel sounds normal. No organomegaly. No abdominal bruits. Extremities: reveal no edema. No clubbing or cyanosis Neurologically awake, alert, oriented x3 with well-coordinated movements. No gross focal deficits noted Skin: No rash or skin lesions. Psychiatric: Cooperative. Non-suicidal Musculoskeletal: No joint swelling or deformity. Normal range of motion. Assessment: Nausea vomiting and diarrhea along with subjective fever and chills. Possible enteritis. Likely chemo related, improved Features of sepsis, present on admission, neutropenic, likely secondary to chemo Hypotension due to above Hypovolemic hyponatremia Pancytopenia secondary to chemotherapy Hypothyroidism COPD/asthma not in exacerbation Prior history of radiation pneumonitis Mild protein calorie malnutrition with a BMI of 23.0 Obstructive sleep apnea Prior history of DVT GERD Hypertension Prior history of smoking DVT prophylaxis with Lovenox subcu and GI prophylaxis with PPI Full code Plan: Patient will be continued on IV hydration with normal saline and titrate the dose as patient is eating and drinking. Nausea and vomiting has resolved Cultures thus far negative and patient is continued on empiric antibiotics. Continued on Unasyn for now Symptomatic management for nausea and vomiting. No further nausea or vomiting noted per patient. Replace electrolytes. Oncology following and white count slightly improved although hemoglobin is less than 7 and awaiting to receive a unit of PRBC. Potassium found to be significantly low at 2.9 and will replace per protocol and follow-up on repeat labs Encourage small frequent meals and advance as tolerated Encouraged to increase activity as tolerated. Patient reports has been up and walking Will follow-up on labs and await for improvements in numbers and discuss with oncology regarding discharge planning. Patient would like to go home and reports to feeling improved Possible discharge in 24 to 48 hours. Overall prognosis is guarded The impression and plan of care has been dictated by Georgette Henriquez, Nurse Practitioner as directed. Dr. Bárbara MD I have performed a history and examination and MDM of this patient, discussed the same with the dictator, and agree with the dictator's assessment and plan as written ,documented as a scribe. Based on total visit time, I have performed more than 50% of the visit. Objective - Vital Signs Vital signs: Vital Signs Temp 97.5 F L 11/10/23 07:25 Pulse 85 11/10/23 07:25 Resp 16 11/10/23 07:25 BP 113/64 11/10/23 07:25 Pulse Ox 96 11/10/23 07:25 FiO2 Intake & Output 11/09/23 11/10/23 11/10/23 18:59 06:59 18:59 Other: Voiding Method Toilet Toilet # Voids 4 3 - Labs CBC & Chem 7: 11/10/23 05:52 11/10/23 05:52 Labs: Abnormal Lab Results - Last 24 Hours (Table) 11/09/23 Range/Units 14:33 WBC 1.4 L* (3.8-10.6) k/uL RBC 2.35 L (3.80-5.40) m/uL Hgb 7.2 L (11.4-16.0) gm/dL Hct 21.0 L (34.0-46.0) % RDW 19.9 H (11.5-15.5) % Plt Count 92 L (150-450) k/uL Neutrophils # 0.9 L (1.3-7.7) k/uL Lymphocytes # 0.3 L (1.0-4.8) k/uL Microbiology - Last 24 Hours (Table) 11/06/23 13:40 Blood Culture - Preliminary Blood 11/06/23 13:15 Blood Culture - Preliminary Blood
[2023-11-11 07:12] LABS: Anisocytosis Slight; HCT 25.7 % (34.0-46.0); HGB 8.2 gm/dL (11.4-16.0); MCH 29.5 pg (25.0-35.0); MCHC 31.9 g/dL (31.0-37.0); MCV 92.3 fL (80.0-100.0); Mean Platelet Volume 10.3; Platelet Count 106 k/uL (150-450); RBC 2.78 m/uL (3.80-5.40); RDW 19.2 % (11.5-15.5)
[2023-11-11 08:29] LABS: Eosinophils # (M) 0.08 k/uL (0-0.7); Nucleated Red Blood Cells 0 /100 WBC (0-0)
[2023-11-11 08:35] LABS: Band Neutrophils % 3 %; Lymphocytes # (M) 0.78 k/uL (1.0-4.8); Metamyelocytes # (M) 0.08 k/uL (0); Metamyelocytes % 4 %; Myelocytes # (M) 0.02 k/uL (0); Myelocytes % 1 %; Neutrophils % (M) 40 %; Total Cells Counted 200; Toxic Granulation Present
[2023-11-11 11:25] LABS: ALT 18 U/L (8-44); AST 29 U/L (13-35); Albumin 3.1 g/dL (3.8-4.9); Albumin/Globulin Ratio 1.63 Ratio (1.60-3.17); Alkaline Phosphatase 172 U/L (41-126); BUN/Creat Ratio 5.43 Ratio (12.00-20.00); Blood Urea Nitrogen 3.8 mg/dL (9.0-27.0); Carbon Dioxide 22.1 mmol/L (21.6-31.8); Chloride 110 mmol/L (96-109); Globulin 1.9 g/dL (1.6-3.3); Glucose 79 mg/dL (70-110); Magnesium 1.5 mg/dL (1.5-2.4); Potassium 3.9 mmol/L (3.5-5.5); Sodium 141 mmol/L (135-145); Total Bilirubin 0.5 mg/dL (0.3-1.2)
[2023-11-11] MEDS ORDERED: Magnesium Replacement Protocol 1 EACH MISC MISCELLANE PRN (11:30)
[2023-11-11 12:35] VITALS: BP 105/68; PULSE 100; TEMP 97.5
[2023-11-11] MEDS: MAGNESIUM SULFATE-D5W PMX 1 GM in DEXTROSE/WATER 1 100ML.BAG IVPB SCH (12:47)
--- NOTE | 2023-11-11 13:31 | P.PN ---
Subjective Progress Note Date: 11/11/23 No acute events. She reports feeling well. Patient is reporting improvement in abdominal cramping. Denies n/v/d, tolerating full liquid diet. Counts improving,WBC 2.0, ANC 800, platelets 106,000. Hemoglobin 8.2, s/p 1 unit of PRBCs. Objective - Vital Signs Vital signs: Vital Signs Temp 97.5 F L 11/11/23 11:39 Pulse 100 11/11/23 11:39 Resp 16 11/11/23 11:39 BP 105/68 11/11/23 11:39 Pulse Ox 96 11/11/23 11:39 FiO2 Intake & Output 11/10/23 11/11/23 11/11/23 18:59 06:59 18:59 Intake Total 0 525 Balance 0 525 Intake: Oral 240 Blood Product 0 285 Rc Pheresis Irrad As 3 0 285 Unit [id number] Other: Voiding Method Toilet # Voids 3 2 - Constitutional General appearance: Present: no acute distress - EENT Eyes: Present: anicteric sclerae, EOMI ENT: Present: hearing grossly normal - Respiratory Details: breathing is even and unlabored - Cardiovascular Details: skin warm and dry - Gastrointestinal Gastrointestinal Comment(s): mild tenderness in lower quadrants, no guarding, significantly improved General gastrointestinal: Present: soft - Integumentary Integumentary: Absent: cyanotic - Neurologic Neurologic: Present: CNII-XII intact - Musculoskeletal Musculoskeletal: Present: strength equal bilaterally - Psychiatric Psychiatric: Present: A&O x's 3 - Labs CBC & Chem 7: 11/11/23 06:43 11/11/23 06:43 Labs: Abnormal Lab Results - Last 24 Hours (Table) 11/07/23 11/11/23 11/11/23 Range/Units 11:53 06:43 06:43 WBC 2.0 L (3.8-10.6) k/uL RBC 2.78 L (3.80-5.40) m/uL Hgb 8.2 L (11.4-16.0) gm/dL Hct 25.7 L (34.0-46.0) % RDW 19.2 H (11.5-15.5) % Plt Count 106 L (150-450) k/uL Neutrophils # (Manual) 0.80 L (1.3-7.7) k/uL Lymphocytes # (Manual) 0.78 L (1.0-4.8) k/uL Metamyelocytes # (Man) 0.08 H (0) k/uL Myelocytes # (Manual) 0.02 H (0) k/uL Chloride 110 H (96-109) mmol/L BUN 3.8 L (9.0-27.0) mg/dL BUN/Creatinine Ratio 5.43 L (12.00-20.00) Ratio Calcium 8.0 L (8.7-10.3) mg/dL Alkaline Phosphatase 172 H (41-126) U/L Total Protein 5.0 L (6.2-8.2) g/dL Albumin 3.1 L (3.8-4.9) g/dL Crossmatch See Detail Assessment and Plan (1) Gastroenteritis Current Visit: Yes Status: Acute Priority: High Code(s): K52.9 - NONINFECTIVE GASTROENTERITIS AND COLITIS, UNSPECIFIED SNOMED Code(s): 78699635 (2) Pancytopenia due to chemotherapy Current Visit: Yes Status: Acute Priority: High Code(s): D61.810 - ANTINEOPLASTIC CHEMOTHERAPY INDUCED PANCYTOPENIA SNOMED Code(s): 2961733 (3) Metastatic breast cancer Current Visit: Yes Status: Chronic Priority: Medium Code(s): C50.919 - MALIGNANT NEOPLASM OF UNSP SITE OF UNSPECIFIED FEMALE BREAST SNOMED Code(s): 183529033 Plan: #Gastroenteritis -Presented with acute abdominal pain, nausea, and watery diarrhea over the past 4 to 5 days -CT abdomen/pelvis revealing enteritis with no acute findings -Nausea, vomiting and diarrhea have resolved -This is likely viral/bacterial gastroenteritis, which is improving -Tolerating full liquid diet. Abd cramping significantly improved -Hold Lynparza as this can increase the risk of infection #Pancytopenia -Secondary to acute gastroenteritis superimposed on myelosuppression from Lynparza -Received 2 units of packed red blood cells for hemoglobin of 4.7 on admission. Additional unit PRBCs ordered yesterday for hgb 6.5. Repeat hgb today 8.2 -She continues to have stable neutropenia and thrombocytopenia. WBC improved today to 2.0, ANC 800 -Nutritional workup performed on admission revealed no evidence of nutritional deficiencies -Continue to closely monitor CBC -Transfuse platelets for platelet count less than or equal to 10 or bleeding -Transfuse packed red blood cells for hemoglobin less than 7 #Metastatic breast cancer -Currently on Lynparza -Hold Lynparza at this time. Will plan to restart medication when ANC > 1000. Lab encounter scheduled this friday to recheck CBC, and subsequent clinic f/u. Pt updated on POC and was agreeable
== END 2023-11-11 16:25 | disposition home health service (06) | DRG 871 ==
LOC: EC 11:05 → 5NMEDONC 14:37
PROVIDERS: ADMIT Internal Medicine; ATTEND Internal Medicine
DX: A41.9 Sepsis, unspecified organism (principal); D61.810 Antineoplastic chemotherapy induced pancytopenia; K52.1 Toxic gastroenteritis and colitis; E87.1 Hypo-osmolality and hyponatremia; E44.1 Mild protein-calorie malnutrition; K56.609 Unspecified intestinal obstruction, unspecified as to partial versus complete obstruction; J70.0 Acute pulmonary manifestations due to radiation; C78.00 Secondary malignant neoplasm of unspecified lung; E86.1 Hypovolemia; T45.1X5A Adverse effect of antineoplastic and immunosuppressive drugs, initial encounter; X58.XXXA Exposure to other specified factors, initial encounter; Z79.890 Hormone replacement therapy; E03.9 Hypothyroidism, unspecified; G47.33 Obstructive sleep apnea (adult) (pediatric); J44.89 Other specified chronic obstructive pulmonary disease; Z86.718 Personal history of other venous thrombosis and embolism; I10 Essential (primary) hypertension; D70.1 Agranulocytosis secondary to cancer chemotherapy; Z92.3 Personal history of irradiation; K21.9 Gastro-esophageal reflux disease without esophagitis; E11.51 Type 2 diabetes mellitus with diabetic peripheral angiopathy without gangrene; G43.909 Migraine, unspecified, not intractable, without status migrainosus; Z79.51 Long term (current) use of inhaled steroids; Z79.82 Long term (current) use of aspirin; Z82.49 Family history of ischemic heart disease and other diseases of the circulatory system; Z87.442 Personal history of urinary calculi; Z85.3 Personal history of malignant neoplasm of breast; Z90.711 Acquired absence of uterus with remaining cervical stump; Z91.013 Allergy to seafood; Z88.2 Allergy status to sulfonamides
CPT/HCPCS: 36415; 36430; 71046; 74177; 80048; 80053; 81003; 82150; 82607; 82728; 82746; 83540; 83550; 83605; 83690; 83735; 84100; 85025; 85027; 86850; 86900; 86901; 86920; 87040; 87636; 93005; 94640; 96361; 96374; 96375; 96376; 99285

== ENCOUNTER 2024-01-09 09:15 | Day surgery (SDC) | payer MEDICARE ==
[~2024-01-09 09:15] MED LIST changes: -ACETAMINOPHEN TAB 500 MG TAB PO PRN; -DEXAMETHASONE SOD PHOSPHATE 4 MG/ML 1 ML VIAL IV ONE; -HEPARIN SODIUM,PORCINE/PF 5,000 UNIT/0.5 ML SYRINGE SQ PRN; -LACTATED RINGERS 1,000 ML IV SCH; -ONDANSETRON 4 MG/2 ML VIAL IVP ONE
[2024-01-09] MEDS: IV FLUID CONTINUATION 1,000 ML IV ONE (09:36)
[2024-01-09 09:48] VITALS: TEMP 98.2
[2024-01-09] MEDS: BUPIVACAINE (PF) 0.25% 30 ML VIAL SQ ONE (09:49)
[2024-01-09] MEDS: HEPARIN SODIUM,PORCINE 5,000 UNIT/ML 1 ML VIAL SQ PRN (09:58)
[2024-01-09] MEDS: ACETAMINOPHEN TAB 500 MG TAB PO PRN (09:58)
[2024-01-09] MEDS: LACTATED RINGERS 1,000 ML IV SCH (09:59)
[2024-01-09] MEDS: ONDANSETRON 4 MG/2 ML VIAL IVP ONE (09:59)
[2024-01-09] MEDS: DEXAMETHASONE SOD PHOSPHATE 4 MG/ML 1 ML VIAL IV ONE (09:59)
--- NOTE | 2024-01-09 10:12 | P.GSHP ---
History of Present Illness H&P Date: 01/09/24 Chief Complaint: Recurrent breast cancer 68-year-old female here today for Port-A-Cath removal. Patient has had evidence of recent recurrence from her right breast cancer. She has an open wound on the right chest wall. The port is just medial to this open wound and actually has an opening in the skin superficial to the port. You can see portion of the port. They are doing oral chemotherapy as a palliative measure currently. Past Medical History Past Medical History: Asthma, Cancer, COPD, Deep Vein Thrombosis (DVT), GERD/Reflux, Myocardial Infarction (CA), Sleep Apnea/CPAP/BIPAP, Thyroid Disorder Additional Past Medical History / Comment(s): right breast cancer, diagnosis was 1997 treated by lumpectomy radiation therapy and chemotherapy and subsequent recurrence in September 2017 and the patient developed chest wall recurrence, supraclavicular lymph node involvement and axillary lymph node involvement. history of nephrolithiasis, previous history of E. coli in January 2018, migraines, shingles more than 20 years ago, PVD. mild arthritis skin cancer also Last Myocardial Infarction Date:: 2008 History of Any Multi-Drug Resistant Organisms: None Reported Past Surgical History: Appendectomy, Section, Cholecystectomy, Hysterectomy Additional Past Surgical History / Comment(s): Laparoscopy, 1997RT BREAST BX/ Lumpectomy with lymph node resection in 1997 ON RIGHT BREAST DID RADIATION AND CHEMO, STILL HAS METAL CLIPS IN SCOTTY BREASTS FROM WHEN THEY DID MAMORGAMS AND BIOPSIES. 09/2017 HAD "REOCCURANCE OF RT BREAST CANCER THEY REMOVED THE REMAINING LYMPH NODES RT AXILLA/ / NECK AND IS ON ORL CHEMO" . PT STATED "HAD PARTIAL HYSTERECTOMY STILL HAD 1 OVARY BUT THE CHEMO TX DESTROYED IT". med port, skin leision removed, mets to lungs Past Anesthesia/Blood Transfusion Reactions: No Reported Reaction, Postoperative Nausea & Vomiting (PONV) Additional Past Anesthesia/Blood Transfusion Reaction / Comment(s): CLAUSTERPHOBIA. Brother almost coded x2 . Smoking Status: Former smoker - Past Family History Father Family Medical History: Hypertension Additional Family Medical History / Comment(s): DIVERTICULITIS, IN HIS SLEEP AT AGE 81 Mother Family Medical History: Cancer, Hypertension Additional Family Medical History / Comment(s): BREAST CANCER Medications and Allergies Home Medications Medication Instructions Recorded Confirmed Type Albuterol Sulfate [Ventolin HFA] 2 puff INHALATION RT-Q4H PRN 11/23/13 01/07/24 History Budesonide-Formot 160-4.5 Mcg 2 puff INHALATION RT-BID 09/15/14 01/07/24 History [Symbicort 160-4.5 Mcg Inhaler] Omeprazole [PriLOSEC] 20 mg PO DAILY 01/20/15 01/07/24 History Albuterol Nebulized [Ventolin 2.5 mg INHALATION RT-QID PRN 05/16/16 01/07/24 History Nebulized] Aspirin EC [Ecotrin Low Dose] 81 mg PO DAILY 07/20/19 01/07/24 History Cetirizine HCl [Zyrtec] 10 mg PO DAILY 07/20/19 01/07/24 History Levothyroxine Sodium [Synthroid] 100 mcg PO DAILY 05/22/22 01/07/24 History Acetaminophen Tab [Tylenol] 1,000 mg PO Q6HR PRN #30 tablet 05/24/22 01/07/24 Rx traMADol HCL 50 mg PO Q4H PRN 04/11/23 01/07/24 History Calcium Carbonate/Vitamin D3 2 tab PO DAILY 11/06/23 01/07/24 History [Calcium 600 mg-D3 20 mcg (800 unit)] HYDROcodone/APAP 10-325MG [[place] 1 tab PO Q6HR PRN 11/06/23 01/07/24 History 10-325] Mupirocin 2% Oint [Bactroban 2% 1 applic TOPICAL DIRECTED 11/06/23 01/07/24 History Oint] Nystatin 100,000 Unit/ml Susp 5 ml PO QID PRN 11/06/23 01/07/24 History [Mycostatin Oral Susp] Vaseline 1 applic TOPICAL DIRECTED 11/06/23 01/07/24 History metroNIDAZOLE 0.75% CREAM 1 applic TOPICAL DIRECTED 11/06/23 01/07/24 History [Metrocream 0.75%] Allergies Allergy/AdvReac Type Severity Reaction Status Date / Time shellfish derived [Shrimp] Allergy Mild Unknown Verified 01/09/24 09:46 Sulfa (Sulfonamide Allergy rash & Verified 01/09/24 09:46 Antibiotics) severe headache sulfamethoxazole Allergy rash & Verified 01/09/24 09:46 [From Bactrim] severe headache trimethoprim [From Bactrim] Allergy rash & Verified 01/09/24 09:46 severe headache clarithromycin [From Biaxin] AdvReac rash & Verified 01/09/24 09:46 severe headache Surgical - Exam Vital Signs Temp Pulse Resp BP Pulse Ox 98.2 F 101 H 16 127/83 98 01/09/24 09:47 01/09/24 09:47 01/09/24 09:47 01/09/24 09:47 01/09/24 09:47 Physical exam: General: Well-developed, well-nourished HEENT: Normocephalic, sclerae nonicteric Abdomen: Nontender, nondistended Extremities: No edema Neuro: Alert and oriented Chest: Large open wound right chest wall with induration and tenderness present, port medial to that with wound superficial to the port itself Assessment and Plan (1) Metastatic breast cancer Narrative/Plan: 68-year-old female with metastatic recurrent breast cancer. Will proceed with Port-A-Cath removal at this time. Discussed that this would lead to a small wound at the port site. Patient is agreeable. Current Visit: No Status: Chronic Priority: Medium Code(s): C50.919 - MALIGNANT NEOPLASM OF UNSP SITE OF UNSPECIFIED FEMALE BREAST SNOMED Code(s): 805234445
[2024-01-09] MEDS: LIDOCAINE 1% INJ 10MG/ML (20 ML MDV) SQ ONE ×3 (10:27→11:16)
[2024-01-09] MEDS ORDERED: MIDAZOLAM 2 MG/2 ML VIAL ONE (10:53)
[2024-01-09] MEDS ORDERED: PHENYLEPHRINE-0.9% NACL SYG 1,000 MCG/10 ML SYRINGE ONE (10:53)
[2024-01-09] MEDS ORDERED: PROPOFOL 10 MG/ML 20 ML VIAL IV ONE (10:53)
[2024-01-09] MEDS ORDERED: fentaNYL (PF) 50 MCG/ML 2 ML AMP ONE (10:53)
[2024-01-09] MEDS: BACITRACIN ZINC 500 UNIT/GM OINT 28.4 GM TUBE TOPICAL ONE (11:28)
[2024-01-09] MEDS ORDERED: traMADol 50 MG TAB PO PRN (11:33)
[2024-01-09] MEDS ORDERED: ACETAMINOPHEN TAB 325 MG TAB PO PRN (11:33)
[2024-01-09] MEDS ORDERED: NALOXONE 0.4 MG/ML 1 ML VIAL IV PRN (11:33)
--- NOTE | 2024-01-09 11:36 | P.OP ---
Date of Procedure: 01/09/24 Procedure(s) Performed: PREOPERATIVE DIAGNOSIS: Breast cancer POSTOPERATIVE DIAGNOSIS: Same PROCEDURE: Port-A-Cath removal SURGEON: Tom EBL: Minimal ANESTHESIA: Sedation COMPLICATIONS: None OPERATIVE PROCEDURE: Patient was placed in the supine position. The patient was sedated per anesthesia that time. The chest was prepped and draped in the usual sterile fashion. The skin was localized with Marcaine solution. The patient had a large wound across the right chest wall from recurrent breast cancer. There was a defect in the skin over the port. This was enlarged slightly and the port was able to be removed using both blunt dissection and cautery. The catheter was fully intact. The catheter tract was closed using a 3-0 Vicryl stitch. The wound was then packed with lightly moistened saline and bacitracin over the wound bed. DISPOSITION: Stable to recovery room
[2024-01-09] MEDS: HYDROcodone/APAP 5-325MG 1 EACH TAB PO PRN (12:26)
[2024-01-09 12:31] VITALS: RESP 18
[2024-01-09 12:34] VITALS: BP 107/68; PULSE 88
== END 2024-01-09 13:30 | disposition home or self-care (01) ==
LOC: OR 09:15
PROVIDERS: ATTEND Surgery
DX: Z45.2 Encounter for adjustment and management of vascular access device (principal); C50.111 Malignant neoplasm of central portion of right female breast; Z80.3 Family history of malignant neoplasm of breast; I10 Essential (primary) hypertension; J44.9 Chronic obstructive pulmonary disease, unspecified; G47.33 Obstructive sleep apnea (adult) (pediatric); G89.3 Neoplasm related pain (acute) (chronic); K21.9 Gastro-esophageal reflux disease without esophagitis; E03.9 Hypothyroidism, unspecified; G43.909 Migraine, unspecified, not intractable, without status migrainosus; Z86.718 Personal history of other venous thrombosis and embolism; Z87.891 Personal history of nicotine dependence; Z88.1 Allergy status to other antibiotic agents; Z88.2 Allergy status to sulfonamides; Z88.3 Allergy status to other anti-infective agents; Z91.013 Allergy to seafood; Z79.51 Long term (current) use of inhaled steroids; Z79.82 Long term (current) use of aspirin; Z79.899 Other long term (current) drug therapy; Z79.890 Hormone replacement therapy
CPT/HCPCS: 36590; J2250; J1100; J0690; J2405; J2001; J3010; J2704; J2371

== ENCOUNTER → 2024-04-02 | Outpatient (CLI) | payer MEDICARE ==
--- NOTE | 2024-04-02 10:30 | MM ---
Reason for Exam: Clinical finding. Last mammogram was performed 6 year(s) and 6 month(s) ago. Patient History: Menarche at age 19. First Full-Term at age 29. Left ovary removed at age 30. Hysterectomy at age 30. Breast Cancer, age 43. Excisional Biopsy on the Left side. Excisional Biopsy on the Right side. Excisional Biopsy on the Right side. 1997, Lumpectomy on the Right side. 1997, Chemotherapy. 1997, Radiation Therapy. Mother had breast cancer, age 58. Prior Study Comparison: 09/24/2016 Screening Mammogram, Unknown. 09/23/2017 Bilateral Diagnostic Mammogram, [facility]. Tissue Density: Left: The breasts are heterogeneously dense, which may obscure small masses. Findings: Analyzed By CAD. There is a new area of ill-defined density within the 12:00 anterior position left breast correlating with the palpable region. Ultrasound of this region is recommended. Patient also has a palpable region within the left axilla. Ultrasound left axilla is recommended. There is diffuse skin thickening within the left breast. Patient has clinical changes within the right breast. Patient refused right breast mammography and ultrasound at this time. Overall Assessment: Incomplete: need additional imaging evaluation, BI-RAD 0 Management: Diagnostic Breast Ultrasound of the left breast. A negative mammogram report should not preclude additional follow up of suspicious palpable abnormalities. Patient should continue monthly self breast exam. A clinical breast exam by your physician is recommended on an annual basis and results should be correlated with mammographic findings. Note on Carmelina scores and lifetime risk: 1. A Carmelina score greater than 3% is considered moderate risk. If this is the case, consider specialist referral to assess eligibility for a risk reducing agent. 2. If overall lifetime risk for the development of breast cancer is 20% or higher, the patient may qualify for future screening with alternating mammogram and breast MRI. [facility], , 04/02/2024 10:16 AM. Electronically signed and approved by: Panfilo Shah D.O. Radiologis
== END | disposition home or self-care (01) ==
LOC: RADMAMWWP 08:51
PROVIDERS: ATTEND Surgery
DX: N63.0 Unspecified lump in unspecified breast
CPT/HCPCS: 77061; 77065

== ENCOUNTER → 2024-04-02 | Outpatient (CLI) | payer MEDICARE ==
--- NOTE | 2024-04-02 10:14 | USB ---
Patient History: Menarche at age 19. First Full-Term at age 29. Left ovary removed at age 30. Hysterectomy at age 30. Breast cancer, age 43. Excisional Biopsy on the Left side. Excisional Biopsy on the Right side. Excisional Biopsy on the Right side. 1997, Lumpectomy on the Right side. 1997, Chemotherapy. 1997, Radiation Therapy. Mother had breast cancer, age 58. Technique: Method: Targeted. Prior Study Comparison: 09/24/2016 Screening Mammogram, Unknown. 09/23/2017 Bilateral Diagnostic Mammogram, [facility]. Findings: The area of palpable concern of the left breast, the axilla of the left breast and the retroareolar of the left breast were scanned. Large lobular mass within the left breast measuring 4.7 x 2.7 x 4.8 cm. Large margins of left axillary region measuring 2.4 x 1.7 x 2.4 cm.. The patient refused right breast imaging this time. Clinical management recommended. Left breast skin thickening on mammography. Consider inflammatory breast cancer within the differential as well. Overall Assessment: Highly suggestive of malignancy, BI-RAD 5 Management: Ultrasound Core Biopsy of the left breast. Surgical Consultation of both breasts. A clinical breast exam by your physician is recommended on an annual basis and results should be correlated with mammographic findings. This exam should not preclude additional follow-up of suspicious palpable abnormalities. Results were given to the patient verbally at the time of exam. [facility], , 04/02/2024 10:01 AM. Electronically signed and approved by: Panfilo Shah D.O. Radiologis
== END | disposition home or self-care (01) ==
LOC: RADUSWWP 08:54
PROVIDERS: ATTEND Surgery
DX: N63.0 Unspecified lump in unspecified breast

== ENCOUNTER → 2024-04-21 | Day surgery (SDC) | payer MEDICARE ==
--- NOTE | 2024-04-27 08:43 | MM ---
Reason for Exam: Post Procedure Mammogram. Last mammogram was performed 6 year(s) and 7 month(s) ago. Patient History: Menarche at age 19. First Full-Term at age 29. Left ovary removed at age 30. Hysterectomy at age 30. Breast cancer, age 43. Excisional Biopsy on the Left side. Excisional Biopsy on the Right side. Excisional Biopsy on the Right side. 1997, Lumpectomy on the Right side. 1997, Chemotherapy. 1997, Radiation Therapy. Mother had breast cancer, age 58. Prior Study Comparison: 09/24/2016 Screening Mammogram, Unknown. 09/23/2017 Bilateral Diagnostic Mammogram, [facility]. 04/02/2024 Left MG 3D diag mammo w/cad LT, [facility]. Tissue Density: Left: There are scattered areas of fibroglandular density. Pathology Description: Location: axillary tail. Marker Left Behind. Needle Type: Celero Cores: 3 Gauge: 12 Pathology Description: Location: 12 o'clock. Marker Left Behind. Needle Type: Celero Cores: 3 Gauge: 12 The procedure of ultrasound guided core biopsy was explained to the patient. Benefits, alternatives, and risks were discussed. An informed consent was then obtained. The patient was placed in supine positioning for imaging and for the procedure. The overlying skin was prepped and draped in usual sterile fashion. Lidocaine buffered with bicarbonate was used as anesthetic into the skin and subcutaneous tissue up to area of concern in the left 12:00 breast as well as abnormal lymph node within the left axilla. Under ultrasound guidance, a 12-gauge vacuum assisted biopsy gun device was used to obtain 3 core samples from the left 12:00 mass as well as 2 core samples from the left axillary lymph node.. Following this, a biopsy clips were placed in each lesion. The patient tolerated the procedure well without any immediate complication. The patient was kept in the radiology department for short stay after the procedure and then discharged home in stable condition. Postprocedure mammogram: The patient was transferred to mammography for physician ordered post procedure mammogram for clip placement verification. Impression: 2 site Successful, uncomplicated ultrasound guided core biopsy of area of concern in the left 12:00 breast and left axilla, full pathology results to follow. [facility], , 04/21/2024 12:54 PM. Pathology Results: Result: Malignant, Invasive ductal carcinoma. A. 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 B. LEFT AXILLA, ULTRASOUND GUIDED NEEDLE CORE BIOPSY: High grade ductal mammary carcinoma with abundant necrosis and scant lymphoid tissue present. (see Cancer Case Summary and Comment). Overall Assessment: Malignant Assessment: MG diagnostic mammo LT wo CAD. - Left: Known biopsy proven malignancy, BI-RAD 6. Management: Surgical Consultation of the left breast. Electronically signed and approved by: Quinn Verdugo M.D. Radiologis
== END ==
LOC: RADUSWWP 10:23
PROVIDERS: ATTEND Surgery
DX: C50.812 Malignant neoplasm of overlapping sites of left female breast (principal); C77.3 Secondary and unspecified malignant neoplasm of axilla and upper limb lymph nodes; Z17.1 Estrogen receptor negative status [ER-]; Z17.22 Progesterone receptor negative status; Z17.32 Human epidermal growth factor receptor 2 negative status; Z90.710 Acquired absence of both cervix and uterus; Z90.721 Acquired absence of ovaries, unilateral; Z92.21 Personal history of antineoplastic chemotherapy; Z92.3 Personal history of irradiation; Z80.3 Family history of malignant neoplasm of breast
CPT/HCPCS: 88305; 88342; 88341; 77065; 38505; 19083; A4648